=== PATIENT | female | born 1955 | race Caucasian/White ===

== ENCOUNTER → 2017-06-13 11:39 | Outpatient (CLI) | payer OTHER, SELFPAY ==
[2017-06-13 14:44] LABS: Absolute Lymphocyte Count 1.45 X10^3/ul (0.83-4.51); Absolute Neutrophil Count 5.1 X10^3/uL (2.0-7.7); Basophil# 0.02 X10^3/uL; Basophil% 0.3 % (0-1); Eosinophil# 0.05 X10^3/uL; Eosinophils% 0.7 % (0-5); Hematocrit 43.6 % (37-47); Hemoglobin 14.6 g/dl (12.0-15.0); Lymphocyte # 1.45 X10^3/ul (4.0); Mean Corp Hgb Conc 33.5 g/gl (32-36); Mean Corpuscular Hgb 31.7 pg (27.0-32.0); Mean Corpuscular Volume 94.6 fL (81-99); Mean Platelet Vol. 12.3 fl (6.2-12.0); Monocyte# 0.65 X10^3/uL; Neutrophil # 5.08 X10^3/uL (2.7-7.7); Neutrophil % 69.9 % (47-70); Platelet Count 219 K/mm3 (150-450); RBC Distribution Width CV 13.3 % (11.6-14.6); RBC Distribution Width SD 44.1 fl (35.1-43.9); Red Blood Count 4.61 M/mm3 (4.2-5.4); White Blood Count 7.3 K/mm3 (4.4-11.0)
[2017-06-13 14:48] LABS: POSITIVE COUNT NO; POSITIVE DIFFERENTIAL NO; POSITIVE MORPHOLOGY NO
[2017-06-13 14:49] LABS: ALB/GLOB Ratio 1.2 RATIO (0.9-2.4); AST(SGOT) 19 U/L (15-37); Alanine Aminotransfer ALT/SGPT 38 U/L (12-78); Alkaline Phosphatase 53 U/L (45-117); Anion Gap 9 (5-15); BUN 13 mg/dL (7-18); BUN/Creat Ratio 16.1 RATIO (10-20); Calcium,Total 9.1 mg/dL (8.5-10.1); Chloride 103 mmol/L (98-107); EST Glomerular Filtration Rate 76 mL/min (>60); Est Glom Filt Rate - Afr Amer 92 mL/min (>60); Globulin 3.4 g/dL (2.2-4.2); Glucose 87 mg/dL (70-110); Potassium 3.7 mmol/L (3.5-5.1); Protein, Total 7.4 g/dL (6.4-8.2); Sodium Level 139 mmol/L (136-145)
== END ==
PROVIDERS: Family Provider Family Medicine; PCP Family Medicine; Visit Provider Internal Medicine Rheumatology
DX: M05.79 Rheumatoid arthritis with rheumatoid factor of multiple sites without organ or systems involvement (principal); K21.9 Gastro-esophageal reflux disease without esophagitis; I10 Essential (primary) hypertension; E03.9 Hypothyroidism, unspecified; I48.0 Paroxysmal atrial fibrillation; E78.5 Hyperlipidemia, unspecified; Z79.899 Other long term (current) drug therapy
CPT/HCPCS: 36415; 80053; 85025

== ENCOUNTER → 2017-09-05 12:53 | Outpatient (CLI) | payer OTHER, SELFPAY ==
[2017-09-05 14:11] LABS: Absolute Lymphocyte Count 1.56 X10^3/ul (0.83-4.51); Absolute Neutrophil Count 6.1 X10^3/uL (2.0-7.7); Basophil# 0.02 X10^3/uL; Basophil% 0.2 % (0-1); Eosinophil# 0.04 X10^3/uL; Eosinophils% 0.5 % (0-5); Hematocrit 42.6 % (37-47); Hemoglobin 14.4 g/dl (12.0-15.0); Lymphocyte # 1.56 X10^3/ul (4.0); Lymphocyte % 18.5 % (19-41); Mean Corp Hgb Conc 33.8 g/gl (32-36); Mean Corpuscular Hgb 32.3 pg (27.0-32.0); Mean Corpuscular Volume 95.5 fL (81-99); Mean Platelet Vol. 11.8 fl (6.2-12.0); Monocyte# 0.69 X10^3/uL; Monocyte% 8.2 % (0-10); Neutrophil # 6.09 X10^3/uL (2.7-7.7); Neutrophil % 72.5 % (47-70); POSITIVE COUNT NO; POSITIVE DIFFERENTIAL NO; POSITIVE MORPHOLOGY NO; Platelet Count 225 K/mm3 (150-450); RBC Distribution Width CV 13.5 % (11.6-14.6); RBC Distribution Width SD 45.6 fl (35.1-43.9); Red Blood Count 4.46 M/mm3 (4.2-5.4); White Blood Count 8.4 K/mm3 (4.4-11.0)
[2017-09-05 14:24] LABS: ALB/GLOB Ratio 1.2 RATIO (0.9-2.4); AST(SGOT) 19 U/L (15-37); Alanine Aminotransfer ALT/SGPT 27 U/L (13-56); Alkaline Phosphatase 58 U/L (45-117); Anion Gap 5 (5-15); BUN 13 mg/dL (7-18); BUN/Creat Ratio 15.4 RATIO (10-20); Calcium,Total 9.3 mg/dL (8.5-10.1); Chloride 106 mmol/L (98-107); Creatinine, Serum 0.84 mg/dL (0.55-1.02); EST Glomerular Filtration Rate 72 mL/min (>60); Est Glom Filt Rate - Afr Amer 88 mL/min (>60); Globulin 3.4 g/dL (2.2-4.2); Glucose 89 mg/dL (74-106); Potassium 4.3 mmol/L (3.5-5.1); Protein, Total 7.4 g/dL (6.4-8.2); Sodium Level 141 mmol/L (136-145)
== END ==
PROVIDERS: Family Provider Family Medicine; PCP Family Medicine; Visit Provider Internal Medicine Rheumatology
DX: M05.79 Rheumatoid arthritis with rheumatoid factor of multiple sites without organ or systems involvement (principal); K21.9 Gastro-esophageal reflux disease without esophagitis; I10 Essential (primary) hypertension; E03.9 Hypothyroidism, unspecified; I48.0 Paroxysmal atrial fibrillation; E78.5 Hyperlipidemia, unspecified; Z79.899 Other long term (current) drug therapy
CPT/HCPCS: 36415; 80053; 85025

== ENCOUNTER → 2017-11-29 11:30 | Outpatient (CLI) | payer OTHER, SELFPAY ==
--- NOTE | 2017-11-29 11:34 | RAD_ITS ---
STUDY: X-RAY - PELVIS REASON FOR EXAM: Female, 62 years old. Rheumatoid arthritis. TECHNIQUE: One view of the pelvis was obtained. COMPARISON: None. FINDINGS: There is a non-specific bowel gas pattern. Normal visualized soft tissue structures. Normal bilateral iliac wings, sacroiliac joints and visualized sacrum. Normal visualized bilateral superior and inferior pubic rami. Normal pubic symphysis. Normal ischial tuberosities. Normal visualized right femoral head. Normal right acetabulum. Normal right hip joint. Normal visualized left femoral head. Normal left acetabulum. Normal left hip joint. RAD/Pelvis 1 or 2 Views IMPRESSION: Normal x-ray examination of the pelvis. Electronically Signed: Cali Warner MD at 20:56 EDT , Service support ,
[2017-11-29 14:03] LABS: Absolute Lymphocyte Count 1.86 X10^3/ul (0.83-4.51); Basophil# 0.03 X10^3/uL; Basophil% 0.3 % (0-1); Eosinophils% 1.1 % (0-5); Hematocrit 43.8 % (37-47); Hemoglobin 14.6 g/dl (12.0-15.0); Lymphocyte # 1.86 X10^3/ul (4.0); Mean Corp Hgb Conc 33.3 g/gl (32-36); Mean Corpuscular Hgb 31.3 pg (27.0-32.0); Mean Corpuscular Volume 93.8 fL (81-99); Mean Platelet Vol. 12.4 fl (6.2-12.0); Monocyte# 0.82 X10^3/uL; Monocyte% 9.3 % (0-10); Neutrophil # 6.02 X10^3/uL (2.7-7.7); Neutrophil % 68.2 % (47-70); POSITIVE COUNT NO; POSITIVE DIFFERENTIAL NO; POSITIVE MORPHOLOGY NO; Platelet Count 202 K/mm3 (150-450); RBC Distribution Width CV 12.9 % (11.6-14.6); Red Blood Count 4.67 M/mm3 (4.2-5.4); White Blood Count 8.8 K/mm3 (4.4-11.0)
[2017-11-29 14:19] LABS: ALB/GLOB Ratio 1.4 RATIO (0.9-2.4); AST(SGOT) 14 U/L (15-37); Alanine Aminotransfer ALT/SGPT 27 U/L (13-56); Albumin, Serum 4.2 g/dL (3.2-5.0); Alkaline Phosphatase 54 U/L (45-117); Anion Gap 8 (5-15); BUN 16 mg/dL (7-18); BUN/Creat Ratio 19.4 RATIO (10-20); Calcium,Total 9.3 mg/dL (8.5-10.1); Chloride 104 mmol/L (98-107); Creatinine, Serum 0.82 mg/dL (0.55-1.02); EST Glomerular Filtration Rate 74 mL/min (>60); Est Glom Filt Rate - Afr Amer 90 mL/min (>60); Globulin 2.9 g/dL (2.2-4.2); Glucose 75 mg/dL (74-106); Potassium 3.8 mmol/L (3.5-5.1); Protein, Total 7.1 g/dL (6.4-8.2); Sodium Level 140 mmol/L (136-145)
== END ==
PROVIDERS: Family Provider Internal Medicine; PCP Internal Medicine; Visit Provider Internal Medicine Rheumatology
DX: M05.79 Rheumatoid arthritis with rheumatoid factor of multiple sites without organ or systems involvement (principal); K21.9 Gastro-esophageal reflux disease without esophagitis; I10 Essential (primary) hypertension; E03.9 Hypothyroidism, unspecified; I48.0 Paroxysmal atrial fibrillation; E78.5 Hyperlipidemia, unspecified; Z79.899 Other long term (current) drug therapy
CPT/HCPCS: 36415; 72170; 80053; 85025

== ENCOUNTER → 2018-01-20 14:14 | Outpatient (CLI) | payer OTHER, SELFPAY ==
[2018-01-20 14:21] LABS: Bacteria 0 SEEN /hpf (None Seen); Mucous, Urine 0 SEEN /hpf (<or=2+)
[2018-01-20 14:37] LABS: Color, Urine Yellow (Yellow); Glucose, Dipstick Normal (Normal); Ketone-Dipstick Negative (Negative); Leukocyte Esterase-Dipstick 100 /ul (Negative); Nitrite-Dipstick Negative (Negative); Occult Blood-Urine 25 /ul (Negative); Protein-Dipstick Negative (Negative); Urine Bilirubin Dipstick Negative (Negative); Urine Clarity Sl. Cloudy (Clear); Urine Urobilinogen Normal (Normal)
[2018-01-20 14:43] LABS: Red Blood Cells-Urine 0-5 SEEN /hpf (0-5); Squamous Epithelial Cells - UA 0-5 SEEN /hpf (5-10); White Blood Cells 10-25 SEEN /hpf (0-5)
== END ==
PROVIDERS: Visit Provider Internal Medicine
DX: N39.0 Urinary tract infection, site not specified (principal)
CPT/HCPCS: 81001; 87086

== ENCOUNTER → 2018-07-07 13:22 | Outpatient (CLI) | payer OTHER, SELFPAY ==
[2018-06-23 09:37] VITALS: BMI 32.4
[2018-07-07 15:54] LABS: Absolute Lymphocyte Count 1.52 X10^3/ul (0.83-4.51); Absolute Neutrophil Count 5.6 X10^3/uL (2.0-7.7); Basophil# 0.02 X10^3/uL; Basophil% 0.3 % (0-1); Eosinophil# 0.03 X10^3/uL; Eosinophils% 0.4 % (0-5); Hematocrit 43.3 % (37-47); Lymphocyte # 1.52 X10^3/ul (4.0); Lymphocyte % 19.2 % (19-41); Mean Corp Hgb Conc 34.6 g/gl (32-36); Mean Corpuscular Hgb 31.8 pg (27.0-32.0); Mean Corpuscular Volume 91.7 fL (81-99); Mean Platelet Vol. 12.4 fl (6.2-12.0); Monocyte# 0.72 X10^3/uL; Monocyte% 9.1 % (0-10); Neutrophil # 5.61 X10^3/uL (2.7-7.7); Neutrophil % 70.9 % (47-70); Platelet Count 227 K/mm3 (150-450); RBC Distribution Width CV 12.9 % (11.6-14.6); RBC Distribution Width SD 42.4 fl (35.1-43.9); Red Blood Count 4.72 M/mm3 (4.2-5.4); White Blood Count 7.9 K/mm3 (4.4-11.0)
[2018-07-07 15:56] LABS: ALB/GLOB Ratio 1.1 RATIO (0.9-2.4); AST(SGOT) 19 U/L (15-37); Alanine Aminotransfer ALT/SGPT 33 U/L (13-56); Albumin, Serum 4.1 g/dL (3.2-5.0); Alkaline Phosphatase 66 U/L (45-117); Anion Gap 11 (5-15); BUN 16 mg/dL (7-18); BUN/Creat Ratio 17.3 RATIO (10-20); Calcium,Total 9.5 mg/dL (8.5-10.1); Chloride 98 mmol/L (98-107); Creatinine, Serum 0.92 mg/dL (0.55-1.02); EST Glomerular Filtration Rate 65 mL/min (>60); Est Glom Filt Rate - Afr Amer 79 mL/min (>60); Globulin 3.6 g/dL (2.2-4.2); Glucose 95 mg/dL (74-106); Potassium 3.5 mmol/L (3.5-5.1); Protein, Total 7.7 g/dL (6.4-8.2); Sodium Level 139 mmol/L (136-145)
[2018-07-07 16:12] LABS: POSITIVE COUNT NO; POSITIVE DIFFERENTIAL NO; POSITIVE MORPHOLOGY NO
== END ==
PROVIDERS: Family Provider Internal Medicine; PCP Internal Medicine; Referring Provider Internal Medicine Rheumatology; Visit Provider Internal Medicine Rheumatology
DX: M05.79 Rheumatoid arthritis with rheumatoid factor of multiple sites without organ or systems involvement (principal); K21.9 Gastro-esophageal reflux disease without esophagitis; I10 Essential (primary) hypertension; E03.9 Hypothyroidism, unspecified; I48.0 Paroxysmal atrial fibrillation; E78.5 Hyperlipidemia, unspecified; Z79.899 Other long term (current) drug therapy
CPT/HCPCS: 36415; 80053; 85025

== ENCOUNTER → 2018-09-17 08:27 | Outpatient (CLI) | payer OTHER, SELFPAY ==
[2018-07-15 14:59] VITALS: BMI 31.8
[2018-09-17 10:59] LABS: ALB/GLOB Ratio 1.3 RATIO (0.9-2.4); AST(SGOT) 19 U/L (15-37); Alanine Aminotransfer ALT/SGPT 28 U/L (13-56); Albumin, Serum 3.9 g/dL (3.2-5.0); Alkaline Phosphatase 53 U/L (45-117); Anion Gap 7 (5-15); BUN 12 mg/dL (7-18); BUN/Creat Ratio 12.8 RATIO (10-20); Chloride 102 mmol/L (98-107); Cholesterol 182 mg/dL (200); Creatinine, Serum 0.94 mg/dL (0.55-1.02); EST Glomerular Filtration Rate 64 mL/min (>60); Est Glom Filt Rate - Afr Amer 78 mL/min (>60); Globulin 3.1 g/dL (2.2-4.2); Glucose 76 mg/dL (74-106); High Density Lipoprotein 81 mg/dL; Potassium 3.2 mmol/L (3.5-5.1); Sodium Level 142 mmol/L (136-145); Triglycerides 125 mg/dL; Very Low Density Lipoprotein 25 mg/dL (5-40)
== END ==
PROVIDERS: Family Provider Internal Medicine; PCP Internal Medicine; Referring Provider Internal Medicine; Visit Provider Internal Medicine
DX: E78.5 Hyperlipidemia, unspecified (principal)
CPT/HCPCS: 36415; 80053; 80061

== ENCOUNTER → 2018-09-29 10:32 | Outpatient (CLI) | payer OTHER, SELFPAY ==
[2018-06-23 09:37] VITALS: BMI 32.4
[2018-09-22 09:32] VITALS: BMI 31.8
--- NOTE | 2018-09-29 10:33 | BI_ITS ---
MAMMOGRAPHY - BILATERAL SCREENING 3-D TOMOSYNTHESIS REASON FOR EXAM: Female, 63 years old. Bilateral Screening 3-D tomosynthesis PERTINENT HISTORY: No significant family history. TECHNIQUE: 2-D mammograms and 3-D Tomosynthesis of the breast (s) were performed. CAD was performed. COMPARISON: January 16, 2016. FINDINGS: The breast composition is composed of scattered fibroglandular density. Scattered benign calcifications are seen. No dense spiculated masses or suspicious microcalcifications are identified. No architectural distortion is identified. There is no skin thickening or retraction. There has been no significant change since the prior study. BI/SCREEN MAMM (CAD) W/SARITA BILAT IMPRESSION: No mammographic evidence of malignancy. Routine yearly mammograms recommended. ASSESSMENT CATEGORY: BIRADS Category 2: Benign. A letter regarding these results will be sent to the patient by the facility within 30 days. FOLLOW UP RECOMMENDATION: Yearly follow up mammogram recommended. (A) Approximately 10% of breast cancers are not detected by mammography. A normal mammogram should not delay biopsy of a clinically suspicious abnormality. Electronically Signed: Duarte Durán MD at 14:46 EDT , Service support ,
== END ==
PROVIDERS: Family Provider Internal Medicine; PCP Internal Medicine; Referring Provider Obstetrics & Gynecology; Visit Provider Obstetrics & Gynecology
DX: Z12.31 Encounter for screening mammogram for malignant neoplasm of breast (principal)
CPT/HCPCS: 77063; 77067

== ENCOUNTER → 2018-12-16 09:17 | Outpatient (CLI) | payer OTHER, SELFPAY ==
[2018-10-13 14:45] VITALS: BMI 31.8
[2018-12-16 10:18] LABS: Absolute Lymphocyte Count 1.23 X10^3/ul (0.83-4.51); Absolute Neutrophil Count 5.9 X10^3/uL (2.0-7.7); Basophil# 0.01 X10^3/uL; Basophil% 0.1 % (0-1); Eosinophil# 0.06 X10^3/uL; Eosinophils% 0.7 % (0-5); Hematocrit 40.8 % (37-47); Hemoglobin 13.6 g/dl (12.0-15.0); Lymphocyte # 1.23 X10^3/ul (4.0); Lymphocyte % 15.1 % (19-41); Mean Corp Hgb Conc 33.3 g/gl (32-36); Mean Corpuscular Hgb 30.4 pg (27.0-32.0); Mean Corpuscular Volume 91.1 fL (81-99); Mean Platelet Vol. 12.2 fl (6.2-12.0); Monocyte# 0.99 X10^3/uL; Monocyte% 12.1 % (0-10); Neutrophil # 5.85 X10^3/uL (2.7-7.7); Neutrophil % 71.9 % (47-70); Platelet Count 203 K/mm3 (150-450); RBC Distribution Width CV 13.2 % (11.6-14.6); RBC Distribution Width SD 43.3 fl (35.1-43.9); Red Blood Count 4.48 M/mm3 (4.2-5.4); White Blood Count 8.2 K/mm3 (4.4-11.0)
[2018-12-16 10:25] LABS: POSITIVE COUNT NO; POSITIVE DIFFERENTIAL NO; POSITIVE MORPHOLOGY NO
[2018-12-16 10:37] LABS: Anion Gap 8 (5-15); BUN 17 mg/dL (7-18); BUN/Creat Ratio 20.2 RATIO (10-20); Calcium,Total 9.3 mg/dL (8.5-10.1); Chloride 100 mmol/L (98-107); Creatinine, Serum 0.84 mg/dL (0.55-1.02); EST Glomerular Filtration Rate 72 mL/min (>60); Est Glom Filt Rate - Afr Amer 87 mL/min (>60); Glucose 86 mg/dL (74-106); Potassium 3.1 mmol/L (3.5-5.1); Sodium Level 140 mmol/L (136-145)
[2018-12-16 10:41] LABS: Erythrocyte Sedimentation Rate 15 mm/hr (0-30)
== END ==
PROVIDERS: Family Provider Internal Medicine; PCP Internal Medicine; Referring Provider Physician Assistant; Visit Provider Physician Assistant
DX: E87.6 Hypokalemia (principal); Z96.651 Presence of right artificial knee joint
CPT/HCPCS: 36415; 80048; 85025; 85652; 86140

== ENCOUNTER → 2018-12-31 12:04 | Outpatient (CLI) | payer OTHER, SELFPAY ==
[2018-12-22 09:42] VITALS: BMI 31.8
[2018-12-31 14:40] LABS: ALB/GLOB Ratio 1.4 RATIO (0.9-2.4); AST(SGOT) 14 U/L (15-37); Alanine Aminotransfer ALT/SGPT 27 U/L (13-56); Albumin, Serum 4.1 g/dL (3.2-5.0); Alkaline Phosphatase 56 U/L (45-117); Anion Gap 10 (5-15); BUN 17 mg/dL (7-18); BUN/Creat Ratio 20.1 RATIO (10-20); Calcium,Total 9.2 mg/dL (8.5-10.1); Chloride 97 mmol/L (98-107); Creatinine, Serum 0.84 mg/dL (0.55-1.02); EST Glomerular Filtration Rate 72 mL/min (>60); Est Glom Filt Rate - Afr Amer 87 mL/min (>60); Glucose 72 mg/dL (74-106); Potassium 3.4 mmol/L (3.5-5.1); Protein, Total 7.1 g/dL (6.4-8.2); Sodium Level 137 mmol/L (136-145); Thyroid Stim Hormone (TSH) 0.56 uIU/mL (0.358-3.74)
== END ==
PROVIDERS: Family Provider Internal Medicine; PCP Internal Medicine; Referring Provider Internal Medicine Rheumatology; Visit Provider Internal Medicine Rheumatology
DX: M05.79 Rheumatoid arthritis with rheumatoid factor of multiple sites without organ or systems involvement (principal); K21.9 Gastro-esophageal reflux disease without esophagitis; I10 Essential (primary) hypertension; E03.9 Hypothyroidism, unspecified; I48.0 Paroxysmal atrial fibrillation; E78.5 Hyperlipidemia, unspecified; Z79.899 Other long term (current) drug therapy
CPT/HCPCS: 36415; 80053; 84443

== ENCOUNTER → 2019-04-24 15:03 | Outpatient (CLI) | payer MEDICARE, OTHER, SELFPAY ==
[2019-04-20 10:55] VITALS: BMI 31.8
[2019-04-24 18:18] LABS: Absolute Lymphocyte Count 1.44 X10^3/uL (0.83-4.51); Absolute Neutrophil Count 7.3 X10^3/uL (2.0-7.7); Basophil# 0.04 X10^3/uL; Basophil% 0.4 % (0-1); Eosinophil# 0.05 X10^3/uL; Eosinophils% 0.5 % (0-5); Hematocrit 43.8 % (37-47); Hemoglobin 14.1 g/dL (12.0-15.0); Lymphocyte # 1.44 X10^3/ul (4.0); Lymphocyte % 15.1 % (19-41); Mean Corp Hgb Conc 32.2 g/dL (32-36); Mean Corpuscular Hgb 31.3 pg (27.0-32.0); Mean Corpuscular Volume 97.3 fL (81-99); Mean Platelet Vol. 11.9 fl (6.2-12.0); Monocyte# 0.69 X10^3/uL; Monocyte% 7.2 % (0-10); NRBC Flagged by Analyzer 0 % (0-5); Neutrophil # 7.28 X10^3/uL (2.7-7.7); Neutrophil % 76.5 % (47-70); Platelet Count 229 K/mm3 (150-450); RBC Distribution Width CV 13.1 % (11.6-14.6); White Blood Count 9.5 K/mm3 (4.4-11.0)
[2019-04-24 18:26] LABS: ALB/GLOB Ratio 1.2 RATIO (0.9-2.4); AST(SGOT) 19 U/L (15-37); Alanine Aminotransfer ALT/SGPT 30 U/L (13-56); Albumin, Serum 3.8 g/dL (3.2-5.0); Alkaline Phosphatase 57 U/L (45-117); Anion Gap 9 (5-15); BUN 15 mg/dL (7-18); BUN/Creat Ratio 15.1 RATIO (10-20); Calcium,Total 9.3 mg/dL (8.5-10.1); Chloride 101 mmol/L (98-107); Creatinine, Serum 0.99 mg/dL (0.55-1.02); EST Glomerular Filtration Rate 60 mL/min (>60); Est Glom Filt Rate - Afr Amer 72 mL/min (>60); Globulin 3.3 g/dL (2.2-4.2); Glucose 94 mg/dL (74-106); Potassium 3.5 mmol/L (3.5-5.1); Protein, Total 7.1 g/dL (6.4-8.2); Sodium Level 140 mmol/L (136-145)
== END ==
PROVIDERS: Family Provider Internal Medicine; PCP Internal Medicine; Referring Provider Internal Medicine Rheumatology; Visit Provider Internal Medicine Rheumatology
DX: M05.79 Rheumatoid arthritis with rheumatoid factor of multiple sites without organ or systems involvement (principal); K21.9 Gastro-esophageal reflux disease without esophagitis; I10 Essential (primary) hypertension; E03.9 Hypothyroidism, unspecified; I48.0 Paroxysmal atrial fibrillation; E78.5 Hyperlipidemia, unspecified; Z79.899 Other long term (current) drug therapy
CPT/HCPCS: 36415; 80053; 85025

== ENCOUNTER → 2019-11-19 10:55 | Outpatient (CLI) | payer MEDICARE, OTHER, SELFPAY ==
[2019-10-19 12:07] VITALS: BMI 32.9
[2019-11-19 12:33] LABS: Absolute Lymphocyte Count 1.37 X10^3/uL (0.83-4.51); Absolute Neutrophil Count 9.2 X10^3/uL (2.0-7.7); Basophil# 0.05 X10^3/uL; Basophil% 0.4 % (0-1); Eosinophil# 0.07 X10^3/uL; Eosinophils% 0.6 % (0-5); Hematocrit 42.2 % (37-47); Hemoglobin 13.9 g/dL (12.0-15.0); Lymphocyte # 1.37 X10^3/ul (4.0); Lymphocyte % 11.5 % (19-41); Mean Corp Hgb Conc 32.9 g/dL (32-36); Mean Corpuscular Volume 94.2 fL (81-99); Mean Platelet Vol. 11.8 fl (6.2-12.0); Monocyte# 1.17 X10^3/uL; Monocyte% 9.8 % (0-10); NRBC Flagged by Analyzer 0 % (0-5); Neutrophil # 9.21 X10^3/uL (2.7-7.7); Neutrophil % 77.4 % (47-70); Platelet Count 242 K/mm3 (150-450); RBC Distribution Width SD 44.6 fl (35.1-43.9); Red Blood Count 4.48 M/mm3 (4.2-5.4); White Blood Count 11.9 K/mm3 (4.4-11.0)
[2019-11-19 13:00] LABS: ALB/GLOB Ratio 1.1 RATIO (0.9-2.4); AST(SGOT) 13 U/L (15-37); Alanine Aminotransfer ALT/SGPT 23 U/L (13-56); Albumin, Serum 3.8 g/dL (3.2-5.0); Alkaline Phosphatase 51 U/L (45-117); Anion Gap 7 (5-15); BUN 13 mg/dL (7-18); BUN/Creat Ratio 14.3 RATIO (10-20); Calcium,Total 9.5 mg/dL (8.5-10.1); Chloride 99 mmol/L (98-107); Creatinine, Serum 0.91 mg/dL (0.55-1.02); EST Glomerular Filtration Rate 66 mL/min (>60); Est Glom Filt Rate - Afr Amer 80 mL/min (>60); Globulin 3.4 g/dL (2.2-4.2); Glucose 98 mg/dL (74-106); Potassium 3.3 mmol/L (3.5-5.1); Protein, Total 7.2 g/dL (6.4-8.2); Sodium Level 137 mmol/L (136-145)
== END ==
PROVIDERS: PCP Internal Medicine; Referring Provider Internal Medicine Rheumatology; Visit Provider Internal Medicine Rheumatology
DX: M05.79 Rheumatoid arthritis with rheumatoid factor of multiple sites without organ or systems involvement (principal); K21.9 Gastro-esophageal reflux disease without esophagitis; I10 Essential (primary) hypertension; E03.9 Hypothyroidism, unspecified; I48.0 Paroxysmal atrial fibrillation; E78.5 Hyperlipidemia, unspecified; Z79.899 Other long term (current) drug therapy
CPT/HCPCS: 36415; 80053; 85025

== ENCOUNTER → 2020-01-18 12:08 | Outpatient (CLI) | payer MEDICARE, OTHER, SELFPAY ==
[2019-12-30 10:39] VITALS: BMI 32.0
--- NOTE | 2020-01-18 12:10 | BI_ITS ---
MAMMOGRAPHY - BILATERAL SCREENING REASON FOR EXAM: Female, 64 years old. Routine annual screening examination. PERTINENT HISTORY: Non-contributory. TECHNIQUE: Digital bilateral breast sarita (3D mammographic acquisition) in the CC and MLO projections. 2-D mediolateral oblique (MLO) and craniocaudad (CC) views of both breasts were obtained. CAD: Full Field Digital Mammography with Computer Added Detection was performed. COMPARISON: Comparison is made with prior examination dated 09/29/2018. FINDINGS: Breast Composition: There are scattered areas of fibroglandular density. There are no dominant masses or suspicious calcifications. Stable small benign-appearing bilateral axilla. No other significant abnormalities are identified. There has been no significant change since the prior study. BI/SCREEN MAMM (CAD) W/SARITA BILAT IMPRESSION: Stable bilateral screening mammogram. Yearly follow-up mammogram recommended. (A) ASSESSMENT CATEGORY: BIRADS Category 2: Benign. A letter regarding these results will be sent to the patient by the facility within 30 days. Approximately 10% of breast cancers are not detected by mammography. A normal mammogram should not delay biopsy of a clinically suspicious abnormality. [id number] Pending Final Proof Editing
== END ==
PROVIDERS: PCP Internal Medicine; Referring Provider Obstetrics & Gynecology; Visit Provider Obstetrics & Gynecology
DX: Z12.31 Encounter for screening mammogram for malignant neoplasm of breast (principal)
CPT/HCPCS: 77063; 77067

== ENCOUNTER → 2020-01-28 10:43 | Outpatient (CLI) | payer MEDICARE, OTHER, SELFPAY ==
[2019-07-14 10:30] VITALS: BMI 32.9
[2020-01-18 12:58] VITALS: BMI 32.0
[2020-01-28 12:42] LABS: Absolute Lymphocyte Count 1.75 X10^3/uL (0.83-4.51); Absolute Neutrophil Count 5.3 X10^3/uL (2.0-7.7); Basophil# 0.05 X10^3/uL; Basophil% 0.6 % (0-1); Eosinophil# 0.14 X10^3/uL; Eosinophils% 1.7 % (0-5); Hemoglobin 14.2 g/dL (12.0-15.0); Lymphocyte # 1.75 X10^3/ul (4.0); Lymphocyte % 21.5 % (19-41); Mean Corpuscular Hgb 31.6 pg (27.0-32.0); Mean Corpuscular Volume 95.8 fL (81-99); Mean Platelet Vol. 12.4 fl (6.2-12.0); Monocyte# 0.85 X10^3/uL; Monocyte% 10.4 % (0-10); NRBC Flagged by Analyzer 0 % (0-5); Neutrophil # 5.34 X10^3/uL (2.7-7.7); Neutrophil % 65.6 % (47-70); Platelet Count 230 K/mm3 (150-450); RBC Distribution Width CV 13.2 % (11.6-14.6); RBC Distribution Width SD 46.5 fl (35.1-43.9); Red Blood Count 4.49 M/mm3 (4.2-5.4); White Blood Count 8.2 K/mm3 (4.4-11.0)
[2020-01-28 12:57] LABS: BUN 13 mg/dL (7-18); EST Glomerular Filtration Rate 66 mL/min (>60); Glucose 82 mg/dL (74-106)
[2020-01-28 12:58] LABS: ALB/GLOB Ratio 1.2 RATIO (0.9-2.4); AST(SGOT) 13 U/L (15-37); Alanine Aminotransfer ALT/SGPT 28 U/L (13-56); Albumin, Serum 3.8 g/dL (3.2-5.0); Alkaline Phosphatase 53 U/L (45-117); Anion Gap 4 (5-15); BUN/Creat Ratio 14.4 RATIO (10-20); Calcium,Total 9.2 mg/dL (8.5-10.1); Chloride 101 mmol/L (98-107); Est Glom Filt Rate - Afr Amer 80 mL/min (>60); Globulin 3.2 g/dL (2.2-4.2); Potassium 3.3 mmol/L (3.5-5.1); Sodium Level 137 mmol/L (136-145)
[2020-01-28 13:04] LABS: Cholesterol 180 mg/dL (200); High Density Lipoprotein 76 mg/dL; Thyroid Stim Hormone (TSH) 0.82 uIU/mL (0.358-3.74); Triglycerides 131 mg/dL; Very Low Density Lipoprotein 26 mg/dL (5-40)
== END ==
PROVIDERS: PCP Internal Medicine; Referring Provider Internal Medicine Rheumatology; Visit Provider Internal Medicine Rheumatology
DX: M05.79 Rheumatoid arthritis with rheumatoid factor of multiple sites without organ or systems involvement (principal); I48.0 Paroxysmal atrial fibrillation; I10 Essential (primary) hypertension; E78.5 Hyperlipidemia, unspecified; E03.9 Hypothyroidism, unspecified; K21.9 Gastro-esophageal reflux disease without esophagitis; Z79.899 Other long term (current) drug therapy
CPT/HCPCS: 36415; 80053; 80061; 84443; 85025

== ENCOUNTER → 2020-04-15 | Outpatient (CLI) | payer MEDICARE, OTHER, SELFPAY | END | disposition home or self-care (01) | LOC: LABSPEC 10:11 | PROVIDERS: PCP Internal Medicine; Referring Provider Nurse Practitioner Family; Visit Provider Nurse Practitioner Family | DX: J02.9 Acute pharyngitis, unspecified (principal); Z20.828 Contact with and (suspected) exposure to other viral communicable diseases | CPT/HCPCS: 87635; C9803; U0003 ==

== ENCOUNTER → 2020-08-02 12:05 | Outpatient (CLI) | payer MEDICARE, OTHER, SELFPAY ==
[2020-07-14 10:59] VITALS: BMI 32.2
[2020-08-02 15:19] LABS: Absolute Lymphocyte Count 1.57 X10^3/uL (0.83-4.51); Absolute Neutrophil Count 4.4 X10^3/uL (2.0-7.7); Basophil# 0.04 X10^3/uL; Basophil% 0.6 % (0-1); Eosinophil# 0.11 X10^3/uL; Eosinophils% 1.5 % (0-5); Hematocrit 43.8 % (37-47); Hemoglobin 13.9 g/dL (12.0-15.0); Lymphocyte # 1.57 X10^3/ul (4.0); Lymphocyte % 22.1 % (19-41); Mean Corp Hgb Conc 31.7 g/dL (32-36); Mean Corpuscular Hgb 29.8 pg (27.0-32.0); Mean Corpuscular Volume 93.8 fL (81-99); Mean Platelet Vol. 12.6 fl (6.2-12.0); Monocyte# 0.96 X10^3/uL; Monocyte% 13.5 % (0-10); NRBC Flagged by Analyzer 0 % (0-5); Neutrophil # 4.41 X10^3/uL (2.7-7.7); Neutrophil % 62.2 % (47-70); Platelet Count 204 K/mm3 (150-450); RBC Distribution Width CV 13.5 % (11.6-14.6); RBC Distribution Width SD 46.5 fl (35.1-43.9); Red Blood Count 4.67 M/mm3 (4.2-5.4); White Blood Count 7.1 K/mm3 (4.4-11.0)
[2020-08-02 16:01] LABS: ALB/GLOB Ratio 1.3 RATIO (0.9-2.4); AST(SGOT) 17 U/L (15-37); Alanine Aminotransfer ALT/SGPT 26 U/L (13-56); Alkaline Phosphatase 58 U/L (45-117); Anion Gap 7 (5-15); BUN 12 mg/dL (7-18); BUN/Creat Ratio 12.8 RATIO (10-20); Calcium,Total 9.7 mg/dL (8.5-10.1); Chloride 102 mmol/L (98-107); Creatinine, Serum 0.94 mg/dL (0.55-1.02); EST Glomerular Filtration Rate 63 mL/min (>60); Est Glom Filt Rate - Afr Amer 77 mL/min (>60); Globulin 3.1 g/dL (2.2-4.2); Glucose 88 mg/dL (74-106); Potassium 3.6 mmol/L (3.5-5.1); Protein, Total 7.1 g/dL (6.4-8.2); Sodium Level 140 mmol/L (136-145)
== END ==
PROVIDERS: PCP Internal Medicine; Referring Provider Internal Medicine Rheumatology; Visit Provider Internal Medicine Rheumatology
DX: M05.79 Rheumatoid arthritis with rheumatoid factor of multiple sites without organ or systems involvement (principal); K21.9 Gastro-esophageal reflux disease without esophagitis; I10 Essential (primary) hypertension; E03.9 Hypothyroidism, unspecified; I48.0 Paroxysmal atrial fibrillation; E78.5 Hyperlipidemia, unspecified; Z79.899 Other long term (current) drug therapy
CPT/HCPCS: 36415; 80053; 85025

== ENCOUNTER → 2020-10-26 12:26 | Outpatient (CLI) | payer MEDICARE, OTHER, SELFPAY ==
[2020-07-14 10:59] VITALS: BMI 32.2
[2020-10-26 15:02] LABS: Absolute Lymphocyte Count 1.87 X10^3/uL (0.83-4.51); Absolute Neutrophil Count 5.4 X10^3/uL (2.0-7.7); Basophil# 0.04 X10^3/uL; Basophil% 0.5 % (0-1); Eosinophil# 0.17 X10^3/uL; Hematocrit 43.8 % (37-47); Lymphocyte # 1.87 X10^3/ul (0.83-4.51); Lymphocyte % 22.3 % (19-41); Mean Corpuscular Hgb 30.3 pg (27.0-32.0); Mean Corpuscular Volume 94.8 fL (81-99); Mean Platelet Vol. 12.6 fl (6.2-12.0); Monocyte# 0.87 X10^3/uL; Monocyte% 10.4 % (0-10); NRBC Flagged by Analyzer 0 % (0-5); Neutrophil # 5.41 X10^3/uL (2.7-7.7); Neutrophil % 64.4 % (47-70); Platelet Count 214 K/mm3 (150-450); RBC Distribution Width CV 13.2 % (11.6-14.6); Red Blood Count 4.62 M/mm3 (4.2-5.4); White Blood Count 8.4 K/mm3 (4.4-11.0)
[2020-10-26 15:34] LABS: ALB/GLOB Ratio 1.1 RATIO (0.9-2.4); AST(SGOT) 19 U/L (15-37); Alanine Aminotransfer ALT/SGPT 32 U/L (13-56); Albumin, Serum 3.7 g/dL (3.2-5.0); Alkaline Phosphatase 61 U/L (45-117); Anion Gap 7 (5-15); BUN 13 mg/dL (7-18); BUN/Creat Ratio 15.2 RATIO (10-20); Calcium,Total 9.4 mg/dL (8.5-10.1); Chloride 102 mmol/L (98-107); Creatinine, Serum 0.85 mg/dL (0.55-1.02); EST Glomerular Filtration Rate 71 mL/min (>60); Est Glom Filt Rate - Afr Amer 85 mL/min (>60); Globulin 3.3 g/dL (2.2-4.2); Glucose 92 mg/dL (74-106); Potassium 3.8 mmol/L (3.5-5.1); Sodium Level 140 mmol/L (136-145)
== END ==
PROVIDERS: PCP Internal Medicine; Referring Provider Internal Medicine Rheumatology; Visit Provider Internal Medicine Rheumatology
DX: M05.79 Rheumatoid arthritis with rheumatoid factor of multiple sites without organ or systems involvement (principal); K21.9 Gastro-esophageal reflux disease without esophagitis; I10 Essential (primary) hypertension; E03.9 Hypothyroidism, unspecified; I48.0 Paroxysmal atrial fibrillation; E78.5 Hyperlipidemia, unspecified; Z79.899 Other long term (current) drug therapy
CPT/HCPCS: 36415; 80053; 85025

== ENCOUNTER → 2021-01-18 11:14 | Outpatient (CLI) | payer MEDICARE, OTHER, SELFPAY ==
[2020-10-31 13:11] VITALS: BMI 32.2
[2021-01-05 11:39] VITALS: BMI 32.2
--- NOTE | 2021-01-18 11:18 | BI_ITS ---
MAMMOGRAPHY - BILATERAL SCREENING REASON FOR EXAM: Female, 65 years old. Routine annual screening examination. PERTINENT HISTORY: Non-contributory. TECHNIQUE: Digital bilateral breast sarita (3D mammographic acquisition) in the CC and MLO projections. 2-D mediolateral oblique (MLO) and craniocaudad (CC) views of both breasts were obtained. CAD: Full Field Digital Mammography with Computer Added Detection was performed. COMPARISON: Comparison is made with prior study dated 01/18/2020 and 09/29/2018. FINDINGS: Breast Composition: The breasts are heterogeneously dense, which may obscure small masses. There are no dominant masses or suspicious calcifications. No other significant abnormalities are identified. There has been no significant change since the prior study. BI/SCRN MAMM (CAD)W/SARITA BILAT IMPRESSION: Stable bilateral screening mammogram. Yearly follow-up mammogram recommended. (A) ASSESSMENT CATEGORY: BIRADS Category 2: Benign. A letter regarding these results will be sent to the patient by the facility within 30 days. Approximately 10% of breast cancers are not detected by mammography. A normal mammogram should not delay biopsy of a clinically suspicious abnormality. [id number] Electronically Signed: Abhinav Schneider MD at 12:49 EDT , Service support ,
== END ==
PROVIDERS: PCP Internal Medicine; Referring Provider Internal Medicine; Visit Provider Internal Medicine
DX: Z12.31 Encounter for screening mammogram for malignant neoplasm of breast (principal)
CPT/HCPCS: 77063; 77067

== ENCOUNTER → 2021-02-09 12:28 | Outpatient (CLI) | payer MEDICARE, OTHER, SELFPAY ==
[2021-02-09 15:12] LABS: Absolute Lymphocyte Count 1.67 X10^3/uL (0.83-4.51); Absolute Neutrophil Count 6.2 X10^3/uL (2.0-7.7); Basophil# 0.05 X10^3/uL; Basophil% 0.6 % (0-1); Eosinophil# 0.07 X10^3/uL; Eosinophils% 0.8 % (0-5); Hemoglobin 14.4 g/dL (12.0-15.0); Lymphocyte # 1.67 X10^3/ul (0.83-4.51); Lymphocyte % 19.1 % (19-41); Mean Corp Hgb Conc 32.7 g/dL (32-36); Mean Corpuscular Hgb 30.9 pg (27.0-32.0); Mean Corpuscular Volume 94.4 fL (81-99); Mean Platelet Vol. 12.5 fl (6.2-12.0); Monocyte# 0.77 X10^3/uL; Monocyte% 8.8 % (0-10); NRBC Flagged by Analyzer 0 % (0-5); Neutrophil # 6.16 X10^3/uL (2.7-7.7); Neutrophil % 70.5 % (47-70); Platelet Count 234 K/mm3 (150-450); RBC Distribution Width CV 13.1 % (11.6-14.6); RBC Distribution Width SD 45.1 fl (35.1-43.9); Red Blood Count 4.66 M/mm3 (4.2-5.4); White Blood Count 8.7 K/mm3 (4.4-11.0)
[2021-02-09 15:29] LABS: ALB/GLOB Ratio 1.3 RATIO (0.9-2.4); AST(SGOT) 19 U/L (15-37); Alanine Aminotransfer ALT/SGPT 29 U/L (13-56); Albumin, Serum 4.1 g/dL (3.2-5.0); Alkaline Phosphatase 63 U/L (45-117); Anion Gap 6 (5-15); BUN 16 mg/dL (7-18); BUN/Creat Ratio 21.1 RATIO (10-20); Calcium,Total 10.3 mg/dL (8.5-10.1); Chloride 101 mmol/L (98-107); Creatinine, Serum 0.76 mg/dL (0.55-1.02); EST Glomerular Filtration Rate 81 mL/min (>60); Est Glom Filt Rate - Afr Amer 98 mL/min (>60); Globulin 3.2 g/dL (2.2-4.2); Glucose 99 mg/dL (74-106); Potassium 3.7 mmol/L (3.5-5.1); Protein, Total 7.3 g/dL (6.4-8.2); Sodium Level 137 mmol/L (136-145)
== END ==
PROVIDERS: Nurse Practitioner Family; PCP Internal Medicine; Referring Provider Internal Medicine Rheumatology; Visit Provider Internal Medicine Rheumatology
DX: M05.79 Rheumatoid arthritis with rheumatoid factor of multiple sites without organ or systems involvement (principal); Z79.899 Other long term (current) drug therapy; K21.9 Gastro-esophageal reflux disease without esophagitis; I10 Essential (primary) hypertension; E03.9 Hypothyroidism, unspecified; I48.0 Paroxysmal atrial fibrillation; E78.5 Hyperlipidemia, unspecified; Z20.822 Contact with and (suspected) exposure to COVID-19
CPT/HCPCS: 36415; 80053; 85025; 86769

== ENCOUNTER → 2021-05-12 12:14 | Outpatient (CLI) | payer MEDICARE, OTHER, SELFPAY ==
[2021-05-12 15:05] LABS: Absolute Lymphocyte Count 1.57 X10^3/uL (0.83-4.51); Absolute Neutrophil Count 6.6 X10^3/uL (2.0-7.7); Basophil# 0.04 X10^3/uL; Basophil% 0.4 % (0-1); Eosinophil# 0.09 X10^3/uL; Hemoglobin 14.1 g/dL (12.0-15.0); Lymphocyte # 1.57 X10^3/ul (0.83-4.51); Lymphocyte % 17.4 % (19-41); Mean Corp Hgb Conc 32.8 g/dL (32-36); Mean Corpuscular Hgb 31.2 pg (27.0-32.0); Mean Corpuscular Volume 95.1 fL (81-99); Mean Platelet Vol. 12.4 fl (6.2-12.0); Monocyte# 0.73 X10^3/uL; Monocyte% 8.1 % (0-10); NRBC Flagged by Analyzer 0 % (0-5); Neutrophil # 6.57 X10^3/uL (2.7-7.7); Neutrophil % 72.8 % (47-70); Platelet Count 246 K/mm3 (150-450); RBC Distribution Width CV 13.4 % (11.6-14.6); RBC Distribution Width SD 46.8 fl (35.1-43.9); Red Blood Count 4.52 M/mm3 (4.2-5.4)
[2021-05-12 15:18] LABS: ALB/GLOB Ratio 1.1 RATIO (0.9-2.4); AST(SGOT) 19 U/L (15-37); Alanine Aminotransfer ALT/SGPT 28 U/L (13-56); Albumin, Serum 3.7 g/dL (3.2-5.0); Alkaline Phosphatase 63 U/L (45-117); Anion Gap 7 (5-15); BUN 13 mg/dL (7-18); BUN/Creat Ratio 15.3 RATIO (10-20); Calcium,Total 9.6 mg/dL (8.5-10.1); Chloride 101 mmol/L (98-107); Creatinine, Serum 0.85 mg/dL (0.55-1.02); EST Glomerular Filtration Rate 71 mL/min (>60); Est Glom Filt Rate - Afr Amer 86 mL/min (>60); Globulin 3.5 g/dL (2.2-4.2); Glucose 86 mg/dL (74-106); Potassium 3.8 mmol/L (3.5-5.1); Protein, Total 7.2 g/dL (6.4-8.2); Sodium Level 138 mmol/L (136-145)
== END ==
PROVIDERS: PCP Internal Medicine; Referring Provider Internal Medicine Rheumatology; Visit Provider Internal Medicine Rheumatology
DX: M05.79 Rheumatoid arthritis with rheumatoid factor of multiple sites without organ or systems involvement (principal); Z79.899 Other long term (current) drug therapy; K21.9 Gastro-esophageal reflux disease without esophagitis; I10 Essential (primary) hypertension; E03.9 Hypothyroidism, unspecified; I48.0 Paroxysmal atrial fibrillation; E78.5 Hyperlipidemia, unspecified
CPT/HCPCS: 36415; 80053; 85025

== ENCOUNTER 2021-08-10 12:54 | Outpatient (CLI) | payer MEDICARE, OTHER, SELFPAY ==
[2021-08-10 15:29] LABS: Absolute Neutrophil Count 7.3 X10^3/uL (2.0-7.7); Basophil# 0.04 X10^3/uL; Basophil% 0.4 % (0-1); Eosinophil# 0.07 X10^3/uL; Eosinophils% 0.7 % (0-5); Hematocrit 44.2 % (37-47); Hemoglobin 14.7 g/dL (12.0-15.0); Mean Corp Hgb Conc 33.3 g/dL (32-36); Mean Corpuscular Hgb 32.1 pg (27.0-32.0); Mean Corpuscular Volume 96.5 fL (81-99); Mean Platelet Vol. 12.4 fl (6.2-12.0); Monocyte# 0.92 X10^3/uL; Monocyte% 9.2 % (0-10); NRBC Flagged by Analyzer 0 % (0-5); Neutrophil # 7.25 X10^3/uL (2.7-7.7); Neutrophil % 72.4 % (47-70); Platelet Count 248 K/mm3 (150-450); RBC Distribution Width CV 13.1 % (11.6-14.6); RBC Distribution Width SD 46.2 fl (35.1-43.9); Red Blood Count 4.58 M/mm3 (4.2-5.4)
[2021-08-10 15:58] LABS: ALB/GLOB Ratio 1.1 RATIO (0.9-2.4); AST(SGOT) 15 U/L (15-37); Alanine Aminotransfer ALT/SGPT 25 U/L (13-56); Albumin, Serum 3.8 g/dL (3.2-5.0); Alkaline Phosphatase 59 U/L (45-117); Anion Gap 6 (5-15); BUN 13 mg/dL (7-18); BUN/Creat Ratio 16.4 RATIO (10-20); Calcium,Total 9.9 mg/dL (8.5-10.1); Chloride 100 mmol/L (98-107); Creatinine, Serum 0.79 mg/dL (0.55-1.02); EST Glomerular Filtration Rate 77 mL/min (>60); Est Glom Filt Rate - Afr Amer 93 mL/min (>60); Globulin 3.4 g/dL (2.2-4.2); Glucose 96 mg/dL (74-106); Potassium 3.7 mmol/L (3.5-5.1); Protein, Total 7.2 g/dL (6.4-8.2); Sodium Level 137 mmol/L (136-145)
== END 2021-08-10 23:59 | disposition home or self-care (01) ==
LOC: MTLAB 12:55
PROVIDERS: PCP Internal Medicine; Referring Provider Internal Medicine Rheumatology; Visit Provider Internal Medicine Rheumatology
DX: M05.79 Rheumatoid arthritis with rheumatoid factor of multiple sites without organ or systems involvement (principal); I48.0 Paroxysmal atrial fibrillation; K21.9 Gastro-esophageal reflux disease without esophagitis; I10 Essential (primary) hypertension; E03.9 Hypothyroidism, unspecified; E78.5 Hyperlipidemia, unspecified; Z79.899 Other long term (current) drug therapy
CPT/HCPCS: 36415; 80053; 85025

== ENCOUNTER → 2021-12-18 | Outpatient (CLI) | payer MEDICARE, OTHER, SELFPAY ==
[2021-12-18 15:21] LABS: AST(SGOT) 17 U/L (15-37); Alanine Aminotransfer ALT/SGPT 26 U/L (13-56); Albumin, Serum 3.8 g/dL (3.2-5.0); Alkaline Phosphatase 58 U/L (45-117); Bilirubin, Direct 0.13 mg/dL (0.00-0.30); Cholesterol 206 mg/dL (200); Globulin 3.2 g/dL (2.2-4.2); High Density Lipoprotein 82 mg/dL; Triglycerides 123 mg/dL; Very Low Density Lipoprotein 25 mg/dL (5-40)
== END | disposition home or self-care (01) ==
PROVIDERS: PCP Internal Medicine; Referring Provider Internal Medicine Cardiovascular Disease; Visit Provider Internal Medicine Cardiovascular Disease
DX: E78.00 Pure hypercholesterolemia, unspecified (principal)
CPT/HCPCS: 36415; 80061; 80076

== ENCOUNTER → 2022-01-10 | Outpatient (CLI) | payer MEDICARE, OTHER, SELFPAY ==
[2022-01-10 12:09] LABS: Absolute Lymphocyte Count 2.02 X10^3/uL (0.83-4.51); Absolute Neutrophil Count 5.9 X10^3/uL (2.0-7.7); Basophil# 0.06 X10^3/uL; Basophil% 0.7 % (0-1); Eosinophil# 0.13 X10^3/uL; Eosinophils% 1.4 % (0-5); Hematocrit 42.1 % (37-47); Hemoglobin 14.1 g/dL (12.0-15.0); Lymphocyte # 2.02 X10^3/ul (0.83-4.51); Lymphocyte % 21.9 % (19-41); Mean Corp Hgb Conc 33.5 g/dL (32-36); Mean Corpuscular Hgb 31.5 pg (27.0-32.0); Mean Platelet Vol. 11.6 fl (6.2-12.0); Monocyte# 1.12 X10^3/uL; Monocyte% 12.1 % (0-10); NRBC Flagged by Analyzer 0 % (0-5); Neutrophil # 5.87 X10^3/uL (2.7-7.7); Neutrophil % 63.7 % (47-70); Platelet Count 238 K/mm3 (150-450); RBC Distribution Width CV 13.4 % (11.6-14.6); RBC Distribution Width SD 45.9 fl (35.1-43.9); Red Blood Count 4.48 M/mm3 (4.2-5.4); White Blood Count 9.2 K/mm3 (4.4-11.0)
[2022-01-10 12:45] LABS: ALB/GLOB Ratio 1.2 RATIO (0.9-2.4); AST(SGOT) 14 U/L (15-37); Alanine Aminotransfer ALT/SGPT 20 U/L (13-56); Albumin, Serum 3.7 g/dL (3.2-5.0); Alkaline Phosphatase 64 U/L (45-117); Anion Gap 6 (5-15); BUN 16 mg/dL (7-18); BUN/Creat Ratio 19.8 RATIO (10-20); Calcium,Total 9.5 mg/dL (8.5-10.1); Chloride 103 mmol/L (98-107); Creatinine, Serum 0.81 mg/dL (0.55-1.02); EST Glomerular Filtration Rate 75 mL/min (>60); Est Glom Filt Rate - Afr Amer 91 mL/min (>60); Globulin 3.2 g/dL (2.2-4.2); Glucose 91 mg/dL (74-106); Potassium 3.5 mmol/L (3.5-5.1); Protein, Total 6.9 g/dL (6.4-8.2); Sodium Level 137 mmol/L (136-145); Thyroid Stim Hormone (TSH) 0.74 uIU/mL (0.358-3.74)
== END | disposition home or self-care (01) ==
LOC: LAB 11:29
PROVIDERS: PCP Internal Medicine; Visit Provider Internal Medicine Rheumatology
DX: M05.79 Rheumatoid arthritis with rheumatoid factor of multiple sites without organ or systems involvement (principal); I48.0 Paroxysmal atrial fibrillation; K21.9 Gastro-esophageal reflux disease without esophagitis; I10 Essential (primary) hypertension; E03.9 Hypothyroidism, unspecified; E78.5 Hyperlipidemia, unspecified; Z79.899 Other long term (current) drug therapy
CPT/HCPCS: 36415; 80053; 84443; 85025

== ENCOUNTER → 2022-04-12 | Outpatient (CLI) | payer MEDICARE, OTHER, SELFPAY ==
[2022-04-12 15:44] LABS: Absolute Lymphocyte Count 1.56 X10^3/uL (0.83-4.51); Absolute Neutrophil Count 5.5 X10^3/uL (2.0-7.7); Basophil# 0.04 X10^3/uL; Basophil% 0.5 % (0-1); Eosinophil# 0.09 X10^3/uL; Eosinophils% 1.1 % (0-5); Hematocrit 41.9 % (37-47); Lymphocyte # 1.56 X10^3/ul (0.83-4.51); Lymphocyte % 19.6 % (19-41); Mean Corp Hgb Conc 33.4 g/dL (32-36); Mean Corpuscular Volume 95.7 fL (81-99); Mean Platelet Vol. 12.7 fl (6.2-12.0); Monocyte# 0.79 X10^3/uL; Monocyte% 9.9 % (0-10); NRBC Flagged by Analyzer 0 % (0-5); Neutrophil # 5.45 X10^3/uL (2.7-7.7); Neutrophil % 68.6 % (47-70); Platelet Count 216 K/mm3 (150-450); RBC Distribution Width SD 45.8 fl (35.1-43.9); Red Blood Count 4.38 M/mm3 (4.2-5.4)
[2022-04-12 15:53] LABS: ALB/GLOB Ratio 1.1 RATIO (0.9-2.4); AST(SGOT) 20 U/L (15-37); Alanine Aminotransfer ALT/SGPT 29 U/L (13-56); Albumin, Serum 3.7 g/dL (3.2-5.0); Alkaline Phosphatase 59 U/L (45-117); Anion Gap 6 (5-15); BUN 13 mg/dL (7-18); BUN/Creat Ratio 14.7 RATIO (10-20); Calcium,Total 9.4 mg/dL (8.5-10.1); Chloride 103 mmol/L (98-107); Creatinine, Serum 0.89 mg/dL (0.55-1.02); EST Glomerular Filtration Rate 67 mL/min (>60); Est Glom Filt Rate - Afr Amer 81 mL/min (>60); Globulin 3.3 g/dL (2.2-4.2); Glucose 92 mg/dL (74-106); Potassium 3.9 mmol/L (3.5-5.1); Sodium Level 138 mmol/L (136-145)
== END | disposition home or self-care (01) ==
LOC: MTLAB 13:16
PROVIDERS: PCP Internal Medicine; Referring Provider Internal Medicine Rheumatology; Visit Provider Internal Medicine Rheumatology
DX: M05.79 Rheumatoid arthritis with rheumatoid factor of multiple sites without organ or systems involvement (principal); I48.0 Paroxysmal atrial fibrillation; K21.9 Gastro-esophageal reflux disease without esophagitis; I10 Essential (primary) hypertension; E03.9 Hypothyroidism, unspecified; E78.5 Hyperlipidemia, unspecified; Z79.899 Other long term (current) drug therapy
CPT/HCPCS: 36415; 80053; 85025

== ENCOUNTER → 2022-05-15 | Outpatient (CLI) | payer MEDICARE, OTHER, SELFPAY ==
--- NOTE | 2022-05-15 14:17 | BI_ITS ---
MAMMOGRAPHY - BILATERAL SCREENING REASON FOR EXAM: Female, 67 years old. Routine annual screening examination. PERTINENT HISTORY: Non-contributory. TECHNIQUE: Digital bilateral breast sraita (3D mammographic acquisition) in the CC and MLO projections. 2-D mediolateral oblique (MLO) and craniocaudad (CC) views of both breasts were obtained. CAD: Full Field Digital Mammography with Computer Added Detection was performed. COMPARISON: Comparison is made with prior study 01/18/2021 and 01/18/2020. FINDINGS: Breast Composition: The breasts are heterogeneously dense, which may obscure small masses. There are no dominant masses or suspicious calcifications. Stable small benign-appearing bilateral axillary lymph nodes. No other significant abnormalities are identified. There has been no significant change since the prior study. BI/SCRN MAMM (CAD)W/SARITA BILAT IMPRESSION: Stable bilateral screening mammogram. Yearly follow-up mammogram recommended. (A) ASSESSMENT CATEGORY: BIRADS Category 2: Benign. A letter regarding these results will be sent to the patient by the facility within 30 days. Approximately 10% of breast cancers are not detected by mammography. A normal mammogram should not delay biopsy of a clinically suspicious abnormality. [id number] Electronically Signed: Abhinav Schneider MD at 15:39 EST ,
--- NOTE | 2022-05-15 14:38 | BD_ITS ---
STUDY: DUAL ENERGY X-RAY ABSORPTIOMETRY / DXA REASON FOR EXAM: Female, 67 years old. Post Menopausal TECHNIQUE: Bone Mineral Density (BMD) measurements of lumbar spine and bilateral hips were obtained. COMPARISON: None. FINDINGS: Lumbar Spine (L1-L4): g/cm2 (0.799) / T-score (-2.3) / Z-score (-0.3) Findings are suggestive of osteopenia with a high fracture risk. Left Femur Total: g/cm2 (0.746) / T-score (-1.6) / Z-score (-0.2) Left Femoral Neck: g/cm2 (0.596) / T-score (-2.3) / Z-score (-0.6) Right Femur Total: g/cm2 (0.690) / T-score (-2.1) / Z-score (-0.7) Right Femoral Neck: g/cm2 (0.590) / T-score (-2.3) / Z-score (-0.6) BD/Dexa Bone Density Study IMPRESSION: The patient is considered osteopenic as outlined below according to World Tucker Organization (WHO) criteria with a high fracture risk. Reference Information: The T-score is the number of standard deviations above or below the standard which is normal for young adults at their peak bone mineral density. The World Health Organization (WHO) interprets the T-scores as follows: Above -1 Normal bone density Between -1 and -2.5 Osteopenia Equal to / or below -2.5 Osteoporosis As a practical clinical guideline, osteopenia may be graded as follows: Mild -1 through -1.5 Moderate -1.6 through -2.0 Severe -2.1 through -2.4 The Z-score is the number of standard deviations above or below age-matched controls. A Z-score of less than -1.5 would be considered abnormal. References: 1. NIH Osteoporosis and Related Bone Diseases www osteo.org 2. International Society for Clinical Densitometry www iscd.org 3. National Osteoporosis Foundation www nof.org Electronically Signed: Abhinav Schneider MD at 12:47 EST ,
== END | disposition home or self-care (01) ==
LOC: OPBD 14:15
PROVIDERS: PCP Internal Medicine; Referring Provider Internal Medicine; Visit Provider Internal Medicine
DX: Z12.31 Encounter for screening mammogram for malignant neoplasm of breast (principal); M85.80 Other specified disorders of bone density and structure, unspecified site; Z78.0 Asymptomatic menopausal state; M81.0 Age-related osteoporosis without current pathological fracture
CPT/HCPCS: 77063; 77067; 77080

== ENCOUNTER → 2022-08-02 | Outpatient (CLI) | payer MEDICARE, OTHER, SELFPAY ==
[2022-08-02 15:19] LABS: Absolute Lymphocyte Count 2.32 X10^3/uL (0.83-4.51); Absolute Neutrophil Count 6.4 X10^3/uL (2.0-7.7); Basophil# 0.04 X10^3/uL; Basophil% 0.4 % (0-1); Eosinophil# 0.17 X10^3/uL; Eosinophils% 1.7 % (0-5); Hematocrit 44.1 % (37-47); Hemoglobin 14.3 g/dL (12.0-15.0); Lymphocyte # 2.32 X10^3/ul (0.83-4.51); Mean Corp Hgb Conc 32.4 g/dL (32-36); Mean Corpuscular Hgb 31.4 pg (27.0-32.0); Mean Corpuscular Volume 96.7 fL (81-99); Monocyte# 1.11 X10^3/uL; NRBC Flagged by Analyzer 0 % (0-5); Neutrophil # 6.43 X10^3/uL (2.7-7.7); Neutrophil % 63.7 % (47-70); Platelet Count 213 K/mm3 (150-450); RBC Distribution Width CV 13.8 % (11.6-14.6); RBC Distribution Width SD 49.3 fl (35.1-43.9); Red Blood Count 4.56 M/mm3 (4.2-5.4); White Blood Count 10.1 K/mm3 (4.4-11.0)
[2022-08-02 15:47] LABS: ALB/GLOB Ratio 1.2 RATIO (0.9-2.4); AST(SGOT) 17 U/L (15-37); Alanine Aminotransfer ALT/SGPT 26 U/L (13-56); Albumin, Serum 3.7 g/dL (3.2-5.0); Alkaline Phosphatase 63 U/L (45-117); Anion Gap 9 (5-15); BUN 16 mg/dL (7-18); BUN/Creat Ratio 19.8 RATIO (10-20); Calcium,Total 9.7 mg/dL (8.5-10.1); Chloride 104 mmol/L (98-107); Creatinine, Serum 0.81 mg/dL (0.55-1.02); EST Glomerular Filtration Rate 75 mL/min (>60); Est Glom Filt Rate - Afr Amer 91 mL/min (>60); Globulin 3.2 g/dL (2.2-4.2); Glucose 91 mg/dL (74-106); Potassium 3.6 mmol/L (3.5-5.1); Protein, Total 6.9 g/dL (6.4-8.2); Sodium Level 140 mmol/L (136-145)
== END | disposition home or self-care (01) ==
LOC: MTLAB 11:49
PROVIDERS: PCP Internal Medicine; Referring Provider Internal Medicine Rheumatology; Visit Provider Internal Medicine Rheumatology
DX: M05.70 Rheumatoid arthritis with rheumatoid factor of unspecified site without organ or systems involvement (principal); I48.0 Paroxysmal atrial fibrillation; K21.9 Gastro-esophageal reflux disease without esophagitis; I10 Essential (primary) hypertension; E03.9 Hypothyroidism, unspecified; E78.5 Hyperlipidemia, unspecified; Z79.899 Other long term (current) drug therapy
CPT/HCPCS: 36415; 80053; 85025

== ENCOUNTER → 2022-11-09 | Outpatient (CLI) | payer MEDICARE, OTHER, SELFPAY ==
[2022-11-09 15:26] LABS: Absolute Lymphocyte Count 1.69 X10^3/uL (0.83-4.51); Basophil# 0.04 X10^3/uL; Basophil% 0.5 % (0-1); Eosinophil# 0.07 X10^3/uL; Eosinophils% 0.8 % (0-5); Hematocrit 41.5 % (37-47); Hemoglobin 13.8 g/dL (12.0-15.0); Lymphocyte # 1.69 X10^3/ul (0.83-4.51); Lymphocyte % 20.1 % (19-41); Mean Corp Hgb Conc 33.3 g/dL (32-36); Mean Corpuscular Hgb 31.8 pg (27.0-32.0); Mean Corpuscular Volume 95.6 fL (81-99); Mean Platelet Vol. 12.5 fl (6.2-12.0); Monocyte# 0.58 X10^3/uL; Monocyte% 6.9 % (0-10); NRBC Flagged by Analyzer 0 % (0-5); Neutrophil # 6.02 X10^3/uL (2.7-7.7); Neutrophil % 71.5 % (47-70); Platelet Count 236 K/mm3 (150-450); RBC Distribution Width CV 13.9 % (11.6-14.6); RBC Distribution Width SD 49.2 fl (35.1-43.9); Red Blood Count 4.34 M/mm3 (4.2-5.4); White Blood Count 8.4 K/mm3 (4.4-11.0)
[2022-11-09 16:07] LABS: ALB/GLOB Ratio 1.2 RATIO (0.9-2.4); AST(SGOT) 17 U/L (15-37); Alanine Aminotransfer ALT/SGPT 25 U/L (13-56); Albumin, Serum 3.8 g/dL (3.2-5.0); Alkaline Phosphatase 53 U/L (45-117); Anion Gap 5 (5-15); BUN 15 mg/dL (7-18); BUN/Creat Ratio 19.7 RATIO (10-20); Calcium,Total 9.7 mg/dL (8.5-10.1); Chloride 104 mmol/L (98-107); Creatinine, Serum 0.76 mg/dL (0.55-1.02); EST Glomerular Filtration Rate 80 mL/min (>60); Est Glom Filt Rate - Afr Amer 97 mL/min (>60); Globulin 3.2 g/dL (2.2-4.2); Glucose 113 mg/dL (74-106); Potassium 3.8 mmol/L (3.5-5.1); Sodium Level 139 mmol/L (136-145)
== END | disposition home or self-care (01) ==
LOC: MTLAB 13:56
PROVIDERS: PCP Internal Medicine; Referring Provider Internal Medicine Rheumatology; Visit Provider Internal Medicine Rheumatology
DX: M05.70 Rheumatoid arthritis with rheumatoid factor of unspecified site without organ or systems involvement (principal); Z79.899 Other long term (current) drug therapy
CPT/HCPCS: 36415; 80053; 85025

== ENCOUNTER → 2023-02-05 | Outpatient (CLI) | payer MEDICARE, OTHER, SELFPAY ==
[2023-02-05 12:19] LABS: Absolute Lymphocyte Count 2.39 X10^3/uL (0.83-4.51); Basophil# 0.04 X10^3/uL; Basophil% 0.6 % (0-1); Eosinophil# 0.16 X10^3/uL; Eosinophils% 2.5 % (0-5); Hematocrit 43.4 % (37-47); Hemoglobin 14.4 g/dL (12.0-15.0); Lymphocyte # 2.39 X10^3/ul (0.83-4.51); Lymphocyte % 37.8 % (19-41); Mean Corp Hgb Conc 33.2 g/dL (32-36); Mean Corpuscular Hgb 31.2 pg (27.0-32.0); Mean Corpuscular Volume 93.9 fL (81-99); Mean Platelet Vol. 11.9 fl (6.2-12.0); Monocyte% 11.1 % (0-10); NRBC Flagged by Analyzer 0 % (0-5); Neutrophil # 3.04 X10^3/uL (2.7-7.7); Platelet Count 236 K/mm3 (150-450); RBC Distribution Width CV 13.7 % (11.6-14.6); RBC Distribution Width SD 46.6 fl (35.1-43.9); Red Blood Count 4.62 M/mm3 (4.2-5.4); White Blood Count 6.3 K/mm3 (4.4-11.0)
[2023-02-05 12:48] LABS: ALB/GLOB Ratio 1.1 RATIO (0.9-2.4); AST(SGOT) 13 U/L (15-37); Alanine Aminotransfer ALT/SGPT 25 U/L (13-56); Albumin, Serum 3.4 g/dL (3.2-5.0); Alkaline Phosphatase 93 U/L (45-117); Anion Gap 8 (5-15); BUN 15 mg/dL (7-18); BUN/Creat Ratio 16.3 RATIO (10-20); Calcium,Total 9.1 mg/dL (8.5-10.1); Chloride 102 mmol/L (98-107); Cholesterol 163 mg/dL (200); Creatinine, Serum 0.92 mg/dL (0.55-1.02); EST Glomerular Filtration Rate 64 mL/min (>60); Est Glom Filt Rate - Afr Amer 78 mL/min (>60); Globulin 3.1 g/dL (2.2-4.2); Glucose 86 mg/dL (74-106); High Density Lipoprotein 72 mg/dL; Potassium 3.1 mmol/L (3.5-5.1); Protein, Total 6.5 g/dL (6.4-8.2); Sodium Level 140 mmol/L (136-145); Thyroid Stim Hormone (TSH) 1.05 uIU/mL (0.358-3.74); Triglycerides 128 mg/dL; Very Low Density Lipoprotein 26 mg/dL (5-40)
== END | disposition home or self-care (01) ==
PROVIDERS: PCP Internal Medicine; Referring Provider Internal Medicine; Visit Provider Internal Medicine
DX: M05.70 Rheumatoid arthritis with rheumatoid factor of unspecified site without organ or systems involvement (principal); Z79.899 Other long term (current) drug therapy; M81.0 Age-related osteoporosis without current pathological fracture
CPT/HCPCS: 36415; 80053; 80061; 82306; 84443; 85025

== ENCOUNTER → 2023-05-15 | Outpatient (CLI) | payer MEDICARE, OTHER, SELFPAY ==
[2023-05-15 15:02] LABS: Absolute Lymphocyte Count 1.73 X10^3/uL (0.83-4.51); Absolute Neutrophil Count 6.4 X10^3/uL (2.0-7.7); Basophil# 0.04 X10^3/uL; Basophil% 0.4 % (0-1); Eosinophil# 0.05 X10^3/uL; Eosinophils% 0.5 % (0-5); Hematocrit 43.6 % (37-47); Hemoglobin 14.2 g/dL (12.0-15.0); Lymphocyte # 1.73 X10^3/ul (0.83-4.51); Mean Corp Hgb Conc 32.6 g/dL (32-36); Mean Corpuscular Hgb 32.1 pg (27.0-32.0); Mean Corpuscular Volume 98.4 fL (81-99); Mean Platelet Vol. 12.7 fl (6.2-12.0); Monocyte# 0.86 X10^3/uL; Monocyte% 9.4 % (0-10); NRBC Flagged by Analyzer 0 % (0-5); Neutrophil # 6.43 X10^3/uL (2.7-7.7); Neutrophil % 70.6 % (47-70); Platelet Count 216 K/mm3 (150-450); RBC Distribution Width CV 12.9 % (11.6-14.6); RBC Distribution Width SD 46.3 fl (35.1-43.9); Red Blood Count 4.43 M/mm3 (4.2-5.4); White Blood Count 9.1 K/mm3 (4.4-11.0)
[2023-05-15 15:35] LABS: ALB/GLOB Ratio 1.1 RATIO (0.9-2.4); AST(SGOT) 16 U/L (15-37); Alanine Aminotransfer ALT/SGPT 23 U/L (13-56); Albumin, Serum 3.7 g/dL (3.2-5.0); Alkaline Phosphatase 58 U/L (45-117); Anion Gap 6 (5-15); BUN 14 mg/dL (7-18); BUN/Creat Ratio 15.4 RATIO (10-20); Calcium,Total 9.4 mg/dL (8.5-10.1); Chloride 103 mmol/L (98-107); Creatinine, Serum 0.91 mg/dL (0.55-1.02); EST Glomerular Filtration Rate 65 mL/min (>60); Est Glom Filt Rate - Afr Amer 79 mL/min (>60); Globulin 3.4 g/dL (2.2-4.2); Glucose 67 mg/dL (74-106); Potassium 3.5 mmol/L (3.5-5.1); Protein, Total 7.1 g/dL (6.4-8.2); Sodium Level 137 mmol/L (136-145)
== END | disposition home or self-care (01) ==
LOC: MTLAB 11:38
PROVIDERS: PCP Internal Medicine; Referring Provider Internal Medicine Rheumatology; Visit Provider Internal Medicine Rheumatology
DX: M05.70 Rheumatoid arthritis with rheumatoid factor of unspecified site without organ or systems involvement (principal); Z79.899 Other long term (current) drug therapy
CPT/HCPCS: 36415; 80053; 85025

== ENCOUNTER → 2023-08-15 | Outpatient (CLI) | payer MEDICARE, OTHER, SELFPAY ==
[2023-08-15 12:08] LABS: Absolute Neutrophil Count 4.4 X10^3/uL (2.0-7.7); Basophil# 0.05 X10^3/uL; Basophil% 0.6 % (0-1); Eosinophil# 0.18 X10^3/uL; Eosinophils% 2.3 % (0-5); Hematocrit 40.4 % (37-47); Hemoglobin 13.1 g/dL (12.0-15.0); Lymphocyte % 31.2 % (19-41); Mean Corp Hgb Conc 32.4 g/dL (32-36); Mean Corpuscular Hgb 31.1 pg (27.0-32.0); Mean Platelet Vol. 11.9 fl (6.2-12.0); Monocyte# 0.68 X10^3/uL; Monocyte% 8.8 % (0-10); NRBC Flagged by Analyzer 0 % (0-5); Neutrophil # 4.37 X10^3/uL (2.7-7.7); Neutrophil % 56.8 % (47-70); Platelet Count 209 K/mm3 (150-450); RBC Distribution Width CV 13.7 % (11.6-14.6); RBC Distribution Width SD 48.6 fl (35.1-43.9); Red Blood Count 4.21 M/mm3 (4.2-5.4); White Blood Count 7.7 K/mm3 (4.4-11.0)
[2023-08-15 13:31] LABS: ALB/GLOB Ratio 1.1 RATIO (0.9-2.4); AST(SGOT) 19 U/L (15-37); Alanine Aminotransfer ALT/SGPT 21 U/L (13-56); Albumin, Serum 3.3 g/dL (3.2-5.0); Alkaline Phosphatase 54 U/L (45-117); Anion Gap 9 (5-15); BUN 17 mg/dL (7-18); BUN/Creat Ratio 21.7 RATIO (10-20); Calcium,Total 9.1 mg/dL (8.5-10.1); Chloride 105 mmol/L (98-107); Creatinine, Serum 0.78 mg/dL (0.55-1.02); EST Glomerular Filtration Rate 78 mL/min (>60); Est Glom Filt Rate - Afr Amer 94 mL/min (>60); Glucose 83 mg/dL (74-106); Potassium 3.6 mmol/L (3.5-5.1); Protein, Total 6.3 g/dL (6.4-8.2); Sodium Level 141 mmol/L (136-145)
== END | disposition home or self-care (01) ==
LOC: MTLAB 10:40
PROVIDERS: PCP Internal Medicine; Referring Provider Internal Medicine Rheumatology; Visit Provider Internal Medicine Rheumatology
DX: M05.70 Rheumatoid arthritis with rheumatoid factor of unspecified site without organ or systems involvement (principal); Z79.899 Other long term (current) drug therapy
CPT/HCPCS: 36415; 80053; 85025

== ENCOUNTER → 2023-10-02 | Outpatient (CLI) | payer MEDICARE, OTHER, SELFPAY ==
--- NOTE | 2023-10-02 13:03 | BI_ITS ---
MAMMOGRAPHY - BILATERAL SCREENING REASON FOR EXAM: Female, 68 years old. Routine annual screening examination. PERTINENT HISTORY: Non-contributory. TECHNIQUE: Digital bilateral breast sarita (3D mammographic acquisition) in the CC and MLO projections. 2-D mediolateral oblique (MLO) and craniocaudad (CC) views of both breasts were obtained. CAD: Full Field Digital Mammography with Computer Added Detection was performed. COMPARISON: Comparison is made with prior study dated May 15, 2022 and January 18, 2021. FINDINGS: Breast Composition: The breasts are heterogeneously dense, which may obscure small masses. There are no dominant masses or suspicious calcifications. Stable appearance of the small bilateral benign-appearing axillary lymph nodes. No other significant abnormalities are identified. There has been no significant change since the prior study. BI/SCRN MAMM (CAD)W/SARITA BILAT IMPRESSION: Stable bilateral screening mammogram. Yearly follow-up mammogram recommended. (A) ASSESSMENT CATEGORY: BIRADS Category 2: Benign. A letter regarding these results will be sent to the patient by the facility within 30 days. Approximately 10% of breast cancers are not detected by mammography. A normal mammogram should not delay biopsy of a clinically suspicious abnormality. [id number] Electronically Signed: Abhinav Schneider MD at 14:18 EDT ,
== END | disposition home or self-care (01) ==
LOC: OPBI 13:03
PROVIDERS: PCP Internal Medicine; Referring Provider Obstetrics & Gynecology; Visit Provider Obstetrics & Gynecology
DX: Z12.31 Encounter for screening mammogram for malignant neoplasm of breast (principal)
CPT/HCPCS: 77063; 77067

== ENCOUNTER → 2023-11-14 | Outpatient (CLI) | payer MEDICARE, OTHER, SELFPAY ==
[2023-11-14 12:24] LABS: Absolute Lymphocyte Count 1.92 X10^3/uL (0.83-4.51); Absolute Neutrophil Count 5.9 X10^3/uL (2.0-7.7); Basophil# 0.06 X10^3/uL; Basophil% 0.7 % (0-1); Eosinophil# 0.21 X10^3/uL; Eosinophils% 2.4 % (0-5); Hematocrit 40.6 % (37-47); Hemoglobin 13.2 g/dL (12.0-15.0); Lymphocyte # 1.92 X10^3/ul (0.83-4.51); Lymphocyte % 21.9 % (19-41); Mean Corp Hgb Conc 32.5 g/dL (32-36); Mean Corpuscular Hgb 31.2 pg (27.0-32.0); Mean Platelet Vol. 12.1 fl (6.2-12.0); NRBC Flagged by Analyzer 0 % (0-5); Neutrophil # 5.85 X10^3/uL (2.7-7.7); Neutrophil % 66.8 % (47-70); Platelet Count 255 K/mm3 (150-450); RBC Distribution Width CV 14.1 % (11.6-14.6); RBC Distribution Width SD 48.4 fl (35.1-43.9); Red Blood Count 4.23 M/mm3 (4.2-5.4); White Blood Count 8.8 K/mm3 (4.4-11.0)
[2023-11-14 12:50] LABS: ALB/GLOB Ratio 1.4 RATIO (0.9-2.4); AST(SGOT) 17 U/L (15-37); Alanine Aminotransfer ALT/SGPT 20 U/L (13-56); Albumin, Serum 3.8 g/dL (3.2-5.0); Alkaline Phosphatase 66 U/L (45-117); Anion Gap 6 (5-15); BUN 14 mg/dL (7-18); BUN/Creat Ratio 17.3 RATIO (10-20); Calcium,Total 9.1 mg/dL (8.5-10.1); Chloride 101 mmol/L (98-107); Creatinine, Serum 0.81 mg/dL (0.55-1.02); EST Glomerular Filtration Rate 75 mL/min (>60); Est Glom Filt Rate - Afr Amer 90 mL/min (>60); Globulin 2.7 g/dL (2.2-4.2); Glucose 98 mg/dL (74-106); Potassium 3.8 mmol/L (3.5-5.1); Protein, Total 6.5 g/dL (6.4-8.2); Sodium Level 136 mmol/L (136-145)
== END | disposition home or self-care (01) ==
LOC: MTLAB 11:05
PROVIDERS: PCP Internal Medicine; Referring Provider Internal Medicine Rheumatology; Visit Provider Internal Medicine Rheumatology
DX: M05.79 Rheumatoid arthritis with rheumatoid factor of multiple sites without organ or systems involvement (principal); Z79.899 Other long term (current) drug therapy
CPT/HCPCS: 36415; 80053; 85025

== ENCOUNTER → 2023-11-19 | Outpatient (CLI) | payer MEDICARE, OTHER, SELFPAY ==
--- NOTE | 2023-11-19 06:29 | ECHOD_ITS ---
Reason For Study: PAROXYYSMAL ATRIAL FIBRILLATION Procedure This was a 2D Doppler, Color Flow transthoracic echocardiogram. Exam performed in department. Left Ventricle Normal LV size. Left ventricular systolic function is normal. The estimated ejection fraction is 65 %. No regional wall motion abnormalities noted. Right Ventricle Normal RV size. Normal systolic function. Atria Normal left atrium. Normal right atrium. Mitral Valve Normal mitral valve. Tricuspid Valve Normal tricuspid valve. Aortic Valve Trisinus/trileaflet aortic valve. Pulmonic Valve Normal pulmonic valve. Great Vessels Normal aortic root. The pulmonary artery is normal size. Inferior vena cava collapse with respiration. Pericardium/Pleural No pericardial effusion. MMode/2D Measurements & Calculations LVIDd: 4.4 cm IVSd: 0.93 cm LVOT diam: 2.1 cm LVIDs: 3.1 cm LVPWd: 0.92 cm LVOT area: 3.4 cm2 RVDd: 4.2 cm FS: 29.3 % Ao root diam: 3.6 cm LAV(MOD-bp): 71.8 ml LVAd ap4: 26.8 cm2 LA dimension: 3.5 cm LAV(MOD-bp) Indexed: 40.1 ml/m2 LVLd ap4: 8.1 cm LAV(MOD-sp2): 80.1 ml EDV(MOD-sp4): 74.3 ml LAV(MOD-sp4): 61.9 ml EDV(sp4-el): 75.3 ml LVAs ap4: 13.7 cm2 LVLs ap4: 6.4 cm ESV(MOD-sp4): 25.1 ml ESV(sp4-el): 24.9 ml EF(MOD-sp4): 66.2 % EF(sp4-el): 66.9 % LVAd ap2: 23.8 cm2 SV(MOD-sp4): 49.2 ml SV(MOD-sp2): 37.4 ml LVLd ap2: 8.1 cm EDV(MOD-sp2): 59.9 ml EDV(sp2-el): 59.7 ml LVAs ap2: 13.4 cm2 LVLs ap2: 6.9 cm ESV(MOD-sp2): 22.4 ml ESV(sp2-el): 22.1 ml EF(MOD-sp2): 62.5 % SV(sp4-el): 50.4 ml LA A4 area: 21.9 cm2 RA A4 area: 17.7 cm2 TAPSE: 2.3 cm Time Measurements MV dec time: 0.22 sec Doppler Measurements & Calculations MV E max kenyon: 86.1 cm/sec Lat Peak E' Kenyon: 9.6 cm/sec Med Peak E' Kenyon: 7.3 cm/sec MV A max kenyon: 82.1 cm/sec E/E' lat: 9.0 E/E' med: 11.8 MV E/A: 1.0 MV V2 max: 95.6 cm/sec MV P1/2t max kenyon: 92.6 cm/sec Ao V2 max: 126.8 cm/sec MV max P.7 mmHg MV P1/2t: 60.4 msec Ao max P.4 mmHg MV V2 mean: 49.9 cm/sec MV dec slope: 448.8 cm/sec2 Ao V2 mean: 90.1 cm/sec MV mean P.2 mmHg Ao mean P.6 mmHg MV V2 VTI: 27.7 cm MVA(P1/2t): 3.6 cm2 Ao V2 VTI: 30.5 cm MVA(VTI): 3.2 cm2 AV (velocity ratio): 0.84 KEON(I,D): 2.9 cm2 KEON(V,D): 2.8 cm2 LV V1 max: 101.8 cm/sec SV(LVOT): 88.0 ml PA V2 max: 70.1 cm/sec LV V1 max P.1 mmHg PA max PG (full): 0.78 mmHg LV V1 mean P.3 mmHg LV V1 mean: 70.6 cm/sec LV V1 VTI: 25.5 cm ECHO/Echo Complete Interpretation Summary Normal LV size. Left ventricular systolic function is normal. The estimated ejection fraction is 65 %. Structurally normal valves. Ordering Physician: Per Gregorio Referring Physician: Blanca Mcdermott Performed By: Clifford, Letha, RDCS, RVT
--- NOTE | 2023-11-19 17:54 | STRESSREP ---
Stress Test Report Pharmacologic myocardial perfusion stress test. 68-year-old lady with a history of atrial fibrillation Resting EKG demonstrates sinus rhythm with a rate of 61 bpm. Resting blood pressure is 158/98 mmHg. 0.4 mg of regadenoson was infused per usual protocol followed by rapid intravenous saline flush injection. Continuous EKG monitoring was performed. The maximum heart rate was 83 bpm which was 54% of max impacted heart rate the maximum workload was 1 metabolic equivalent. At rest there were no ST or T wave changes noted to suggest ischemia and at peak infusion nonspecific ST changes were noted which did not meet the criteria for ischemia. No clinical angina is noted. The final blood pressure was 154/84 mmHg. Myocardial perfusion protocol. 11.3 mCi of technetium 99m sestamibi was injected at rest. 0.4 mg of regadenoson was infused per usual protocol. At peak infusion 34.5 mCi of technetium 99m sestamibi was injected stress images were obtained stress and rest images were reconstructed and compared in the short axis vertical long and horizontal long axis. Gated images were also obtained. Perfusion SPECT analysis: Review of the stress images demonstrate normal uptake of tracer noted in all areas of the myocardium. The resting images similar demonstrated normal uptake of tracer noted in all areas of the myocardium. No areas of reversibility are noted to suggest ischemia and no previous infarct is noted. Gated SPECT analysis: The gated ejection fraction is 85%. Conclusion: Normal pharmacologic myocardial perfusion stress test. Preserved ejection fraction.
== END | disposition home or self-care (01) ==
LOC: CVS 06:29
PROVIDERS: PCP Internal Medicine; Referring Provider Internal Medicine Cardiovascular Disease; Visit Provider Internal Medicine Cardiovascular Disease
DX: I48.0 Paroxysmal atrial fibrillation (principal); R07.9 Chest pain, unspecified
CPT/HCPCS: 78452; 93017; 93306; A9500; A4216; J2785

== ENCOUNTER → 2023-12-26 | Outpatient (CLI) | payer MEDICARE, OTHER, SELFPAY ==
--- NOTE | 2023-12-26 09:16 | US_ITS ---
STUDY: ULTRASOUND BREAST - LEFT REASON FOR EXAM: Female, 68 years old. Left breast lump. TECHNIQUE: Axial and longitudinal images of the LEFT breast were performed with a high resolution ultrasound transducer. # OF IMAGES: 45 COMPARISON: None. FINDINGS: LEFT Breast: The lateral half of the left breast was examined with ultrasound. There is dense fibroglandular tissue. No sonographic abnormality is seen. US/Breast Limited Unilateral IMPRESSION: No sonographic abnormality is seen. ASSESSMENT CATEGORY: BIRADS Category 1: Negative. A letter regarding these results will be sent to the patient by the facility within 30 days. Electronically Signed: Abhinav Schneider MD at 15:28 EDT ,
== END | disposition home or self-care (01) ==
LOC: OPBI 09:14
PROVIDERS: PCP Internal Medicine; Referring Provider Nurse Practitioner Women's Health; Visit Provider Nurse Practitioner Women's Health
DX: N64.59 Other signs and symptoms in breast (principal); N63.20 Unspecified lump in the left breast, unspecified quadrant
CPT/HCPCS: 76642

== ENCOUNTER → 2024-02-11 | Outpatient (CLI) | payer MEDICARE, OTHER, SELFPAY ==
[2024-02-11 09:56] LABS: Absolute Lymphocyte Count 2.51 X10^3/uL (0.83-4.51); Absolute Neutrophil Count 3.3 X10^3/uL (2.0-7.7); Basophil# 0.06 X10^3/uL; Basophil% 0.9 % (0-1); Eosinophil# 0.23 X10^3/uL; Eosinophils% 3.4 % (0-5); Hematocrit 42.2 % (37-47); Hemoglobin 13.8 g/dL (12.0-15.0); Lymphocyte # 2.51 X10^3/ul (0.83-4.51); Mean Corp Hgb Conc 32.7 g/dL (32-36); Mean Corpuscular Hgb 31.3 pg (27.0-32.0); Mean Corpuscular Volume 95.7 fL (81-99); Mean Platelet Vol. 11.8 fl (6.2-12.0); Monocyte# 0.71 X10^3/uL; Monocyte% 10.5 % (0-10); NRBC Flagged by Analyzer 0 % (0-5); Neutrophil # 3.26 X10^3/uL (2.7-7.7); Neutrophil % 48.1 % (47-70); Platelet Count 216 K/mm3 (150-450); RBC Distribution Width CV 13.4 % (11.6-14.6); RBC Distribution Width SD 47.1 fl (35.1-43.9); Red Blood Count 4.41 M/mm3 (4.2-5.4); White Blood Count 6.8 K/mm3 (4.4-11.0)
[2024-02-11 10:18] LABS: Vitamin D,25 Hydroxy 36.8 ng/mL
[2024-02-11 10:47] LABS: ALB/GLOB Ratio 1.2 RATIO (0.9-2.4); AST(SGOT) 14 U/L (15-37); Alanine Aminotransfer ALT/SGPT 17 U/L (13-56); Albumin, Serum 3.4 g/dL (3.2-5.0); Alkaline Phosphatase 57 U/L (45-117); Anion Gap 7 (5-15); BUN 15 mg/dL (7-18); BUN/Creat Ratio 16.8 RATIO (10-20); Calcium,Total 9.1 mg/dL (8.5-10.1); Chloride 101 mmol/L (98-107); Cholesterol 190 mg/dL (200); EST Glomerular Filtration Rate 66 mL/min (>60); Est Glom Filt Rate - Afr Amer 80 mL/min (>60); Globulin 2.9 g/dL (2.2-4.2); Glucose 84 mg/dL (74-106); High Density Lipoprotein 89 mg/dL; Potassium 3.8 mmol/L (3.5-5.1); Protein, Total 6.3 g/dL (6.4-8.2); Sodium Level 138 mmol/L (136-145); Triglycerides 106 mg/dL; Very Low Density Lipoprotein 21 mg/dL (5-40)
== END | disposition home or self-care (01) ==
LOC: MTLAB 08:44
PROVIDERS: PCP Internal Medicine; Referring Provider Internal Medicine; Visit Provider Internal Medicine
DX: M05.70 Rheumatoid arthritis with rheumatoid factor of unspecified site without organ or systems involvement (principal); Z79.899 Other long term (current) drug therapy; M81.0 Age-related osteoporosis without current pathological fracture
CPT/HCPCS: 36415; 80053; 80061; 82306; 84443; 85025

== ENCOUNTER → 2024-04-30 | Outpatient (CLI) | payer MEDICARE, OTHER, SELFPAY ==
[2024-04-30 15:09] LABS: Absolute Lymphocyte Count 1.95 X10^3/uL (0.83-4.51); Basophil# 0.05 X10^3/uL; Basophil% 0.6 % (0-1); Eosinophil# 0.15 X10^3/uL; Eosinophils% 1.8 % (0-5); Hematocrit 41.6 % (37-47); Hemoglobin 13.5 g/dL (12.0-15.0); Lymphocyte # 1.95 X10^3/ul (0.83-4.51); Lymphocyte % 23.8 % (19-41); Mean Corp Hgb Conc 32.5 g/dL (32-36); Mean Corpuscular Hgb 31.3 pg (27.0-32.0); Mean Corpuscular Volume 96.5 fL (81-99); Mean Platelet Vol. 12.4 fl (6.2-12.0); Monocyte# 1.03 X10^3/uL; Monocyte% 12.6 % (0-10); NRBC Flagged by Analyzer 0 % (0-5); Neutrophil # 4.99 X10^3/uL (2.7-7.7); Neutrophil % 61.1 % (47-70); Platelet Count 202 K/mm3 (150-450); RBC Distribution Width CV 13.3 % (11.6-14.6); RBC Distribution Width SD 47.2 fl (35.1-43.9); Red Blood Count 4.31 M/mm3 (4.2-5.4); White Blood Count 8.2 K/mm3 (4.4-11.0)
[2024-04-30 15:19] LABS: ALB/GLOB Ratio 1.2 RATIO (0.9-2.4); AST(SGOT) 11 U/L (15-37); Alanine Aminotransfer ALT/SGPT 19 U/L (13-56); Albumin, Serum 3.7 g/dL (3.2-5.0); Alkaline Phosphatase 63 U/L (45-117); Anion Gap 6 (5-15); BUN 17 mg/dL (7-18); BUN/Creat Ratio 21.5 RATIO (10-20); Calcium,Total 9.1 mg/dL (8.5-10.1); Chloride 103 mmol/L (98-107); Creatinine, Serum 0.79 mg/dL (0.55-1.02); EST Glomerular Filtration Rate 76 mL/min (>60); Est Glom Filt Rate - Afr Amer 92 mL/min (>60); Glucose 84 mg/dL (74-106); Potassium 3.5 mmol/L (3.5-5.1); Protein, Total 6.7 g/dL (6.4-8.2); Sodium Level 138 mmol/L (136-145)
== END | disposition home or self-care (01) ==
LOC: MTLAB 12:45
PROVIDERS: PCP Internal Medicine; Referring Provider Internal Medicine Rheumatology; Visit Provider Internal Medicine Rheumatology
DX: M05.70 Rheumatoid arthritis with rheumatoid factor of unspecified site without organ or systems involvement (principal); Z79.899 Other long term (current) drug therapy
CPT/HCPCS: 36415; 80053; 85025

== ENCOUNTER → 2024-06-29 | Outpatient (CLI) | payer MEDICARE, OTHER, SELFPAY ==
--- NOTE | 2024-06-29 14:12 | RAD_ITS ---
EXAM: XR LEFT SHOULDER COMPLETE, 2 OR MORE VIEWS CLINICAL INDICATION: Left Shoulder Pain -- Send to Dr. Kiran as well. TECHNIQUE: Two or more views of the left shoulder. COMPARISON: No relevant prior studies available. FINDINGS: BONES/JOINTS: Glenohumeral and acromioclavicular joint arthrosis. No acute fracture. No subluxation. Normal alignment. No sclerotic or destructive changes observed. SOFT TISSUES: Amorphous calcification in the expected location of the supraspinatus myotendinous junction perhaps indicating chronic injury or calcific tendinopathy. No soft tissue swelling or gas. No radiopaque foreign body. RAD/Shoulder min 2 Views IMPRESSION: 1. Glenohumeral and acromioclavicular joint arthrosis. 2. Amorphous calcification in the expected location of the supraspinatus myotendinous junction perhaps indicating chronic injury or calcific tendinopathy. Electronically Signed: Haseeb Thompson DO at 22:13 EST ,
== END | disposition home or self-care (01) ==
LOC: MTRAD 14:12
PROVIDERS: PCP Internal Medicine; Referring Provider Internal Medicine; Visit Provider Internal Medicine
DX: M25.512 Pain in left shoulder (principal)
CPT/HCPCS: 73030

== ENCOUNTER → 2024-07-02 | Outpatient (CLI) | payer MEDICARE, OTHER, SELFPAY ==
[2024-07-02 13:32] LABS: Mucous, Urine 0 SEEN /hpf (<or=2+)
[2024-07-02 15:38] LABS: Color, Urine Yellow (Yellow); Glucose, Dipstick Normal (Normal); Ketone-Dipstick Negative (Negative); Leukocyte Esterase-Dipstick 500 /ul (Negative); Nitrite-Dipstick Negative (Negative); Occult Blood-Urine 250 /ul (Negative); Protein-Dipstick Negative (Negative); Urine Bilirubin Dipstick Negative (Negative); Urine Clarity Sl. Cloudy (Clear); Urine Urobilinogen Normal (Normal); Urine pH 6.5 (5.0 - 8.0)
[2024-07-02 15:46] LABS: Bacteria RARE /hpf (None Seen); Red Blood Cells-Urine 5-10 SEEN /hpf (0-5); Squamous Epithelial Cells - UA 0-5 SEEN /hpf (5-10); White Blood Cells 25-50 SEEN /hpf (0-5)
== END | disposition home or self-care (01) ==
LOC: LABSPEC 13:25
PROVIDERS: PCP Internal Medicine; Referring Provider Internal Medicine; Visit Provider Internal Medicine
DX: R39.15 Urgency of urination (principal)
CPT/HCPCS: 81001; 87077; 87086; 87088; 87186

== ENCOUNTER 2024-07-03 10:12 | Emergency (ER) | payer MEDICARE, OTHER, SELFPAY ==
[2024-07-03 10:12] VITALS: BP 153/86; PULSE 91; RESP 18; TEMP 36.4; O2SAT 97; BMI 32.8
[2024-07-03 10:14] VITALS: BP 153/86; PULSE 91; RESP 18; TEMP 36.4; O2SAT 97
--- NOTE | 2024-07-03 10:32 | EX.ED.DYSGE1 ---
HPI History of Present Illness Chief Complaint: Complaint Informant: patient and spouse/S.O. Narrative Narrative: 69-year-old female presenting to the emergency room with a chief complaint of urinary frequency hesitancy and hematuria. Patient is on apixaban and is recently been taking naproxen for the past month due to calcific tendinitis of the left shoulder. She has a history of rheumatoid arthritis. She called her doctor on Saturday and gave a urine specimen due to her urinary symptoms. No reported fevers nausea or vomiting. Microscopic urine demonstrated rare bacteria, 5-10 red cells, and 25-50 white blood cells. This was negative for nitrates positive for leukocyte esterase. Urine culture has not had any growth yet. Patient states that symptoms seemed better Saturday afternoon but has returned. She states she spoke with her doctors office and they recommended she come to emergency for the evaluation of possible kidney stones. She has never had any kidney stones. She denies any sharp stabbing flank pain or abdominal pain. Patient notes that she has had 1 prior urinary tract infection after a surgery and noted that it feels very similar. [facility] Medical History (Updated 07/03/24 @ 13:[address] Michael Britton, DO) Hematuria Urinary urgency Left shoulder pain Health care maintenance Chronic back pain Acute rhinosinusitis COVID-19 Cough Chronic sinusitis Seasonal allergies Essential (primary) hypertension Female dyspareunia Rosacea conjunctivitis of both eyes Osteoporosis Degenerative disc disease Rheumatoid arthritis Hypothyroidism Hyperlipidemia Paroxysmal atrial fibrillation Home Medications ?Medication ?Instructions ?Recorded ?Last Taken ?Type cholecalciferol (vitamin D3) 25 3,000 unit PO DAILY 03/31/15 01/16/16 08:00 History mcg (1,000 unit) tablet folic acid 1 mg tablet 1 mg PO .COMPLEX 06/26/17 Unknown History prednisone 5 mg tablet 5 mg PO .COMPLEX 06/26/17 Unknown History hydroxychloroquine 200 mg tablet 200 mg PO BID 10/28/17 Unknown History (Plaquenil) methotrexate sodium 2.5 mg tablet 15 mg PO QWEEK 07/14/19 Unknown History calcium carbonate (Calcium 600) 600 mg PO DAILY 08/29/21 Unknown History montelukast 10 mg tablet 10 mg PO QHS PRN allergies #90 tabs 07/12/22 Unknown Rx cyclobenzaprine 10 mg tablet 10 mg PO TID PRN muscle spasm #180 12/20/22 Unknown Rx tabs hydrochlorothiazide 12.5 mg tablet 12.5 mg PO QAM #90 tabs 07/09/23 Unknown Rx metoprolol succinate 50 mg 50 mg PO QDAY #90 tabs 07/09/23 Unknown Rx tablet,extended release 24 hr (Toprol XL) estradiol 0.01% (0.1 mg/gram) 1 g vaginal 2XW 12/17/23 Unknown History vaginal cream atorvastatin 10 mg tablet 10 mg PO DAILY #90 tabs 12/25/23 Unknown Rx naproxen 500 mg tablet 500 mg PO DAILY PRN pain #90 tabs 12/25/23 Unknown Rx apixaban 5 mg tablet (Eliquis) 5 mg PO BID #60 tabs 01/29/24 Unknown Rx flecainide 50 mg tablet 50 mg PO Q12H OK to fill with 01/29/24 Unknown Rx Plaquenil, we monitor ekg #180 tabs potassium chloride 10 mEq 20 meq (2 x 10 mEq) PO DAILY #180 02/12/24 Unknown Rx capsule,extended release caps irbesartan 150 mg tablet 150 mg PO DAILY #90 TABLETS 05/21/24 Unknown Rx omeprazole 20 mg capsule,delayed 20 mg PO DAILY #90 caps 05/21/24 Unknown Rx release levothyroxine 50 mcg tablet 50 mcg PO DAILY #90 tabs 06/29/24 Unknown Rx cephalexin 500 mg capsule 500 mg PO TID #21 CAPSULES 07/03/24 Unknown Rx phenazopyridine 200 mg tablet 200 mg PO TID #6 tabs 07/03/24 Unknown Rx (Pyridium) Allergy/AdvReac Type Severity Reaction Status Date / Time janell Allergy Rash Verified 07/03/24 10:15 Penicillins Allergy Rash Verified 07/03/24 10:15 Family History Father Macular degeneration Heart disease Hypertension Mother CVA (cerebral vascular accident) Thyroid disorder Brother Heart disease Hypertension Surgical History History of LAVH History of ankle fusion History of right knee joint replacement history of tendon repair History of hysterectomy History of cardioversion (01/17/16) Social History Smoking Status: Never smoker how long ago did patient quit smokin alcohol intake: current alcohol intake frequency: a few times a week Alcohol type: wine details: social substance use type: does not use caffeine: Yes what type of physical activity do you participate in: walking frequency: 1-2 times per week seatbelt use: always do you feel safe at home: Yes additional social history: 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- Retired ROS ROS ED Constitutional Constitutional ED: Denies chills or weight loss Eyes Eyes: Denies change in vision or diplopia ENT ENT ED: Denies ear pain, rhinorrhea or sore throat Cardiovascular Cardiovascular: Denies chest pain, orthopnea, palpitations or racing heartbeat Respiratory/Chest Respiratory/Chest: Denies cough, dyspnea or orthopnea Gastrointestinal Gastrointestinal: Denies abdominal pain, diarrhea, nausea or vomiting Genitourinary Genitourinary ED: Reports hematuria and urinary frequency; Denies dysuria Musculoskeletal Musculoskeletal: Denies arthralgias or myalgias Integumentary Denies abscess or rash Neurologic Neurologic: Denies headache(s) or weakness Psychiatric Psychiatric: Denies anxiety, depression, suicidal ideation or suicidal thoughts Endocrine Endocrinology: Denies polydipsia, polyphagia or polyuria Allergic/Immunologic Allergic/Immunologic ED: Denies mouth swelling, tongue swelling or urticaria EXAM Physical Exam Const Vital Signs: 07/03/24 10:12 07/03/24 10:14 07/03/24 12:12 Temperature 97.5 F L 97.5 F L Temperature Source Oral Oral Pulse Rate 91 91 80 Respiratory Rate 18 18 16 Blood Pressure 153/86 H 153/86 H 150/82 H Blood Pressure Mean 108 108 104 Pulse Ox 97 97 99 Oxygen Delivery Method Room Air Room Air 07/03/24 13:42 Temperature 98 F Temperature Source Pulse Rate 74 Respiratory Rate 16 Blood Pressure 148/78 H Blood Pressure Mean 101 Pulse Ox 99 Oxygen Delivery Method Positive well nourished and well developed General Appearance ED: well developed HEENT Reports normocephalic, head/scalp atraumatic and moist mucous membranes Eyes PERRL and EOMs intact bilaterally Neck no lymphadenopathy, supple and no JVD Resp normal respiratory effort and clear to auscultation bilaterally Cardio regular rate, regular rhythm and no murmurs GI normal to inspection, nondistended, normoactive bowel sounds and non-tender Palpation: soft Back/Spine no CVA tenderness and normal ROM Extremity normal to inspection General Extremety ED: Negative for edema General Extremity: Negative for edema Neuro oriented x3 and CN's II-XII intact bilaterally Sensorium / Orientation: alert Motor Exam: strength 5/5 throughout Psych mental status grossly normal Mood & Affect: Negative for depressed or tearful Skin no rashes or lesions noted and no wounds MDM MDM MDM Narrative Medical decision making narrative: Differential diagnosis includes UTI hemorrhagic cystitis malignancy renal malignancy nephrolithiasis/ureterolithiasis Urinalysis demonstrates greater than 100 red cells 1500 white cells rare bacteria negative nitrates. White count slightly elevated 13.[address] of the abdomen pelvis does not show any obvious malignancy renal abscess perinephric stranding I think it is reasonable to continue to wait on the original culture. I think it is also very reasonable given her symptomology and that this is not normal for her to treat this as an infection we close some Keflex. If she is not improving she continues to have symptomology would recommend neurologic History & Record Review Discussion w/independent historian: Patient and Family Additional record(s) reviewed:: Prior outpatient record and Prior labs Lab Data Attestation: I reviewed the patient's lab results. Labs: Laboratory Results - last 24 hr 07/03/24 07/03/24 10:27 11:52 WBC 13.3 H RBC 4.39 Hgb 14.0 Hct 41.3 MCV 94.1 MCH 31.9 MCHC 33.9 RDW Std Deviation 44.7 H RDW Coeff of Jose 13.2 Plt Count 221 MPV 11.8 Immature Gran % (Auto) 0.900 Neut % (Auto) 79.7 H Lymph % (Auto) 9.0 L [place] % (Auto) 8.6 Eos % (Auto) 1.2 Baso % (Auto) 0.6 Absolute Neuts (auto) 10.6 H Absolute Lymphs (auto) 1.20 Nucleated RBC % 0 Sodium 138 Potassium 3.7 Chloride 104 Carbon Dioxide 29.0 Anion Gap 5 BUN 18 Creatinine 0.97 Estim Creat Clear Calc 55.38 Est GFR (MDRD) Af Amer 73 Est GFR (MDRD) Non-Af 60 BUN/Creatinine Ratio 18.6 Glucose 90 Calcium 9.8 Urine Color Yellow Urine Clarity Cloudy Urine pH 6.0 Ur Specific [place] 1.025 Urine Protein 100 H Urine Glucose (UA) Normal Urine Ketones Negative Urine Occult Blood 250 H Urine Nitrite Negative Urine Bilirubin Negative Urine Urobilinogen 1 H Ur Leukocyte Esterase 500 H Urine RBC > 100 SEEN Urine WBC 50-100 SEEN Ur Squamous Epith Cells 0-5 SEEN Urine Bacteria RARE Urine Mucus RARE Radiography Diagnostic Testing: Clinical Impression(s) from Imaging Studies Abdomen/Pelvis CT 07/03/24 11:31 IMPRESSION: Sigmoid diverticulosis. Small hiatal hernia. Electronically Signed: Abhinav Schneider MD at 13:20 EST , Discharge Plan Triage Chief Complaint: Complaint ED Provider: Michael Britton Dx/Rx/DC Orders Clinical Impression: Cystitis, Hematuria, Anticoagulated Instructions: ED Cystitis Female Adult Prescriptions: New phenazopyridine [Pyridium] 200 mg tablet 200 mg PO TID Qty: 6 0RF cephalexin 500 mg capsule 500 mg PO TID Qty: 21 0RF No Action folic acid 1 mg tablet 1 mg PO .COMPLEX Patient Comments: 1 mg PO 2 tablets by mouth daily Rx Instructions: 1 mg PO 2 tablets by mouth daily hydroxychloroquine [Plaquenil] 200 mg tablet 200 mg PO BID methotrexate sodium 2.5 mg tablet 15 mg PO QWEEK calcium carbonate [Calcium 600] 600 mg calcium (1,500 mg) tablet 600 mg PO DAILY cyclobenzaprine 10 mg tablet 10 mg PO TID PRN (Reason: muscle spasm) Qty: 180 2RF montelukast 10 mg tablet 10 mg PO QHS PRN (Reason: allergies) Qty: 90 1RF estradiol 0.01 % (0.1 mg/gram) cream 1 g vaginal 2XW Rx Instructions: compounded Rx [facility]: 4 clicks, twice a week atorvastatin 10 mg tablet 10 mg PO DAILY Qty: 90 3RF naproxen 500 mg tablet 500 mg PO DAILY PRN (Reason: pain) Qty: 90 3RF levothyroxine 50 mcg tablet 50 mcg PO DAILY Qty: 90 3RF cholecalciferol (vitamin D3) 1,000 UNIT tablet 3,000 unit PO DAILY Patient Comments: Supplement prednisone 5 MG tablet 5 mg PO .COMPLEX Patient Comments: 5 mg PO as directed per Dr. Kiran; Steriod/Arthritis Rx Instructions: 5 mg PO as directed per Dr. Kiran; Steriod/Arthritis hydrochlorothiazide 12.5 mg tablet 12.5 mg PO QAM Qty: 90 3RF metoprolol succinate [Toprol XL] 50 mg tablet extended release 24 hr 50 mg PO QDAY Qty: 90 3RF flecainide 50 mg tablet 50 mg PO Q12H Qty: 180 3RF Eliquis 5 mg tablet 5 mg PO BID Qty: 60 11RF potassium chloride 10 mEq capsule, extended release 20 meq PO DAILY Qty: 180 3RF irbesartan 150 mg tablet 150 mg PO DAILY Qty: 90 1RF omeprazole 20 mg capsule,delayed release(/EC) 20 mg PO DAILY Qty: 90 1RF Primary Care Provider: Blanca Mcdermott Referrals: Blanca Mcdermott MD [Primary Care Provider] - Power Vasquez MD [Med Staff - Active Staff] - (for urology if not improving ) Print Language: Nepali Disposition Disposition: Home, Self Care Discharge Date/Time: 07/03/24 13:49
[2024-07-03 10:59] LABS: Color, Urine Yellow (Yellow); Glucose, Dipstick Normal (Normal); Ketone-Dipstick Negative (Negative); Leukocyte Esterase-Dipstick 500 /ul (Negative); Nitrite-Dipstick Negative (Negative); Occult Blood-Urine 250 /ul (Negative); Protein-Dipstick 100 mg/dl (Negative); Specific Gravity, Urine 1.025 (1.002-1.030); Urine Bilirubin Dipstick Negative (Negative); Urine Clarity Cloudy (Clear); Urine Urobilinogen 1 mg/dl (Normal)
[2024-07-03 11:24] LABS: Red Blood Cells-Urine > 100 SEEN /hpf (0-5); Squamous Epithelial Cells - UA 0-5 SEEN /hpf (5-10); White Blood Cells 50-100 SEEN /hpf (0-5)
[2024-07-03 11:25] LABS: Bacteria RARE /hpf (None Seen); Mucous, Urine RARE /hpf (<or=2+)
--- NOTE | 2024-07-03 11:31 | CT_ITS ---
STUDY: CT ABDOMEN AND PELVIS WITH CONTRAST REASON FOR EXAM: Female, 69 years old. Hematuria. UTI. Urinary frequency. RADIATION DOSAGE (If Supplied By Facility): CTDIvol = ( 19.66 ) mGy, DLP = ( 1034.67 ) mGycm TECHNIQUE: Transaxial images were obtained from the dome of the diaphragm to the symphysis pubis without oral contrast. IV 100mL Isovue-370 was administered. Sagittal and coronal images were reconstructed. Individualized dose optimization techniques were used for this CT. COMPARISON: None. FINDINGS: The visualized lung bases are unremarkable. The visualized portions of the heart are within normal limits. Normal liver. Normal gallbladder and extrahepatic biliary system. Normal spleen. Normal pancreas. Normal bilateral adrenal glands. Normal right kidney. Normal left kidney. There is a small hiatal hernia. Normal small intestine. There are multiple colonic diverticula consistent with diverticulosis. The appendix is visualized and appears normal. There is scattered atherosclerotic calcification of the abdominal aorta, without a demonstrated aneurysm. Normal inferior vena cava. Normal retroperitoneum. Normal urinary bladder. There is absence of the uterus consistent with a prior hysterectomy. Normal abdominal wall. 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 Disc space narrowing and disc generation of multiple levels. Loss of height of the superior endplate of the L4 vertebrae. Levoscoliosis. CT/Abdomen/Pelvis W IV Cont ONLY IMPRESSION: Sigmoid diverticulosis. Small hiatal hernia. Electronically Signed: Abhinav Schneider MD at 13:20 EST ,
[2024-07-03 12:03] LABS: Absolute Neutrophil Count 10.6 X10^3/uL (2.0-7.7); Basophil# 0.08 X10^3/uL; Basophil% 0.6 % (0-1); Eosinophil# 0.16 X10^3/uL; Eosinophils% 1.2 % (0-5); Hematocrit 41.3 % (37-47); Mean Corp Hgb Conc 33.9 g/dL (32-36); Mean Corpuscular Hgb 31.9 pg (27.0-32.0); Mean Corpuscular Volume 94.1 fL (81-99); Mean Platelet Vol. 11.8 fl (6.2-12.0); Monocyte# 1.15 X10^3/uL; Monocyte% 8.6 % (0-10); NRBC Flagged by Analyzer 0 % (0-5); Neutrophil # 10.59 X10^3/uL (2.7-7.7); Neutrophil % 79.7 % (47-70); Platelet Count 221 K/mm3 (150-450); RBC Distribution Width CV 13.2 % (11.6-14.6); RBC Distribution Width SD 44.7 fl (35.1-43.9); Red Blood Count 4.39 M/mm3 (4.2-5.4); White Blood Count 13.3 K/mm3 (4.4-11.0)
[2024-07-03 12:12] VITALS: BP 150/82; PULSE 80; RESP 16; O2SAT 99
[2024-07-03 12:23] LABS: Anion Gap 5 (5-15); BUN 18 mg/dL (7-18); BUN/Creat Ratio 18.6 RATIO (10-20); Calcium,Total 9.8 mg/dL (8.5-10.1); Chloride 104 mmol/L (98-107); Creatinine, Serum 0.97 mg/dL (0.55-1.02); EST Glomerular Filtration Rate 60 mL/min (>60); Est Glom Filt Rate - Afr Amer 73 mL/min (>60); Estimated Creatinine Clearance 55.38 ml/min; Glucose 90 mg/dL (74-106); Potassium 3.7 mmol/L (3.5-5.1); Sodium Level 138 mmol/L (136-145)
[2024-07-03 13:42] VITALS: BP 148/78; PULSE 74; RESP 16; TEMP 36.6; O2SAT 99
== END 2024-07-03 13:49 | disposition home or self-care (01) ==
PROVIDERS: Emergency Provider Emergency Medicine; PCP Internal Medicine; Visit Provider Emergency Medicine
DX: N30.91 Cystitis, unspecified with hematuria (principal); I48.0 Paroxysmal atrial fibrillation; Z79.01 Long term (current) use of anticoagulants; Z86.16 Personal history of COVID-19
CPT/HCPCS: 74177; 80048; 81001; 85025; 99283; Q9967; A4216

== ENCOUNTER → 2024-07-17 | Outpatient (CLI) | payer MEDICARE, OTHER, SELFPAY ==
[2024-07-17 13:07] LABS: Bacteria 0 SEEN /hpf (None Seen); Mucous, Urine 0 SEEN /hpf (<or=2+)
[2024-07-18 03:06] LABS: Color, Urine Yellow (Yellow); Glucose, Dipstick Normal (Normal); Ketone-Dipstick Negative (Negative); Leukocyte Esterase-Dipstick Negative /ul (Negative); Nitrite-Dipstick Negative (Negative); Occult Blood-Urine Negative /ul (Negative); Protein-Dipstick Negative (Negative); Urine Bilirubin Dipstick Negative (Negative); Urine Clarity Clear (Clear); Urine Urobilinogen Normal (Normal); Urine pH 6.5 (5.0 - 8.0)
[2024-07-18 03:42] LABS: Red Blood Cells-Urine 0 SEEN /hpf (0-5); Squamous Epithelial Cells - UA 0-5 SEEN /hpf (5-10); White Blood Cells 0-5 SEEN /hpf (0-5)
== END | disposition home or self-care (01) ==
LOC: LABSPEC 13:05
PROVIDERS: PCP Internal Medicine; Referring Provider Internal Medicine; Visit Provider Internal Medicine
DX: R31.9 Hematuria, unspecified (principal)
CPT/HCPCS: 81001

== ENCOUNTER → 2024-07-21 | Outpatient (CLI) | payer MEDICARE, OTHER, SELFPAY ==
--- NOTE | 2024-07-21 10:45 | BD_ITS ---
PROCEDURE: DEXA BONE DENSITY STUDY REASON FOR EXAM: F, age 69 y/o . Postmenopausal. TECHNIQUE: DEXA scan of the lumbar spine and both hips. COMPARISON: Comparison is made with prior study dated May 15, 2022. FINDINGS: Lumbar Spine (L1-L4): g/cm2 (0.809)/T-score (-2.2)/Z-score (0.0) findings are suggestive of osteopenic with a moderate fracture risk. Left Femur Total: g/cm2 (0.705)/T-score (-1.9)/Z-score (-0.4) Left Femoral Neck: g/cm2 (0.501)/T-score (-3.1)/Z-score (-1.3) Right Femur Total: g/cm2 (0.699)/T-score (-2.0)/Z-score (-0.5) Right Femoral Neck: g/cm2 (0.571)/T-score (-2.5)/Z-score (-0.7) The T-Scores on the most recent prior examination were: Lumbar Spine (L1-L4): There has been improvement of bone density since the previous examination. Left Femur Total: Loss of 5.6%. Right Femur Total: Improvement of 1.4%. BD/Dexa Bone Density Study IMPRESSION: The patient is considered osteoporotic as outlined below according to World Hea th Organization (WHO) criteria with a high fracture risk. There has been worsening of bone density since the previous exa mination. Reading Location: [place] [id number]
== END | disposition home or self-care (01) ==
LOC: OPBD 10:39
PROVIDERS: PCP Internal Medicine; Referring Provider Internal Medicine; Visit Provider Internal Medicine
DX: M81.0 Age-related osteoporosis without current pathological fracture (principal)
CPT/HCPCS: 77080

== ENCOUNTER → 2024-07-23 | Outpatient (CLI) | payer MEDICARE, OTHER, SELFPAY ==
[2024-07-23 15:19] LABS: Absolute Lymphocyte Count 1.58 X10^3/uL (0.83-4.51); Absolute Neutrophil Count 7.2 X10^3/uL (2.0-7.7); Basophil# 0.07 X10^3/uL; Basophil% 0.7 % (0-1); Eosinophil# 0.11 X10^3/uL; Eosinophils% 1.1 % (0-5); Hematocrit 40.7 % (37-47); Hemoglobin 13.4 g/dL (12.0-15.0); Lymphocyte # 1.58 X10^3/ul (0.83-4.51); Lymphocyte % 15.8 % (19-41); Mean Corp Hgb Conc 32.9 g/dL (32-36); Mean Corpuscular Hgb 31.2 pg (27.0-32.0); Mean Corpuscular Volume 94.9 fL (81-99); Mean Platelet Vol. 12.2 fl (6.2-12.0); Monocyte# 1.02 X10^3/uL; Monocyte% 10.2 % (0-10); NRBC Flagged by Analyzer 0 % (0-5); Neutrophil # 7.17 X10^3/uL (2.7-7.7); Neutrophil % 71.9 % (47-70); Platelet Count 211 K/mm3 (150-450); RBC Distribution Width CV 13.1 % (11.6-14.6); RBC Distribution Width SD 45.1 fl (35.1-43.9); Red Blood Count 4.29 M/mm3 (4.2-5.4)
[2024-07-23 16:11] LABS: ALB/GLOB Ratio 1.3 RATIO (0.9-2.4); AST(SGOT) 19 U/L (15-37); Alanine Aminotransfer ALT/SGPT 19 U/L (13-56); Albumin, Serum 3.8 g/dL (3.2-5.0); Alkaline Phosphatase 60 U/L (45-117); Anion Gap 6 (5-15); BUN 17 mg/dL (7-18); BUN/Creat Ratio 19.7 RATIO (10-20); Calcium,Total 9.6 mg/dL (8.5-10.1); Chloride 102 mmol/L (98-107); Creatinine, Serum 0.86 mg/dL (0.55-1.02); EST Glomerular Filtration Rate 69 mL/min (>60); Est Glom Filt Rate - Afr Amer 84 mL/min (>60); Globulin 2.9 g/dL (2.2-4.2); Glucose 84 mg/dL (74-106); Potassium 3.9 mmol/L (3.5-5.1); Protein, Total 6.7 g/dL (6.4-8.2); Sodium Level 138 mmol/L (136-145); Thyroid Stim Hormone (TSH) 0.437 uIU/mL (0.358-3.740)
== END | disposition home or self-care (01) ==
LOC: MTLAB 12:54
PROVIDERS: PCP Internal Medicine; Referring Provider Internal Medicine Rheumatology; Visit Provider Internal Medicine Rheumatology
DX: M05.70 Rheumatoid arthritis with rheumatoid factor of unspecified site without organ or systems involvement (principal); Z79.899 Other long term (current) drug therapy
CPT/HCPCS: 36415; 80053; 84443; 85025

== ENCOUNTER 2024-09-14 11:00 | Outpatient (RCR) | payer MEDICARE, OTHER, SELFPAY ==
--- NOTE | 2024-07-30 13:58 | HP.PTEVAL ---
Patient's Visit Information Visit Information Visit Information: ROSAMARIA PRYOR is a 69 year old F referred to Physical Therapy by Dr. Blanca Mcdermott MD with a diagnosis of L shoulder pain. Date of Evaluation: 07/30/24 Physical Therapist: Catracho Robles, PT, ATC Visit Plan Frequency: 2x /Week Duration: 2-4 Weeks Plan: L shoulder rotator cuff strengthening and scap stab ex's Subjective Subjective: Pt reports she has had L shoulder pain for 2 months. Pt reports she has OA and RA throughout her body, and notes this is probably the cause of her pain. Pt notes she had an xray which showed OA and calcific tendonitis. Pt reports she is R hand dominant. 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 Pt notes the pain is generalized in nature. Pt reports her doctor believes she may also have a tear in some of her tendons as well. Pt reports reaching behind her back increases her pain. Pt denies tingling or numbness in L UE. Pt reports she has difficulty with sleep at times if she is in a lot of pain. 0/10 pain at rest, 8/10 pain at worst. Pain L shoulder pain: Pain Intensity (Out of 10): 0 Pain Intensity Range: 8 Objective Objective: Neuro: B UE sensation is WNL to light touch. B bicipital reflex= 2/3 Palpation: Pt is sore throughout the distribution of the supraspinatus. No deformity noted. ROM: R shoulder flex= 180, abd= 180, ER= 90, IR= WNL; L shoulder flex= 160, abd= 160, ER= 90, IR= mod limited MMT: R shoulder flex= 9, abd= 18, ER= 10, IR= 17 #F; L shoulder flex= 4, abd= 8, ER= 10, IR= 10 #F Special tests: pos empty can Balance/Special Test Scores Quick DASH Score: 38.6350 Goals Goal 1:: Decrease L shoulder pain x 50% to aid with sleep Goal Time Frame: 2-4 Weeks Goal 2:: Pt will be I with hep in 4 visits Goal Time Frame: 2-4 Weeks Rehabilitation Potential Physical Therapy Diagnosis: Pt has L shoulder pain, weakness, and limited ROM secondary to L shoulder impingement syndrome Rehabilitation Potential: Good Anticipated Interventions Patient/Client Instruction: Educate patient on: Condition and Plan of Care For the Purpose of:: To improve self management Therapeutic Exercise to Include: Strength training, Flexibilty training, Active ROM and Scapular Strength/Stabilization For the Purpose of:: To decrease pain, To increase ROM and To improve muscle performance and motor function Cryotherapy (ice pack, ice massage): Yes For the Purpose of:: To decrease pain Text: Thank you for the opportunity to evaluate your patient. For Medicare and Medicare HMO plans, please review the plan of care and approve it. It will need to be FAXED BACK to us at [phone] for Medicare purposes. For Medicare only, by signing this I certify the plan of care. Please let me know if there are questions or concerns regarding this plan of care. Physician Signature: Date:
--- NOTE | 2024-09-14 11:27 | HP.PTDCSUM ---
Discharge Summary D/C summary: It has been my pleasure to treat ROSAMARIA PRYOR referred by Dr. Blanca Mcdermott MD, with the diagnosis of L shoulder pain for a total of 6 visit(s). Discharge Date: Please see the following information for a summary of their discharge status. Subjective Subjective: I am getting better overall Pain L shoulder pain: Pain Intensity (Out of 10): 0 Overall Improvement % Improvement: 60 Objective Objective/Function: L shoulder pain ranges from 0-2/10 L shoulder ROM: flex= 160, abd= 170, ER= 60, IR= WNL compared bilaterally L shoulder MMT: flex= 6, abd= 6, ER= 10, IR= 13 #F Pt is I with HEP Goals Goal 1:: Decrease L shoulder pain x 50% to aid with sleep Goal Progress: Goal Met Goal 2:: Pt will be I with hep in 4 visits Goal Progress: Goal Met Plan Plan: Discharge to HEP D/C Information d/c sentence: If there are questions or concerns regarding this patient's physical therapy, please feel free to call me at [phone]. Thank you for the referral of this patient. Sincerely, Catracho Robles, PT, ATC Balance/Gait/Functional tests Balance/Special Test Scores Quick DASH Score: 34.0900 Improvement % Improvement: 60
== END 2024-09-14 12:15 | disposition home or self-care (01) ==
LOC: PT 11:00
PROVIDERS: PCP Internal Medicine; Referring Provider Internal Medicine; Visit Provider Internal Medicine
DX: M25.512 Pain in left shoulder (principal)
CPT/HCPCS: 97110; 97161; 97530

== ENCOUNTER → 2024-10-14 | Outpatient (CLI) | payer MEDICARE, OTHER, SELFPAY ==
--- NOTE | 2024-10-14 10:28 | CT_ITS ---
PROCEDURE: BRAIN/HEAD WITHOUT CONTRAST, 10/14/2024 REASON FOR EXAM: CHRONIC ANTICOAGULATION, FALL, SCALP HEMATOMA COMPARISON: None TECHNIQUE: CT head was performed without IV contrast. Multiplanar reformats were generated. RADIATION DOSE SUMMARY: CTDlvol: 44.99 mGy DLP: 745.99 mGycm One or more dose reduction techniques were used (e.g., Automated exposure control, adjustment of the mA and/or kV according to patient size, use of iterative reconstruction technique). FINDINGS: Cerebrum: Unremarkable. Cerebellum/brainstem: Unremarkable. Note slight limitation due to beam hardening artifact. Ventricles/extra-axial spaces: Unremarkable. Paranasal sinuses/mastoid air cells: Unremarkable. Scalp/calvarium: RIGHT parieto-occipital scalp contusion with hematoma measuring 2.5 x 1.0 x 0.8 cm. Other: Intracranial atherosclerosis. CT/Brain/Head without Contrast IMPRESSION: 1. Bright parieto-occipital scalp contusion with 2.5 cm scalp hematoma. No visi ble acute intracranial hemorrhage. 2. Additional description as above. Reading Location: [id number]
== END | disposition home or self-care (01) ==
LOC: CT 10:25
PROVIDERS: PCP Internal Medicine; Referring Provider Internal Medicine; Visit Provider Internal Medicine
DX: S00.03XA Contusion of scalp, initial encounter (principal); W19.XXXA Unspecified fall, initial encounter; Z79.01 Long term (current) use of anticoagulants
CPT/HCPCS: 70450

== ENCOUNTER → 2024-10-16 | Outpatient (CLI) | payer MEDICARE, OTHER, SELFPAY ==
[2024-10-16 15:54] LABS: Absolute Lymphocyte Count 1.54 X10^3/uL (0.83-4.51); Absolute Neutrophil Count 5.4 X10^3/uL (2.0-7.7); Basophil# 0.06 X10^3/uL; Basophil% 0.7 % (0-1); Eosinophils% 1.2 % (0-5); Hematocrit 40.1 % (37-47); Hemoglobin 13.3 g/dL (12.0-15.0); Lymphocyte # 1.54 X10^3/ul (0.83-4.51); Lymphocyte % 19.2 % (19-41); Mean Corp Hgb Conc 33.2 g/dL (32-36); Mean Corpuscular Hgb 31.3 pg (27.0-32.0); Mean Corpuscular Volume 94.4 fL (81-99); Mean Platelet Vol. 12.9 fl (6.2-12.0); Monocyte# 0.92 X10^3/uL; Monocyte% 11.4 % (0-10); NRBC Flagged by Analyzer 0 % (0-5); Neutrophil % 67.3 % (47-70); Platelet Count 207 K/mm3 (150-450); RBC Distribution Width CV 13.6 % (11.6-14.6); RBC Distribution Width SD 46.7 fl (35.1-43.9); Red Blood Count 4.25 M/mm3 (4.2-5.4)
[2024-10-16 16:55] LABS: ALB/GLOB Ratio 1.7 RATIO (0.9-2.4); AST(SGOT) 22 U/L (<=31); Alanine Aminotransfer ALT/SGPT 16 U/L (<=34); Albumin, Serum 4.1 g/dL (3.4-4.8); Alkaline Phosphatase 58 U/L (35-104); Anion Gap 12 (5-15); BUN 13 mg/dL (4-19); BUN/Creat Ratio 15.2 RATIO (10-20); Calcium,Total 9.5 mg/dL (7.6-11.0); Carbon Dioxide 24.2 mmol/L (21.0-32.0); Chloride 102 mmol/L (98-108); Creatinine, Serum 0.82 mg/dL (0.70-1.20); EST Glomerular Filtration Rate 77 (>60); Globulin 2.4 g/dL (2.2-4.2); Glucose 94 mg/dL (70-99); Potassium 3.8 mmol/L (3.3-5.1); Protein, Total 6.5 g/dL (5.9-8.4); Sodium Level 139 mmol/L (133-145); Total Bilirubin 0.39 mg/dL (0.00-1.30)
== END | disposition home or self-care (01) ==
LOC: BIMLAB 12:16
PROVIDERS: PCP Internal Medicine; Referring Provider Internal Medicine Rheumatology; Visit Provider Internal Medicine Rheumatology
DX: M05.70 Rheumatoid arthritis with rheumatoid factor of unspecified site without organ or systems involvement (principal); Z79.899 Other long term (current) drug therapy
CPT/HCPCS: 36415; 80053; 85025

== ENCOUNTER → 2025-01-18 | Outpatient (CLI) | payer MEDICARE, OTHER, SELFPAY ==
[2025-01-18 15:23] LABS: Hematocrit 40.0 % (37-47); Hemoglobin 13.4 g/dL (12.0-15.0); Immature Granulocytes Count 0.020 X10^3/uL (0.0-0.0); Mean Corp Hgb Conc 33.5 g/dL (32-36); Mean Corpuscular Volume 92.4 fL (81-99); Mean Platelet Vol. 12.4 fl (6.2-12.0); NRBC Flagged by Analyzer 0 % (0-5); Platelet Count 220 K/mm3 (150-450); RBC Distribution Width CV 13.7 % (11.6-14.6); RBC Distribution Width SD 46.2 fl (35.1-43.9); Red Blood Count 4.33 M/mm3 (4.2-5.4); White Blood Count 9.4 K/mm3 (4.4-11.0)
[2025-01-18 16:57] LABS: AST(SGOT) 20 U/L (<=31); Alanine Aminotransfer ALT/SGPT 15 U/L (<=34); Albumin, Serum 4.3 g/dL (3.4-4.8); Alkaline Phosphatase 63 U/L (35-104); Anion Gap 14 (5-15); BUN 19 mg/dL (4-19); BUN/Creat Ratio 20.5 RATIO (10-20); Calcium,Total 9.7 mg/dL (7.6-11.0); Carbon Dioxide 23.2 mmol/L (21.0-32.0); Chloride 101 mmol/L (98-108); Globulin 2.2 g/dL (2.2-4.2); Glucose 94 mg/dL (70-99); Potassium 4.0 mmol/L (3.3-5.1)
== END | disposition home or self-care (01) ==
LOC: MTLAB 11:37
PROVIDERS: PCP Internal Medicine; Referring Provider Internal Medicine Rheumatology; Visit Provider Internal Medicine Rheumatology
DX: M05.70 Rheumatoid arthritis with rheumatoid factor of unspecified site without organ or systems involvement (principal); Z79.899 Other long term (current) drug therapy
CPT/HCPCS: 36415; 80053; 85025

== ENCOUNTER → 2025-04-23 | Outpatient (CLI) | payer MEDICARE, OTHER, SELFPAY ==
--- OUTSIDE RECORDS SUMMARY | 2025-04-23 13:44 | XMS RPT_ITS | CCD ---
Author Organization [facility] InformFormerly [facility] Care Team Providers Care Cardiology Fellow Name Role Phone Casi Avalos Y Unavailable Casi Avalos Y Unavailable GRZEGORZ RAMON () Unavailable Unav ailable GRZEGORZ RAMON) Unavailable Unav ailable GRZEGORZ RAMON) Unavailable Unav ailable DeFinis, Harumi Y Unavailable Unavailable Dr. Blanca Mcdermott Primary Care Provider [phone] Dr. Blanca Mcdermott Referring Provider [phone] Dr. Per Gregorio Attending Provider [phone] Dr. Blanca Mcdermott Attending Provider [phone] Dr. Blanca Mcdermott Primary Care Provider 1(33 0) Dr. Blanca Mcdermott Referring Provider [phone] Dr. Blanca Mcdermott Primary Care Provider 1(33 0) Dr. Blanca Mcdermott Referring Provider [phone] Ying FITZGERALD, AMILCAR-Fred Mendez Attending Provider [phone] Dr. Blanca Mcdermott Primary Care Provider [phone] [phone]) Dr. Blanca Mcdermott Referring Provider [phone] QUIANA Cosby Attending Provider [phone] Dr. Per Gregorio Attending Provider [phone] Dr. Nirmala Culp Attending Provider [phone] Sharron BRANCH, Dr. Rios Primary Care Provider Sharron BRANCH, Dr. Rios Attending Provider [phone]) Sharron BRANCH, Dr. Rios Referring Provider [phone] Dr. Michael Britton DO Attending Provider Tobi BERNARDO, Dr. Rodriugez Emergency Provider Darline BRANCH, Dr. Albarado Attending Provider [phone] Qiana BRANCH, Dr. Morin Attending Provider Qiana BRANCH, Dr. Morin Referring Provider Sharron BRANCH, Dr. Rios Primary Care Provider Sharron BRANCH, Dr. Rios Attending Provider [phone] Sharron BRANCH, Dr. Rios Referring Provider [phone]) Qiana BRANCH, Dr. Morin Attending Provider Qiana BRANCH, Dr. Morin Referring Provider Darline BRANCH, Dr. Albarado Attending Provider [phone] Sharron BRANCH, Dr. Rios Primary Care Physician Qiana BRANCH, Dr. Morin Attending Physician Qiana BRANCH, Dr. Morin Referring Provider Sharron BRANCH, Dr. Rios Referring Provider 1(33 0) Darline BRANCH, Dr. Albarado Attending Physician NURSE, BIM Attending Physician Unavailable Oleghe, Efewongbe Attending Unavailable Oleghe, Efewongbe Primary Care Unavailable Slavae, Efewongbe Referring Unavailable Patience Kiran Referring Unavailable Patience Kiran Attending Unavailable Oleghe, Efewongbe Primary Care Unavailable Oleghe, Efewongbe Attending Unavailable Oleghe, Efewongbe Primary Care Unavailable Oleghe, Efewongbe Referring Unavailable Oleghe, Efewongbe Primary Care Unavailable Oleghe, Efewongbe Referring Unavailable Darline, Per Attending Unavailable Oleghe, Efewongbe Attending Unavailable Oleghe, Efewongbe Primary Care Unavailable Oleghe, Efewongbe Referring Unavailable Oleghe, Efewongbe Primary Care Unavailable Oleghe, Efewongbe Referring Unavailable Oleghe, Efewongbe Attending Unavailable Oleghe, Efewongbe Referring Unavailable Per Gregorio Attending Unavailable Oleghe, Efewongbe Primary Care Unavailable Vellanki, Patience Attending Unavailable Vellanki, Patience Referring Unavailable Oleghe, Efewongbe Primary Care Unavailable Oleghe, Efewongbe Primary Care Unavailable Vellanki, Patience Referring Unavailable Vellanki, Patience Attending Unavailable Oleghe, Efewongbe Primary Care Unavailable Oleghe, Efewongbe Referring Unavailable Oleghe, Efewongbe Attending Unavailable Oleghe, Efewongbe Primary Care Unavailable Oleghe, Efewongbe Referring Unavailable Oleghe, Efewongbe Attending Unavailable Michael Britton Attending Unavailable Oleghe, Efewongbe Primary Care Unavailable Oleghe, Efewongbe Attending Unavailable Oleghe, Efewongbe Referring Unavailable Oleghe, Efewongbe Primary Care Unavailable Oleghe, Efewongbe Primary Care Unavailable Oleghe, Efewongbe Referring Unavailable Oleghe, Efewongbe Attending Unavailable Oleghe, Efewongbe Attending Unavailable Oleghe, Efewongbe Referring Unavailable Oleghe, Efewongbe Primary Care Unavailable Vellanki, Patience Referring Unavailable Vellanki, Patience Attending Unavailable Oleghe, Efewongbe Primary Care Unavailable Allergies Allergy Classification Reported Allergen(s) Allergy Type Date of Onset Reaction(s) Facility (18 sources) janell allergenic extract; 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: [JANELL] food allergy 6 unknown, Rash [facility] Work Phone: (3 sources) Penicillins (Antibiotic) drug allergy 6 unknown [facility] Work Phone: (1 source) penicillin; 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: [PENICILLIN G] Drug Allergy 6 [facility] Repository (1 source) MANGOES; 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: [MANGOES] Propensity to adverse reactions to food (disorder) 2 [facility] Repository (1 source) OTHER; 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: [OTHER] Prop[facility]) Penicillins; 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: [Penicillins] Allergy to substance 2 Rash [facility] Medications Current Medications Medication Drug Class(es) Dates Sig (Normalized) Sig (Original) apixaban 5 mg oral tablet (14 sources) Factor Xa Inhibitor Start: 10-10-2023 End: 02-18-2025 take 1 tablet by mouth twice daily calcium carbonate 1500 mg oral tablet (20 sources) Start: 08-29-2021 take 1 tablet by mouth once daily Start: 06-26-2017 End: 08-29-2021 take 1 tablet by mouth once daily as needed Calcium Carbonate 500 mg calcium (1,250 mg) tablet,chewable Discontinued 500 mg PO daily as needed July 14, 2020 12:03pm August 29, 2021 11:09am 1 ml denosumab 60 mg/ml pref illed syringe (19 sources) RANK Ligand Inhibitor Start: 10-14-2024 Start: 10-28-2017 End: 09-22-2018 Denosumab (Prolia) 60 mg/mL syringe Discontinued 60 mg SC every 6 months 1 October 28, 2017 12:00am September 22, 2018 9:39am estradiol 0.1 mg/ml vaginal cream (20 sources) Estrogen Start: 12-17-2023 Start: 10-28-2017 End: 08-14-2022 Estradiol (Estrace) 0.01 % ( 0.1 mg/gram) cream Discontinued 1 g VAGINAL EVERY WEEK 42.5 4 November 07, 2018 3:20pm July 14, 2020 12:07pm folic acid 1 mg oral tablet (17 sources) Start: 06-26-2017 take 1 tablet by mouth once da noé Start: 06-19-2016 take 2 tablets by [facility] once daily FOLIC ACID 1 MG TABS 2 mg every day by mouth per Dr. Kiran FOLIC ACID [id number] Per Gregorio MD hydroxychloroquine sulfate 200 mg oral tablet (20 sources) Antimalarial, Antirheumatic Agent Start: 03-31-2015 End: 10-28-2017 take 1 tablet by mouth twice daily irbesartan 150 mg oral tablet (20 sources) Angiotensin 2 Receptor Oh Start: 03-31-2015 End: 03-11-2025 take 1 tablet by mouth once daily potassium chloride 10 meq extended release oral capsule (20 sources) Start: 12-18-2018 End: 02-24-2025 take 2 capsules by mouth once daily Start: 12-18-2018 End: 02-18-2023 take 20 mEq by mouth once daily Potassium Chloride Dis continued 20 MEQ PO DAILY 180 February 01, 2022 10:55am February 18, 2023 1:19pm Start: 09-17-2018 End: 12-18-2018 take 1 capsule by mouth once daily Potassium Chloride 10 mEq capsule, extended release Discontinued 10 meq PO DAILY 60 0 September 17, 2018 12:00am December 18, 2018 6:38pm predniSONE 5 mg oral tablet (20 sources) Start: 02-08-2016 take 2 tablets by mouth once daily PREDNISONE 5 MG TABS Two tablets by mouth daily or as directed per Dr. Kiran PREDNISONE [id number] Per Gregorio MD Start: 03-31-2015 End: 06-26-2017 take 1 tablet by mouth once Completed/Discontinued Medications Medication Drug Class(es) Dates Sig (Normalized) Sig (Original) [id number] 200 actuat albuterol 0.09 mg/actuat metered dose inhaler (20 sources) beta2-Adrenergic Agonist Start: 01-18-2020 End: 08-14-2022 Albuterol Sulfate (Proair Hfa) 90 mcg/actuation HFA aerosol inhaler Discontinued 1 - 2 NMA INHALATION EVERY 6 HOURS as needed for shortness of breath or wheezing 8.5 July 12, 2022 1:00am August 14, 2022 12:38pm Start: 01-18-2020 End: 08-14-2022 take 1 puff(s) by inhalation every six hours Albuterol Sulfate (Proair Hfa) 90 mcg/actuation HFA aerosol inhaler Discontinued 1 - 2 PUFF INHALATION EVERY 6 HOURS 8.July 12, 2022 1:00am August 14, 2022 12:38pm alendronic acid 0.933 mg/ml oral solution (20 sources) Bisphosphonate Start: 09-22-2018 End: 07-14-2020 take 70 mg by mouth every week Alendronate 70 mg/75 mL solution Discontinued 70 mg PO EVERY WEEK 974.999 90 3 January 21, 2019 2:30pm July 14, 2020 12:02pm Start: 06-26-2017 End: 01-08-2018 take 1 tablet by mouth every week Alendronate (Fosamax) 70 mg tablet Discontinued 70 mg PO EVERY WEEK June 26, 2017 1:00am January 08, 2018 11:13am Start: 01-02-2017 FOSAMAX 70 MG TABS once a week ALENDRONATE SODIUM [id number] Yaw Mac NP atorvastatin 10 mg oral tablet (20 sources) HMG-CoA Reductase Inhibitor Start: 03-31-2015 End: 01-01-2025 take 1 tablet by mouth once daily Atorvastatin 10 mg tablet Discontinued 10 mg PO DAILY 30 December 20, 2023 8:39am December 25, 2023 1:16pm Hyperlipidemia Hyperlipidemia, unspecified benzonatate 100 mg oral capsule (14 sources) Non-narcotic Antitussive Start: 04-18-2020 End: 08-29-2021 Benzonatate 100 mg capsule Discontinued 100 mg PO 2 to 3 times per day as needed for cough 120 2 April 18, 2020 1:00am August 29, 2021 11:08am calcium (2 sources) Phosphate Binder, Calcium Start: 01-02-2017 CALCIUM 1200 [id number] MG-UNIT CHEW CALCIUM CARBONATE-VIT D-MIN [id number] Yaw Mac NP cephalexin 500 mg oral capsule (6 sources) Cephalosporin Antibacterial Start: 07-03-2024 End: 07-14-2024 take 1 capsule by mouth three times daily Cephalexin 500 mg capsule Discontinued 500 mg PO THREE TIMES A DAY July 03, 2024 1:00am July 14, 2024 11:55am cholecalciferol 3000 unt oral tablet (17 sources) Vitamin D Start: 02-08-2016 take 1 tablet by mouth once daily VITAMIN D3 3000 UNIT TABS One tablet by mouth daily CHOLECALCIFEROL [id number] Brittnee Darby RN Start: 03-31-2015 take 3 tablets by [facility] once daily Start: 03-31-2015 take 3000 [IU] by [facility] once daily Cholecalciferol (Vitamin D3) Active 3000 UNIT PO DAILY March 31, 2015 12:00am ciprofloxacin 500 mg oral tablet (14 sources) Quinolone Antimicrobial Start: 01-20-2018 End: 03-10-2018 take 1 tablet by mouth every twelve hours Ciprofloxacin Hcl 500 mg tablet Discontinued 500 mg PO Q12H 10 0 January 20, 2018 12:00am March 10, 2018 10:12am cyclobenzaprine hydrochloride 10 mg oral tablet (9 sources) Muscle Relaxant Start: 12-20-2022 End: 02-02-2025 take 1 tablet by mouth three times daily as needed for muscle spasms Cyclobenzaprine 10 mg tablet Discontinued 10 mg PO THREE TIMES A DAY as needed for muscle spasm 180 2 December 20, 2022 12:00am February 02, 2025 10:39am doxycycline hyclate 100 mg oral capsule (20 sources) Tetracycline-class Drug Start: 08-14-2022 End: 09-07-2022 take 1 capsule by mouth twice daily Doxycycline Hyclate 100 mg capsule Discontinued 100 mg PO TWICE A DAY 20 August 14, 2022 1:00am September 07, 2022 11:00am Start: 07-12-2022 End: 08-14-2022 take 1 tablet by mouth twice daily Doxycycline Monohydrate 100 mg tablet Discontinued 100 mg PO TWICE A DAY 14 July 12, 2022 1:00am August 14, 2022 12:38pm Start: 04-14-2020 End: 04-29-2020 take 1 tablet by mouth twice daily Doxycycline Monohydrate 100 mg tablet Discontinued 100 mg PO TWICE A DAY 22 11 0 April 18, 2020 2:11pm April 28, 2020 1:00am April 29, 2020 1:03am flecainide acetate 50 mg oral tablet (18 sources) Antiarrhythmic Start: 10-10-2023 End: 01-18-2025 take 1 tablet by mouth every twelve hours Flecainide 50 mg tablet Discontinued 50 mg PO Q12H 180 January 14, 2025 9:14am January 18, 2025 11:09am OK to fill with Plaquenil, we monitor ekg hydroCHLOROthiazide 12.5 mg oral tablet (20 sources) Thiazide Diuretic Start: 11-14-2020 End: 07-14-2024 take 1 tablet by mouth once daily in the morning Hydrochlorothiazide 12.5 mg tablet Discontinued 12.5 mg PO EVERY MORNING 90 3 July 09, 2023 3:59pm July 14, 2024 12:16pm Start: 10-31-2020 End: 11-14-2020 Hydrochlorothiazide 25 mg ta blet Discontinued 12.5 mg PO EVERY MORNING 90 3 November 09, 2020 2:50pm November 14, 2020 1:00pm Start: 10-31-2020 End: 11-14-2020 take 12.5 mg by mouth once daily in the morning Hydrochlorothiazide Discontinued 12.5 MG PO EVERY MORNING 90 November 09, 2020 2:50pm November 14, 2020 1:00pm Start: 01-08-2018 End: 10-31-2020 take 1 tablet by mouth once daily in the morning Hydrochlorothiazide 25 mg tablet Discontinued 25 mg PO EVERY MORNING 90 3 August 14, 2019 5:57pm October 31, 2020 1:09pm levocetirizine dihydrochloride 5 mg oral tablet (14 sources) Histamine-1 Receptor Antagonist Start: 07-14-2020 End: 08-14-2022 take 1 tablet by mouth once daily in the evening as needed Levocetirizine (Xyzal) 5 mg tablet Discontinued 5 mg PO EVERY EVENING as needed July 14, 2020 1:00am August 14, 2022 12:38pm levothyroxine sodium 0.05 mg oral tablet (20 sources) l-Thyroxine Start: 06-26-2017 End: 06-29-2024 take 1 tablet by mouth once daily Levothyroxine 50 mcg tablet Discontinued 50 ug PO DAILY 30 0 December 20, 2023 8:39am December 25, 2023 1:16pm Hypothyroidism Hypothyroidism, unspecified Start: 02-08-2016 take 1 tablet by alfred th once daily SYNTHROID 50 MCG TABS One tablet by mouth daily LEVOTHYROXINE SODIUM [id number] Brittnee Darby RN Start: 02-08-2016 take 1 tablet by alfred th once daily SYNTHROID 50 MCG TABS One tablet by mouth daily LEVOTHYROXINE SODIUM [id number] Brittnee Darby RN Start: 03-31-2015 End: 06-26-2017 take 0.05 mg by mouth once daily Levothyroxine 50 MCG tablet Discontinued 0.05 mg PO DAILY March 31, 2015 12:00am June 26, 2017 11:52am Start: 03-31-2015 End: 06-26-2017 take 0.05 mg by mouth once daily Levothyroxine Discontinued 0.05 MG PO DAILY March 31, 2015 12:00am June 26, 2017 11:52am methotrexate 15 mg oral tabl et (20 sources) Folate Analog Metabolic Inhibitor Start: 07-14-2019 Start: 07-14-2019 take 15 mg by mouth every week Methotrexate Sodium Active 15 MG PO EVERY WEEK July 14, 2019 1:00am Start: 04-20-2019 End: 07-14-2019 take 1 tablet by mouth every week Methotrexate Sodium 15 mg tablet Discontinued 15 mg PO EVERY WEEK July 14, 2019 11:35am July 14, 2019 11:36am Start: 10-28-2017 End: 10-13-2018 take 2 tablets by mouth every week Methotrexate Sodium 10 mg tablet Discontinued 20 mg PO EVERY WEEK October 28, 2017 12:00am October 13, 2018 2:44pm Start: 06-26-2017 End: 10-28-2017 take 1 tablet by mouth every week Methotrexate Sodium 2.5 mg tablet Discontinued 2.5 mg PO .COMPLEX June 26, 2017 1:00am October 28, 2017 8:42am 2.5 mg PO 8 tablets by mouth once weekly on Mondays Start: 06-19-2016 take 8 tablets by mo uth every week METHOTREXATE 2.5 MG TABS 8 tablets by mouth once a week on Mondays. METHOTREXATE SODIUM [id number] Yaw Kayla Bubba FITZGERALD Start: 06-19-2016 take 5 tablets by mo uth every week METHOTREXATE 2.5 MG TABS 5 tablets by mouth once a week on Mondays. METHOTREXATE SODIUM [id number] Per Gregorio MD 24 hr metoprolol succinate 50 mg extended release oral tablet (20 sources) beta-Adrenergic Oh Start: 01-08-2018 End: 07-14-2024 take 1 tablet by mouth once daily Metoprolol Succinate (Toprol Xl) 50 mg tablet extended release 24 hr Discontinued 50 mg PO daily July 09, 2023 3:59pm July 14, 2024 12:16pm Start: 01-17-2016 End: 01-08-2018 take 1 tablet by mouth once daily Metoprolol Succinate 25 mg tablet extended release 24 hr Discontinued 25 mg PO DAILY 90 January 08, 2018 11:12am January 08, 2018 11:33am Start: 01-17-2016 take 1 tablet by alfred th once daily TOPROL XL 25 MG [id number] One tablet by mouth daily METOPROLOL SUCCINATE [id number] Per Gregorio MD montelukast 10 mg oral tablet (20 sources) Leukotriene Receptor Antagonist Start: 04-14-2020 End: 02-02-2025 take 1 tablet by mouth at bedtime as needed Montelukast 10 mg tablet Discontinued 10 mg PO AT BEDTIME as needed for allergies 90 December 14, 2020 11:15am July 12, 2022 2:28pm naproxen 500 mg oral tablet (20 sources) Nonsteroidal Anti-inflammatory Drug Start: 07-04-2017 End: 10-28-2017 take 1 tablet by mouth every twelve hours as needed Naproxen (Ec-Naprosyn) 500 mg tablet,delayed release (DR/EC) Discontinued 500 mg PO Q12H as needed July 04, 2017 1:00am October 28, 2017 8:44am Start: 01-16-2016 End: 12-25-2023 take 1 tablet by mouth once daily as needed Naproxen 500 MG tablet Discontinued 500 mg PO DAILY as needed July 04, 2017 2:48pm December 20, 2022 1:20pm Start: 03-31-2015 End: 04-13-2015 take 1 tablet by mouth twice daily as needed for pain Naproxen 500 MG tablet Discontinued 500 mg PO TWICE DAILY NEEDED as needed for Mild/Moderate Pain March 31, 2015 12:00am April 13, 2015 1:14pm omeprazole 20 mg delayed release oral capsule (20 sources) Proton Pump Inhibitor Start: 03-31-2015 End: 09-21-2024 take 1 capsule by mouth once daily Omeprazole 20 mg capsule,delayed release(DR/EC) Discontinued 20 mg PO DAILY 90 May 21, 2024 2:42pm September 21, 2024 4:33pm oxymetazoline hydrochloride 0.5 mg/ml nasal spray (14 sources) Start: 01-18-2020 End: 01-22-2020 Oxymetazoline (Afrin (Oxymetazoline)) 0.05 % spray,non-aerosol Discontinued 2 NMA INTRANASAL Q12H 22 4 0 January 18, 2020 12:00am January 21, 2020 12:00am January 22, 2020 12:03am nasal congestion phenazopyridine hydrochloride 200 mg oral tablet (6 sources) Start: 07-03-2024 End: 07-14-2024 take 1 tablet by mouth three times daily Phenazopyridine (Pyridium) 200 mg tablet Discontinued 200 mg PO THREE TIMES A DAY 6 0 July 03, 2024 1:00am July 14, 2024 11:56am rivaroxaban 20 mg oral tablet (20 sources) Factor Xa Inhibitor Start: 01-17-2016 End: 06-26-2017 take 1 tablet by mouth once daily Rivaroxaban 20 MG tablet Discontinued 20 mg PO DAILY@0600 0 0 January 17, 2016 12:00am June 26, 2017 11:52am triamcinolone acetonide 1 mg/ml topical cream (20 sources) Corticosteroid Start: 07-14-2020 End: 08-14-2022 Triamcinolone Acetonide 0.1 % cream Discontinued 1 NMA TOPICAL DAILY as needed July 14, 2020 12:07pm August 14, 2022 12:39pm Start: 04-20-2019 End: 08-14-2022 Triamcinolone Acetonide 0.1 % cream Discontinued 1 NMA TOPICAL DAILY 80 2 April 20, 2019 1:00am July 14, 2020 12:07pm Problems Active Problems Problem Classification Problem Date Documented Da te Episodic/Chronic Cardiac dysrhythmias (20 sources) Paroxysmal atrial fibrillation; 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: [Persistent atrial fibrillation] Onset: 02-08-2016 06-19-2016 Chronic Disorders of lipid metabolism (20 sources) Hyperlipidemia; 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: [Hyperlipidemia, unspecified] Onset: 02-08-2016 02-08-2016 Chronic Essential hypertension (20 sources) Hypertensive disorder; 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: [Essential hypertension] Onset: 02-08-2016 02-08-2016 Chronic Fluid and electrolyte disorders (14 sources) Hypokalemia; 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: [Hypokalemia] 07-13-2019 Episodic Immunizations and screening for infectious disease (3 sources) Requires influenza virus vaccination; 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: [Encounter for immunization] Onset: 03-25-2025 03-15-2025 Episodic Nonmalignant breast conditions (6 sources) Breast lump; 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: [Unspecified lump in the left breast, unspecified quadrant] 12-17-2023 Episodic Nonspecific chest pain (6 sources) Chest pain; 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: [Chest pain, unspecified] 10-10-2023 Episodic Osteoporosis (19 sources) Osteoporosis; 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: [Age-related osteoporosis without current pathological fracture] Onset: 08-05-2024 01-05-2021 Chronic Other aftercare (6 sources) Drug therapy finding; 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: [retirement (current) use of anticoagulants] 07-11-2024 Episodic Other aftercare (9 sources) Long-term current use of anticoagulant; 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: [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] 10-14-2024 Episodic Other aftercare (1 source) retirement (current) use of anticoagulants; 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: [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] Onset: 02-02-2025 Episodic Other connective tissue disease (6 sources) Calcific tendinitis; 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: [Calcific tendinitis, unspecified site] 07-14-2024 Episodic Other female genital disorders (14 sources) Pain in female genitalia on intercourse; 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: [Unspecified dyspareunia] 07-13-2019 Chronic Comment on above: vaginal estrogen Other lower respiratory disease (11 sources) Cough; 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: [Cough] 07-12-2022 Episodic Other nutritional; endocrine; and metabolic disorders (3 sources) Body mass index (BMI) 31.0-31.9, adult; 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: [Body mass index (BMI) 31.0-31.9, adult] Onset: 02-08-2016 02-08-2016 Chronic Other upper respiratory disease (14 sources) Seasonal allergy; 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: [Other seasonal allergic rhinitis] 08-28-2021 Chronic Other upper respiratory infections (14 sources) Chronic sinusitis; 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: [Chronic sinusitis, unspecified] 08-28-2021 Chronic Other upper respiratory infections (12 sources) Acute maxillary sinusitis, unspecified; 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: [Acute maxillary sinusitis] 07-12-2022 Episodic Rheumatoid arthritis and related disease (17 sources) Rheumatoid arthritis; 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: [Rheumatoid arthritis, unspecified] Onset: 01-22-2025 Chronic Spondylosis; intervertebral disc disorders; other back problems (9 sources) Chronic back pain ; 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: [Dorsalgia, unspecified] 12-20-2022 Episodic Thyroid disorders (20 sources) Hypothyroidism; 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: [Hypothyroidism, unspecified] Onset: 06-29-2024 06-26-2017 Chronic Unclassified (1 source) Long-term drug therapy; 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: [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] Onset: 02-08-2016 02-08-2016 Unclassified (6 sources) Left shoulder pain; 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: [M25.512 - Pain in left shoulder] Unclassified (3 sources) for urology if not improving Urinary tract infections (20 sources) Urinary tract infectious disease; 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: [Urinary tract infection, site not specified] 07-13-2019 Episodic Viral infection (10 sources) Disease caused by 2019-nCoV; 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: [COVID-19] 09-05-2022 Episodic Past or Other Problems Problem Classification Problem Date Documented Da te Episodic/Chronic Genitourinary symptoms and ill-defined conditions (20 sources) Blood in urine; 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: [Hematuria, unspecified] Onset: 07-22-2024 07-03-2024 Episodic Other aftercare (2 sources) 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; 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: [Other senior care (current) drug therapy] Onset: 02-08-2016 02-08-2016 Episodic Other non-traumatic joint disorders (10 sources) Pain in left shoulder; 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: [Left shoulder pain] Onset: 07-19-2024 06-29-2024 Episodic Superficial injury; contusion (10 sources) Hematoma of scalp; 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: [Contusion of scalp, initial encounter] Onset: 10-19-2024 10-14-2024 Episodic Results Test Name Value Interpretation Reference Range Facility Office Visit Reporton 2024 Office Visit Report [facility] [address] [place] [address] OFFICE VISIT Date of Service: 03/15/25 MR#: [id number] Acct: [id number] Patient: ROSAMARIA PRYOR Rep #: [id number] : [id number] Provider: HUI NURSE Age/Sex: 69/F Location[place] [facility] [place] Status: Signed Intake Vital Signs 02/02/25 10:32 Height 5 ft 3 in Weight: 183 lb BMI 32.4 BP 137/79 H Blood Pressure Location Lt brachial Position Sitting Respiration 16 Pulse 66 Pulse Source Monitor Intake Visit Reasons: FLU SHOT Chief Complaint: Discussed bone density scan. Fall Allergies janell Allergy (Verified 02/02/25 10:39) Rash Penicillins Allergy (Verified 02/02/25 10:39) Rash Have you fallen in the past year?: No Immunizations Fluad 65yr up(PF)45 mcg(15 mcgx3)/0.5 mL intramuscular syringe Performing Provider: Blanca Mcdermott MD Performing Location: [facility] Administered by: Violetta Kebede on 03/15/25 10:20 Dose Route Admin Location Dispensed Lot Number Expiration Date Package NDC NDC Relationship Banker 45 mcg IM Left Deltoid 0.5 mL [id number] 10/05/25 [id number] [facility] Management. VIS Given Date VIS Provided VIS Publication Date 03/15/25 Single Vaccine 24 Eligibility Eligibility Date Funding Source Not Applicable Assessment and Plan Assessment and Plan (1) Flu vaccine need: Status: Acute Orders: Orders Influenza Immunization Today Z23 - Encounter for immunization Clinical Quality Measures Falls Risk Screening/Assistive Devices Have you fallen in the past year?: No 03/15/25 1634 Date Blanca Mcdermott MD Cosigner Signature: Date (if applicable) CC: Normal [facility] Cardiology Visit Reporton Cardiology Visit Report [facility] [address] [place] [place], [place] [address] OFFICE VISIT Date of Service: 02/02/25 MR#: [id number] Acct: [id number] Name: ROSAMARIA PRYOR Rep #: [id number] : 1955 Provider: Dr. Per Gregorio MD Age/Sex: 69/F Location: [facility] [place] Status: Signed HPI HPI History of Present Illness Details: ROSAMARIA PRYOR, is a 69 F who presents to the office today for an office visit. She as you know has a previous history of paroxysmal atrial fibrillation. She has been under some amount of stress and has had a few episodes of paroxysmal atrial fibrillation though they have been short acting less than 15 minutes. She just took an extra flecainide and did well with that. Your member she underwent an echocardiogram as well as a stress test in November 2023 both of which were normal. Intake Vital Signs 07/14/24 10:47 10/14/24 09:50 02/02/25 10:32 Height 5 ft 3 in 5 ft 3 in 5 ft 3 in Weight: 181 lb 183 lb BMI 32.1 32.4 BP 116/70 137/79 H Blood Pressure Location Lt brachial Lt brachial Position Sitting Sitting Respiration 16 16 Pulse 52 L 66 Pulse Source Monitor Monitor Temp 97.9 F Pulse Oximetry (%) 99 Oxygen Delivery Method room air Intake Visit Reasons: 6 M FU [employer] Hand Required: No Accompanied by: Self Is patient in pain?: No Allergies janell Allergy (Verified 02/02/25 10:39) Rash Penicillins Allergy (Verified 02/02/25 10:39) Rash Medications ???Medication ???Instructions ???Recorded ???Confirmed ???Type cholecalciferol (vitamin D3) 25 3,000 unit PO DAILY 03/31/1502/02 History mcg (1,000 unit) tablet folic acid 1 mg tablet 1 mg PO .COMPLEX 06/26/17 02/02/25 History prednisone 5 mg tablet 5 mg PO .COMPLEX 06/26/17 02/02/25 History hydroxychloroquine 200 mg tablet 200 mg PO BID 10/28/17 02/02/25 Hi story (Plaquenil) methotrexate sodium 2.5 mg tablet 15 mg PO QWEEK 07/14/19 02/02/25 History calcium carbonate (Calcium 600) 600 mg PO DAILY 08/29/21 02/02/25 History estradiol 0.01% (0.1 mg/gram) 1 g vaginal 2XW 12/17/23 02/02/25 History vaginal cream naproxen 500 mg tablet 500 mg PO DAILY PRN pain #90 tabs 12/25/23 02/02/25 Rx apixaban 5 mg tablet (Eliquis) 5 mg PO BID #60 tabs 01/29/2401/09 Rx levothyroxine 50 mcg tablet 50 mcg PO DAILY #90 tabs 06/29/24 02/02/25 Rx hydrochlorothiazide 12.5 mg tablet 12.5 mg PO QAM #90 tabs 07/14/24 02/02/25 Rx metoprolol succinate 50 mg 50 mg PO QDAY #90 tabs 07/14/24 Rx tablet,extended release 24 hr (Toprol XL) irbesartan 150 mg tablet 150 mg PO DAILY #90 TABLETS 02/02/25 Rx omeprazole 20 mg capsule,delayed 20 mg PO DAILY #90 caps 09/21/24 0 02/02/25 Rx release denosumab 60 mg/mL subcutaneous 60 mg subcut [id number] #1 mL 02/02/25 Rx syringe (Prolia) potassium chloride 10 mEq 20 meq (2 x 10 mEq) PO DAILY #180 11/30/24 02/02/25 Rx capsule,extended release caps atorvastatin 10 mg tablet 10 mg PO DAILY #90 tabs 01/01/25 0 02/02/25 Rx flecainide 50 mg tablet 50 mg PO Q12H OK to fill with 01/0802/02/25 Rx Plaquenil, we monitor ekg #180 tabs Have you fallen in the past year?: No PFSH Medical History Chronic anticoagulation Traumatic hematoma of scalp Calcific tendonitis Hematuria Urinary urgency Left shoulder pain Health care maintenance Chronic back pain Acute rhinosinusitis COVID-19 Cough Chronic sinusitis Seasonal allergies Essential (primary) hypertension Female dyspareunia Rosacea conjunctivitis of both eyes Osteoporosis Degenerative disc disease Rheumatoid arthritis Hypothyroidism Hyperlipidemia Paroxysmal atrial fibrillation Surgical History History of LAVH History of ankle fusion History of right knee joint replacement history of tendon repair History of hysterectomy History of cardioversion (01/17/16) Family History Father Macular degeneration Heart disease Hypertension Mother CVA (cerebral vascular accident) Thyroid disorder Brother Heart disease Hypertension Social History Smoking Status: Never smoker how long ago did patient quit smokin alcohol intake: current alcohol intake frequency: a few times a week Alcohol type: wine details: social substance use type: does not use caffeine: Yes what type of physical activity do you participate in: walking frequency: 1-2 times per week seatbelt use: always do you feel safe at home: Yes additional social history: 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 Normal [facility] Absolute lymphocyte countOrd ered By: Patiencejean carlos Kiran on 01-18-2025 Lymphocytes Auto (Unsp spec) [#/Vol] 1.52 10*3/uL 0.83-4.51 [facility] Absolute neutrophil countOrd ered By: [facility] Qiana on 01-18-2025 Neutrophils (Bld) [#/Vol] 6.7 10*3/uL 2.0-7.7 [facility] Anion gap in Serum or Plasma Ordered By: Patience Kiran on 01-18-2025 Anion gap [Moles/Vol] 14 mmol/L 5-15 [facility] Automated lymphocyte count a s percentage of total leukocytesOrdered By: Patiencejean carlos Kiran on 01-18-2025 Lymphocytes/100 WBC Auto (Unsp spec) 16.2 % Low 19-41 [facility] BUN/creatinine ratioOrdered By: [facility] Qiana on 01-18-2025 Urea nitrogen/Creatinine [Mass ratio] 20.5 mg/mg High 10-20 [facility] Basophil percentageOrdered B y: Patience Kiran on 01-18-2025 Basophils/100 WBC (Bld) 0.5 % 0-1 [facility] Bilirubin, totalOrdered By: [facility] Qiana on 01-18-2025 Bilirubin [Mass/Vol] 0.40 mg/dL 0.00-1.30 [facility] CBC W/Diff, Automatedon 01-08 Absolute Lymph 1.52 X10 3/uL Normal 0.83-4.51 [facility] Comment on above: Performed By: #### L 100.0100, L500.4050 ####[facility] [address] [place], [address] Absolute Neut 6.7 X10 3/uL Normal 2.0-7.7 [facility] Comment on above: Performed By: #### L 100.0100, L500.4050 ####[facility] [address] [place], [address] Basophils/100 WBC (Bld) 0.5 % Normal 0-1 [facility] Comment on above: Performed By: #### L 100.0100, L500.4050 ####[facility] [address] [place], [address] Eosinophils/100 WBC (Bld) 1.2 % Normal 0-5 [facility] Comment on above: Performed By: #### L 100.0100, L500.4050 ####[facility] [address] [place], [address] Erythrocyte distribution width (RBC) [Ratio] 13.7 % Normal 11.6-14.6 [facility] Comment on above: Performed By: #### L 100.0100, L500.4050 ####[facility] [address] [place], [address] Hematocrit (Bld) [Volume fraction] 40.0 % Normal 37-47 [facility] Comment on above: Performed By: #### L 100.0100, L500.4050 ####[facility] [address] [place], [address] Hemoglobin (Bld) [Mass/Vol] 13.4 g/dL Normal 12.0-15.0 [facility] Comment on above: Performed By: #### L 100.0100, L500.4050 ####[facility] [address] [place], [address] IG% 0.200 Normal 0.0-0.9 [facility] Comment on above: Result Comment: IG% - Immature Granulocytes (promyelocytes, myelocytes and metamyelocytes) > 1% indicates that a LEFT SHIFT is Present. Performed By: #### L 100.0100, L500.4050 ####[facility] [address] [place], [address] Lymphocytes/100 WBC (Bld) 16.2 % Low 19-41 [facility] Comment on above: Performed By: #### L 100.0100, L500.4050 ####[facility] [address] [place], [address] MCH (RBC) [Entitic mass] 30.9 pg Normal 27.0-32.0 [facility] Comment on above: Performed By: #### L 100.0100, L500.4050 ####[facility] [address] [place], [address] MCHC (RBC) [Mass/Vol] 33.5 g/dL Normal 32-36 [facility] Comment on above: Performed By: #### L 100.0100, L500.4050 ####[facility] [address] [place], [address] MCV (RBC) [Entitic vol] 92.4 fL Normal 81-99 [facility] Comment on above: Performed By: #### L 100.0100, L500.4050 ####[facility] [address] [place], [address] Monocytes/100 WBC (Bld) 11.0 % High 0-10 [facility] Comment on above: Performed By: #### L 100.0100, L500.4050 ####[facility] [address] [place], [address] Neutrophils/100 WBC (Bld) 70.9 % High 47-70 [facility] Comment on above: Performed By: #### L 100.0100, L500.4050 ####[facility] [address] [place], [address] Nucleated RBC (Bld) [#/Vol] 0 10*3/uL Normal 0-5 [facility] Comment on above: Performed By: #### L 100.0100, L500.4050 ####[facility] [address] [place], [address] Platelet mean volume (Bld) [Entitic vol] 12.4 fL High 6.2-12.0 [facility] Comment on above: Performed By: #### L 100.0100, L500.4050 ####[facility] [address] [place], [address] Platelets (Bld) [#/Vol] 220 10*3/uL Normal 150-450 [facility] Comment on above: Performed By: #### L 100.0100, L500.4050 ####[facility] [address] [place], [address] RBC (Bld) [#/Vol] 4.33 10*6/uL Normal 4.2-5.4 [facility] Comment on above: Performed By: #### L 100.0100, L500.4050 ####[facility] [address] [place], [address] RDW SD 46.2 fl High 35.1-43.9 [facility] Comment on above: Performed By: #### L 100.0100, L500.4050 ####[facility] [address] [place], [address] WBC (Bld) [#/Vol] 9.4 10*3/uL Normal 4.4-11.0 [facility] Comment on above: Performed By: #### L 100.0100, L500.4050 ####[facility] [address] [place], [address] Carbon dioxide, total [Moles /volume] in Central venous bloodOrdered By: Patience Kiran on 01-18-2025 CO2 [Moles/Vol] 23.2 mmol/L 21.0-32.0 [facility] Chloride assayOrdered By: Quiana Kiran on 01-18-2025 Chloride [Moles/Vol] 101 mmol/L 98-108 [facility] Comprehensive Metabolic Prof ilon 01-18-2025 Albumin [Mass/Vol] 4.3 g/dL Normal 3.4-4.8 [facility] Comment on above: Performed By: #### L 100.0100, L500.4050 ####[facility] [address] [place], [address] Albumin/Globulin [Mass ratio] 2.0 {ratio} Normal 0.9-2.4 [facility] Comment on above: Performed By: #### L 100.0100, L500.4050 ####[facility] [address] [place], [address] ALK PHOS 63 U/L Normal 35-104 [facility] Comment on above: Performed By: #### L 100.0100, L500.4050 ####[facility] [address] [place], [address] ALT [Catalytic activity/Vol] 15 U/L Normal <=34 [facility] Comment on above: Performed By: #### L 100.0100, L500.4050 ####[facility] [address] [place], [address] AST [Catalytic activity/Vol] 20 U/L Normal <=31 [facility] Comment on above: Performed By: #### L 100.0100, L500.4050 ####[facility] [address] [place], [address] Bilirubin [Mass/Vol] 0.40 mg/dL Normal 0.00-1.30 [facility] Comment on above: Performed By: #### L 100.0100, L500.4050 ####[facility] [address] [place], [address] BUN/CRE 20.5 RATIO High 10-20 [facility] Comment on above: Performed By: #### L 100.0100, L500.4050 ####[facility] [address] [place], [address] Calcium [Mass/Vol] 9.7 mg/dL Normal 7.6-11.0 [facility] Comment on above: Performed By: #### L 100.0100, L500.4050 ####[facility] [address] [place], [address] Chloride [Moles/Vol] 101 mmol/L Normal 98-108 [facility] Comment on above: Performed By: #### L 100.0100, L500.4050 ####[facility] [address] [place], [address] CO2 [Moles/Vol] 23.2 mmol/L Normal 21.0-32.0 [facility] Comment on above: Performed By: #### L 100.0100, L500.4050 ####[facility] [address] [place], [address] Creatinine [Mass/Vol] 0.91 mg/dL Normal 0.70-1.20 [facility] Comment on above: Performed By: #### L 100.0100, L500.4050 ####[facility] [address] [place], [address] GAP 14 Normal 5-15 [facility] Comment on above: Performed By: #### L 100.0100, L500.4050 ####[facility] [address] [place], [address] GFR/1.73 sq M.predicted among non-blacks MDRD (S/P/Bld) [Vol rate/Area] 68 mL/min/{1.73_m2} Normal >60 [facility] Comment on above: Result Comment: mL/m in/1.73m2 CKD-EPI Creatinine Equation (2020) Performed By: #### L 100.0100, L500.4050 ####[facility] [address] [place], [address] Globulin (S) [Mass/Vol] 2.2 g/dL Normal 2.2-4.2 [facility] Comment on above: Performed By: #### L 100.0100, L500.4050 ####[facility] [address] [place], [address] Glucose [Mass/Vol] 94 mg/dL Normal 70-99 [facility] Comment on above: Performed By: #### L 100.0100, L500.4050 ####[facility] [address] [place], [address] Potassium [Moles/Vol] 4.0 mmol/L Normal 3.3-5.1 [facility] Comment on above: Performed By: #### L 100.0100, L500.4050 ####[facility] [address] [place], [address] Sodium [Moles/Vol] 138 mmol/L Normal 133-145 [facility] Comment on above: Performed By: #### L 100.0100, L500.4050 ####[facility] [address] [place], [address] T PROT 6.5 g/dL Normal 5.9-8.4 [facility] Comment on above: Performed By: #### L 100.0100, L500.4050 ####[facility] [address] [place], [address] Urea nitrogen [Mass/Vol] 19 mg/dL Normal 4-19 [facility] Comment on above: Performed By: #### L 100.0100, L500.4050 ####[facility] [address] [place], [address] Eosinophil percentageOrdered By: Patience Kiran on 01-18-2025 Eosinophils/100 WBC (Bld) 1.2 % 0-5 [facility] Erythrocyte distribution wid th ratioOrdered By: Patiencejean carlos Kiran on 01-18-2025 Erythrocyte distribution width (RBC) [Ratio] 13.7 % 11.6-14.6 [facility] Erythrocyte distribution wid th standard deviationOrdered By: [facility] on 01-18-2025 Erythrocyte distribution width (RBC) [Ratio] 46.2 fl High 35.1-43.9 [facility] Glomerular filtration rate ( GFR) estimation/1.73 sq m using serum, plasma, or whole bOrdered By: [facility] Qiana on 01-18-2025 GFR/1.73 sq M.predicted among non-blacks MDRD (S/P/Bld) [Vol rate/Area] 68 mL/min/{1.73_m2} >60 [facility] Comment on above: mL/min/1.73m2 CKD-EP I Creatinine Equation (2020) Hematocrit Auto (Bld) [Volum e fraction]Ordered By: Patiencejean carlos Kiran on 01-18-2025 Hematocrit (Bld) [Volume fraction] 40.0 % 37-47 [facility] Hemoglobin measurementOrdere d By: Patience Kiran on 01-18-2025 Hemoglobin (Bld) [Mass/Vol] 13.4 g/dL 12.0-15.0 [facility] Immature granulocytes/100 WB C Auto (Bld)Ordered By: Patiencejean carlos Kiran on 01-18-2025 Immature granulocytes/100 WBC (Bld) 0.200 % 0.0-0.9 [facility] Comment on above: IG% - Immature Granu locytes (promyelocytes, myelocytes and metamyelocytes) > 1% indicates that a LEFT SHIFT is Present. Laboratory - Chemistry and C hemistry - challengeOrdered By: Patience Kiran on 01-18-2025 AST [Catalytic activity/Vol] 20 U/L <32 [facility] MCV (mean corpuscular volume ) determinationOrdered By: Patience Kiran on 01-18-2025 MCV (RBC) [Entitic vol] 92.4 fL 81-99 [facility] Mean corpuscular hemoglobin (MCH) determinationOrdered By: Patience Kiran on 01-18-2025 MCH (RBC) [Entitic mass] 30.9 pg 27.0-32.0 [facility] Mean corpuscular hemoglobin concentration (MCHC) determinationOrdered By: Patience Kiran on 01-18-2025 MCHC (RBC) [Mass/Vol] 33.5 g/dL 32-36 [facility] Mean platelet volume determi nationOrdered By: Patience Kiran on 01-18-2025 Platelet mean volume (Bld) [Entitic vol] 12.4 fL High 6.2-12.0 [facility] Monocyte percentageOrdered B y: Patience Kiran on 01-18-2025 Monocytes/100 WBC (Bld) 11.0 % High 0-10 [facility] Neutrophil percentageOrdered By: Patience Kiran on 01-18-2025 Neutrophils/100 WBC (Bld) 70.9 % High 47-70 [facility] Nucleated red blood cell per centageOrdered By: Patience Kiran on 01-18-2025 Nucleated RBC/100 WBC (Bld) [Ratio] 0 % 0-5 [facility] Platelet countOrdered By: Quiana Kiran on 01-18-2025 Platelets (Bld) [#/Vol] 220 10*3/uL 150-450 [facility] Potassium measurement (mass/ volume)Ordered By: Patience Kiran on 01-18-2025 Potassium (Unsp spec) [Mass/Vol] 4.0 mmol/L 3.3-5.1 [facility] RBC Auto (Bld) [#/Vol]Ordere d By: Patience Kiran on 01-18-2025 RBC (Bld) [#/Vol] 4.33 10*6/uL 4.2-5.4 [facility] Serum creatinine measurement (mass/volume)Ordered By: Patience Kiran on 01-18-2025 Creatinine [Mass/Vol] 0.91 mg/dL 0.70-1.20 [facility] Serum globulin measurementOr dered By: Patience Kiran on 01-18-2025 Globulin (S) [Mass/Vol] 2.2 g/dL 2.2-4.2 [facility] Serum glucose measurement (m ass/volume)Ordered By: Patience Kiran on 01-18-2025 Glucose [Mass/Vol] 94 mg/dL 70-99 [facility] Serum or plasma alanine jimenes otransferase (ALT) measurementOrdered By: Patience Kiran on 01-18-2025 ALT [Catalytic activity/Vol] 15 U/L <35 [facility] Serum or plasma albumin summer urement (mass/volume)Ordered By: Patience Kiran on 01-18-2025 Albumin [Mass/Vol] 4.3 g/dL 3.4-4.8 [facility] Serum or plasma albumin/glob ulin mass ratioOrdered By: Patience Kiran on 01-18-2025 Albumin/Globulin [Mass ratio] 2.0 {ratio} 0.9-2.4 [facility] Serum or plasma alkaline taniya sphatase measurementOrdered By: Patience Kiran on 01-18-2025 ALP [Catalytic activity/Vol] 63 U/L 35-104 [facility] Serum or plasma calcium summer urement (mass/volume)Ordered By: Patience Kiran on 01-18-2025 Calcium [Mass/Vol] 9.7 mg/dL 7.6-11.0 [facility] Serum or plasma urea nitroge n measurement (mass/volume)Ordered By: Patience Kiran on 01-18-2025 Urea nitrogen [Mass/Vol] 19 mg/dL 4-19 [facility] Sodium levelOrdered By: Hilario Kiran on 01-18-2025 Sodium [Moles/Vol] 138 mmol/L 133-145 [facility] Total proteinOrdered By: Katherine Kiran on 01-18-2025 Protein [Mass/Vol] 6.5 g/dL 5.9-8.4 [facility] White blood cell (WBC) count Ordered By: Patience Kiran on 01-18-2025 WBC (Bld) [#/Vol] 9.4 10*3/uL 4.4-11.0 [facility] Absolute lymphocyte countOrd ered By: Patience Kiran on 10-16-2024 Lymphocytes Auto (Unsp spec) [#/Vol] 1.54 10*3/uL 0.83-4.51 [facility] Absolute neutrophil countOrd ered By: Patiencejean carlos Kiran on 10-16-2024 Neutrophils (Bld) [#/Vol] 5.4 10*3/uL 2.0-7.7 [facility] Anion gap in Serum or Plasma Ordered By: Patiencejean carlos Kiran on 10-16-2024 Anion gap [Moles/Vol] 12 mmol/L 5- [facility] Automated lymphocyte count a s percentage of total leukocytesOrdered By: Patience Kiran on 10-16-2024 Lymphocytes/100 WBC Auto (Unsp spec) 19.2 % 19- [facility] BUN/creatinine ratioOrdered By: [facility] Qiana on 10-16-2024 Urea nitrogen/Creatinine [Mass ratio] 15.2 mg/mg 10-20 [facility] Basophil percentageOrdered B y: Patience Qiana on 10-16-2024 Basophils/100 WBC (Bld) 0.7 % 0-1 [facility] Bilirubin, totalOrdered By: Patiencejean carlos Kiran on 10-16-2024 Bilirubin [Mass/Vol] 0.39 mg/dL 0.00-1.30 [facility] CBC W/Diff, Automatedon Absolute Lymph 1.54 X10 3/uL Normal 0.83-4.51 [facility] Comment on above: Performed By: #### L 100.0100, L500.4050 ####[facility] [address] [place], [address] Absolute Neut 5.4 X10 3/uL Normal 2.0-7.7 [facility] Comment on above: Performed By: #### L 100.0100, L500.4050 ####[facility] [address] [place], [address] Basophils/100 WBC (Bld) 0.7 % Normal 0-1 [facility] Comment on above: Performed By: #### L 100.0100, L500.4050 ####[facility] [address] [place], [address] Eosinophils/100 WBC (Bld) 1.2 % Normal 0-5 [facility] Comment on above: Performed By: #### L 100.0100, L500.4050 ####[facility] [address] [place], [address] Erythrocyte distribution width (RBC) [Ratio] 13.6 % Normal 11.6-14.6 [facility] Comment on above: Performed By: #### L 100.0100, L500.4050 ####[facility] [address] [place], [address] Hematocrit (Bld) [Volume fraction] 40.1 % Normal 37-47 [facility] Comment on above: Performed By: #### L 100.0100, L500.4050 ####[facility] [address] [place], [address] Hemoglobin (Bld) [Mass/Vol] 13.3 g/dL Normal 12.0-15.0 [facility] Comment on above: Performed By: #### L 100.0100, L500.4050 ####[facility] [address] [place], [address] IG% 0.200 Normal 0.0-0.9 [facility] Comment on above: Result Comment: IG% - Immature Granulocytes (promyelocytes, myelocytes and metamyelocytes) > 1% indicates that a LEFT SHIFT is Present. Performed By: #### L 100.0100, L500.4050 ####[facility] [address] [place], [address] Lymphocytes/100 WBC (Bld) 19.2 % Normal 19-41 [facility] Comment on above: Performed By: #### L 100.0100, L500.4050 ####[facility] [address] [place], [address] MCH (RBC) [Entitic mass] 31.3 pg Normal 27.0-32.0 [facility] Comment on above: Performed By: #### L 100.0100, L500.4050 ####[facility] [address] [place], [address] MCHC (RBC) [Mass/Vol] 33.2 g/dL Normal 32-36 [facility] Comment on above: Performed By: #### L 100.0100, L500.4050 ####[facility] [address] [place], [address] MCV (RBC) [Entitic vol] 94.4 fL Normal 81-99 [facility] Comment on above: Performed By: #### L 100.0100, L500.4050 ####[facility] [address] [place], [address] Monocytes/100 WBC (Bld) 11.4 % High 0-10 [facility] Comment on above: Performed By: #### L 100.0100, L500.4050 ####[facility] [address] [place], [address] Neutrophils/100 WBC (Bld) 67.3 % Normal 47-70 [facility] Comment on above: Performed By: #### L 100.0100, L500.4050 ####[facility] [address] [place], [address] Nucleated RBC (Bld) [#/Vol] 0 10*3/uL Normal 0-5 [facility] Comment on above: Performed By: #### L 100.0100, L500.4050 ####[facility] [address] [place], [address] Platelet mean volume (Bld) [Entitic vol] 12.9 fL High 6.2-12.0 [facility] Comment on above: Performed By: #### L 100.0100, L500.4050 ####[facility] [address] [place], [address] Platelets (Bld) [#/Vol] 207 10*3/uL Normal 150-450 [facility] Comment on above: Performed By: #### L 100.0100, L500.4050 ####[facility] [address] [place], [address] RBC (Bld) [#/Vol] 4.25 10*6/uL Normal 4.2-5.4 [facility] Comment on above: Performed By: #### L 100.0100, L500.4050 ####[facility] [address] [place], [address] RDW SD 46.7 fl High 35.1-43.9 [facility] Comment on above: Performed By: #### L 100.0100, L500.4050 ####[facility] [address] [place], [address] WBC (Bld) [#/Vol] 8.0 10*3/uL Normal 4.4-11.0 [facility] Comment on above: Performed By: #### L 100.0100, L500.4050 ####[facility] [address] [place], [address] Carbon dioxide, total [Moles /volume] in Central venous bloodOrdered By: Patience Kiran on 10-16-2024 CO2 [Moles/Vol] 24.2 mmol/L 21.0-32.0 [facility] Chloride assayOrdered By: Quiana Kiran on 10-16-2024 Chloride [Moles/Vol] 102 mmol/L 98-108 [facility] Comprehensive Metabolic Prof ilon 10-16-2024 Albumin [Mass/Vol] 4.1 g/dL Normal 3.4-4.8 [facility] Comment on above: Performed By: #### L 100.0100, L500.4050 ####[facility] [address] [place], [address] Albumin/Globulin [Mass ratio] 1.7 {ratio} Normal 0.9-2.4 [facility] Comment on above: Performed By: #### L 100.0100, L500.4050 ####[facility] [address] [place], [address] ALK PHOS 58 U/L Normal 35-104 [facility] Comment on above: Performed By: #### L 100.0100, L500.4050 ####[facility] [address] [place], [address] ALT [Catalytic activity/Vol] 16 U/L Normal <=34 [facility] Comment on above: Performed By: #### L 100.0100, L500.4050 ####[facility] [address] [place], [address] AST [Catalytic activity/Vol] 22 U/L Normal <=31 [facility] Comment on above: Performed By: #### L 100.0100, L500.4050 ####[facility] [address] [place], [address] Bilirubin [Mass/Vol] 0.39 mg/dL Normal 0.00-1.30 [facility] Comment on above: Performed By: #### L 100.0100, L500.4050 ####[facility] [address] [place], [address] BUN/CRE 15.2 RATIO Normal 10-20 [facility] Comment on above: Performed By: #### L 100.0100, L500.4050 ####[facility] [address] [place], [address] Calcium [Mass/Vol] 9.5 mg/dL Normal 7.6-11.0 [facility] Comment on above: Performed By: #### L 100.0100, L500.4050 ####[facility] [address] [place], [address] Chloride [Moles/Vol] 102 mmol/L Normal 98-108 [facility] Comment on above: Performed By: #### L 100.0100, L500.4050 ####[facility] [address] [place], [address] CO2 [Moles/Vol] 24.2 mmol/L Normal 21.0-32.0 [facility] Comment on above: Performed By: #### L 100.0100, L500.4050 ####[facility] [address] [place], [address] Creatinine [Mass/Vol] 0.82 mg/dL Normal 0.70-1.20 [facility] Comment on above: Performed By: #### L 100.0100, L500.4050 ####[facility] [address] [place], [address] GAP 12 Normal 5-15 [facility] Comment on above: Performed By: #### L 100.0100, L500.4050 ####[facility] [address] [place], [address] GFR/1.73 sq M.predicted among non-blacks MDRD (S/P/Bld) [Vol rate/Area] 77 mL/min/{1.73_m2} Normal >60 [facility] Comment on above: Result Comment: mL/m in/1.73m2 CKD-EPI Creatinine Equation (2020) Performed By: #### L 100.0100, L500.4050 ####[facility] [address] [place], [address] Globulin (S) [Mass/Vol] 2.4 g/dL Normal 2.2-4.2 [facility] Comment on above: Performed By: #### L 100.0100, L500.4050 ####[facility] [address] [place], [address] Glucose [Mass/Vol] 94 mg/dL Normal 70-99 [facility] Comment on above: Performed By: #### L 100.0100, L500.4050 ####[facility] [address] [place], [address] Potassium [Moles/Vol] 3.8 mmol/L Normal 3.3-5.1 [facility] Comment on above: Performed By: #### L 100.0100, L500.4050 ####[facility] [address] [place], [address] Sodium [Moles/Vol] 139 mmol/L Normal 133-145 [facility] Comment on above: Performed By: #### L 100.0100, L500.4050 ####[facility] [address] [place], [address] T PROT 6.5 g/dL Normal 5.9-8.4 [facility] Comment on above: Performed By: #### L 100.0100, L500.4050 ####[facility] [address] [place], [address] Urea nitrogen [Mass/Vol] 13 mg/dL Normal 4-19 [facility] Comment on above: Performed By: #### L 100.0100, L500.4050 ####[facility] [address] [place], [address] Eosinophil percentageOrdered By: Patience Kiran on 10-16-2024 Eosinophils/100 WBC (Bld) 1.2 % 0-5 [place] [facility] Erythrocyte distribution wid th ratioOrdered By: Patience Kiran on 10-16-2024 Erythrocyte distribution width (RBC) [Ratio] 13.6 % 11.6-14.6 [facility] Erythrocyte distribution wid th standard deviationOrdered By: Patience Kiran on 10-16-2024 Erythrocyte distribution width (RBC) [Ratio] 46.7 fl High 35.1-43.9 [facility] Glomerular filtration rate ( GFR) estimation/1.73 sq m using serum, plasma, or whole bOrdered By: Patience Kiran on 10-16-2024 GFR/1.73 sq M.predicted among non-blacks MDRD (S/P/Bld) [Vol rate/Area] 77 mL/min/{1.73_m2} >60 [facility] Comment on above: mL/min/1.73m2 CKD-EP I Creatinine Equation (2020) Hematocrit Auto (Bld) [Volum e fraction]Ordered By: Patience Kiran on 10-16-2024 Hematocrit (Bld) [Volume fraction] 40.1 % 37-47 [facility] Hemoglobin measurementOrdere d By: Patience Kiran on 10-16-2024 Hemoglobin (Bld) [Mass/Vol] 13.3 g/dL 12.0-15.0 [facility] Immature granulocytes/100 WB C Auto (Bld)Ordered By: Patience Kiran on 10-16-2024 Immature granulocytes/100 WBC (Bld) 0.200 % 0.0-0.9 [facility] Comment on above: IG% - Immature Granu locytes (promyelocytes, myelocytes and metamyelocytes) > 1% indicates that a LEFT SHIFT is Present. Laboratory - Chemistry and C hemistry - challengeOrdered By: Patience Kiran on 10-16-2024 AST [Catalytic activity/Vol] 22 U/L <32 [facility] MCV (mean corpuscular volume ) determinationOrdered By: Patience Kiran on 10-16-2024 MCV (RBC) [Entitic vol] 94.4 fL 81-99 [facility] Mean corpuscular hemoglobin (MCH) determinationOrdered By: Patience Kiran on 10-16-2024 MCH (RBC) [Entitic mass] 31.3 pg 27.0-32.0 [facility] Mean corpuscular hemoglobin concentration (MCHC) determinationOrdered By: Patience Kiran on 10-16-2024 MCHC (RBC) [Mass/Vol] 33.2 g/dL 32-36 [facility] Mean platelet volume determi nationOrdered By: Patience Kiran on 10-16-2024 Platelet mean volume (Bld) [Entitic vol] 12.9 fL High 6.2-12.0 [facility] Monocyte percentageOrdered B y: Patience Kiran on 10-16-2024 Monocytes/100 WBC (Bld) 11.4 % High 0-10 [facility] Neutrophil percentageOrdered By: Patience Kiran on 10-16-2024 Neutrophils/100 WBC (Bld) 67.3 % 47-70 [facility] Nucleated red blood cell per centageOrdered By: Patience Kiran on 10-16-2024 Nucleated RBC/100 WBC (Bld) [Ratio] 0 % 0-5 [facility] Platelet countOrdered By: Quiana Kiran on 10-16-2024 Platelets (Bld) [#/Vol] 207 10*3/uL 150-450 [facility] Potassium measurement (mass/ volume)Ordered By: Patience Kiran on 10-16-2024 Potassium (Unsp spec) [Mass/Vol] 3.8 mmol/L 3.3-5.1 [facility] RBC Auto (Bld) [#/Vol]Ordere d By: Patience Kiran on 10-16-2024 RBC (Bld) [#/Vol] 4.25 10*6/uL 4.2-5.4 [facility] Serum creatinine measurement (mass/volume)Ordered By: Patience Kiran on 10-16-2024 Creatinine [Mass/Vol] 0.82 mg/dL 0.70-1.20 [facility] Serum globulin measurementOr dered By: Patience Kiran on 10-16-2024 Globulin (S) [Mass/Vol] 2.4 g/dL 2.2-4.2 [facility] Serum glucose measurement (m ass/volume)Ordered By: Patience Kiran on 10-16-2024 Glucose [Mass/Vol] 94 mg/dL 70-99 [facility] Serum or plasma alanine jimenes otransferase (ALT) measurementOrdered By: Patience Kiran on 10-16-2024 ALT [Catalytic activity/Vol] 16 U/L <35 [facility] Serum or plasma albumin summer urement (mass/volume)Ordered By: Patience Kiran on 10-16-2024 Albumin [Mass/Vol] 4.1 g/dL 3.4-4.8 [facility] Serum or plasma albumin/glob ulin mass ratioOrdered By: Patience Kiran on 10-16-2024 Albumin/Globulin [Mass ratio] 1.7 {ratio} 0.9-2.4 [facility] Serum or plasma alkaline taniya sphatase measurementOrdered By: Patience Kiran on 10-16-2024 ALP [Catalytic activity/Vol] 58 U/L 35-104 [facility] Serum or plasma calcium summer urement (mass/volume)Ordered By: Patience Kiran on 10-16-2024 Calcium [Mass/Vol] 9.5 mg/dL 7.6-11.0 [facility] Serum or plasma urea nitroge n measurement (mass/volume)Ordered By: Patience Kiran on 10-16-2024 Urea nitrogen [Mass/Vol] 13 mg/dL 4-19 [facility] Sodium levelOrdered By: Hilario Kiran on 10-16-2024 Sodium [Moles/Vol] 139 mmol/L 133-145 [facility] Total proteinOrdered By: Katherine Kiran on 10-16-2024 Protein [Mass/Vol] 6.5 g/dL 5.9-8.4 [facility] White blood cell (WBC) count Ordered By: Patience Kiran on 10-16-2024 WBC (Bld) [#/Vol] 8.0 10*3/uL 4.4-11.0 [facility] Brain/Head without Contrasto n 10-14-2024 Brain/Head without Contrast [facility] Imaging Services [facility] [place], [place] [address] Brain/Head without Contrast MR#: [id number] Acct: [id number] Name: ROSAMARIA PRYOR Rep #: [id number] : 1955 F 69 From: Andrea Baig MD PCP: Dr. Blanca Mcdermott MD Status: REG CLI Study: Brain/Head without Contrast Date of Exam: 01/01 Exam# [id number] Ordering Dr: Blanca Mcdermott MD PROCEDURE: BRAIN/HEAD WITHOUT CONTRAST, 10/14/2024 REASON FOR EXAM: CHRONIC ANTICOAGULATION, FALL, SCALP HEMATOMA COMPARISON: None TECHNIQUE: CT head was performed without IV contrast. Multiplanar reformats were generated. RADIATION DOSE SUMMARY: CTDlvol: 44.99 mGy DLP: 745.99 mGycm One or more dose reduction techniques were used (e.g., Automated exposure control, adjustment of the mA and/or kV according to patient size, use of iterative reconstruction technique). FINDINGS: Cerebrum: Unremarkable. Cerebellum/brainstem: Unremarkable. Note slight limitation due to beam hardening artifact. Ventricles/extra-axial spaces: Unremarkable. Paranasal sinuses/mastoid air cells: Unremarkable. Scalp/calvarium: RIGHT parieto-occipital scalp contusion with hematoma measuring 2.5 x 1.0 x 0.8 cm. Other: Intracranial atherosclerosis. CT/Brain/Head without Contrast IMPRESSION: 1. Bright parieto-occipital scalp contusion with 2.5 cm scalp hematoma. No visible acute intracranial hemorrhage. 2. Additional description as above. Reading Location: [facility] CC: Dr. 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 Blanca mahoney MD Age/Sex: 69/F Location[place] [facility] Status: Signed Intake Vital Signs 06/29/24 12:55 07/14/24 10:47 10/14/24 09:50 Height 5 ft 3 in 5 ft 3 in 5 ft 3 in Weight: 181 lb BMI 32.1 BP 116/70 Blood Pressure Location Lt brachial Position Sitting Respiration 16 Pulse 52 L Pulse Source Monitor Temp 97.9 F Temp Source Temporal Pulse Oximetry (%) 99 Oxygen Delivery Method room air Intake Visit Reasons: 3 M FU Chief Complaint: Discussed bone density scan. 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 Is patient in pain?: No Allergies janell Allergy (Verified 10/14/24 09:33) Rash Penicillins Allergy (Verified 10/14/24 09:33) Rash Medications ???Medication ???Instructions ???Recorded ???Confirmed ???Type cholecalciferol (vitamin D3) 25 3,000 unit PO DAILY 03/31/1510/14 History mcg (1,000 unit) tablet folic acid 1 mg tablet 1 mg PO .COMPLEX 06/26/17 10/14/24 History prednisone 5 mg tablet 5 mg PO .COMPLEX 06/26/17 10/14/24 History hydroxychloroquine 200 mg tablet 200 mg PO BID 10/28/17 10/14/24 Hi story (Plaquenil) methotrexate sodium 2.5 mg tablet 15 mg PO QWEEK 07/14/19 10/14/24 History calcium carbonate (Calcium 600) 600 mg PO DAILY 08/29/21 10/14/24 History montelukast 10 mg tablet 10 mg PO QHS PRN allergies #90 tab s 07/12/22 10/14/24 Rx cyclobenzaprine 10 mg tablet 10 mg PO TID PRN muscle spasm #180 12/20/22 10/14/24 Rx tabs estradiol 0.01% (0.1 mg/gram) 1 g vaginal 2XW 12/17/23 10/14/24 History vaginal cream atorvastatin 10 mg tablet 10 mg PO DAILY #90 tabs 12/25/23 0 10/14/24 Rx naproxen 500 mg tablet 500 mg PO DAILY PRN pain #90 tabs 12/25/23 10/14/24 Rx apixaban 5 mg tablet (Eliquis) 5 mg PO BID #60 tabs 01/29/2401/01 Rx flecainide 50 mg tablet 50 mg PO Q12H OK to fill with 01/0910/14/24 Rx Plaquenil, we monitor ekg #180 tabs potassium chloride 10 mEq 20 meq (2 x 10 mEq) PO DAILY #180 02/12/24 10/14/24 Rx capsule,extended release caps levothyroxine 50 mcg tablet 50 mcg PO DAILY #90 tabs 06/29/24 10/14/24 Rx hydrochlorothiazide 12.5 mg tablet 12.5 mg PO QAM #90 tabs 07/14/24 10/14/24 Rx metoprolol succinate 50 mg 50 mg PO QDAY #90 tabs 07/14/24 Rx tablet,extended release 24 hr (Toprol XL) irbesartan 150 mg tablet 150 mg PO DAILY #90 TABLETS 10/14/24 Rx omeprazole 20 mg capsule,delayed 20 mg PO DAILY #90 caps 09/21/24 0 10/14/24 Rx release denosumab 60 mg/mL subcutaneous 60 mg subcut [id number] #1 mL 10/14/24 Rx syringe (Prolia) Have you fallen in the past year?: Yes (10/13/24) Nurse's Note: Pt fell yesterday, she tripped over her shoe when walking. She grabbed a chair and hit R side. hit back of head on tile floor has a hematoma which is coming down in size. Denies headaches,nausea,dizziness. Has a R arm bruise pt states she skipped eliquis last night after fall and did not take eliquis this morning, also skipped prednisone dose this morning. Pt does not c/o any pain or anything, just wanted to double check w/ bleeding risks. Pt was intially here to go over bone denisty needed to go over results. Pt did not get evaluated since she was not in a lot of pain. [facility] Medical History (Updated 10/14/24 @ 10:[address] Blanca Mcdermott MD) Chronic anticoagulation Traumatic hematoma of scalp Calcific tendonitis Hematuria Urinary urgency Left shoulder pain Health care maintenance Chronic back pain Acute rhinosinusitis COVID-19 Cough Chronic sinusitis Seasonal allergies Essential (primary) hypertension Female dyspareunia Rosacea conjunctivitis of both eyes Osteoporosis Degenerative disc disease Rheumatoid arthritis Hypothyroidism Hyperlipidemia Paroxysmal atrial fibrillation Surgical History History of LAVH History of ankle fusion History of right knee joint replacement history of tendon repair History of hysterectomy History of cardioversion (01/17/16) Family History Father Macular degeneration Heart disease Hypertension Mother CVA (cerebral vascular accident) Thyroid disorder Brother Heart disease Hypertension Social History Smoking Status: Never smoker how long ago did patient quit smokin alcohol intake: current alcohol intake frequency: a few times a week Alcohol type: wine details: social substance use type: does not use caffeine: Yes (more content not included)... Normal [facility] PT D/C Summary (1)on 025 PT D/C Summary (1) [facility] Physical Therapy [facility] [address] [place] [address] [address] [place] [address] / REHABILITATION SERVICES DISCHARGE SUMMARY MR#: [id number] Acct: [id number] Name: ROSAMARIA PRYOR Rep #: [id number] : 1955 69 From: Catracho Robles PT, ATC Referring Dr.: Dr. Blanca Mcdermott MD Status: REG R Insurance: MEDICARE PART A B [facility] Discharge Summary D/C summary: It has been my pleasure to treat ROSAMARIA PRYOR referred by Dr. Blanca Mcdermott MD, with the diagnosis of L shoulder pain for a total of 6 visit(s). Discharge Date: Please see the following information for a summary of their discharge status. Subjective Subjective: I am getting better overall Pain L shoulder pain: Pain Intensity (Out of 10): 0 Overall Improvement % Improvement: 60 Objective Objective/Function: L shoulder pain ranges from 0-2/10 L shoulder ROM: flex= 160, abd= 170, ER= 60, IR= WNL compared bilaterally L shoulder MMT: flex= 6, abd= 6, ER= 10, IR= 13 #F Pt is I with HEP Goals Goal 1:: Decrease L shoulder pain x 50% to aid with sleep Goal Progress: Goal Met Goal 2:: Pt will be I with hep in 4 visits Goal Progress: Goal Met Plan Plan: Discharge to [facility] D/C Information d/c sentence: If there are questions or concerns regarding this patient's physical therapy, please feel free to call me at [phone]. Thank you for the referral of this patient. Sincerely, Catracho Robles PT, ATC Balance/Gait/Functional tests Balance/Special Test Scores Quick DASH Score: 34.0900 Improvement % Improvement: 60 09/14/24 1127 CC: Dr. Blanca Mcdermott MD [facility] Signed Normal [facility] Inital Evaluation (1) - PTon 07-30-2024 Inital Evaluation (1) - PT [facility] Physical Therapy [facility] [address] [place] [address] [address] [place] [address] / REHABILITATION SERVICES INITIAL EVALUATION MR#: [id number] Acct: [id number] Name: ROSAMARIA PRYOR Rep #: [id number] : 1955 69 From: Catracho Robles PT, ATC Referring Dr.: Dr. Blanca Mcdermott MD Status: REG RCR Insurance: MEDICARE PART A B [facility] Patient's Visit Information Visit Information Visit Information: ROSAMARIA PRYOR is a 69 year old F referred to Physical Therapy by Dr. Blanca Mcdermott MD with a diagnosis of L shoulder pain. Date of Evaluation: 07/30/24 Physical Therapist: Catracho Robles, PT, ATC Visit Plan Frequency: 2x /Week Duration: 2-4 Weeks Plan: L shoulder rotator cuff strengthening and scap stab ex's Subjective Subjective: Pt reports she has had L shoulder pain for 2 months. Pt reports she has OA and RA throughout her body, and notes this is probably the cause of her pain. Pt notes she had an xray which showed OA and calcific tendonitis. Pt reports she is R hand dominant. 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 Pt notes the pain is generalized in nature. Pt reports her doctor believes she may also have a tear in some of her tendons as well. Pt reports reaching behind her back increases her pain. Pt denies tingling or numbness in L UE. Pt reports she has difficulty with sleep at times if she is in a lot of pain. 0/10 pain at rest, 8/10 pain at worst. Pain L shoulder pain: Pain Intensity (Out of 10): 0 Pain Intensity Range: 8 Objective Objective: Neuro: B UE sensation is WNL to light touch. B bicipital reflex= 2/3 Palpation: Pt is sore throughout the distribution of the supraspinatus. No deformity noted. ROM: R shoulder flex= 180, abd= 180, ER= 90, IR= WNL; L shoulder flex= 160, abd= 160, ER= 90, IR= mod limited MMT: R shoulder flex= 9, abd= 18, ER= 10, IR= 17 #F; L shoulder flex= 4, abd= 8, ER= 10, IR= 10 #F Special tests: pos empty can Balance/Special Test Scores Quick DASH Score: 38.6350 Goals Goal 1:: Decrease L shoulder pain x 50% to aid with sleep Goal Time Frame: 2-4 Weeks Goal 2:: Pt will be I with hep in 4 visits Goal Time Frame: 2-4 Weeks Rehabilitation Potential Physical Therapy Diagnosis: Pt has L shoulder pain, weakness, and limited ROM secondary to L shoulder impingement syndrome Rehabilitation Potential: Good Anticipated Interventions Patient/Client Instruction: Educate patient on: Condition and Plan of Care For the Purpose of:: To improve self management Therapeutic Exercise to Include: Strength training, Flexibilty training, Active ROM and Scapular Strength/Stabilization For the Purpose of:: To decrease pain, To increase ROM and To improve muscle performance and motor function Cryotherapy (ice pack, ice massage): Yes For the Purpose of:: To decrease pain Text: Thank you for the opportunity to evaluate your patient. For Medicare and Medicare HMO plans, please review the plan of care and approve it. It will need to be FAXED BACK to us at [phone] for Medicare purposes. For Medicare only, by signing this I certify the plan of care. Please let me know if there are questions or concerns regarding this plan of care. Physician Signature: ___Date: 07/30/24 1358 CC: Dr. Blanca Mcdermott MD [facility] Signed Normal [facility] Absolute lymphocyte countOrd ered By: Blanca Mcdermott on 07-23-2024 Lymphocytes Auto (Unsp spec) [#/Vol] 1.58 10*3/uL 0.83-4.51 [facility] Absolute neutrophil countOrd ered By: Blanca Mcdermott on 07-23-2024 Neutrophils (Bld) [#/Vol] 7.2 10*3/uL 2.0-7.7 [facility] Albumin to globulin ratioOrd ered By: Blanca Mcdermott on 07-23-2024 Albumin/Globulin [Mass ratio] 1.3 {ratio} 0.9-2.4 [facility] Automated lymphocyte count a s percentage of total leukocytesOrdered By: Blanca Mcdermott on 07-23-2024 Lymphocytes/100 WBC Auto (Unsp spec) 15.8 % Low 19-41 [facility] Basophil percentageOrdered B y: Blanca Mcdermott on 07-23-2024 Basophils/100 WBC (Bld) 0.7 % 0-1 [facility] Bilirubin, totalOrdered By: Blanca Mcdermott on 07-23-2024 Bilirubin [Mass/Vol] 0.60 mg/dL 0.20-1.00 [facility] Comment on above: For patients on eltr ombopag therapy, use of Dimension [place] TBIL is not recommended. Blood urea nitrogen (BUN)/cr eatinine ratioOrdered By: Blanca Mcdermott on 07-23-2024 Urea nitrogen/Creatinine [Mass ratio] 19.7 mg/mg 10-20 [facility] CBC W/Diff, Automatedon 07-11 Absolute Lymph 1.58 X10 3/uL Normal 0.83-4.51 [facility] Comment on above: Performed By: #### L 500.4050, L100.0100, L501.9520 ####[facility] [address] [place], [address] Absolute Neut 7.2 X10 3/uL Normal 2.0-7.7 [facility] Comment on above: Performed By: #### L 500.4050, L100.0100, L501.9520 ####[facility] [address] [place], [address] Basophils/100 WBC (Bld) 0.7 % Normal 0-1 [facility] Comment on above: Performed By: #### L 500.4050, L100.0100, L501.9520 ####[facility] [address] [place], [address] Eosinophils/100 WBC (Bld) 1.1 % Normal 0-5 [facility] Comment on above: Performed By: #### L 500.4050, L100.0100, L501.9520 ####[facility] [address] [place], [address] Erythrocyte distribution width (RBC) [Ratio] 13.1 % Normal 11.6-14.6 [facility] Comment on above: Performed By: #### L 500.4050, L100.0100, L501.9520 ####[facility] [address] [place], [address] Hematocrit (Bld) [Volume fraction] 40.7 % Normal 37-47 [facility] Comment on above: Performed By: #### L 500.4050, L100.0100, L501.9520 ####[facility] [address] [place], [address] Hemoglobin (Bld) [Mass/Vol] 13.4 g/dL Normal 12.0-15.0 [facility] Comment on above: Performed By: #### L 500.4050, L100.0100, L501.9520 ####[facility] [address] [place], [address] IG% 0.300 Normal 0.0-0.9 [facility] Comment on above: Result Comment: IG% - Immature Granulocytes (promyelocytes, myelocytes and metamyelocytes) > 1% indicates that a LEFT SHIFT is Present. Performed By: #### L 500.4050, L100.0100, L501.9520 ####[facility] [address] [place], [address] Lymphocytes/100 WBC (Bld) 15.8 % Low 19-41 [facility] Comment on above: Performed By: #### L 500.4050, L100.0100, L501.9520 ####[facility] [address] [place], [address] MCH (RBC) [Entitic mass] 31.2 pg Normal 27.0-32.0 [facility] Comment on above: Performed By: #### L 500.4050, L100.0100, L501.9520 ####[facility] [address] [place], [address] MCHC (RBC) [Mass/Vol] 32.9 g/dL Normal 32-36 [facility] Comment on above: Performed By: #### L 500.4050, L100.0100, L501.9520 ####[facility] [address] [place], [address] MCV (RBC) [Entitic vol] 94.9 fL Normal 81-99 [facility] Comment on above: Performed By: #### L 500.4050, L100.0100, L501.9520 ####[facility] [address] [place], [address] Monocytes/100 WBC (Bld) 10.2 % High 0-10 [facility] Comment on above: Performed By: #### L 500.4050, L100.0100, L501.9520 ####[facility] [address] [place], [address] Neutrophils/100 WBC (Bld) 71.9 % High 47-70 [facility] Comment on above: Performed By: #### L 500.4050, L100.0100, L501.9520 ####[facility] [address] [place], [address] Nucleated RBC (Bld) [#/Vol] 0 10*3/uL Normal 0-5 [facility] Comment on above: Performed By: #### L 500.4050, L100.0100, L501.9520 ####[facility] [address] [place], [address] Platelet mean volume (Bld) [Entitic vol] 12.2 fL High 6.2-12.0 [facility] Comment on above: Performed By: #### L 500.4050, L100.0100, L501.9520 ####[facility] [address] [place], [address] Platelets (Bld) [#/Vol] 211 10*3/uL Normal 150-450 [facility] Comment on above: Performed By: #### L 500.4050, L100.0100, L501.9520 ####[facility] [address] [place], [address] RBC (Bld) [#/Vol] 4.29 10*6/uL Normal 4.2-5.4 [facility] Comment on above: Performed By: #### L 500.4050, L100.0100, L501.9520 ####[facility] [address] [place], [address] RDW SD 45.1 fl High 35.1-43.9 [facility] Comment on above: Performed By: #### L 500.4050, L100.0100, L501.9520 ####[facility] [address] [place], [address] WBC (Bld) [#/Vol] 10.0 10*3/uL Normal 4.4-11.0 [facility] Comment on above: Performed By: #### L 500.4050, L100.0100, L501.9520 ####[facility] [address] [place], [address] Carbon dioxide measurementOr dered By: Blanca Mcdermott on 07-23-2024 CO2 [Moles/Vol] 30.0 mmol/L 21.0-32.0 [facility] Chloride measurementOrdered By: Blanca Mcdermott on 07-23-2024 Chloride [Moles/Vol] 102 mmol/L 98-107 [facility] Comprehensive Metabolic Prof ilon 07-23-2024 Albumin [Mass/Vol] 3.8 g/dL Normal 3.2-5.0 [facility] Comment on above: Order Comment: CBC A ND CMP ORDERD BY DR FLOREZ ORDERD BY DR HERNANDEZ Performed By: #### L 500.4050, L100.0100, L501.9520 ####[facility] [address] [place], [address] Albumin/Globulin [Mass ratio] 1.3 {ratio} Normal 0.9-2.4 [facility] Comment on above: Order Comment: CBC A ND CMP ORDERD BY DR FLOREZ ORDERD BY DR HERNANDEZ Performed By: #### L 500.4050, L100.0100, L501.9520 ####[facility] [address] [place], [address] ALK P 60 U/L Normal 45-117 [facility] Comment on above: Order Comment: CBC A ND CMP ORDERD BY DR FLOREZ ORDERD BY DR HERNANDEZ Performed By: #### L 500.4050, L100.0100, L501.9520 ####[facility] [address] [place], [address] ALT [Catalytic activity/Vol] 19 U/L Normal 13-56 [facility] Comment on above: Order Comment: CBC A ND CMP ORDERD BY DR FLOREZ ORDERD BY DR HERNANDEZ Performed By: #### L 500.4050, L100.0100, L501.9520 ####[facility] [address] [place], [address] AST [Catalytic activity/Vol] 19 U/L Normal 15-37 [facility] Comment on above: Order Comment: CBC A ND CMP ORDERD BY DR FLOREZ ORDERD BY DR HERNANDEZ Performed By: #### L 500.4050, L100.0100, L501.9520 ####[facility] [address] [place], [address] Bilirubin [Mass/Vol] 0.60 mg/dL Normal 0.20-1.00 [facility] Comment on above: Order Comment: CBC A ND CMP ORDERD BY DR FLOREZ ORDERD BY DR HERNANDEZ Result Comment: For patients on eltrombopag therapy, use of Dimension [place] TBIL is not recommended. Performed By: #### L 500.4050, L100.0100, L501.9520 ####[facility] [address] [place], [address] BUN/CRE 19.7 RATIO Normal 10-20 [facility] Comment on above: Order Comment: CBC A ND CMP ORDERD BY DR FLOREZ ORDERD BY DR HERNANDEZ Performed By: #### L 500.4050, L100.0100, L501.9520 ####[facility] [address] [place], [address] CA,Total 9.6 mg/dL Normal 8.5-10.1 [facility] Comment on above: Order Comment: CBC A ND CMP ORDERD BY DR FLOREZ ORDERD BY DR HERNANDEZ Performed By: #### L 500.4050, L100.0100, L501.9520 ####[facility] [address] [place], [address] Chloride [Moles/Vol] 102 mmol/L Normal 98-107 [facility] Comment on above: Order Comment: CBC A ND CMP ORDERD BY DR FLOREZ ORDERD BY DR HERNANDEZ Performed By: #### L 500.4050, L100.0100, L501.9520 ####[facility] [address] [place], [address] CO2 [Moles/Vol] 30.0 mmol/L Normal 21.0-32.0 [facility] Comment on above: Order Comment: CBC A ND CMP ORDERD BY DR FLOREZ ORDERD BY DR HERNANDEZ Performed By: #### L 500.4050, L100.0100, L501.9520 ####[facility] [address] [place], [address] Creatinine [Mass/Vol] 0.86 mg/dL Normal 0.55-1.02 [facility] Comment on above: Order Comment: CBC A ND CMP ORDERD BY DR FLOREZ ORDERD BY DR HERNANDEZ Result Comment: The validity of the calculated GFR GFRAA in patients over 70 years has not been determined. Clinical correlation is essential. Performed By: #### L 500.4050, L100.0100, L501.9520 ####[facility] [address] [place], [address] EST GFR - AA 84 mL/min Normal >60 [facility] Comment on above: Order Comment: CBC A ND CMP ORDERD BY DR FLOREZ ORDERD BY DR HERNANDEZ Result Comment: Afri can Finnish GFR Calc Performed By: #### L 500.4050, L100.0100, L501.9520 ####[facility] [address] [place], [address] GAP 6 Normal 5-15 [facility] Comment on above: Order Comment: CBC A ND CMP ORDERD BY DR FLOREZ ORDERD BY DR HERNANDEZ Performed By: #### L 500.4050, L100.0100, L501.9520 ####[facility] [address] [place], [address] GFR/1.73 sq M.predicted among non-blacks MDRD (S/P/Bld) [Vol rate/Area] 69 mL/min/{1.73_m2} Normal >60 [facility] Comment on above: Order Comment: CBC A ND CMP ORDERD BY DR FLOREZ ORDERD BY DR HERNANDEZ Result Comment: Non- GFR Calc Performed By: #### L 500.4050, L100.0100, L501.9520 ####[facility] [address] [place], [address] Globulin (S) [Mass/Vol] 2.9 g/dL Normal 2.2-4.2 [facility] Comment on above: Order Comment: CBC A ND CMP ORDERD BY DR FLOREZ ORDERD BY DR HERNANDEZ Performed By: #### L 500.4050, L100.0100, L501.9520 ####[facility] [address] [place], [address] Glucose [Mass/Vol] 84 mg/dL Normal 74-106 [facility] Comment on above: Order Comment: CBC A ND CMP ORDERD BY DR FLOREZ ORDERD BY DR HERNANDEZ Performed By: #### L 500.4050, L100.0100, L501.9520 ####[facility] [address] [place], [address] Potassium [Moles/Vol] 3.9 mmol/L Normal 3.5-5.1 [facility] Comment on above: Order Comment: CBC A ND CMP ORDERD BY DR FLOREZ ORDERD BY DR HERNANDEZ Performed By: #### L 500.4050, L100.0100, L501.9520 ####[facility] [address] [place], [address] Sodium [Moles/Vol] 138 mmol/L Normal 136-145 [facility] Comment on above: Order Comment: CBC A ND CMP ORDERD BY DR FLOREZ ORDERD BY DR HERNANDEZ Performed By: #### L 500.4050, L100.0100, L501.9520 ####[facility] [address] [place], [address] T PROT 6.7 g/dL Normal 6.4-8.2 [facility] Comment on above: Order Comment: CBC A ND CMP ORDERD BY DR FLOREZ ORDERD BY DR HERNANDEZ Performed By: #### L 500.4050, L100.0100, L501.9520 ####[facility] [address] [place], [address] Urea nitrogen [Mass/Vol] 17 mg/dL Normal 7-18 [facility] Comment on above: Order Comment: CBC A ND CMP ORDERD BY DR FLOREZ ORDERD BY DR HERNANDEZ Performed By: #### L 500.4050, L100.0100, L501.9520 ####[facility] [address] [place], [address] Eosinophil percentageOrdered By: Blanca Mcdermott on 07-23-2024 Eosinophils/100 WBC (Bld) 1.1 % 0-5 [facility] Erythrocyte distribution wid th (RBC) [Ratio]Ordered By: Blanca Mcdermott on 07-23-2024 Erythrocyte distribution width (RBC) [Entitic vol] 45.1 fL High 35.1-43.9 [facility] Erythrocyte distribution wid th ratioOrdered By: Blanca Mcdermott on 07-23-2024 Erythrocyte distribution width (RBC) [Ratio] 13.1 % 11.6-14.6 [facility] Erythrocyte distribution wid th standard deviationOrdered By: Blanca Mcdermott on 07-23-2024 Erythrocyte distribution width (RBC) [Ratio] 45.1 fl High 35.1-43.9 [facility] Estimated glomerular filtrat ion rate (GFR) AmericanOrdered By: Blanca Mcdermott on 07-23-2024 Estimated GFR (MDRD) Amer 84 mL/min >60 [facility] Comment on above: GFR Calc Glomerular filtration rate ( GFR) estimationOrdered By: Blanca Mcdermott on 07-23-2024 Estimated GFR (MDRD) Non-Af Amer 69 mL/min >60 [facility] Comment on above: Non- GFR Calc GFR/1.73 sq M.predicted among non-blacks MDRD (S/P/Bld) [Vol rate/Area] 69 mL/min/{1.73_m2} >60 [facility] Comment on above: Non- GFR Calc Glucose measurementOrdered B y: Blanca Mcdermott on 07-23-2024 Glucose [Mass/Vol] 84 mg/dL 74-106 [facility] Hematocrit Auto (Bld) [Volum e fraction]Ordered By: Blanca Mcdermott on 07-23-2024 Hematocrit (Bld) [Volume fraction] 40.7 % 37-47 [facility] Hemoglobin measurementOrdere d By: Blanca Mcdermott on 07-23-2024 Hemoglobin (Bld) [Mass/Vol] 13.4 g/dL 12.0-15.0 [facility] Immature granulocytes/100 WB C Auto (Bld)Ordered By: Blanca Mcdermott on 07-23-2024 Immature granulocytes/100 WBC (Bld) 0.300 % 0.0-0.9 [facility] Comment on above: IG% - Immature Granu locytes (promyelocytes, myelocytes and metamyelocytes) > 1% indicates that a LEFT SHIFT is Present. Laboratory - Chemistry and C hemistry - challengeOrdered By: Blanca Mcdermott on 07-23-2024 AST [Catalytic activity/Vol] 19 U/L 15-37 [facility] Lymphocytes Auto (Unsp spec) [#/Vol]Ordered By: Blanca Mcdermott on 07-23-2024 Lymphocytes (Bld) [#/Vol] 1.58 10*3/uL 0.83-4.51 [facility] Lymphocytes/100 WBC Auto (Un sp spec)Ordered By: Blanca Mcdermott on 07-23-2024 Lymphocytes/100 WBC (Bld) 15.8 % Low 19-41 [facility] MCV (mean corpuscular volume ) determinationOrdered By: Blanca Mcdermott on 07-23-2024 MCV (RBC) [Entitic vol] 94.9 fL 81-99 [facility] Mean corpuscular hemoglobin (MCH) determinationOrdered By: Blanca Mcdermott on 07-23-2024 MCH (RBC) [Entitic mass] 31.2 pg 27.0-32.0 [facility] Mean corpuscular hemoglobin concentration (MCHC) determinationOrdered By: Blanca Mcdermott on 07-23-2024 MCHC (RBC) [Mass/Vol] 32.9 g/dL 32-36 [facility] Mean platelet volume determi nationOrdered By: Blanca Mcdermott on 07-23-2024 Platelet mean volume (Bld) [Entitic vol] 12.2 fL High 6.2-12.0 [facility] Monocyte percentageOrdered B y: Blanca Mcdermott on 07-23-2024 Monocytes/100 WBC (Bld) 10.2 % High 0-10 [facility] Neutrophil percentageOrdered By: Blanca Mcdermott on 07-23-2024 Neutrophils/100 WBC (Bld) 71.9 % High 47-70 [facility] Nucleated red blood cell per centageOrdered By: Blanca Mcdermott on 07-23-2024 Nucleated RBC/100 WBC (Bld) [Ratio] 0 % 0-5 [facility] Platelet countOrdered By: Chuck Mcdermott on 07-23-2024 Platelets (Bld) [#/Vol] 211 10*3/uL 150-450 [facility] Potassium measurementOrdered By: Blanca Mcdermott on 07-23-2024 Potassium [Moles/Vol] 3.9 mmol/L 3.5-5.1 [facility] RBC Auto (Bld) [#/Vol]Ordere d By: Blanca Mcdermott on 07-23-2024 RBC (Bld) [#/Vol] 4.29 10*6/uL 4.2-5.4 [facility] Serum anion gap measurementO rdered By: Blanca Mcdermott on 07-23-2024 Anion gap [Moles/Vol] 6 mmol/L 5-15 [facility] Serum globulin measurementOr dered By: Blanca Mcdermott on 07-23-2024 Globulin (S) [Mass/Vol] 2.9 g/dL 2.2-4.2 [facility] Serum or plasma alanine jimenes otransferase (ALT) measurementOrdered By: Blanca Mcdermott on 07-23-2024 ALT [Catalytic activity/Vol] 19 U/L 13-56 [facility] Serum or plasma albumin summer urement (mass/volume)Ordered By: Blanca Mcdermott on 07-23-2024 Albumin [Mass/Vol] 3.8 g/dL 3.2-5.0 [facility] Serum or plasma alkaline taniya sphatase measurementOrdered By: Blanca Mcdermott on 07-23-2024 ALP [Catalytic activity/Vol] 60 U/L 45-117 [facility] Serum or plasma calcium summer urement (mass/volume)Ordered By: Blanca Mcdermott on 07-23-2024 Calcium [Mass/Vol] 9.6 mg/dL 8.5-10.1 [facility] Serum or plasma creatinine m easurement (mass/volume)Ordered By: Blanca Mcdermott on 07-23-2024 Creatinine [Mass/Vol] 0.86 mg/dL 0.55-1.02 [facility] Comment on above: The validity of the calculated GFR & GFRAA in patients over 70 years has not been determined. Clinical correlation is essential. Serum or plasma thyroid stim ulating hormone (TSH) measurement (units/volume)Ordered By: Blanca Mcdermott on 07-23-2024 TSH Qn 0.437 uIU/mL 0.358-3.74 0 [facility] Serum or plasma urea nitroge n measurement (mass/volume)Ordered By: Chuckcharlotte Mcdermott on 07-23-2024 Urea nitrogen [Mass/Vol] 17 mg/dL 7-18 [facility] Sodium levelOrdered By: Jaleesa rob Stephensantoshmanuel on 07-23-2024 Sodium [Moles/Vol] 138 mmol/L 136-145 [facility] TSH QnOrdered By: Chuckcharlotte Mitchellsantoshmanuel on 07-23-2024 Thyroid Stimulating Hormone (TSH) 0.437 uIU/mL 0.358-3.74 0 [facility] Thyroid Stim Hormone (TSH)on 07-23-2024 TSH 0.437 uIU/mL Normal 0.358-3.74 0 [facility] Comment on above: Order Comment: CBC A ND CMP ORDERD BY DR FLOREZ ORDERD BY DR HERNANDEZ Performed By: #### L 500.4050, L100.0100, L501.9520 ####[facility] [address] [facility] [place], [address] Total proteinOrdered By: Nader babin Sharron on 07-23-2024 Protein [Mass/Vol] 6.7 g/dL 6.4-8.2 [facility] White blood cell (WBC) count Ordered By: Blanca Mcdermott on 07-23-2024 WBC (Bld) [#/Vol] 10.0 10*3/uL 4.4-11.0 [facility] Dexa Bone Density Studyon Dexa Bone Density Study [facility] Imaging Services [address] [place] [address] Dexa Bone Density Study MR#: [id number] Acct: [id number] Name: ROSAMARIA PRYOR Rep #: [id number] : 1955 F 69 From: Abhinav flores MD PCP: Dr. Blanca Mcdermott MD Status: REG CLI Study: Dexa Bone Density Study Date of Exam: 07/21/24 Exam# [id number] Ordering Dr: Blanca Mcdermott MD PROCEDURE: DEXA BONE DENSITY STUDY REASON FOR EXAM: F, age 69 y/o . Postmenopausal. TECHNIQUE: DEXA scan of the lumbar spine and both hips. COMPARISON: Comparison is made with prior study dated May 15, 2022. FINDINGS: Lumbar Spine (L1-L4): g/cm2 (0.809)/T-score (-2.2)/Z-score (0.0) findings are suggestive of osteopenic with a moderate fracture risk. Left Femur Total: g/cm2 (0.705)/T-score (-1.9)/Z-score (-0.4) Left Femoral Neck: g/cm2 (0.501)/T-score (-3.1)/Z-score (-1.3) Right Femur Total: g/cm2 (0.699)/T-score (-2.0)/Z-score (-0.5) Right Femoral Neck: g/cm2 (0.571)/T-score (-2.5)/Z-score (-0.7) The T-Scores on the most recent prior examination were: Lumbar Spine (L1-L4): There has been improvement of bone density since the previous examination. Left Femur Total: Loss of 5.6%. Right Femur Total: Improvement of 1.4%. BD/Dexa Bone Density Study IMPRESSION: The patient is considered osteoporotic as outlined below according to World Tucker Organization (WHO) criteria with a high fracture risk. There has been worsening of bone density since the previous examination. Reading Location: [facility] CC: Dr. Blanca Mcdermott MD Commercial Sewing Instructor: Signed Normal [facility] Urinalysis, Completeon 07-18 EPI,SQUAMOUS 0-5 SEEN Normal 5-10 [facility] Comment on above: Order Comment: CLEAN CATCH Performed By: #### L 400.0001 ####[facility] [address] [place], [place], [id number] RBC 0 SEEN Normal 0-5 [facility] Comment on above: Order Comment: CLEAN CATCH Performed By: #### L 400.0001 ####[facility] [address] [place], [place], [id number] WBC 0-5 SEEN Normal 0-5 [facility] Comment on above: Order Comment: CLEAN CATCH Performed By: #### L 400.0001 ####[facility] [address] [place], [place], [id number] Bilirubin Test strip Ql (U)O rdered By: Blanca Mcdermott on 07-17-2024 Bilirubin Ql (U) Negative Negative [facility] Epithelial cells.squamous LM Ql (Urine sed)Ordered By: Blanca Mcdermott on 07-17-2024 Epithelial cells.squamous LM.HPF (Urine sed) [#/Area] 0 /[HPF] 5-10 [facility] Glucose Ql (U)Ordered By: Chuck Mcdermott on 07-17-2024 Urine Glucose (UA) Normal mg/dl Normal [facility] Ketones Test strip Ql (U)Ord ered By: Blanca Mcdermott on 07-17-2024 Ketones Ql (U) Negative Negative [facility] Microscopic analysis of urin e for red blood cells (RBC)Ordered By: Blanca Mcdermott on 07-17-2024 Microscopic analysis of urine for red blood cells (RBC) 0 SEEN /hpf 0-5 [facility] Urine RBC 0 SEEN /hpf 0-5 [facility] Mucus LM Ql (Urine sed)Order ed By: Blanca Mcdermott on 07-17-2024 Mucus Ql (Urine sed) 0 SEEN /hpf [facility] Nitrite Test strip Ql (U)Ord ered By: Blanca Mcdermott on 07-17-2024 Nitrite Ql (U) Negative Negative [facility] Protein Test strip Ql (U)Ord ered By: Blanca Mcdermott on 07-17-2024 Protein Ql (U) Negative Negative [facility] Squamous epithelial cells de tection in urine sediment by light microscopyOrdered By: Blanca Mcdermott on 07-17-2024 Epithelial cells.squamous LM Ql (Urine sed) 0-5 SEEN /hpf 5-10 [facility] Urinalysis, Completeon 07-17 BACTERIA 0 SEEN Normal None Seen [facility] Comment on above: Order Comment: CLEAN CATCH Performed By: #### L 400.0001 ####[facility] [address] [place], [address] Mucus Ql (Urine sed) 0 SEEN Normal [facility] Comment on above: Order Comment: CLEAN CATCH Performed By: #### L 400.0001 ####[facility] [address] [place], [place], [address] Urine blood detectionOrdered By: Blanca Mcdermott on 07-17-2024 Urine Occult Blood Negative Negative [facility] Urine clarityOrdered By: Nader Mcdermott on 07-17-2024 Clarity (U) Clear Clear [facility] Urine color determinationOrd ered By: Blanca Mcdermott on 07-17-2024 Color (U) Yellow Yellow [facility] Urine glucose detectionOrder ed By: Blanca Mcdermott on 07-17-2024 Glucose Ql (U) Normal mg/dl Normal [facility] Urine leukocyte esterase det ection by dipstickOrdered By: Blanca Mcdermott on 07-17-2024 Leukocyte esterase Test strip Ql (U) Negative Negative [facility] Urine pHOrdered By: Radha Mcdermott on 07-17-2024 pH (U) 6.5 [pH] 5.0 - 8.0 [facility] Urine sediment bacteria coun t by microscopy (number/high power field)Ordered By: Blanca Mcdermott on 07-17-2024 Bacteria LM.HPF (Urine sed) [#/Area] 0 /[HPF] None Seen [facility] Urine specific gravity measu rementOrdered By: Blanca Mcdermott on 07-17-2024 Specific gravity (U) [Rel density] 1.010 1.002-1.03 0 [facility] Urine urobilinogen measureme ntOrdered By: Blanca Mcdermott on 07-17-2024 Urobilinogen Ql (U) Normal mg/dl Normal [facility] Urobilinogen Ql (U)Ordered B y: Blanca Mcdermott on 07-17-2024 Urine Urobilinogen Normal mg/dl Normal [facility] White blood cell countOrdere d By: Blanca Mcdermott on 07-17-2024 Urine WBC 0-5 SEEN /hpf 0-5 [facility] White blood cell count 0-5 SEEN /hpf 0-5 [facility] Cardiology Visit Reporton Cardiology Visit Report [facility] [address] [place], [place] [address] OFFICE VISIT Date of Service: 07/14/24 MR#: [id number] Acct: [id number] Name: ROSAMARIA PRYOR Rep #: [id number] : 1955 Provider: Dr. Per Gregorio MD Age/Sex: 69/F Location: [facility] [place] Status: Signed HPI HPI History of Present Illness Details: ROSAMARIA PRYOR, is a 69 F who presents to the office today for an office visit. She as you know has a previous history of paroxysmal atrial fibrillation. She has been under some amount of stress and has had a few episodes of paroxysmal atrial fibrillation though they have been short acting less than 15 minutes. She just took an extra flecainide and did well with that. Your member she underwent an echocardiogram as well as a stress test in November 2023 both of which were normal. She tells me that she is recovering from a urinary tract infection as well. Her physical exam here today is unremarkable. 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: No Accompanied by: Self Is patient in pain?: No Allergies janell Allergy (Verified 07/14/24 10:52) Rash Penicillins Allergy (Verified 07/14/24 10:52) Rash Medications ???Medication ???Instructions ???Recorded ???Confirmed ???Type cholecalciferol (vitamin D3) 25 3,000 unit PO DAILY 03/31/1507/14 History mcg (1,000 unit) tablet folic acid 1 mg tablet 1 mg PO .COMPLEX 06/26/17 07/14/24 History prednisone 5 mg tablet 5 mg PO .COMPLEX 06/26/17 07/14/24 History hydroxychloroquine 200 mg tablet 200 mg PO BID 10/28/17 07/14/24 Hi story (Plaquenil) methotrexate sodium 2.5 mg tablet 15 mg PO QWEEK 07/14/19 07/14/24 History calcium carbonate (Calcium 600) 600 mg PO DAILY 08/29/21 07/14/24 History montelukast 10 mg tablet 10 mg PO QHS PRN allergies #90 tab s 07/12/22 07/14/24 Rx cyclobenzaprine 10 mg tablet 10 mg PO TID PRN muscle spasm #180 12/20/22 07/14/24 Rx tabs estradiol 0.01% (0.1 mg/gram) 1 g vaginal 2XW 12/17/23 07/14/24 History vaginal cream atorvastatin 10 mg tablet 10 mg PO DAILY #90 tabs 12/25/23 0 07/14/24 Rx naproxen 500 mg tablet 500 mg PO DAILY PRN pain #90 tabs 12/25/23 07/14/24 Rx apixaban 5 mg tablet (Eliquis) 5 mg PO BID #60 tabs 01/29/2410/02 Rx flecainide 50 mg tablet 50 mg PO Q12H OK to fill with 01/0907/14/24 Rx Plaquenil, we monitor ekg #180 tabs potassium chloride 10 mEq 20 meq (2 x 10 mEq) PO DAILY #180 02/12/24 07/14/24 Rx capsule,extended release caps irbesartan 150 mg tablet 150 mg PO DAILY #90 TABLETS 07/14/24 Rx omeprazole 20 mg capsule,delayed 20 mg PO DAILY #90 caps 05/21/24 0 07/14/24 Rx release levothyroxine 50 mcg tablet 50 mcg PO DAILY #90 tabs 06/29/24 07/14/24 Rx hydrochlorothiazide 12.5 mg tablet 12.5 mg PO QAM #90 tabs 07/14/24 07/14/24 Rx metoprolol succinate 50 mg 50 mg PO QDAY #90 tabs 07/14/24 Rx tablet,extended release 24 hr (Toprol XL) Have you fallen in the past year?: No PFSH Medical History Calcific tendonitis Hematuria Urinary urgency Left shoulder pain Health care maintenance Chronic back pain Acute rhinosinusitis COVID-19 Cough Chronic sinusitis Seasonal allergies Essential (primary) hypertension Female dyspareunia Rosacea conjunctivitis of both eyes Osteoporosis Degenerative disc disease Rheumatoid arthritis Hypothyroidism Hyperlipidemia Paroxysmal atrial fibrillation Surgical History History of LAVH History of ankle fusion History of right knee joint replacement history of tendon repair History of hysterectomy History of cardioversion (01/17/16) Family History Father Macular degeneration Heart disease Hypertension Mother CVA (cerebral vascular accident) Thyroid disorder Brother Heart disease Hypertension Social History Smoking Status: Never smoker how long ago did patient quit smokin alcohol intake: current alcohol intake frequency: a few times a week Alcohol type: wine details: social substance use type: does not use caffeine: Yes what type of physical activity do you participate in: walking frequency: 1-2 times per week seatbelt use: always do you feel safe at home: Yes additional social history: 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 Normal [facility] Urine Cultureon 07-05-2024 [facility] Proteus mirabilis Justin Count >100,000 Escherichia coli Escherichia coli Proteus mirabilis: REACTION Ampicillin Islt GEMMA <=2 S Ampicillin+Sulbac Islt GEMMA <=2 Cefepime Islt GEMMA <=0.12 S cefTRIAXone Islt GEMMA <=0.25 S Ciprofloxacin Islt GEMMA <=0.06 S Gentamicin Islt GEMMA <=1 S levoFLOXacin Islt GEMMA <=0.12 S Meropenem Islt GEMMA <=0.25 S Nitrofurantoin Islt GEMMA R Pip+Tazo Islt GEMMA <=4 S TMP SMX Islt GEMMA <=20 S Escherichia coli: REACTION Ampicillin Islt GEMMA 4 S Ampicillin+Sulbac Islt GEMMA <=2 Cefepime Islt GEMMA <=0.12 S cefTRIAXone Islt GEMMA <=0.25 S Ciprofloxacin Islt GEMMA <=0.06 S B-Lactamase Extended Susc Islt NEG Gentamicin Islt GEMMA <=1 S levoFLOXacin Islt GEMMA <=0.12 S Meropenem Islt GEMMA <=0.25 S Nitrofurantoin Islt GEMMA <=16 S Pip+Tazo Islt GEMMA <=4 S TMP SMX Islt GEMMA <=20 S Normal [facility] Comment on above: Performed By: #### L 400.0001, M100.2200 #### [facility] [address] [facility]. [place], [place], [address] Abdomen/Pelvis W IV Cont ONL Yon 07-03-2024 Abdomen/Pelvis W IV Cont ONLY [facility] Imaging Services [address] [place], [place] [id number] Abdomen/Pelvis W IV Cont ONLY MR#: [id number] Acct: [id number] Name: ROSAMARIA PRYOR Rep #: [id number] : 1955 F 69 From: Abhinav flores MD PCP: Dr. Blanca Mcdermott MD Status: REG ER Study: Abdomen/Pelvis W IV Cont ONLY Date of Exam: Exam# [id number] Ordering Dr: Michael Britton DO :[id number] STUDY: CT ABDOMEN AND PELVIS WITH CONTRAST REASON FOR EXAM: Female, 69 years old. Hematuria. UTI. Urinary frequency. RADIATION DOSAGE (If Supplied By Facility): CTDIvol = ( 19.66 ) mGy, DLP = ( 1034.67 ) mGycm TECHNIQUE: Transaxial images were obtained from the dome of the diaphragm to the symphysis pubis without oral contrast. IV 100mL Isovue-370 was administered. Sagittal and coronal images were reconstructed. Individualized dose optimization techniques were used for this CT. COMPARISON: None. FINDINGS: The visualized lung bases are unremarkable. The visualized portions of the heart are within normal limits. Normal liver. Normal gallbladder and extrahepatic biliary system. Normal spleen. Normal pancreas. Normal bilateral adrenal glands. Normal right kidney. Normal left kidney. There is a small hiatal hernia. Normal small intestine. There are multiple colonic diverticula consistent with diverticulosis. The appendix is visualized and appears normal. There is scattered atherosclerotic calcification of the abdominal aorta, without a demonstrated aneurysm. Normal inferior vena cava. Normal retroperitoneum. Normal urinary bladder. There is absence of the uterus consistent with a prior hysterectomy. Normal abdominal wall. 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 Disc space narrowing and disc generation of multiple levels. Loss of height of the superior endplate of the L4 vertebrae. Levoscoliosis. CT/Abdomen/Pelvis W IV Cont ONLY IMPRESSION: Sigmoid diverticulosis. Small hiatal hernia. Electronically Signed: Abhinav Schneider MD at 13:20 EST Reading Location ID and State: 3 [facility] , Service support , CC: Dr. Michael Britton DO; Dr. Blanca Mcdermott MD Commercial Sewing Instructor: Signed Normal [facility] Absolute lymphocyte countOrd ered By: Michael Britton on 07-03-2024 Lymphocytes Auto (Unsp spec) [#/Vol] 1.20 10*3/uL 0.83-4.51 [facility] Absolute neutrophil countOrd ered By: Micheal Britton on 07-03-2024 Neutrophils (Bld) [#/Vol] 10.6 10*3/uL High 2.0-7.7 [facility] Automated lymphocyte count a s percentage of total leukocytesOrdered By: Michael Britton on 07-03-2024 Lymphocytes/100 WBC Auto (Unsp spec) 9.0 % Low 19-41 [facility] Bacteria LM.HPF (Urine sed) [#/Area]Ordered By: Michael Britton on 07-03-2024 Urine Bacteria RARE /hpf None Seen [facility] Basic Metabolic Profile (BMP )on 07-03-2024 BUN/CRE 18.6 RATIO Normal 10-20 [facility] Comment on above: Performed By: #### L 100.0100, L500.2500 ####[facility] [address] [place], [address] CA,Total 9.8 mg/dL Normal 8.5-10.1 [facility] Comment on above: Performed By: #### L 100.0100, L500.2500 ####[facility] [address] [place], [address] Chloride [Moles/Vol] 104 mmol/L Normal 98-107 [facility] Comment on above: Performed By: #### L 100.0100, L500.2500 ####[facility] [address] [place], [address] CO2 [Moles/Vol] 29.0 mmol/L Normal 21.0-32.0 [facility] Comment on above: Performed By: #### L 100.0100, L500.2500 ####[facility] [address] [place], [address] Creatinine [Mass/Vol] 0.97 mg/dL Normal 0.55-1.02 [facility] Comment on above: Result Comment: The validity of the calculated GFR GFRAA in patients over 70 years has not been determined. Clinical correlation is essential. Performed By: #### L 100.0100, L500.2500 ####[facility] [address] [place], [address] ECRCL 55.38 ml/min Normal [facility] Comment on above: Performed By: #### L 100.0100, L500.2500 ####[facility] [address] [place], [address] EST GFR - AA 73 mL/min Normal >60 [facility] Comment on above: Result Comment: Afri can Finnish GFR Calc Performed By: #### L 100.0100, L500.2500 ####[facility] [address] [place], [address] GAP 5 Normal 5-15 [facility] Comment on above: Performed By: #### L 100.0100, L500.2500 ####[facility] [address] [place], [address] GFR/1.73 sq M.predicted among non-blacks MDRD (S/P/Bld) [Vol rate/Area] 60 mL/min/{1.73_m2} Normal >60 [facility] Comment on above: Result Comment: Non- GFR Calc Performed By: #### L 100.0100, L500.2500 ####[facility] [address] [place], [address] Glucose [Mass/Vol] 90 mg/dL Normal 74-106 [facility] Comment on above: Performed By: #### L 100.0100, L500.2500 ####[facility] [address] [place], [address] Potassium [Moles/Vol] 3.7 mmol/L Normal 3.5-5.1 [facility] Comment on above: Performed By: #### L 100.0100, L500.2500 ####[facility] [address] [place], [address] Sodium [Moles/Vol] 138 mmol/L Normal 136-145 [facility] Comment on above: Performed By: #### L 100.0100, L500.2500 ####[facility] [address] [place], [address] Urea nitrogen [Mass/Vol] 18 mg/dL Normal 7-18 [facility] Comment on above: Performed By: #### L 100.0100, L500.2500 ####[facility] [address] [place], [address] Basophil percentageOrdered B y: Michael Tobi on 07-03-2024 Basophils/100 WBC (Bld) 0.6 % 0-1 [facility] Bilirubin Test strip Ql (U)O rdered By: Michael Tobi on 07-03-2024 Bilirubin Ql (U) Negative Negative [facility] Blood urea nitrogen (BUN)/cr eatinine ratioOrdered By: Michael Tobi on 07-03-2024 Urea nitrogen/Creatinine [Mass ratio] 18.6 mg/mg 10-20 [facility] CBC W/Diff, Automatedon 06-11 Absolute Lymph 1.20 X10 3/uL Normal 0.83-4.51 [facility] Comment on above: Performed By: #### L 100.0100, L500.2500 #### [facility] [address] [place], [address] Absolute Neut 10.6 X10 3/uL High 2.0-7.7 [facility] Comment on above: Performed By: #### L 100.0100, L500.2500 #### [facility] [address] [place], [address] Basophils/100 WBC (Bld) 0.6 % Normal 0-1 [facility] Comment on above: Performed By: #### L 100.0100, L500.2500 #### [facility] [address] [place], [address] Eosinophils/100 WBC (Bld) 1.2 % Normal 0-5 [facility] Comment on above: Performed By: #### L 100.0100, L500.2500 #### [facility] [address] [place], [address] Erythrocyte distribution width (RBC) [Ratio] 13.2 % Normal 11.6-14.6 [facility] Comment on above: Performed By: #### L 100.0100, L500.2500 #### [facility] [address] [place], [address] Hematocrit (Bld) [Volume fraction] 41.3 % Normal 37-47 [facility] Comment on above: Performed By: #### L 100.0100, L500.2500 #### [facility] [address] [place], [address] Hemoglobin (Bld) [Mass/Vol] 14.0 g/dL Normal 12.0-15.0 [facility] Comment on above: Performed By: #### L 100.0100, L500.2500 #### [facility] [address] [place], [address] IG% 0.900 Normal 0.0-0.9 [facility] Comment on above: Result Comment: IG% - Immature Granulocytes (promyelocytes, myelocytes and metamyelocytes) > 1% indicates that a LEFT SHIFT is Present. Performed By: #### L 100.0100, L500.2500 #### [facility] [address] [place], [address] Lymphocytes/100 WBC (Bld) 9.0 % Low 19-41 [facility] Comment on above: Performed By: #### L 100.0100, L500.2500 #### [facility] [address] [place], [address] MCH (RBC) [Entitic mass] 31.9 pg Normal 27.0-32.0 [facility] Comment on above: Performed By: #### L 100.0100, L500.2500 #### [facility] [address] [place], [address] MCHC (RBC) [Mass/Vol] 33.9 g/dL Normal 32-36 [facility] Comment on above: Performed By: #### L 100.0100, L500.2500 #### [facility] [address] [place], [address] MCV (RBC) [Entitic vol] 94.1 fL Normal 81-99 [facility] Comment on above: Performed By: #### L 100.0100, L500.2500 #### [facility] [address] [place], [address] Monocytes/100 WBC (Bld) 8.6 % Normal 0-10 [facility] Comment on above: Performed By: #### L 100.0100, L500.2500 #### [facility] [address] [place], [address] Neutrophils/100 WBC (Bld) 79.7 % High 47-70 [facility] Comment on above: Performed By: #### L 100.0100, L500.2500 #### [facility] [address] [place], [address] Nucleated RBC (Bld) [#/Vol] 0 10*3/uL Normal 0-5 [facility] Comment on above: Performed By: #### L 100.0100, L500.2500 #### [facility] [address] [place], [address] Platelet mean volume (Bld) [Entitic vol] 11.8 fL Normal 6.2-12.0 [facility] Comment on above: Performed By: #### L 100.0100, L500.2500 #### [facility] [address] [place], [address] Platelets (Bld) [#/Vol] 221 10*3/uL Normal 150-450 [facility] Comment on above: Performed By: #### L 100.0100, L500.2500 #### [facility] [address] [place], [address] RBC (Bld) [#/Vol] 4.39 10*6/uL Normal 4.2-5.4 [facility] Comment on above: Performed By: #### L 100.0100, L500.2500 #### [facility] [address] [place], [address] RDW SD 44.7 fl High 35.1-43.9 [facility] Comment on above: Performed By: #### L 100.0100, L500.2500 #### [facility] [address] [place], [address] WBC (Bld) [#/Vol] 13.3 10*3/uL High 4.4-11.0 [facility] Comment on above: Performed By: #### L 100.0100, L500.2500 #### [facility] [address] [place], [address] Carbon dioxide measurementOr dered By: Michael Britton on 07-03-2024 CO2 [Moles/Vol] 29.0 mmol/L 21.0-32.0 [facility] Chloride measurementOrdered By: Michael Britton on 07-03-2024 Chloride [Moles/Vol] 104 mmol/L 98-107 [facility] Emergency Department Summary on 07-03-2024 Emergency Department Summary [facility] Medical Records Department [address] [place] [address] Emergency Department Summary 07/03/24 MR#: [id number] Acct: [id number] Name: ROSAMARIA PRYOR Rep #: [id number] : 1955 69 From: Michael Britton DO PCP: Dr. Blanca Mcdermott MD Status:DEP ER Location: ED HPI History of Present Illness Chief Complaint: Complaint Informant: patient and spouse/S.O. Narrative Narrative: 69-year-old female presenting to the emergency room with a chief complaint of urinary frequency hesitancy and hematuria. Patient is on apixaban and is recently been taking naproxen for the past month due to calcific tendinitis of the left shoulder. She has a history of rheumatoid arthritis. She called her doctor on Saturday and gave a urine specimen due to her urinary symptoms. No reported fevers nausea or vomiting. Microscopic urine demonstrated rare bacteria, 5-10 red cells, and 25-50 white blood cells. This was negative for nitrates positive for leukocyte esterase. Urine culture has not had any growth yet. Patient states that symptoms seemed better Saturday afternoon but has returned. She states she spoke with her doctors office and they recommended she come to emergency for the evaluation of possible kidney stones. She has never had any kidney stones. She denies any sharp stabbing flank pain or abdominal pain. Patient notes that she has had 1 prior urinary tract infection after a surgery and noted that it feels very similar. [facility] Medical History (Updated 07/03/24 @ 13:[address] Michael Britton, DO) Hematuria Urinary urgency Left shoulder pain Health care maintenance Chronic back pain Acute rhinosinusitis COVID-19 Cough Chronic sinusitis Seasonal allergies Essential (primary) hypertension Female dyspareunia Rosacea conjunctivitis of both eyes Osteoporosis Degenerative disc disease Rheumatoid arthritis Hypothyroidism Hyperlipidemia Paroxysmal atrial fibrillation Home Medications ???Medication ???Instructions ???Recorded ???Last Taken ???Type cholecalciferol (vitamin D3) 25 3,000 unit PO DAILY 03/31/15 01/16/16 08:00 History mcg (1,000 unit) tablet folic acid 1 mg tablet 1 mg PO .COMPLEX 06/26/17 Unknown History prednisone 5 mg tablet 5 mg PO .COMPLEX 06/26/17 Unknown History hydroxychloroquine 200 mg tablet 200 mg PO BID 10/28/17 Unknown History (Plaquenil) methotrexate sodium 2.5 mg tablet 15 mg PO QWEEK 07/14/19 Unknown History calcium carbonate (Calcium 600) 600 mg PO DAILY 08/29/21 Unknown History montelukast 10 mg tablet 10 mg PO QHS PRN allergies #90 tabs 07/12/22 Unknown Rx cyclobenzaprine 10 mg tablet 10 mg PO TID PRN muscle spasm #180 12/20/22 Unknown Rx tabs hydrochlorothiazide 12.5 mg tablet 12.5 mg PO QAM #90 tabs 07/09/23 Unknown Rx metoprolol succinate 50 mg 50 mg PO QDAY #90 tabs 07/09/23 Unknown Rx tablet,extended release 24 hr (Toprol XL) estradiol 0.01% (0.1 mg/gram) 1 g vaginal 2XW 12/17/23 Unknown History vaginal cream atorvastatin 10 mg tablet 10 mg PO DAILY #90 tabs 12/25/23 Unknown Rx naproxen 500 mg tablet 500 mg PO DAILY PRN pain #90 tabs 12/25/23 Unknown Rx apixaban 5 mg tablet (Eliquis) 5 mg PO BID #60 tabs 01/29/24 Unknown Rx flecainide 50 mg tablet 50 mg PO Q12H OK to fill with 01/29/24 Unknown Rx Plaquenil, we monitor ekg #180 tabs potassium chloride 10 mEq 20 meq (2 x 10 mEq) PO DAILY #180 02/12/24 Unknown Rx capsule,extended release caps irbesartan 150 mg tablet 150 mg PO DAILY #90 TABLETS 05/21/24 Unknown Rx omeprazole 20 mg capsule,delayed 20 mg PO DAILY #90 caps 05/21/24 Unknown Rx release levothyroxine 50 mcg tablet 50 mcg PO DAILY #90 tabs 06/29/24 Unknown Rx cephalexin 500 mg capsule 500 mg PO TID #21 CAPSULES 07/03/24 Unknown Rx phenazopyridine 200 mg tablet 200 mg PO TID #6 tabs 07/03/24 Unknown Rx (Pyridium) Allergy/AdvReac Type Severity Reaction Status Date / Time janell Allergy Rash Verified 07/03/24 10:15 Penicillins Allergy Rash Verified 07/03/24 10:15 Family History Father Macular degeneration Heart disease Hypertension Mother CVA (cerebral vascular accident) Thyroid disorder Brother Heart disease Hypertension Surgical History History of LAVH History of ankle fusion History of right knee joint replacement history of tendon repair History of hysterectomy History of cardioversion (01/17/16) Social History Smoking Status: Never smoker how long ago did patient quit smokin alcohol intake: current alcohol intake frequency: a few times a week Alcohol type: wine details: social substance use type: does not use caffeine: Yes what type of physic (more content not included)... Normal [facility] Eosinophil percentageOrdered By: Michael Britton on 07-03-2024 Eosinophils/100 WBC (Bld) 1.2 % 0-5 [facility] Epithelial cells.squamous LM Ql (Urine sed)Ordered By: Michael Britton on 07-03-2024 Epithelial cells.squamous LM.HPF (Urine sed) [#/Area] 0 /[HPF] 5-10 [facility] Erythrocyte distribution wid th (RBC) [Ratio]Ordered By: Michael Britton on 07-03-2024 Erythrocyte distribution width (RBC) [Entitic vol] 44.7 fL High 35.1-43.9 [facility] Erythrocyte distribution wid th ratioOrdered By: Michael Britton on 07-03-2024 Erythrocyte distribution width (RBC) [Ratio] 13.2 % 11.6-14.6 [facility] Erythrocyte distribution wid th standard deviationOrdered By: Michael Britton on 07-03-2024 Erythrocyte distribution width (RBC) [Ratio] 44.7 fl High 35.1-43.9 [facility] Estimated glomerular filtrat ion rate (GFR) AmericanOrdered By: Michael Britton on 07-03-2024 Estimated GFR (MDRD) Amer 73 mL/min >60 [facility] Comment on above: GFR Calc Estimation of creatinine abigail aranceOrdered By: Michael Britton on 07-03-2024 Estimated Creatinine Clearance Calc 55.38 ml/min [facility] Glomerular filtration rate ( GFR) estimationOrdered By: Michael Britton on 07-03-2024 Estimated GFR (MDRD) Non-Af Amer 60 mL/min >60 [facility] Comment on above: Non- GFR Calc GFR/1.73 sq M.predicted among non-blacks MDRD (S/P/Bld) [Vol rate/Area] 60 mL/min/{1.73_m2} >60 [facility] Comment on above: Non- GFR Calc Glucose Ql (U)Ordered By: Jv Britton on 07-03-2024 Urine Glucose (UA) Normal mg/dl Normal [facility] Glucose measurementOrdered B y: Michael Britton on 07-03-2024 Glucose [Mass/Vol] 90 mg/dL 74-106 [facility] Hematocrit Auto (Bld) [Volum e fraction]Ordered By: Michael Britton on 07-03-2024 Hematocrit (Bld) [Volume fraction] 41.3 % 37-47 [facility] Hemoglobin measurementOrdere d By: Michael Britton on 07-03-2024 Hemoglobin (Bld) [Mass/Vol] 14.0 g/dL 12.0-15.0 [facility] Immature granulocytes/100 WB C Auto (Bld)Ordered By: Michael Britton on 07-03-2024 Immature granulocytes/100 WBC (Bld) 0.900 % 0.0-0.9 [facility] Comment on above: IG% - Immature Granu locytes (promyelocytes, myelocytes and metamyelocytes) > 1% indicates that a LEFT SHIFT is Present. Ketones Test strip Ql (U)Ord ered By: Michael Britton on 07-03-2024 Ketones Ql (U) Negative Negative [facility] Lymphocytes Auto (Unsp spec) [#/Vol]Ordered By: Michael Britton on 07-03-2024 Lymphocytes (Bld) [#/Vol] 1.20 10*3/uL 0.83-4.51 [facility] Lymphocytes/100 WBC Auto (Un sp spec)Ordered By: Michael Britton on 07-03-2024 Lymphocytes/100 WBC (Bld) 9.0 % Low 19-41 [facility] MCV (mean corpuscular volume ) determinationOrdered By: Michael Britton on 07-03-2024 MCV (RBC) [Entitic vol] 94.1 fL 81-99 [facility] Mean corpuscular hemoglobin (MCH) determinationOrdered By: Michael Britton on 07-03-2024 MCH (RBC) [Entitic mass] 31.9 pg 27.0-32.0 [facility] Mean corpuscular hemoglobin concentration (MCHC) determinationOrdered By: Michael Britton on 07-03-2024 MCHC (RBC) [Mass/Vol] 33.9 g/dL 32-36 [facility] Mean platelet volume determi nationOrdered By: Michael Britton on 07-03-2024 Platelet mean volume (Bld) [Entitic vol] 11.8 fL 6.2-12.0 [facility] Microscopic analysis of urin e for red blood cells (RBC)Ordered By: Michael Britton on 07-03-2024 Microscopic analysis of urine for red blood cells (RBC) > 100 SEEN /hpf 0-5 [facility] Urine RBC > 100 SEEN /hpf 0-5 [facility] Monocyte percentageOrdered B y: Michael Britton on 07-03-2024 Monocytes/100 WBC (Bld) 8.6 % 0-10 [facility] Mucus LM Ql (Urine sed)Order ed By: Michael Britton on 07-03-2024 Mucus Ql (Urine sed) RARE /hpf [facility] Neutrophil percentageOrdered By: Michael Britton on 07-03-2024 Neutrophils/100 WBC (Bld) 79.7 % High 47-70 [facility] Nitrite Test strip Ql (U)Ord ered By: Michael Britton on 07-03-2024 Nitrite Ql (U) Negative Negative [facility] Nucleated red blood cell per centageOrdered By: Michael Britton on 07-03-2024 Nucleated RBC/100 WBC (Bld) [Ratio] 0 % 0-5 [facility] Platelet countOrdered By: Jv Britton on 07-03-2024 Platelets (Bld) [#/Vol] 221 10*3/uL 150-450 [facility] Potassium measurementOrdered By: Michael Britton on 07-03-2024 Potassium [Moles/Vol] 3.7 mmol/L 3.5-5.1 [facility] Protein Test strip Ql (U)Ord ered By: Michael Britton on 07-03-2024 Protein Ql (U) 100 mg/dl High Negative [facility] RBC Auto (Bld) [#/Vol]Ordere d By: Michael Britton on 07-03-2024 RBC (Bld) [#/Vol] 4.39 10*6/uL 4.2-5.4 [facility] Serum anion gap measurementO rdered By: Michael Britton on 07-03-2024 Anion gap [Moles/Vol] 5 mmol/L 5-15 [facility] Serum or plasma calcium summer urement (mass/volume)Ordered By: Michael Britton on 07-03-2024 Calcium [Mass/Vol] 9.8 mg/dL 8.5-10.1 [facility] Serum or plasma creatinine m easurement (mass/volume)Ordered By: Michael Britton on 07-03-2024 Creatinine [Mass/Vol] 0.97 mg/dL 0.55-1.02 [facility] Comment on above: The validity of the calculated GFR & GFRAA in patients over 70 years has not been determined. Clinical correlation is essential. Serum or plasma urea nitroge n measurement (mass/volume)Ordered By: Michael Britton on 07-03-2024 Urea nitrogen [Mass/Vol] 18 mg/dL 7-18 [facility] Sodium levelOrdered By: Lemuel Britton on 07-03-2024 Sodium [Moles/Vol] 138 mmol/L 136-145 [facility] Squamous epithelial cells de tection in urine sediment by light microscopyOrdered By: Michael Britton on 07-03-2024 Epithelial cells.squamous LM Ql (Urine sed) 0-5 SEEN /hpf 5-10 [facility] Urinalysis, Completeon 07-03 BACTERIA RARE Normal None Seen [facility] Comment on above: Order Comment: DEEPA CTOR TO SPECIFY Performed By: #### L 400.0001 #### [facility] [address] [place], [place], [id number] Mucus Ql (Urine sed) RARE Normal [facility] Comment on above: Order Comment: DEEPA CTOR TO SPECIFY Performed By: #### L 400.0001 #### [facility] [address] [place], [place], [id number] EPI,SQUAMOUS 0-5 SEEN Normal 5-10 [facility] Comment on above: Order Comment: DEEPA CTOR TO SPECIFY Performed By: #### L 400.0001 #### [facility] [address] [place] [place], [address] RBC > 100 SEEN Normal 0-5 [facility] Comment on above: Order Comment: DEPEA CTOR TO SPECIFY Performed By: #### L 400.0001 #### [facility] [address] [place], [address] WBC 50-100 SEEN Normal 0-5 [facility] Comment on above: Order Comment: DEEPA CTOR TO SPECIFY Performed By: #### L 400.0001 #### [facility] [address] [place], [address] Urine blood detectionOrdered By: Michael Britton on 07-03-2024 Urine Occult Blood 250 /ul High Negative [facility] Urine clarityOrdered By: Temo Britton on 07-03-2024 Clarity (U) Cloudy Clear [facility] Urine color determinationOrd ered By: Michael Britton on 07-03-2024 Color (U) Yellow Yellow [facility] Urine glucose detectionOrder ed By: Michael Britton on 07-03-2024 Glucose Ql (U) Normal mg/dl Normal [facility] Urine leukocyte esterase det ection by dipstickOrdered By: Michael Britton on 07-03-2024 Leukocyte esterase Test strip Ql (U) 500 /ul High Negative [facility] Urine pHOrdered By: Michael daily on 07-03-2024 pH (U) 6.0 [pH] 5.0 - 8.0 [facility] Urine sediment bacteria coun t by microscopy (number/high power field)Ordered By: Michael Britton on 07-03-2024 Bacteria LM.HPF (Urine sed) [#/Area] RARE /hpf None Seen [facility] Urine specific gravity measu rementOrdered By: Michael Britton on 07-03-2024 Specific gravity (U) [Rel density] 1.025 1.002-1.03 0 [facility] Urine urobilinogen measureme ntOrdered By: Michael Britton on 07-03-2024 Urobilinogen Ql (U) 1 mg/dl High Normal [facility] Urobilinogen Ql (U)Ordered B y: Michael Britton on 07-03-2024 Urobilinogen (U) [Mass/Vol] 1 mg/dL High Normal [facility] White blood cell (WBC) count Ordered By: Michael Tobi on 07-03-2024 WBC (Bld) [#/Vol] 13.3 10*3/uL High 4.4-11.0 [facility] White blood cell countOrdere d By: Michael Britton on 07-03-2024 Urine WBC 50-100 SEEN /hpf 0-5 [facility] White blood cell count 50-100 SEEN /hpf 0-5 [facility] Bacteria LM.HPF (Urine sed) [#/Area]Ordered By: Blanca Mcdermott on 07-02-2024 Urine Bacteria RARE /hpf None Seen [facility] Bilirubin Test strip Ql (U)O rdered By: Blanca Mcdermott on 07-02-2024 Bilirubin Ql (U) Negative Negative [facility] Epithelial cells.squamous LM Ql (Urine sed)Ordered By: Blanca Mcdermott on 07-02-2024 Epithelial cells.squamous LM.HPF (Urine sed) [#/Area] 0 /[HPF] 5-10 [facility] Glucose Ql (U)Ordered By: Chuck Mcdermott on 07-02-2024 Urine Glucose (UA) Normal mg/dl Normal [facility] Ketones Test strip Ql (U)Ord ered By: Blanca Mcdermott on 07-02-2024 Ketones Ql (U) Negative Negative [facility] Microscopic analysis of urin e for red blood cells (RBC)Ordered By: Blanca Mcdermott on 07-02-2024 Microscopic analysis of urine for red blood cells (RBC) 5-10 SEEN /hpf 0-5 [facility] Urine RBC 5-10 SEEN /hpf 0-5 [facility] Mucus LM Ql (Urine sed)Order ed By: Blanca Mcdermott on 07-02-2024 Mucus Ql (Urine sed) 0 SEEN /hpf [facility] Nitrite Test strip Ql (U)Ord ered By: Blanca Mcdermott on 07-02-2024 Nitrite Ql (U) Negative Negative [facility] Protein Test strip Ql (U)Ord ered By: Blanca Mcdermott on 07-02-2024 Protein Ql (U) Negative Negative [facility] Squamous epithelial cells de tection in urine sediment by light microscopyOrdered By: Blanca Mcdermott on 07-02-2024 Epithelial cells.squamous LM Ql (Urine sed) 0-5 SEEN /hpf 5-10 [facility] Urinalysis, Completeon 07-02 BACTERIA RARE Normal None Seen [facility] Comment on above: Order Comment: CLEAN CATCH Performed By: #### L 400.0001, M100.2200 #### [facility] [address] [place], [address] EPI,SQUAMOUS 0-5 SEEN Normal 5-10 [facility] Comment on above: Order Comment: CLEAN CATCH Performed By: #### L 400.0001, M100.2200 #### [facility] [address] [place], [address] RBC 5-10 SEEN Normal 0-5 [facility] Comment on above: Order Comment: CLEAN CATCH Performed By: #### L 400.0001, M100.2200 #### [facility] [address] [place], [address] WBC 25-50 SEEN Normal 0-5 [facility] Comment on above: Order Comment: CLEAN CATCH Performed By: #### L 400.0001, M100.2200 #### [facility] [address] [place], [address] Mucus Ql (Urine sed) 0 SEEN Normal [facility] Comment on above: Order Comment: CLEAN CATCH Performed By: #### L 400.0001, M100.2200 #### [facility] [address] [place], [address] Urine blood detectionOrdered By: Blanca Mcdermott on 07-02-2024 Urine Occult Blood 250 /ul High Negative [facility] Urine clarityOrdered By: Nader Mcdermott on 07-02-2024 Clarity (U) Sl. Cloudy Clear [facility] Urine color determinationOrd ered By: Blanca Mcdermott on 07-02-2024 Color (U) Yellow Yellow [facility] Urine cultureOrdered By: Nader Mcdermott on 07-02-2024 Bacteria identified Cx Nom (U) Proteus mirabilis Abnormal [facility] Bacteria identified Cx Nom (U) Escherichia coli Abnormal [facility] Urine glucose detectionOrder ed By: Blanca Mcdermott on 07-02-2024 Glucose Ql (U) Normal mg/dl Normal [facility] Urine leukocyte esterase det ection by dipstickOrdered By: Blanca Mcdermott on 07-02-2024 Leukocyte esterase Test strip Ql (U) 500 /ul High Negative [facility] Urine pHOrdered By: Radha Mcdermott on 07-02-2024 pH (U) 6.5 [pH] 5.0 - 8.0 [facility] Urine sediment bacteria coun t by microscopy (number/high power field)Ordered By: Blanca Mcdermott on 07-02-2024 Bacteria LM.HPF (Urine sed) [#/Area] RARE /hpf None Seen [facility] Urine specific gravity measu rementOrdered By: Blanca Mcdermott on 07-02-2024 Specific gravity (U) [Rel density] 1.010 1.002-1.03 0 [facility] Urine urobilinogen measureme ntOrdered By: Blanca Mcdermott on 07-02-2024 Urobilinogen Ql (U) Normal mg/dl Normal [facility] Urobilinogen Ql (U)Ordered B y: Blanca Mcdermott on 07-02-2024 Urine Urobilinogen Normal mg/dl Normal [facility] White blood cell countOrdere d By: Blanca Mcdermott on 07-02-2024 Urine WBC 25-50 SEEN /hpf 0-5 [facility] White blood cell count 25-50 SEEN /hpf 0-5 [facility] Internal Medicine Office Vis anabela 06-29-2024 Internal Medicine Office Visit [facility] [address] [place] [address] [address] [place], [place] [address] OFFICE VISIT Date of Service: 06/29/24 MR#: [id number] Acct: [id number] Name: ROSAMARIA PRYOR Rep #: [id number] : 1955 Provider: Dr. Blanca mahoney MD Age/Sex: 69/F Location[place] [facility] [place] Status: Signed Intake Vital Signs 12/25/23 12:53 01/09/24 13:09 06/29/24 12:55 Height 5 ft 3.5 in 5 ft 3.5 in 5 ft 3 in Weight: 184 lb 2 oz BMI 32.5 BP 124/76 H Blood Pressure Location Rt brachial Position Sitting Respiration 18 Pulse 70 Pulse Source Monitor Temp 96.1 F L Temp Source Temporal Pulse Oximetry (%) 98 Oxygen Delivery Method room air Intake Visit Reasons: 6 M FU Chief Complaint: Follow-up chronic conditions [employer]illing [employer] Hand Required: No Accompanied by: Self Is patient in pain?: No Allergies janell Allergy (Verified 06/29/24 12:48) Rash Penicillins Allergy (Verified 06/29/24 12:48) Rash Medications ???Medication ???Instructions ???Recorded ???Confirmed ???Type cholecalciferol (vitamin D3) 25 3,000 unit PO DAILY 03/31/15 06/29/24 History mcg (1,000 unit) tablet folic acid 1 mg tablet 1 mg PO .COMPLEX 06/26/17 06/29/24 History prednisone 5 mg tablet 5 mg PO .COMPLEX 06/26/17 06/29/24 History hydroxychloroquine 200 mg tablet 200 mg PO BID 10/28/17 06/29/24 History (Plaquenil) methotrexate sodium 2.5 mg tablet 15 mg PO QWEEK 07/14/19 06/29/24 History calcium carbonate (Calcium 600) 600 mg PO DAILY 08/29/21 06/29/24 History montelukast 10 mg tablet 10 mg PO QHS PRN allergies #90 tabs 07/12/22 06/29/24 Rx cyclobenzaprine 10 mg tablet 10 mg PO TID PRN muscle spasm #180 12/20/22 06/29/24 Rx tabs hydrochlorothiazide 12.5 mg tablet 12.5 mg PO QAM #90 tabs 07/09/23 06/29/24 Rx metoprolol succinate 50 mg 50 mg PO QDAY #90 tabs 07/09/23 06/29/24 Rx tablet,extended release 24 hr (Toprol XL) estradiol 0.01% (0.1 mg/gram) 1 g vaginal 2XW 12/17/23 06/29/24 History vaginal cream atorvastatin 10 mg tablet 10 mg PO DAILY #90 tabs 12/25/23 06/29/24 Rx naproxen 500 mg tablet 500 mg PO DAILY PRN pain #90 tabs 12/25/23 06/29/24 Rx apixaban 5 mg tablet (Eliquis) 5 mg PO BID #60 tabs 01/29/24 06/29/24 Rx flecainide 50 mg tablet 50 mg PO Q12H OK to fill with 01/29/24 06/29/24 Rx Plaquenil, we monitor ekg #180 tabs potassium chloride 10 mEq 20 meq (2 x 10 mEq) PO DAILY #180 02/12/24 06/29/24 Rx capsule,extended release caps irbesartan 150 mg tablet 150 mg PO DAILY #90 TABLETS 05/21/24 06/29/24 Rx omeprazole 20 mg capsule,delayed 20 mg PO DAILY #90 caps 05/21/24 06/29/24 Rx release levothyroxine 50 mcg tablet 50 mcg PO DAILY #90 tabs 06/29/24 06/29/24 Rx Have you fallen in the past year?: No PFSH Medical History (Updated 06/29/24 @ 16:[address] Blanca Mcdermott MD) Left shoulder pain Health care maintenance Chronic back pain Acute rhinosinusitis COVID-19 Cough Chronic sinusitis Seasonal allergies Essential (primary) hypertension Female dyspareunia Rosacea conjunctivitis of both eyes Osteoporosis Degenerative disc disease Rheumatoid arthritis Hypothyroidism Hyperlipidemia Paroxysmal atrial fibrillation Surgical History History of LAVH History of ankle fusion History of right knee joint replacement history of tendon repair History of hysterectomy History of cardioversion (01/17/16) Family History Father Macular degeneration Heart disease Hypertension Mother CVA (cerebral vascular accident) Thyroid disorder Brother Heart disease Hypertension Social History Smoking Status: Never smoker how long ago did patient quit smokin alcohol intake: current alcohol intake frequency: a few times a week Alcohol type: wine details: social substance use type: does not use caffeine: Yes what type of physical activity do you participate in: walking frequency: 1-2 times per week seatbelt use: always do you feel safe at home: Yes additional social history: Martir- Retired HPI HPI Chief Complaint: Follow-up chronic conditions Details: ROSAMARIA PRYOR, is a 69 F who presents to the office today for follow-up of her chronic conditions. Also has some concerns. She reports left shoulder pain which has been ongoing since May. Has had some concerns prior to that however, significant worsening noted in May. Worse with movement/certain positions. There has been some improvement since then but not back to baseline. History of hypertension, blood pressure today at 124/76 mmHg. Currently on hydrochlorothiazide, irbesartan and metoprolol which she is taking as prescribed. Also history of paroxysmal A-fib, she states th (more content not included)... Normal [facility] Shoulder min 2 Viewson 06-29 Shoulder min 2 Views [facility] [address] [place], [place] [id number] Shoulder min 2 Views MR#: [id number] Acct: [id number] Name: ROSAMARIA PRYOR Rep #: [id number] : 1955 F 69 From: Haseeb tenorio DO PCP: Dr. Blanca Mcdermott MD Status: [facility] Study: Shoulder min 2 Views Date of Exam: 06/29/24 Exam# [id number] Ordering Dr: Blanca Mcdermott MD :[id number] EXAM: XR LEFT SHOULDER COMPLETE, 2 OR MORE VIEWS CLINICAL INDICATION: Left Shoulder Pain -- Send to Dr. Kiran as well. TECHNIQUE: Two or more views of the left shoulder. COMPARISON: No relevant prior studies available. FINDINGS: BONES/JOINTS: Glenohumeral and acromioclavicular joint arthrosis. No acute fracture. No subluxation. Normal alignment. No sclerotic or destructive changes observed. SOFT TISSUES: Amorphous calcification in the expected location of the supraspinatus myotendinous junction perhaps indicating chronic injury or calcific tendinopathy. No soft tissue swelling or gas. No radiopaque foreign body. RAD/Shoulder min 2 Views IMPRESSION: 1. Glenohumeral and acromioclavicular joint arthrosis. 2. Amorphous calcification in the expected location of the supraspinatus myotendinous junction perhaps indicating chronic injury or calcific tendinopathy. Electronically Signed: Haseeb Thompson DO at 22:13 EST , CC: Dr. Blanca Mcdermott MD Commercial Sewing Instructor: Signed Normal [facility] CBC W/Diff, Automatedon 11-2 Absolute Lymph 1.95 X10 3/uL Normal 0.83-4.51 [facility] Comment on above: Performed By: #### L 100.0100, L500.4050 #### [facility] [address] [place], [address] Absolute Neut 5.0 X10 3/uL Normal 2.0-7.7 [facility] Comment on above: Performed By: #### L 100.0100, L500.4050 #### [facility] [address] [facility] [address] Basophils/100 WBC (Bld) 0.6 % Normal 0-1 [facility] Comment on above: Performed By: #### L 100.0100, L500.4050 #### [facility] [address] [place], [address] Eosinophils/100 WBC (Bld) 1.8 % Normal 0-5 [facility] Comment on above: Performed By: #### L 100.0100, L500.4050 #### [facility] [address] [place], [address] Erythrocyte distribution width (RBC) [Ratio] 13.3 % Normal 11.6-14.6 [facility] Comment on above: Performed By: #### L 100.0100, L500.4050 #### [facility] [address] [place], [address] Hematocrit (Bld) [Volume fraction] 41.6 % Normal 37-47 [facility] Comment on above: Performed By: #### L 100.0100, L500.4050 #### [facility] [address] [place], [address] Hemoglobin (Bld) [Mass/Vol] 13.5 g/dL Normal 12.0-15.0 [facility] Comment on above: Performed By: #### L 100.0100, L500.4050 #### [facility] [address] [place], [address] IG% 0.100 Normal 0.0-0.9 [facility] Comment on above: Result Comment: IG% - Immature Granulocytes (promyelocytes, myelocytes and metamyelocytes) > 1% indicates that a LEFT SHIFT is Present. Performed By: #### L 100.0100, L500.4050 #### [facility] [address] [place], [address] Lymphocytes/100 WBC (Bld) 23.8 % Normal 19-41 [facility] Comment on above: Performed By: #### L 100.0100, L500.4050 #### [facility] [address] [place], [address] MCH (RBC) [Entitic mass] 31.3 pg Normal 27.0-32.0 [facility] Comment on above: Performed By: #### L 100.0100, L500.4050 #### [facility] [address] [place], [address] MCHC (RBC) [Mass/Vol] 32.5 g/dL Normal 32-36 [facility] Comment on above: Performed By: #### L 100.0100, L500.4050 #### [facility] [address] [place], [address] MCV (RBC) [Entitic vol] 96.5 fL Normal 81-99 [facility] Comment on above: Performed By: #### L 100.0100, L500.4050 #### [facility] [address] [place], [address] Monocytes/100 WBC (Bld) 12.6 % High 0-10 [facility] Comment on above: Performed By: #### L 100.0100, L500.4050 #### [facility] [address] [place], [address] Neutrophils/100 WBC (Bld) 61.1 % Normal 47-70 [facility] Comment on above: Performed By: #### L 100.0100, L500.4050 #### [facility] [address] [place], [address] Nucleated RBC (Bld) [#/Vol] 0 10*3/uL Normal 0-5 [facility] Comment on above: Performed By: #### L 100.0100, L500.4050 #### [facility] [address] [place], [address] Platelet mean volume (Bld) [Entitic vol] 12.4 fL High 6.2-12.0 [facility] Comment on above: Performed By: #### L 100.0100, L500.4050 #### [facility] [address] [place], [address] Platelets (Bld) [#/Vol] 202 10*3/uL Normal 150-450 [facility] Comment on above: Performed By: #### L 100.0100, L500.4050 #### [facility] [address] [place], [address] RBC (Bld) [#/Vol] 4.31 10*6/uL Normal 4.2-5.4 [facility] Comment on above: Performed By: #### L 100.0100, L500.4050 #### [facility] [address] [place], [address] RDW SD 47.2 fl High 35.1-43.9 [facility] Comment on above: Performed By: #### L 100.0100, L500.4050 #### [facility] [address] [place], [address] WBC (Bld) [#/Vol] 8.2 10*3/uL Normal 4.4-11.0 [facility] Comment on above: Performed By: #### L 100.0100, L500.4050 #### [facility] [address] [place], [address] Comprehensive Metabolic Prof [facility] 04-30-2024 Albumin [Mass/Vol] 3.7 g/dL Normal 3.2-5.0 [facility] Comment on above: Performed By: #### L 100.0100, L500.4050 #### [facility] [address] [place], [address] Albumin/Globulin [Mass ratio] 1.2 {ratio} Normal 0.9-2.4 [facility] Comment on above: Performed By: #### L 100.0100, L500.4050 #### [facility] [address] [place], [address] ALK P 63 U/L Normal 45-117 [facility] Comment on above: Performed By: #### L 100.0100, L500.4050 #### [facility] [address] [place], [address] ALT [Catalytic activity/Vol] 19 U/L Normal 13-56 [facility] Comment on above: Performed By: #### L 100.0100, L500.4050 #### [facility] [address] [place], [address] AST [Catalytic activity/Vol] 11 U/L Low 15-37 [facility] Comment on above: Performed By: #### L 100.0100, L500.4050 #### [facility] [address] [place], [address] Bilirubin [Mass/Vol] 0.50 mg/dL Normal 0.20-1.00 [facility] Comment on above: Result Comment: For patients on eltrombopag therapy, use of Dimension [place] TBIL is not recommended. Performed By: #### L 100.0100, L500.4050 #### [facility] [address] [place], [address] BUN/CRE 21.5 RATIO High 10-20 [facility] Comment on above: Performed By: #### L 100.0100, L500.4050 #### [facility] [address] [place], [address] CA,Total 9.1 mg/dL Normal 8.5-10.1 [facility] Comment on above: Performed By: #### L 100.0100, L500.4050 #### [facility] [address] [place], [address] Chloride [Moles/Vol] 103 mmol/L Normal 98-107 [facility] Comment on above: Performed By: #### L 100.0100, L500.4050 #### [facility] [address] [place], [address] CO2 [Moles/Vol] 29.0 mmol/L Normal 21.0-32.0 [facility] Comment on above: Performed By: #### L 100.0100, L500.4050 #### [facility] [address] [place], [address] Creatinine [Mass/Vol] 0.79 mg/dL Normal 0.55-1.02 [facility] Comment on above: Result Comment: The validity of the calculated GFR GFRAA in patients over 70 years has not been determined. Clinical correlation is essential. Performed By: #### L 100.0100, L500.4050 #### [facility] [address] [place], [address] EST GFR - AA 92 mL/min Normal >60 [facility] Comment on above: Result Comment: Afri can Finnish GFR Calc Performed By: #### L 100.0100, L500.4050 #### [facility] [address] [place], [address] GAP 6 Normal 5-15 [facility] Comment on above: Performed By: #### L 100.0100, L500.4050 #### [facility] [address] [place], [address] GFR/1.73 sq M.predicted among non-blacks MDRD (S/P/Bld) [Vol rate/Area] 76 mL/min/{1.73_m2} Normal >60 [facility] Comment on above: Result Comment: Non- GFR Calc Performed By: #### L 100.0100, L500.4050 #### [facility] [address] [place], [address] Globulin (S) [Mass/Vol] 3.0 g/dL Normal 2.2-4.2 [facility] Comment on above: Performed By: #### L 100.0100, L500.4050 #### [facility] [address] [place], [address] Glucose [Mass/Vol] 84 mg/dL Normal 74-106 [facility] Comment on above: Performed By: #### L 100.0100, L500.4050 #### [facility] [address] [place], [address] Potassium [Moles/Vol] 3.5 mmol/L Normal 3.5-5.1 [facility] Comment on above: Performed By: #### L 100.0100, L500.4050 #### [facility] [address] [place], [address] Sodium [Moles/Vol] 138 mmol/L Normal 136-145 [facility] Comment on above: Performed By: #### L 100.0100, L500.4050 #### [facility] [address] [place], [address] T PROT 6.7 g/dL Normal 6.4-8.2 [facility] Comment on above: Performed By: #### L 100.0100, L500.4050 #### [facility] [address] [place], [address] Urea nitrogen [Mass/Vol] 17 mg/dL Normal 7-18 [facility] Comment on above: Performed By: #### L 100.0100, L500.4050 #### [facility] [address] [place], [address] Absolute lymphocyte countOrd ered By: Patience Kiran on 08-15-2023 Lymphocytes Auto (Unsp spec) [#/Vol] 2.40 10*3/uL 0.83-4.51 [facility] Automated lymphocyte count a s percentage of total leukocytesOrdered By: Patience Kiran on 08-15-2023 Lymphocytes/100 WBC Auto (Unsp spec) 31.2 % 19-41 [facility] Basophil percentageOrdered B y: Patience Kiran on 08-15-2023 Basophils/100 WBC (Bld) 0.6 % 0-1 [facility] Bilirubin [Mass/Vol] 0.50 mg/dL 0.20-1.00 [facility] Comment on above: For patients on eltr ombopag therapy, use of Dimension [place] TBIL is not recommended. Chloride [Moles/Vol] 105 mmol/L 98-107 [facility] Eosinophils/100 WBC (Bld) 2.3 % 0-5 [facility] Glucose [Mass/Vol] 83 mg/dL 74-106 [facility] Hemoglobin (Bld) [Mass/Vol] 13.1 g/dL 12.0-15.0 [facility] Monocytes/100 WBC (Bld) 8.8 % 0-10 [facility] Neutrophils (Bld) [#/Vol] 4.4 10*3/uL 2.0-7.7 [facility] Neutrophils/100 WBC (Bld) 56.8 % 47-70 [facility] Potassium [Moles/Vol] 3.6 mmol/L 3.5-5.1 [facility] Protein [Mass/Vol] 6.3 g/dL 6.4-8.2 [facility] Sodium [Moles/Vol] 141 mmol/L 136-145 [facility] WBC (Bld) [#/Vol] 7.7 10*3/uL 4.4-11.0 [facility] Determination of erythrocyte mean corpuscular volume (MCV)Ordered By: Patience Kiran on 08-15-2023 MCV (RBC) [Entitic vol] 96.0 fL 81-99 [facility] Erythrocyte distribution wid th ratioOrdered By: Patience Kiran on 08-15-2023 Erythrocyte distribution width (RBC) [Ratio] 13.7 % 11.6-14.6 [facility] Erythrocyte distribution wid th standard deviationOrdered By: Patience Kiran on 08-15-2023 Erythrocyte distribution width (RBC) [Entitic vol] 48.6 fL 35.1-43.9 [facility] Hematocrit Auto (Bld) [Volum e fraction]Ordered By: Patience Kiran on 08-15-2023 Hematocrit (Bld) [Volume fraction] 40.4 % 37-47 [facility] Immature granulocytes/100 WB C Auto (Bld)Ordered By: Patience Kiran on 08-15-2023 Immature granulocytes/100 WBC (Bld) 0.300 % 0.0-0.9 [facility] Comment on above: IG% - Immature Granu locytes (promyelocytes, myelocytes and metamyelocytes) > 1% indicates that a LEFT SHIFT is Present. Laboratory - Chemistry and C hemistry - challengeOrdered By: Patience Kiran on 08-15-2023 Albumin/Globulin [Mass ratio] 1.1 {ratio} 0.9-2.4 [facility] ALP [Catalytic activity/Vol] 54 U/L 45-117 [facility] ALT [Catalytic activity/Vol] 21 U/L 13-56 [facility] CO2 [Moles/Vol] 27.0 mmol/L 21.0-32.0 [facility] Globulin (S) [Mass/Vol] 3.0 g/dL 2.2-4.2 [facility] Urea nitrogen/Creatinine [Mass ratio] 21.7 mg/mg 10-20 [facility] Laboratory - Hematology and Cell countsOrdered By: Patience Kiran on 08-15-2023 MCH (RBC) [Entitic mass] 31.1 pg 27.0-32.0 [facility] MCHC (RBC) [Mass/Vol] 32.4 g/dL 32-36 [facility] Nucleated RBC/100 WBC (Bld) [Ratio] 0 % 0-5 [facility] Platelet mean volume (Bld) [Entitic vol] 11.9 fL 6.2-12.0 [facility] Platelets (Bld) [#/Vol] 209 10*3/uL 150-450 [facility] No Panel InformationOrdered By: Patience Kiran on 08-15-2023 Estimated GFR (MDRD) Amer 94 mL/min >60 [facility] Comment on above: GFR Calc Estimated GFR (MDRD) Non-Af Amer 78 mL/min >60 [facility] Comment on above: Non- GFR Calc RBC Auto (Bld) [#/Vol]Ordere d By: Patience Kiran on 08-15-2023 RBC (Bld) [#/Vol] 4.21 10*6/uL 4.2-5.4 [facility] Serum or plasma calcium summer urement (mass/volume)Ordered By: Patience Kiran on 08-15-2023 Calcium [Mass/Vol] 9.1 mg/dL 8.5-10.1 [facility] Serum or plasma creatinine m easurement (mass/volume)Ordered By: Patience Kiran on 08-15-2023 Creatinine [Mass/Vol] 0.78 mg/dL 0.55-1.02 [facility] Comment on above: The validity of the calculated GFR & GFRAA in patients over 70 years has not been determined. Clinical correlation is essential. Serum or plasma urea nitroge n measurement (mass/volume)Ordered By: Patience Kiran on 08-15-2023 Urea nitrogen [Mass/Vol] 17 mg/dL 7-18 [facility] Thin prep Papanicolaou smear with manual screeningOrdered By: Patience Kiran on 08-15-2023 Thin prep Papanicolaou smear with manual screening 3.3 g/dL 3.2-5.0 [facility] Thin prep Papanicolaou smear with manual screening 19 U/L 15-37 [facility] Thin prep Papanicolaou smear with manual screening 9 5-15 [facility] Absolute lymphocyte countOrd ered By: Patience Kiran on 05-15-2023 Lymphocytes Auto (Unsp spec) [#/Vol] 1.73 10*3/uL 0.83-4.51 [facility] Basophil percentageOrdered B y: Patience Kiran on 05-15-2023 Basophils/100 WBC (Bld) 0.4 % 0-1 [facility] Bilirubin [Mass/Vol] 0.50 mg/dL 0.20-1.00 [facility] Comment on above: For patients on eltr ombopag therapy, use of Dimension [place] TBIL is not recommended. Chloride [Moles/Vol] 103 mmol/L 98-107 [facility] Eosinophils/100 WBC (Bld) 0.5 % 0-5 [facility] Glucose [Mass/Vol] 67 mg/dL 74-106 [facility] Neutrophils (Bld) [#/Vol] 6.4 10*3/uL 2.0-7.7 [facility] Neutrophils/100 WBC (Bld) 70.6 % 47-70 [facility] Potassium [Moles/Vol] 3.5 mmol/L 3.5-5.1 [facility] Protein [Mass/Vol] 7.1 g/dL 6.4-8.2 [facility] Sodium [Moles/Vol] 137 mmol/L 136-145 [facility] WBC (Bld) [#/Vol] 9.1 10*3/uL 4.4-11.0 [facility] Blood erythrocytes count (nu mber/volume)Ordered By: Patience Kiran on 05-15-2023 RBC (Bld) [#/Vol] 4.43 10*6/uL 4.2-5.4 [facility] Blood hemoglobin measurement (mass/volume)Ordered By: Patience Kiran on 05-15-2023 Hemoglobin (Bld) [Mass/Vol] 14.2 g/dL 12.0-15.0 [facility] Blood lymphocytes/100 leukoc ytesOrdered By: Patience Kiran on 05-15-2023 Lymphocytes/100 WBC (Bld) 19.0 % 19-41 [facility] Blood monocytes/100 leukocyt esOrdered By: Patience Kiran on 05-15-2023 Monocytes/100 WBC (Bld) 9.4 % 0-10 [facility] Blood platelet mean volumeOr dered By: Patience Kiran on 05-15-2023 Platelet mean volume (Bld) [Entitic vol] 12.7 fL 6.2-12.0 [facility] Determination of erythrocyte mean corpuscular volume (MCV)Ordered By: Patience Kiran on 05-15-2023 MCV (RBC) [Entitic vol] 98.4 fL 81-99 [facility] Hematocrit Auto (Bld) [Volum e fraction]Ordered By: Patience Kiran on 05-15-2023 Hematocrit (Bld) [Volume fraction] 43.6 % 37-47 [facility] Laboratory - Chemistry and C hemistry - challengeOrdered By: Patience Kiran on 05-15-2023 ALP [Catalytic activity/Vol] 58 U/L 45-117 [facility] ALT [Catalytic activity/Vol] 23 U/L 13-56 [facility] CO2 [Moles/Vol] 28.0 mmol/L 21.0-32.0 [facility] Globulin (S) [Mass/Vol] 3.4 g/dL 2.2-4.2 [facility] Urea nitrogen/Creatinine [Mass ratio] 15.4 mg/mg 10-20 [facility] Laboratory - Hematology and Cell countsOrdered By: Patience Kiran on 05-15-2023 Erythrocyte distribution width (RBC) [Entitic vol] 46.3 fL 35.1-43.9 [facility] Erythrocyte distribution width (RBC) [Ratio] 12.9 % 11.6-14.6 [facility] Immature granulocytes/100 WBC (Bld) 0.100 % 0.0-0.9 [facility] Comment on above: IG% - Immature Granu locytes (promyelocytes, myelocytes and metamyelocytes) > 1% indicates that a LEFT SHIFT is Present. MCH (RBC) [Entitic mass] 32.1 pg 27.0-32.0 [facility] Nucleated RBC/100 WBC (Bld) [Ratio] 0 % 0-5 [facility] MCHC Auto (RBC) [Mass/Vol]Or dered By: Patience Kiran on 05-15-2023 MCHC (RBC) [Mass/Vol] 32.6 g/dL 32-36 [facility] No Panel InformationOrdered By: Patience Kiran on 05-15-2023 Estimated GFR (MDRD) Amer 79 mL/min >60 [facility] Comment on above: GFR Calc Estimated GFR (MDRD) Non-Af Amer 65 mL/min >60 [facility] Comment on above: Non- GFR Calc Platelets bldOrdered By: Katherine Kiran on 05-15-2023 Platelets (Bld) [#/Vol] 216 10*3/uL 150-450 [facility] Serum or plasma albumin summer urement (mass/volume)Ordered By: Patience Kiran on 05-15-2023 Albumin [Mass/Vol] 3.7 g/dL 3.2-5.0 [facility] Serum or plasma albumin/glob ulin mass ratioOrdered By: Patience Kiran on 05-15-2023 Albumin/Globulin [Mass ratio] 1.1 {ratio} 0.9-2.4 [facility] Serum or plasma calcium summer urement (mass/volume)Ordered By: Patience Kiran on 05-15-2023 Calcium [Mass/Vol] 9.4 mg/dL 8.5-10.1 [facility] Serum or plasma creatinine m easurement (mass/volume)Ordered By: Patience Kiran on 05-15-2023 Creatinine [Mass/Vol] 0.91 mg/dL 0.55-1.02 [facility] Comment on above: The validity of the calculated GFR & GFRAA in patients over 70 years has not been determined. Clinical correlation is essential. Serum or plasma urea nitroge n measurement (mass/volume)Ordered By: Patience Kiran on 05-15-2023 Urea nitrogen [Mass/Vol] 14 mg/dL 7-18 [facility] Thin prep Papanicolaou smear with manual screeningOrdered By: Patience Kiran on 05-15-2023 Thin prep Papanicolaou smear with manual screening 16 U/L 15-37 [facility] Thin prep Papanicolaou smear with manual screening 6 5-15 [facility] Absolute lymphocyte countOrd ered By: Blanca Mcdermott on 02-05-2023 Lymphocytes Auto (Unsp spec) [#/Vol] 2.39 10*3/uL 0.83-4.51 [facility] Basophil percentageOrdered B y: Blanca Mcdermott on 02-05-2023 Basophils/100 WBC (Bld) 0.6 % 0-1 [facility] Bilirubin [Mass/Vol] 0.40 mg/dL 0.20-1.00 [facility] Comment on above: For patients on eltr ombopag therapy, use of Dimension [place] TBIL is not recommended. Chloride [Moles/Vol] 102 mmol/L 98-107 [facility] Cholesterol [Mass/Vol] 163 mg/dL <200 [facility] Comment on above: <200 mg/dL Desirable 200-240 mg/dL Borderline >240 mg/dL High Risk Eosinophils/100 WBC (Bld) 2.5 % 0-5 [facility] Glucose [Mass/Vol] 86 mg/dL 74-106 [facility] Neutrophils (Bld) [#/Vol] 3.0 10*3/uL 2.0-7.7 [facility] Neutrophils/100 WBC (Bld) 48.0 % 47-70 [facility] Potassium [Moles/Vol] 3.1 mmol/L 3.5-5.1 [facility] Protein [Mass/Vol] 6.5 g/dL 6.4-8.2 [facility] Sodium [Moles/Vol] 140 mmol/L 136-145 [facility] Triglyceride [Mass/Vol] 128 mg/dL <199 [facility] Comment on above: The drugs N-Acetylcy steine and Metamizole may falsely depress this assay.Serum Triglycerides Reference Interval Normal <150 mg/dL Borderline high 150 - 199 mg/dL High 200 - 499 mg/dL Very High > or = 500 mg/dL WBC (Bld) [#/Vol] 6.3 10*3/uL 4.4-11.0 [facility] Blood erythrocytes count (nu mber/volume)Ordered By: Blanca Mcdermott on 02-05-2023 RBC (Bld) [#/Vol] 4.62 10*6/uL 4.2-5.4 [facility] Blood hemoglobin measurement (mass/volume)Ordered By: Blanca Mcdermott on 02-05-2023 Hemoglobin (Bld) [Mass/Vol] 14.4 g/dL 12.0-15.0 [facility] Blood lymphocytes/100 leukoc ytesOrdered By: Blanca Mcdermott on 02-05-2023 Lymphocytes/100 WBC (Bld) 37.8 % 19-41 [facility] Blood monocytes/100 leukocyt esOrdered By: Blanca Mcdermott on 02-05-2023 Monocytes/100 WBC (Bld) 11.1 % 0-10 [facility] Blood platelet mean volumeOr dered By: Blanca Mcdermott on 02-05-2023 Platelet mean volume (Bld) [Entitic vol] 11.9 fL 6.2-12.0 [facility] Determination of erythrocyte mean corpuscular volume (MCV)Ordered By: Blanca Mcdermott on 02-05-2023 MCV (RBC) [Entitic vol] 93.9 fL 81-99 [facility] Hematocrit Auto (Bld) [Volum e fraction]Ordered By: Blanca Mcdermott on 02-05-2023 Hematocrit (Bld) [Volume fraction] 43.4 % 37-47 [facility] Laboratory - Chemistry and C hemistry - challengeOrdered By: Blanca Mcdermott on 02-05-2023 ALP [Catalytic activity/Vol] 93 U/L 45-117 [facility] ALT [Catalytic activity/Vol] 25 U/L 13-56 [facility] CO2 [Moles/Vol] 30.0 mmol/L 21.0-32.0 [facility] Globulin (S) [Mass/Vol] 3.1 g/dL 2.2-4.2 [facility] Urea nitrogen/Creatinine [Mass ratio] 16.3 mg/mg 10-20 [facility] Laboratory - Hematology and Cell countsOrdered By: Jaleesaramahleeroy Mcdermott on 02-05-2023 Erythrocyte distribution width (RBC) [Entitic vol] 46.6 fL 35.1-43.9 [facility] Erythrocyte distribution width (RBC) [Ratio] 13.7 % 11.6-14.6 [facility] Immature granulocytes/100 WBC (Bld) 0.000 % 0.0-0.9 [facility] Comment on above: IG% - Immature Granu locytes (promyelocytes, myelocytes and metamyelocytes) > 1% indicates that a LEFT SHIFT is Present. MCH (RBC) [Entitic mass] 31.2 pg 27.0-32.0 [facility] Nucleated RBC/100 WBC (Bld) [Ratio] 0 % 0-5 [facility] MCHC Auto (RBC) [Mass/Vol]Or dered By: Blanca Mcdermott on 02-05-2023 MCHC (RBC) [Mass/Vol] 33.2 g/dL 32-36 [facility] No Panel InformationOrdered By: Blanca Mcdermott on 02-05-2023 Estimated GFR (MDRD) Amer 78 mL/min >60 [facility] Comment on above: GFR Calc Estimated GFR (MDRD) Non-Af Amer 64 mL/min >60 [facility] Comment on above: Non- GFR Calc Thyroid Stimulating Hormone (TSH) 1.05 uIU/mL 0.358-3.74 [facility] Vitamin D 25-Hydroxy 61.0 ng/mL [facility] Comment on above: Vitamin D 25(OH) Sta tus Range Deficiency <20 ng/mL (50nmol/L) Insufficiency 20 - 30 ng/mL (50 - 75 nmol/L) Sufficiency 30 - 100 ng/mL (75 - 250 nmol/L) Toxicity >100 ng/mL (>250 nmol/L) Platelets bldOrdered By: Nader Mcdermott on 02-05-2023 Platelets (Bld) [#/Vol] 236 10*3/uL 150-450 [facility] Serum or plasma albumin summer urement (mass/volume)Ordered By: Blanca Mcdermott on 02-05-2023 Albumin [Mass/Vol] 3.4 g/dL 3.2-5.0 [facility] Serum or plasma albumin/glob ulin mass ratioOrdered By: Blanca Mcdermott on 02-05-2023 Albumin/Globulin [Mass ratio] 1.1 {ratio} 0.9-2.4 [facility] Serum or plasma calcium summer urement (mass/volume)Ordered By: Blanca Mcdermott on 02-05-2023 Calcium [Mass/Vol] 9.1 mg/dL 8.5-10.1 [facility] Serum or plasma cholesterol in HDL measurement (mass/volume)Ordered By: Blanca Mcdermott on 02-05-2023 Cholesterol in HDL [Mass/Vol] 72 mg/dL >40 [facility] Comment on above: The drugs N-Acetylcy steine and Metamizole may falsely depress this assay. Reference Range HDL <40 mg/dL Low HDL Cholesterol HDL >or= 60 mg/dL High HDL Cholesterol Serum or plasma cholesterol in VLDL measurement (mass/volume)Ordered By: Blanca Mcdermott on 02-05-2023 Cholesterol in VLDL [Mass/Vol] 26 mg/dL 5-40 [facility] Serum or plasma creatinine m easurement (mass/volume)Ordered By: Blanca Mcdermott on 02-05-2023 Creatinine [Mass/Vol] 0.92 mg/dL 0.55-1.02 [facility] Comment on above: The validity of the calculated GFR & GFRAA in patients over 70 years has not been determined. Clinical correlation is essential. Serum or plasma low density lipoprotein (LDL) cholesterol measurement (mass/volume)Ordered By: Blanca Mcdermott on 02-05-2023 Cholesterol in LDL [Mass/Vol] 65 mg/dL 0-130 [facility] Serum or plasma urea nitroge n measurement (mass/volume)Ordered By: Blanca Mcdermott on 02-05-2023 Urea nitrogen [Mass/Vol] 15 mg/dL 7-18 [facility] Thin prep Papanicolaou smear with manual screeningOrdered By: Muscogeerob Mcdermott on 02-05-2023 Thin prep Papanicolaou smear with manual screening 13 U/L 15-37 [facility] Thin prep Papanicolaou smear with manual screening 8 5-15 [facility] Absolute lymphocyte countOrd ered By: Dr. Kiran on 11-09-2022 Lymphocytes Auto (Unsp spec) [#/Vol] 1.69 10*3/uL 0.83-4.51 [facility] Basophil percentageOrdered B y: Dr. Kiran on 11-09-2022 Basophils/100 WBC (Bld) 0.5 % 0-1 [facility] Bilirubin [Mass/Vol] 0.50 mg/dL 0.20-1.00 [facility] Comment on above: For patients on eltr ombopag therapy, use of Dimension [place] TBIL is not recommended. Chloride [Moles/Vol] 104 mmol/L 98-107 [facility] Eosinophils/100 WBC (Bld) 0.8 % 0-5 [facility] Glucose [Mass/Vol] 113 mg/dL 74-106 [facility] Comment on above: Fasting Glucose resu lt from 100 to 125 mg/dL suggests IMPAIRED HOMEOSTASIS per A.D.A. criteria. Neutrophils (Bld) [#/Vol] 6.0 10*3/uL 2.0-7.7 [facility] Neutrophils/100 WBC (Bld) 71.5 % 47-70 [facility] Potassium [Moles/Vol] 3.8 mmol/L 3.5-5.1 [facility] Protein [Mass/Vol] 7.0 g/dL 6.4-8.2 [facility] Sodium [Moles/Vol] 139 mmol/L 136-145 [facility] WBC (Bld) [#/Vol] 8.4 10*3/uL 4.4-11.0 [facility] Blood erythrocytes count (nu mber/volume)Ordered By: Dr. Kiran on 11-09-2022 RBC (Bld) [#/Vol] 4.34 10*6/uL 4.2-5.4 [facility] Blood hemoglobin measurement (mass/volume)Ordered By: Dr. Kiran on 11-09-2022 Hemoglobin (Bld) [Mass/Vol] 13.8 g/dL 12.0-15.0 [facility] Blood lymphocytes/100 leukoc ytesOrdered By: Dr. Kiran on 11-09-2022 Lymphocytes/100 WBC (Bld) 20.1 % 19-41 [facility] Blood monocytes/100 leukocyt esOrdered By: Dr. Kiran on 11-09-2022 Monocytes/100 WBC (Bld) 6.9 % 0-10 [facility] Blood platelet mean volumeOr dered By: Dr. Kiran on 11-09-2022 Platelet mean volume (Bld) [Entitic vol] 12.5 fL 6.2-12.0 [facility] Determination of erythrocyte mean corpuscular volume (MCV)Ordered By: Dr. Kiran on 11-09-2022 MCV (RBC) [Entitic vol] 95.6 fL 81-99 [facility] Hematocrit Auto (Bld) [Volum e fraction]Ordered By: Dr. Kiran on 11-09-2022 Hematocrit (Bld) [Volume fraction] 41.5 % 37-47 [facility] Laboratory - Chemistry and C hemistry - challengeOrdered By: Dr. Kiran on 11-09-2022 ALP [Catalytic activity/Vol] 53 U/L 45-117 [facility] ALT [Catalytic activity/Vol] 25 U/L 13-56 [facility] CO2 [Moles/Vol] 30.0 mmol/L 21.0-32.0 [facility] Globulin (S) [Mass/Vol] 3.2 g/dL 2.2-4.2 [facility] Urea nitrogen/Creatinine [Mass ratio] 19.7 mg/mg 10-20 [facility] Laboratory - Hematology and Cell countsOrdered By: Dr. Kiran on 11-09-2022 Erythrocyte distribution width (RBC) [Entitic vol] 49.2 fL 35.1-43.9 [facility] Erythrocyte distribution width (RBC) [Ratio] 13.9 % 11.6-14.6 [facility] Immature granulocytes/100 WBC (Bld) 0.200 % 0.0-0.9 [facility] Comment on above: IG% - Immature Granu locytes (promyelocytes, myelocytes and metamyelocytes) > 1% indicates that a LEFT SHIFT is Present. MCH (RBC) [Entitic mass] 31.8 pg 27.0-32.0 [facility] Nucleated RBC/100 WBC (Bld) [Ratio] 0 % 0-5 [facility] MCHC Auto (RBC) [Mass/Vol]Or dered By: Dr. Kiran on 11-09-2022 MCHC (RBC) [Mass/Vol] 33.3 g/dL 32-36 [facility] No Panel InformationOrdered By: Dr. Kiran on 11-09-2022 Estimated GFR (MDRD) Amer 97 mL/min >60 [facility] Comment on above: GFR Calc Estimated GFR (MDRD) Non-Af Amer 80 mL/min >60 [facility] Comment on above: Non- GFR Calc Platelets bldOrdered By: Dr. Kiran on 11-09-2022 Platelets (Bld) [#/Vol] 236 10*3/uL 150-450 [facility] Serum or plasma albumin summer urement (mass/volume)Ordered By: Dr. Kiran on 11-09-2022 Albumin [Mass/Vol] 3.8 g/dL 3.2-5.0 [facility] Serum or plasma albumin/glob ulin mass ratioOrdered By: Dr. Kiran on 11-09-2022 Albumin/Globulin [Mass ratio] 1.2 {ratio} 0.9-2.4 [facility] Serum or plasma calcium summer urement (mass/volume)Ordered By: Dr. Kiran on 11-09-2022 Calcium [Mass/Vol] 9.7 mg/dL 8.5-10.1 [facility] Serum or plasma creatinine m easurement (mass/volume)Ordered By: Dr. Kiran on 11-09-2022 Creatinine [Mass/Vol] 0.76 mg/dL 0.55-1.02 [facility] Comment on above: The validity of the calculated GFR & GFRAA in patients over 70 years has not been determined. Clinical correlation is essential. Serum or plasma urea nitroge n measurement (mass/volume)Ordered By: Dr. Kiran on 11-09-2022 Urea nitrogen [Mass/Vol] 15 mg/dL 7-18 [facility] Thin prep Papanicolaou smear with manual screeningOrdered By: Dr. Kiran on 11-09-2022 Thin prep Papanicolaou smear with manual screening 17 U/L 15-37 [facility] Thin prep Papanicolaou smear with manual screening 5 5-15 [facility] No Panel Informationon 08-14 POC SARS CoV-2 Antigen Positive [facility] Absolute lymphocyte countOrd ered By: Dr. Kiran on 08-02-2022 Lymphocytes Auto (Unsp spec) [#/Vol] 2.32 10*3/uL 0.83-4.51 [facility] Basophil percentageOrdered B y: Dr. Kiran on 08-02-2022 Basophils/100 WBC (Bld) 0.4 % 0-1 [facility] Bilirubin [Mass/Vol] 0.60 mg/dL 0.20-1.00 [facility] Comment on above: For patients on eltr ombopag therapy, use of Dimension [place] TBIL is not recommended. Chloride [Moles/Vol] 104 mmol/L 98-107 [facility] Eosinophils/100 WBC (Bld) 1.7 % 0-5 [facility] Glucose [Mass/Vol] 91 mg/dL 74-106 [facility] Neutrophils (Bld) [#/Vol] 6.4 10*3/uL 2.0-7.7 [facility] Neutrophils/100 WBC (Bld) 63.7 % 47-70 [facility] Potassium [Moles/Vol] 3.6 mmol/L 3.5-5.1 [facility] Protein [Mass/Vol] 6.9 g/dL 6.4-8.2 [facility] Sodium [Moles/Vol] 140 mmol/L 136-145 [facility] WBC (Bld) [#/Vol] 10.1 10*3/uL 4.4-11.0 [facility] Blood erythrocytes count (nu mber/volume)Ordered By: Dr. Kiran on 08-02-2022 RBC (Bld) [#/Vol] 4.56 10*6/uL 4.2-5.4 [facility] Blood hemoglobin measurement (mass/volume)Ordered By: Dr. Kiran on 08-02-2022 Hemoglobin (Bld) [Mass/Vol] 14.3 g/dL 12.0-15.0 [facility] Blood lymphocytes/100 leukoc ytesOrdered By: Dr. Kiran on 08-02-2022 Lymphocytes/100 WBC (Bld) 23.0 % 19-41 [facility] Blood monocytes/100 leukocyt esOrdered By: Dr. Kiran on 08-02-2022 Monocytes/100 WBC (Bld) 11.0 % 0-10 [facility] Blood platelet mean volumeOr dered By: Dr. Kiran on 08-02-2022 Platelet mean volume (Bld) [Entitic vol] 13.0 fL 6.2-12.0 [facility] Determination of erythrocyte mean corpuscular volume (MCV)Ordered By: Dr. Kiran on 08-02-2022 MCV (RBC) [Entitic vol] 96.7 fL 81-99 [facility] Hematocrit Auto (Bld) [Volum e fraction]Ordered By: Dr. Kiran on 08-02-2022 Hematocrit (Bld) [Volume fraction] 44.1 % 37-47 [facility] Laboratory - Chemistry and C hemistry - challengeOrdered By: Dr. Kiran on 08-02-2022 ALP [Catalytic activity/Vol] 63 U/L 45-117 [facility] ALT [Catalytic activity/Vol] 26 U/L 13-56 [facility] CO2 [Moles/Vol] 27.0 mmol/L 21.0-32.0 [facility] Globulin (S) [Mass/Vol] 3.2 g/dL 2.2-4.2 [facility] Urea nitrogen/Creatinine [Mass ratio] 19.8 mg/mg 10-20 [facility] Laboratory - Hematology and Cell countsOrdered By: Dr. Kiran on 08-02-2022 Erythrocyte distribution width (RBC) [Entitic vol] 49.3 fL 35.1-43.9 [facility] Erythrocyte distribution width (RBC) [Ratio] 13.8 % 11.6-14.6 [facility] Immature granulocytes/100 WBC (Bld) 0.200 % 0.0-0.9 [facility] Comment on above: IG% - Immature Granu locytes (promyelocytes, myelocytes and metamyelocytes) > 1% indicates that a LEFT SHIFT is Present. MCH (RBC) [Entitic mass] 31.4 pg 27.0-32.0 [facility] Nucleated RBC/100 WBC (Bld) [Ratio] 0 % 0-5 [facility] MCHC Auto (RBC) [Mass/Vol]Or dered By: Dr. Kiran on 08-02-2022 MCHC (RBC) [Mass/Vol] 32.4 g/dL 32-36 [facility] No Panel InformationOrdered By: Dr. Kiran on 08-02-2022 Estimated GFR (MDRD) Amer 91 mL/min >60 [facility] Comment on above: GFR Calc Estimated GFR (MDRD) Non-Af Amer 75 mL/min >60 [facility] Comment on above: Non- GFR Calc Platelets bldOrdered By: Dr. Kiran on 08-02-2022 Platelets (Bld) [#/Vol] 213 10*3/uL 150-450 [facility] Serum or plasma albumin summer urement (mass/volume)Ordered By: Dr. Kiran on 08-02-2022 Albumin [Mass/Vol] 3.7 g/dL 3.2-5.0 [facility] Serum or plasma albumin/glob ulin mass ratioOrdered By: Dr. Kiran on 08-02-2022 Albumin/Globulin [Mass ratio] 1.2 {ratio} 0.9-2.4 [facility] Serum or plasma calcium summer urement (mass/volume)Ordered By: Dr. Kiran on 08-02-2022 Calcium [Mass/Vol] 9.7 mg/dL 8.5-10.1 [facility] Serum or plasma creatinine m easurement (mass/volume)Ordered By: Dr. Kiran on 08-02-2022 Creatinine [Mass/Vol] 0.81 mg/dL 0.55-1.02 [facility] Comment on above: The validity of the calculated GFR & GFRAA in patients over 70 years has not been determined. Clinical correlation is essential. Serum or plasma urea nitroge n measurement (mass/volume)Ordered By: Dr. Kiran on 08-02-2022 Urea nitrogen [Mass/Vol] 16 mg/dL 7-18 [facility] Thin prep Papanicolaou smear with manual screeningOrdered By: Dr. Kiran on 08-02-2022 Thin prep Papanicolaou smear with manual screening 17 U/L 15-37 [facility] Thin prep Papanicolaou smear with manual screening 9 5-15 [facility] Laboratory - Microbiology an d Antimicrobial susceptibilityon 07-12-2022 SARS-CoV-2 (COVID-19) RNA BATOOL+probe Ql (Unsp spec) Not detected [facility] No Panel Informationon 07-12 Influenza Types A,B Rapid (Clinic) Negative [facility] Absolute lymphocyte countOrd ered By: Dr. Kiran on 04-12-2022 Lymphocytes Auto (Unsp spec) [#/Vol] 1.56 10*3/uL 0.83-4.51 [facility] Basophil percentageOrdered B y: Dr. Kiran on 04-12-2022 Basophils/100 WBC (Bld) 0.5 % 0-1 [facility] Bilirubin [Mass/Vol] 0.60 mg/dL 0.20-1.00 [facility] Comment on above: For patients on eltr ombopag therapy, use of Dimension [place] TBIL is not recommended. Chloride [Moles/Vol] 103 mmol/L 98-107 [facility] Eosinophils/100 WBC (Bld) 1.1 % 0-5 [facility] Glucose [Mass/Vol] 92 mg/dL 74-106 [facility] Neutrophils (Bld) [#/Vol] 5.5 10*3/uL 2.0-7.7 [facility] Neutrophils/100 WBC (Bld) 68.6 % 47-70 [facility] Potassium [Moles/Vol] 3.9 mmol/L 3.5-5.1 [facility] Comment on above: Slight Hemolysis, Re sult may be falsely increased. Protein [Mass/Vol] 7.0 g/dL 6.4-8.2 [facility] Sodium [Moles/Vol] 138 mmol/L 136-145 [facility] WBC (Bld) [#/Vol] 8.0 10*3/uL 4.4-11.0 [facility] Blood erythrocytes count (nu mber/volume)Ordered By: Dr. Kiran on 04-12-2022 RBC (Bld) [#/Vol] 4.38 10*6/uL 4.2-5.4 [facility] Blood hemoglobin measurement (mass/volume)Ordered By: Dr. Kiran on 04-12-2022 Hemoglobin (Bld) [Mass/Vol] 14.0 g/dL 12.0-15.0 [facility] Blood lymphocytes/100 leukoc ytesOrdered By: Dr. Kiran on 04-12-2022 Lymphocytes/100 WBC (Bld) 19.6 % 19-41 [facility] Blood monocytes/100 leukocyt esOrdered By: Dr. Kiran on 04-12-2022 Monocytes/100 WBC (Bld) 9.9 % 0-10 [facility] Blood platelet mean volumeOr dered By: Dr. Kiran on 04-12-2022 Platelet mean volume (Bld) [Entitic vol] 12.7 fL 6.2-12.0 [facility] Determination of erythrocyte mean corpuscular volume (MCV)Ordered By: Dr. Kiran on 04-12-2022 MCV (RBC) [Entitic vol] 95.7 fL 81-99 [facility] Hematocrit Auto (Bld) [Volum e fraction]Ordered By: Dr. Kiran on 04-12-2022 Hematocrit (Bld) [Volume fraction] 41.9 % 37-47 [facility] Laboratory - Chemistry and C hemistry - challengeOrdered By: Dr. Kiran on 04-12-2022 ALP [Catalytic activity/Vol] 59 U/L 45-117 [facility] ALT [Catalytic activity/Vol] 29 U/L 13-56 [facility] CO2 [Moles/Vol] 29.0 mmol/L 21.0-32.0 [facility] Globulin (S) [Mass/Vol] 3.3 g/dL 2.2-4.2 [facility] Urea nitrogen/Creatinine [Mass ratio] 14.7 mg/mg 10-20 [facility] Laboratory - Hematology and Cell countsOrdered By: Dr. Kiran on 04-12-2022 Erythrocyte distribution width (RBC) [Entitic vol] 45.8 fL 35.1-43.9 [facility] Erythrocyte distribution width (RBC) [Ratio] 13.0 % 11.6-14.6 [facility] Immature granulocytes/100 WBC (Bld) 0.300 % 0.0-0.9 [facility] Comment on above: IG% - Immature Granu locytes (promyelocytes, myelocytes and metamyelocytes) > 1% indicates that a LEFT SHIFT is Present. MCH (RBC) [Entitic mass] 32.0 pg 27.0-32.0 [facility] Nucleated RBC/100 WBC (Bld) [Ratio] 0 % 0-5 [facility] MCHC Auto (RBC) [Mass/Vol]Or dered By: Dr. Kiran on 04-12-2022 MCHC (RBC) [Mass/Vol] 33.4 g/dL 32-36 [facility] No Panel InformationOrdered By: Dr. Kiran on 04-12-2022 Estimated GFR (MDRD) Amer 81 mL/min >60 [facility] Comment on above: GFR Calc Estimated GFR (MDRD) Non-Af Amer 67 mL/min >60 [facility] Comment on above: Non- GFR Calc Platelets bldOrdered By: Dr. Kiran on 04-12-2022 Platelets (Bld) [#/Vol] 216 10*3/uL 150-450 [facility] Serum or plasma albumin summer urement (mass/volume)Ordered By: Dr. Kiran on 04-12-2022 Albumin [Mass/Vol] 3.7 g/dL 3.2-5.0 [facility] Serum or plasma albumin/glob ulin mass ratioOrdered By: Dr. Kiran on 04-12-2022 Albumin/Globulin [Mass ratio] 1.1 {ratio} 0.9-2.4 [facility] Serum or plasma calcium summer urement (mass/volume)Ordered By: Dr. Kiran on 04-12-2022 Calcium [Mass/Vol] 9.4 mg/dL 8.5-10.1 [facility] Serum or plasma creatinine m easurement (mass/volume)Ordered By: Dr. Kiran on 04-12-2022 Creatinine [Mass/Vol] 0.89 mg/dL 0.55-1.02 [facility] Comment on above: The validity of the calculated GFR & GFRAA in patients over 70 years has not been determined. Clinical correlation is essential. Serum or plasma urea nitroge n measurement (mass/volume)Ordered By: Dr. Kiran on 04-12-2022 Urea nitrogen [Mass/Vol] 13 mg/dL 7-18 [facility] Thin prep Papanicolaou smear with manual screeningOrdered By: Dr. Kiran on 04-12-2022 Thin prep Papanicolaou smear with manual screening 20 U/L 15-37 [facility] Comment on above: Slight Hemolysis, Re sult may be falsely increased. Thin prep Papanicolaou smear with manual screening 6 5-15 [facility] Absolute lymphocyte counton 01-10-2022 Lymphocytes Auto (Unsp spec) [#/Vol] 2.02 10*3/uL 0.83-4.51 [facility] Work Phone: Basophil percentageon 2021 Basophils/100 WBC (Bld) 0.7 % 0-1 [facility] Work Phone: Eosinophils/100 WBC (Bld) 1.4 % 0-5 [facility] Work Phone: Neutrophils (Bld) [#/Vol] 5.9 10*3/uL 2.0-7.7 [facility] Work Phone: Neutrophils/100 WBC (Bld) 63.7 % 47-70 [facility] Work Phone: WBC (Bld) [#/Vol] 9.2 10*3/uL 4.4-11.0 [facility] Work Phone: Bilirubin [Mass/Vol] 0.40 mg/dL 0.20-1.00 [facility] Work Phone: [phone] Comment on above: For patients on eltr ombopag therapy, use of Dimension [place] TBIL is not recommended. Chloride [Moles/Vol] 103 mmol/L 98-107 [facility] Work Phone: Glucose [Mass/Vol] 91 mg/dL 74-106 [facility] Work Phone: Potassium [Moles/Vol] 3.5 mmol/L 3.5-5.1 [facility] Work Phone: [phone] Protein [Mass/Vol] 6.9 g/dL 6.4-8.2 [facility] Work Phone: Sodium [Moles/Vol] 137 mmol/L 136-145 [facility] Work Phone: [phone] Blood erythrocytes count (nu mber/volume)on 01-10-2022 RBC (Bld) [#/Vol] 4.48 10*6/uL 4.2-5.4 [facility] Work Phone: Blood hemoglobin measurement (mass/volume)on 01-10-2022 Hemoglobin (Bld) [Mass/Vol] 14.1 g/dL 12.0-15.0 [facility] Work Phone: Blood lymphocytes/100 leukoc yteson 01-10-2022 Lymphocytes/100 WBC (Bld) 21.9 % 19-41 [facility] Work Phone: Blood monocytes/100 leukocyt eson 01-10-2022 Monocytes/100 WBC (Bld) 12.1 % 0-10 [facility] Work Phone: Blood platelet mean volumeon 01-10-2022 Platelet mean volume (Bld) [Entitic vol] 11.6 fL 6.2-12.0 [facility] Work Phone: [phone] Determination of erythrocyte mean corpuscular volume (MCV)on 01-10-2022 MCV (RBC) [Entitic vol] 94.0 fL 81-99 [facility] Work Phone: Hematocrit Auto (Bld) [Volum e fraction]on 01-10-2022 Hematocrit (Bld) [Volume fraction] 42.1 % 37-47 [facility] Work Phone: [phone] Laboratory - Chemistry and C hemistry - challengeon 01-10-2022 ALP [Catalytic activity/Vol] 64 U/L 45-117 [facility] Work Phone: ALT [Catalytic activity/Vol] 20 U/L 13-56 [facility] Work Phone: CO2 [Moles/Vol] 28.0 mmol/L 21.0-32.0 [facility] Work Phone: [phone] Globulin (S) [Mass/Vol] 3.2 g/dL 2.2-4.2 [facility] Work Phone: [phone] Urea nitrogen/Creatinine [Mass ratio] 19.8 mg/mg 10-20 [facility] Work Phone: Laboratory - Hematology and Cell countson 01-10-2022 Erythrocyte distribution width (RBC) [Entitic vol] 45.9 fL 35.1-43.9 [facility] Work Phone: Erythrocyte distribution width (RBC) [Ratio] 13.4 % 11.6-14.6 [facility] Work Phone: Immature granulocytes/100 WBC (Bld) 0.200 % 0.0-0.9 [facility] Work Phone: [phone] Comment on above: IG% - Immature Granu locytes (promyelocytes, myelocytes and metamyelocytes) > 1% indicates that a LEFT SHIFT is Present. MCH (RBC) [Entitic mass] 31.5 pg 27.0-32.0 [facility] Work Phone: Nucleated RBC/100 WBC (Bld) [Ratio] 0 % 0-5 [facility] Work Phone: MCHC Auto (RBC) [Mass/Vol]on 01-10-2022 MCHC (RBC) [Mass/Vol] 33.5 g/dL 32-36 [facility] Work Phone: No Panel Informationon 01-10 Estimated GFR (MDRD) Amer 91 mL/min >60 [facility] Work Phone: Comment on above: GFR Calc Estimated GFR (MDRD) Non-Af Amer 75 mL/min >60 [facility] Work Phone: Comment on above: Non- GFR Calc Thyroid Stimulating Hormone (TSH) 0.74 uIU/mL 0.358-3.74 [facility] Work Phone: Platelets bldon 01-10-2022 Platelets (Bld) [#/Vol] 238 10*3/uL 150-450 [facility] Work Phone: Serum or plasma albumin summer urement (mass/volume)on 01-10-2022 Albumin [Mass/Vol] 3.7 g/dL 3.2-5.0 [facility] Work Phone: Serum or plasma albumin/glob ulin mass ratioon 01-10-2022 Albumin/Globulin [Mass ratio] 1.2 {ratio} 0.9-2.4 [facility] Work Phone: Serum or plasma calcium summer urement (mass/volume)on 01-10-2022 Calcium [Mass/Vol] 9.5 mg/dL 8.5-10.1 [facility] Work Phone: Serum or plasma creatinine m easurement (mass/volume)on 01-10-2022 Creatinine [Mass/Vol] 0.81 mg/dL 0.55-1.02 [facility] Work Phone: Comment on above: The validity of the calculated GFR & GFRAA in patients over 70 years has not been determined. Clinical correlation is essential. Serum or plasma urea nitroge n measurement (mass/volume)on 01-10-2022 Urea nitrogen [Mass/Vol] 16 mg/dL 7-18 [facility] Work Phone: Thin prep Papanicolaou smear with manual screeningon 01-10-2022 Thin prep Papanicolaou smear with manual screening 14 U/L 15-37 [facility] Work Phone: Thin prep Papanicolaou smear with manual screening 6 5-15 [facility] Work Phone: Basophil percentageon 2021 Bilirubin [Mass/Vol] 0.30 mg/dL 0.20-1.00 [facility] Work Phone: Comment on above: For patients on eltr ombopag therapy, use of Dimension [place] TBIL is not recommended. Cholesterol [Mass/Vol] 206 mg/dL <200 [facility] Work Phone: Comment on above: <200 mg/dL Desirable 200-240 mg/dL Borderline >240 mg/dL High Risk Protein [Mass/Vol] 7.0 g/dL 6.4-8.2 [facility] Work Phone: Triglyceride [Mass/Vol] 123 mg/dL <199 [facility] Work Phone: Comment on above: The drugs N-Acetylcy steine and Metamizole may falsely depress this assay.Serum Triglycerides Reference Interval Normal <150 mg/dL Borderline high 150 - 199 mg/dL High 200 - 499 mg/dL Very High > or = 500 mg/dL Direct bilirubinon 2 Bilirubin.direct [Mass/Vol] 0.13 mg/dL 0.00-0.30 [facility] Work Phone: Laboratory - Chemistry and C hemistry - challengeon 12-18-2021 ALP [Catalytic activity/Vol] 58 U/L 45-117 [facility] Work Phone: ALT [Catalytic activity/Vol] 26 U/L 13-56 [facility] Work Phone: Globulin (S) [Mass/Vol] 3.2 g/dL 2.2-4.2 [facility] Work Phone: Serum or plasma albumin summer urement (mass/volume)on 12-18-2021 Albumin [Mass/Vol] 3.8 g/dL 3.2-5.0 [facility] Work Phone: Serum or plasma cholesterol in HDL measurement (mass/volume)on 12-18-2021 Cholesterol in HDL [Mass/Vol] 82 mg/dL >40 [facility] Work Phone: Comment on above: The drugs N-Acetylcy steine and Metamizole may falsely depress this assay. Reference Range HDL <40 mg/dL Low HDL Cholesterol HDL >or= 60 mg/dL High HDL Cholesterol Serum or plasma cholesterol in VLDL measurement (mass/volume)on 12-18-2021 Cholesterol in VLDL [Mass/Vol] 25 mg/dL 5-40 [facility] Work Phone: Serum or plasma low density lipoprotein (LDL) cholesterol measurement (mass/volume)on 12-18-2021 Cholesterol in LDL [Mass/Vol] 99 mg/dL 0-130 [facility] Work Phone: Thin prep Papanicolaou smear with manual screeningon 12-18-2021 Thin prep Papanicolaou smear with manual screening 17 U/L 15-37 [facility] Work Phone: OBSOLETEon 05-31-2017 OBSOLETE Refill (FAMPWS) ----ROSAMARIA PRYOR ([id number]) 1955 [facility] ([facility]3] Time Provider Egwowgbhru67/22/17 GRZEGORZ RAMON) BETI During your visit today, we recorded the following information about you:Cristy Rollins Psr 05/31/2017 10:44 AM SignedPatient has been identified by name and date of : YesRX INSTRUCTIONS:Patient aware RX will be sent to pharmacy. No need to notify patient.Cristy Rollins PsrJennbecky Patelbiancaabbe Restaurant Worker 05/31/2017 1:34 PM SignedPatient has been identified by name and date of : YesRX INSTRUCTIONS:Patient aware RX will be sent to pharmacy. No need to notify patient.Last visit 03/01Future visit 08/29/17Last filled 10/10 12 with 1Jsissy Patelpriyanka CmaAllergies As of Date: 05/31/2017 Noted Allergy ReactionMANGOES 09/08/2011 9 - ItchingPENICILLIN G 07/10/2005 7 - Swellingpenecillin products [Other] 07/24/2010 14 - Other: See Comments Comments: As a child developed reaction, advised to take no moreDate Reviewed: 03/18/2017Reviewed by: Nani Sapp LPN - Fully AssessedReason for Visit: Refill Request [94]Order(s):alendronate (FOSAMAX) 70 mg tabletTake 1 tablet by mouth once each week. Take with a full glass of water, on an empty stomach; do NOT lie down for 30minutes.Disp: 12 tabletRfl: 1Prescriptions as of 05/31/2017 Sig: ALENDRONATE 70 MG TABLET Take 1 tablet by mouth once e* IRBESARTAN 150 MG TABLET Take 1 tablet by mouth once d* OMEPRAZOLE 20 MG TABLET,DELAY* Take 20 mg by mouth once darin* ATORVASTATIN 10 MG TABLET Take 1 tablet by mouth once d* METHOTREXATE SODIUM ORAL Take 20 mg by mouth once each* NAPROXEN 500 MG TABLET Take 1 tablet by mouth twice * ALBUTEROL SULFATE HFA 90 MCG/* Inhale 2 Puffs as instructed * FOLIC ACID 1 MG TABLET Take 1 tablet by mouth twice * LEVOTHYROXINE 50 MCG TABLET Take 1 tablet by mouth daily * HYDROXYCHLOROQUINE 200 MG TAB* Take 1 tablet by mouth twice * PREDNISONE 5 MG TABLET Take 1-2 tablets by mouth onc* ESTRADIOL 0.01% (0.1 MG/GRAM)* Use fingertip amount nightly * METOPROLOL SUCCINATE ER 25 MG* Take 1 tablet by mouth once d* TRIAMCINOLONE ACETONIDE 55 MC* Use 2 Sprays in each nostril * Patient taking differently: Use 2 Sprays in each nostril * CHOLECALCIFEROL (VITAMIN D3) * Take 3 tablets by mouth once *Problem List As Of Date 05/31/2017 Noted Resolved GERD (gastroesophageal reflux disease) [K21.9] INVALID FOR*08/30/2016 Hypertension [I10] INVALID FOR* Postmenopausal atrophic vaginitis [N95.2] INVALID FOR* Osteopenia [M85.80] INVALID FOR*10/15/2016 More... Hypovitaminosis D [E55.9] INVALID FOR* Hyperlipidemia [E78.5] INVALID FOR* Screening for intestinal cancer [Z12.10] INVALID FOR*03/30/2016 Breast hypertrophy in female [N62] INVALID FOR* Rheumatoid arthritis, adult (HCC) [M06.9] INVALID FOR*10/07/2015 Rheumatoid arthritis involving multiple sites w*INVALID FOR* Essential hypertension with goal blood pressure*INVALID FOR* Gastroesophageal reflux disease without esophag*INVALID FOR* Osteoporosis [M81.0] INVALID FOR* Compression fracture of spine, non-traumatic (H* More...Prescriptions ordered this encounter Disp Refills Start End ALENDRONATE 70 MG TABLET 12 t* 1 05/31/2017 Route: ORAL Sig: Take 1 tablet by mouth once each week. Take with a full glass of water, on an empty stomach; do NOT lie down for 30minutes.Medications Discontinued During This Encounter alendronate (FOSAMAX) 70 mg tablet 12 t* 1 10/10/2016 05/31/2017 Route: ORAL Sig: Take 1 tablet by mouth once each week. Take with a full glass of water, on an empty stomach; do NOT lie down for 30minutes. Disc: Reason for discontinue is not on file. Status:Closed by ALCIDES ROCHA on 05/31/17 [facility] OBSOLETEon 04-24-2017 OBSOLETE Refill (FAMPWS) ----ROSAMARIA PRYOR ([id number]) 1955 FDate Time Provider Btfhbauzts32/15/17 GRZEGORZ RAMON) ELIZABETHPWS During your visit today, we recorded the following information about you:Chioma Hicks Psr 04/24/2017 11:32 AM SignedPatient has been identified by name and date of : YesRX INSTRUCTIONS:Patient aware RX escripted to mail away pharmacy. No need to notify patient.Chioma Hicks PsrJohnniekenneth Patelbiancaabbe Restaurant Worker 04/24/2017 1:04 PM SignedLast visit 03/01/17Future visit 08/29/17Last filled 05/08/16 90 with 3 refillsGabriela Patelpriyanka CmaAllergies As of Date: 04/24/2017 Noted Allergy ReactionMANGOES 09/08/2011 9 - ItchingPENICILLIN G 07/10/2005 7 - Swellingpenecillin products [Other] 07/24/2010 14 - Other: See Comments Comments: As a child developed reaction, advised to take no moreDate Reviewed: 03/18/2017Reviewed by: Nani Sapp LPN - Fully AssessedReason for Visit: Refill Request [94]Order(s):irbesartan (AVAPRO) 150 mg tabletTake 1 tablet by mouth once daily.Disp: 90 tabletRfl: 3Prescriptions as of 04/24/2017 Sig: IRBESARTAN 150 MG TABLET Take 1 tablet by mouth once d* OMEPRAZOLE 20 MG TABLET,DELAY* Take 20 mg by mouth once darin* ATORVASTATIN 10 MG TABLET Take 1 tablet by mouth once d* ALENDRONATE 70 MG TABLET Take 1 tablet by mouth once e* METHOTREXATE SODIUM ORAL Take 20 mg by mouth once each* NAPROXEN 500 MG TABLET Take 1 tablet by mouth twice * ALBUTEROL SULFATE HFA 90 MCG/* Inhale 2 Puffs as instructed * FOLIC ACID 1 MG TABLET Take 1 tablet by mouth twice * LEVOTHYROXINE 50 MCG TABLET Take 1 tablet by mouth daily * HYDROXYCHLOROQUINE 200 MG TAB* Take 1 tablet by mouth twice * PREDNISONE 5 MG TABLET Take 1-2 tablets by mouth onc* ESTRADIOL 0.01% (0.1 MG/GRAM)* Use fingertip amount nightly * METOPROLOL SUCCINATE ER 25 MG* Take 1 tablet by mouth once d* TRIAMCINOLONE ACETONIDE 55 MC* Use 2 Sprays in each nostril * Patient taking differently: Use 2 Sprays in each nostril * CHOLECALCIFEROL (VITAMIN D3) * Take 3 tablets by mouth once *Problem List As Of Date 04/24/2017 Noted Resolved GERD (gastroesophageal reflux disease) [K21.9] INVALID FOR*08/30/2016 Hypertension [I10] INVALID FOR* Postmenopausal atrophic vaginitis [N95.2] INVALID FOR* Osteopenia [M85.80] INVALID FOR*10/15/2016 More... Hypovitaminosis D [E55.9] INVALID FOR* Hyperlipidemia [E78.5] INVALID FOR* Screening for intestinal cancer [Z12.10] INVALID FOR*03/30/2016 Breast hypertrophy in female [N62] INVALID FOR* Rheumatoid arthritis, adult (HCC) [M06.9] INVALID FOR*10/07/2015 Rheumatoid arthritis involving multiple sites w*INVALID FOR* Essential hypertension with goal blood pressure*INVALID FOR* Gastroesophageal reflux disease without esophag*INVALID FOR* Osteoporosis [M81.0] INVALID FOR* Compression fracture of spine, non-traumatic (H* More...Prescriptions ordered this encounter Disp Refills Start End IRBESARTAN 150 MG TABLET 90 t* 3 04/24/2017 Route: ORAL Sig: Take 1 tablet by mouth once daily.Medications Discontinued During This Encounter irbesartan (AVAPRO) 150 mg tablet 90 t* 3 05/08/2016 04/24/2017 Route: ORAL Sig: Take 1 tablet by mouth once daily. Disc: Reason for discontinue is not on file. Status:Closed by GRZEGORZ RAMON MD on 04/24/17 [facility] 04-09-2017 [facility] Nurse Visit (FAMPWS) ----ROSAMARIA PRYOR ([id number]) 1955 [facility] (formerly [facility])[3] Time Provider Ybqlbvvlhy13/31/17 1:15 PM DE NURSE FAMPWS During your visit today, we recorded the following information about you:Nani Sapp ARON 04/09/2017 1:09 PM SignedPatient presents for Pneumovax vaccine. Denies any problems at this time.Tolerated injection well.62 year old female here for INACTIVATED INFLUENZA VACCINE. SeasonPatient is identified by name and date of : Yes [] CONTRAINDICATIONS color enhancedsectionAge less than 6 months? NoAllergy to eggs, chicken, chicken feathers, or chicken dander? NoAllergy to thimerosal (a preservative) or formaldehyde? NoHistory of severe reaction to any vaccine component or a previous dose ofinfluenza vaccination? NoHistory of Guillain-Hollywood Syndrome within 6 weeks after a previous influenzavaccine? NoCurrent moderate or severe illness? NoCurrent temperature greater or equal to 100.4F? NoHistory of Bone Marrow Transplant in past 6 months or solid organ transplant inthe past 3 months ? No [] VERIFICATION colorenhanced sectionWas the answer ANDquot;YesANDquot; for any of the above contraindications? Nocontraindications present. Acceptable to proceed with vaccine.Patient/guardian agrees the above answers are true to the best of theirknowledge? YesFlu vaccine information sheet given? YesSee immunization activity in [facility] for details of immunizations adminsteredtoday.Patient age: [age] year old For The 2124-7944 Flu Season 6-35 months old: Fluzone 0.25 ml - IM (Preservative Free)3 years of age: Fluzone 0.5 ml - IM (Preservative Free)3 years and older: Fluzone 0.5 ml- IM-(with Preservatives)65+ years old: Fluzone High-Dose 0.5 ml - IM (Preservative Free)REMEMBER: If patient is less than 9 years of age and this is the first vaccineof Influenza to be received in any flu season, they should receive a seconddose in one months time.Referring Provider: SELF [200]Allergies As of Date: 04/09/2017 Noted Allergy ReactionMANGOES 09/08/2011 9 - ItchingPENICILLIN G 07/10/2005 7 - Swellingpenecillin products [Other] 07/24/2010 14 - Other: See Comments Comments: As a child developed reaction, advised to take no moreDate Reviewed: 03/18/2017Reviewed by: Nani Sapp LPN - Fully AssessedReason for Visit: Imm/Inj [58] Imm/Inj [58] Cmt: Flu VaccineReason For Visit History RecordedPrimary Visit Diagnosis:Need for vaccination [Z23]Order(s):INFLUENZA VACCINE QUADRIVALENT AGE 3 YRS PLUS + IM [[id number]] Order #: [id number] as of 04/09/2017 Sig: OMEPRAZOLE 20 MG TABLET,DELAY* Take 20 mg by mouth once darin* ATORVASTATIN 10 MG TABLET Take 1 tablet by mouth once d* ALENDRONATE 70 MG TABLET Take 1 tablet by mouth once e* METHOTREXATE SODIUM ORAL Take 20 mg by mouth once each* NAPROXEN 500 MG TABLET Take 1 tablet by mouth twice * ALBUTEROL SULFATE HFA 90 MCG/* Inhale 2 Puffs as instructed * FOLIC ACID 1 MG TABLET Take 1 tablet by mouth twice * IRBESARTAN 150 MG TABLET Take 1 tablet by mouth once d* LEVOTHYROXINE 50 MCG TABLET Take 1 tablet by mouth daily * HYDROXYCHLOROQUINE 200 MG TAB* Take 1 tablet by mouth twice * PREDNISONE 5 MG TABLET Take 1-2 tablets by mouth onc* ESTRADIOL 0.01% (0.1 MG/GRAM)* Use fingertip amount nightly * METOPROLOL SUCCINATE ER 25 MG* Take 1 tablet by mouth once d* TRIAMCINOLONE ACETONIDE 55 MC* Use 2 Sprays in each nostril * Patient taking differently: Use 2 Sprays in each nostril * CHOLECALCIFEROL (VITAMIN D3) * Take 3 tablets by mouth once *Problem List As Of Date 04/09/2017 Noted Resolved GERD (gastroesophageal reflux disease) [K21.9] INVALID FOR*08/30/2016 Hypertension [I10] INVALID FOR* Postmenopausal atrophic vaginitis [N95.2] INVALID FOR* Osteopenia [M85.80] INVALID FOR*10/15/2016 More... Hypovitaminosis D [E55.9] INVALID FOR* Hyperlipidemia [E78.5] INVALID FOR* Screening for intestinal cancer [Z12.10] INVALID FOR*03/30/2016 Breast hypertrophy in female [N62] INVALID FOR* Rheumatoid arthritis, adult (HCC) [M06.9] INVALID FOR*10/07/2015 Rheumatoid arthritis involving multiple sites w*INVALID FOR* Essential hypertension with goal blood pressure*INVALID FOR* Gastroesophageal reflux disease without esophag*INVALID FOR* Osteoporosis [M81.0] INVALID FOR* Compression fracture of spine, non-traumatic (H* More... Status:Closed by ANNI SAPP LPN on 04/09/17 [facility] PROGRESSon 04-09-2017 PROGRESS HNO ID: [id number] thor: Nani GALICIAervice: (none)Author Type: (none)Type: Progress NotesFiled: 04/09/2017 1:09 PMNote Text:Patient presents for Pneumovax vaccine. Denies any problems at this time.Tolerated injection well.62 year old female here for INACTIVATED INFLUENZA VACCINE.[id number] SeasonPatient is identified by name and date of : Yes [] CONTRAINDICATIONS colorenhanced sectionAge less than 6 months? NoAllergy to eggs, chicken, chicken feathers, or chicken dander? NoAllergy to thimerosal (a preservative) or formaldehyde? NoHistory of severe reaction to any vaccine component or a previous dose ofinfluenza vaccination? NoHistory of Guillain-Hollywood Syndrome within 6 weeks after a previousinfluenza vaccine? NoCurrent moderate or severe illness? NoCurrent temperature greater or equal to 100.4F? NoHistory of Bone Marrow Transplant in past 6 months or solid organtransplant in the past 3 months ? No [] VERIFICATIONcolor enhanced sectionWas the answer Yes for any of the above contraindications? Nocontraindications present. Acceptable to proceed with vaccine.Patient/guardian agrees the above answers are true to the best of theirknowledge? YesFlu vaccine information sheet given? YesSee immunization activity in [facility] for details of immunizationsadminstered today.Patient age: [age] year old For The 7831-9702 Flu Season 6-35 months old: Fluzone 0.25 ml - IM (Preservative Free)3 years of age: Fluzone 0.5 ml - IM (Preservative Free)3 years and older: Fluzone 0.5 ml- IM-(with Preservatives)65+ years old: Fluzone High-Dose 0.5 ml - IM (Preservative Free)REMEMBER: If patient is less than 9 years of age and this is the firstvaccine of Influenza to be received in any flu season, they should receivea second dose in one months time. [facility]) ----ROSAMARIA PRYOR ([id number]) 1955 [facility]3] Time Provider Taeatvqmzv61/9/17 10:15 AM DE NURSE FAMPWS During your visit today, we recorded the following information about you: Pulse Blood pressure 82/minute 128/84Nani Sapp LPN 03/18/2017 10:39 AM SignedManual Readin/84 Pulse: 82Reason for blood pressure check - Last BP elevatedPatient is:Taking medication as prescribed YesTook medication today Yes If no, date medication last taken N/AExperiencing side effects NoBP was elevated at last appt 03/01/17. No BP medication changes were made atthat time. Taking all medications as prescribed. Denies any chest pain,shortness of breath, dizziness, or headaches. Daily caffeine use. Past personalhistory of tobacco use; no current exposure. Alert and oriented.Pt has been identified by name and birthdate: YesAllergies reviewed: YesLatex allergy: no.Medication - prescribed and OTC reviewed and updated: YesDo you need any prescription refills prior to your next visit: NoHealth Maintenance: Reviewed and not up to date and provider notifiedPatient advised to continue with current medications and would be contactedwith any further instructions after review by PCP.Nani Sapp LPNReferring Provider: SELF [200]Allergies As of Date: 03/18/2017 Noted Allergy ReactionMANGOES 09/08/2011 9 - ItchingPENICILLIN G 07/10/2005 7 - Swellingpenecillin products [Other] 07/24/2010 14 - Other: See Comments Comments: As a child developed reaction, advised to take no moreDate Reviewed: 03/18/2017Reviewed by: Nani Sapp LPN - Fully AssessedReason for Visit: Blood Pressure Check [195]Primary Visit Diagnosis:Essential hypertension with goal blood pressure less than 140/90 [I10]Prescriptions as of 03/18/2017 Sig: OMEPRAZOLE 20 MG TABLET,DELAY* Take 20 mg by mouth once darin* ATORVASTATIN 10 MG TABLET Take 1 tablet by mouth once d* ALENDRONATE 70 MG TABLET Take 1 tablet by mouth once e* METHOTREXATE SODIUM ORAL Take 20 mg by mouth once each* NAPROXEN 500 MG TABLET Take 1 tablet by mouth twice * ALBUTEROL SULFATE HFA 90 MCG/* Inhale 2 Puffs as instructed * FOLIC ACID 1 MG TABLET Take 1 tablet by mouth twice * IRBESARTAN 150 MG TABLET Take 1 tablet by mouth once d* LEVOTHYROXINE 50 MCG TABLET Take 1 tablet by mouth daily * HYDROXYCHLOROQUINE 200 MG TAB* Take 1 tablet by mouth twice * PREDNISONE 5 MG TABLET Take 1-2 tablets by mouth onc* ESTRADIOL 0.01% (0.1 MG/GRAM)* Use fingertip amount nightly * METOPROLOL SUCCINATE ER 25 MG* Take 1 tablet by mouth once d* TRIAMCINOLONE ACETONIDE 55 MC* Use 2 Sprays in each nostril * Patient taking differently: Use 2 Sprays in each nostril * CHOLECALCIFEROL (VITAMIN D3) * Take 3 tablets by mouth once *Problem List As Of Date 03/18/2017 Noted Resolved GERD (gastroesophageal reflux disease) [K21.9] INVALID FOR*08/30/2016 Hypertension [I10] INVALID FOR* Postmenopausal atrophic vaginitis [N95.2] INVALID FOR* Osteopenia [M85.80] INVALID FOR*10/15/2016 More... Hypovitaminosis D [E55.9] INVALID FOR* Hyperlipidemia [E78.5] INVALID FOR* Screening for intestinal cancer [Z12.10] INVALID FOR*03/30/2016 Breast hypertrophy in female [N62] INVALID FOR* Rheumatoid arthritis, adult (HCC) [M06.9] INVALID FOR*10/07/2015 Rheumatoid arthritis involving multiple sites w*INVALID FOR* Essential hypertension with goal blood pressure*INVALID FOR* Gastroesophageal reflux disease without esophag*INVALID FOR* Osteoporosis [M81.0] INVALID FOR* Compression fracture of spine, non-traumatic (H* More... Status:Closed by NANI SAPP LPN on 03/18/17 [facility] PROGRESSon 03-18-2017 PROGRESS HNO ID: [id number] thor: Nani GALICIAervice: (none)Author Type: (none)Type: Progress NotesFiled: 03/18/2017 10:39 AMNote Text:Manual Readin/84 Pulse: 82Reason for blood pressure check - Last BP elevatedPatient is:Taking medication as prescribed YesTook medication today Yes If no, date medication last taken N/AExperiencing side effects NoBP was elevated at last appt 03/01/17. No BP medication changes were madeat that time. Taking all medications as prescribed. Denies any chest pain,shortness of breath, dizziness, or headaches. Daily caffeine use. Pastpersonal history of tobacco use; no current exposure. Alert and oriented.Pt has been identified by name and birthdate: YesAllergies reviewed: YesLatex allergy: no.Medication - prescribed and OTC reviewed and updated: YesDo you need any prescription refills prior to your next visit: NoHealth Maintenance: Reviewed and not up to date and provider notifiedPatient advised to continue with current medications and would becontacted with any further instructions after review by PCP.Nani Sapp LPN [facility] CNOVon 03-01-2017 CNOV Office Visit (FAMPWS) ----ROSAMARIA PRYOR ([id number]) 1955 FDate Time Provider Department03/01/17 1:20 PM GRZEGORZ RAMON) FAMPWS During your visit today, we recorded the following information about you: Pulse Respiration Blood pressure Weight 96/minute 16/minute 148/88 83.9 kgChristopher Vinay Ramon MD 03/01/2017 2:20 PM SignedChief ComplaintPatient presents with:6 Month ExamHPIMargaret Mandi Pryor is a 61 year old female who presents here today for AboveComplaints.Since last appointment, patient has been seen by Dr. Hernandez regarding herthoracic spine fractures and he recommended against back bracing and referredpatient to PT. This helped with pain, but is still not completely resolved sohas order pending for MRI which is to be done next week and has finished takingflexeril. Patient is still taking Fosamax, but forgot this week so will bestarting back next week.Still seeing Dr. Kiran for her RA and is working bringing her dose of herprednisone down and is at 5mg down from 10mg. Still on methotrexate asprescribed.Tried coming off of the PPI and tried the Zantac which did not work for hersymptoms. 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 Has not been checking at home. Takingmedications as prescribed without side effects.Discussed labs showing YING. Advised pushing PO fluids, avoiding NSAIDs, andpatient will have rechecked when she sees Dr. Kiran in about 3 months.Past medical history, appointments, medications, allergies reviewed.Previous Medical HistoryPAST MEDICAL HISTORYDiagnosis Date- Atrial fibrillation (HCC) Atrial fibrillation, seeing Dr. Gregorio- Compression fracture of spine, non-traumatic (HCC) thoracic spine- GERD (gastroesophageal reflux disease) 05/31/2009- Hemorrhoids- HTN (hypertension)- Hyperlipidemia- Hypothyroidism- Osteoarthritis knees- Osteoporosis 10/2016- Postmenopausal atrophic vaginitis- Rheumatoid arthritis (HCC) Seeing Dr. Kiran- Rosacea conjunctivitis of both eyes Seeing Dr. Garcia- ScoliosisPrevious Surgical HistoryPAST SURGICAL HISTORYProcedure Laterality Date- PAST SURGICAL HISTORY OF 2010 torn tendon in right ankle- REMOVAL ADENOIDS,PRIMARY,ANDlt;11 Y/O Adenoidectomy- REMOVAL OF TONSILS,ANDlt;11 Y/O Tonsillectomy- TOTAL ABDOM HYSTERECTOMY 2002 tahbso- TOTAL KNEE REPLACEMENT Knee replacement, total, RightFamily HistoryFAMILY HISTORYProblem Relation Age of Onset- Heart Father pacemaker- Hypertension Father- Allergies Father- gluacoma [OTHER] Father- macular degeneration [OTHER] Father- Stroke Mother- Thyroid Mother- Obesity Mother- Dementia [OTHER] Mother- obese [OTHER] BrotherPatient AllergiesALLERGIESAllergen Reactions- Mangoes Itching- Penicillin G Swelling- Penecillin Products* Other: See Comments As a child developed reaction, advised to take no moreCurrent MedicationsCurrent Outpatient Prescriptions on File Prior to Visit:cyclobenzaprine (FLEXERIL) 10 mg tablet TAKE ONE TABLET BY MOUTH THREE TIMESDAILY NEEDEDranitidine (ZANTAC) 150 mg tablet Take 1 tablet by mouth twice daily.alendronate (FOSAMAX) 70 mg tablet Take 1 tablet by mouth once each week. Takewith a full glass of water, on an empty stomach; do NOT lie down for 30minutes.METHOTREXATE SODIUM ORAL Take 20 mg by mouth once each week.naproxen (NAPROSYN) 500 mg tablet Take 1 tablet by mouth twice daily withmeals.albuterol HFA (VENTOLIN HFA) 90 mcg/actuation inhaler Inhale 2 Puffs asinstructed every 4 hours as needed for Wheezing/Shortness of Breath.folic acid 1 mg tablet Take 1 tablet by mouth twice daily.irbesartan (AVAPRO) 150 mg tablet Take 1 tablet by mouth once daily.levothyroxine (SYNTHROID) 50 mcg tablet Take 1 tablet by mouth daily beforebreakfast.hydroxychlor oquine (PLAQUENIL) 200 mg tablet Take 1 tablet by mouth twicedaily.predniSONE (DELTASONE) 5 mg tablet Take 1-2 tablets by mouth once daily.estradiol (ESTRACE) 0.01 % (0.1 mg/gram) vaginal cream Use fingertip amountnightly x 2 weeks, then every other night x 2 weeks, then 1-2x weekly formaintenanceatorvastatin (LIPITOR) 10 mg tablet Take 1 tablet by mouth once daily.metoprolol succinate ER (TOPROL XL) 25 mg 24 hr tablet Take 1 tablet by mouthonce daily.triamcinolone acetonide (NASACORT AQ) 55 mcg nasal inhaler Use 2 Sprays in eachnostril once daily. 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[employer]* RetiredSocial History Main Topics Smoking status: Former Smoker Packs/day: 1.50 Years: 10.00 Types: Cigarettes Quit date: 06/10/1979 Smokeless status: Never Used Alcohol use: Yes Comment: Socially Drug use: No Sexual activity: Yes Comment: HysterectomyReview of SymptomsREVIEW OF SYSTEMSGENERAL: No weight loss, malaise or feversRESPIRATORY: Negative for cough, hemoptysis, wheezing, COPD, dyspnea orshortness of breathCARDIOVASCULAR: Negative for chest pain, leg swelling, hypertension, CHF orpalpitationsGI: No nausea, vomiting, or diarrheaSKIN: Negative for lesions, rash, and itchingEXAM:BP 148/88 Pulse 96 Resp 16 Wt 83.9 kg (185 lb) BMI 31.76 kg/y5Kbhvqol Appearance: Well appearing, alert, in no acute distress, well-hydrated,well nourished..Skin: Skin color, texture, turgor normal, no suspicious rashes or lesions.Lungs: Lungs clear to auscultation. No wheezing, rhonchi, rales.Heart: RRR without murmur, gallop, or rubs. No ectopy.Abdomen: Normal abdominal exam, Abdomen soft, non-tender. Bowel sounds normal.No masses, organomegaly.Extremities: No deformities, edema, skin discoloration, clubbing or cyanosis.Good capillary refill. .Health Maintenance ListTETANUS due on 1965HEPATITIS C SCREENING due on 1998MAMMOGRAM due on 01/15/2017INFLUENZA(1) due on 02/08/2017DIABETES SCREEN due on 02/21/2020LIPID SCREEN due on 2COLORECTAL CANCER SCREENING,SEE MODIFIER due on 01/09/2023ZOSTAVAX CompletedData reviewedComponent Latest Ref Rng ANDamp; Units 01/31/2016 02/20/2017WBC 3.70 - 11.00 k/uL 7.89RBC 3.90 - 5.20 m/uL 4.67Hemoglobin 11.5 - 15.5 g/dL 13.8Hematocrit 36.0 - 46.0 % 43.0MCV 80.0 - 100.0 fL 92.1MCH 26.0 - 34.0 pG 29.6MCHC 30.5 - 36.0 g/dL 32.1RDW-CV 11.5 - 15.0 % 13.7Platelet Count 150 - 400 k/uL 253MPV 9.0 - 12.7 fL 12.0Neut% % 59.7Abs Neut (ANC) 1.45 - 7.50 k/uL 4.72Lymph% % 25.9Abs Lymph 1.00 - 4.00 k/uL 2.04Mono% % 11.8Abs Harding 0.00 - 0.86 k/uL 0.93 (H)Eosin% % 2.2Abs Eosin 0.00 - 0.45 k/uL 0.17Baso% % 0.4Abs Baso 0.00 - 0.10 k/uL 0.03Diff Type Auto DiffProtein, Total 6.0 - 8.4 g/dL 6.6Albumin 3.5 - 5.0 g/dL 3.8Calcium 8.5 - 10.2 mg/dL 9.3 9.5Bilirubin, Total 0.0 - 1.5 mg/dL 0.3Alkaline Phosphatase 40 - 150 U/L 55AST 7 - 40 U/L 20Glucose 74 - 99 mg/dL 82 67 (L)BUN 7 - 21 mg/dL 17 14Creatinine 0.58 - 0.96 mg/dL 0.75 0.98 (H)Sodium 136 - 144 mmol/L 140 140Potassium 3.7 - 5.1 mmol/L 4.3 3.9Chloride 97 - 105 mmol/L 101 101CO2 22 - 30 mmol/L 24 26Anion Gap 9 - 18 mmol/L 15 13ALT 0 - 45 U/L 16eGFR- ANDgt;60 ANDgt;60eGFR-All Other Races . ANDgt;60 58Triglyceride 30 - 149 mg/dL 118 107Cholesterol 100 - 199 mg/dL 167 169HDL Cholesterol ANDgt;55 mg/dL 53 (L) 71VLDL Cholesterol 6 - 40 mg/dL 24 21LDL Cholesterol 60 - 129 mg/dL 90 77Fasting Time hrs FASTING 12TC:HDL Ratio 1.00 - 5.00 3.15 2.38LDL:HDL Ratio 0.50 - 3.55 1.70 1.08Non HDL Cholesterol 90 - 159 mg/dL 114 98Hemoglobin A1C 4.3 - 5.6 % 5.3Estimated Average Glucose mg/dL 105TSH 0.400 - 5.500 uU/mL 1.370ASSESSMENT/PLAN:1. Non-traumatic compression fracture of vertebra, sequela - ICD9: 905.1,ICD10: M48.50XS (primary diagnosis)Patient to continue to follow up with ortho. Will await MRI results and haveher continue fosamax and calcium/vitamin D.2. Mixed hyperlipidemia - ICD9: 272.2, ICD10: E78.2- good control- Continue current medication.- Encouraged following a low fat, low cholesterol diet.- Discussed the benefits of regular aerobic exercise and weight loss.3. Gastroesophageal reflux disease without esophagitis - ICD9: 530.81, ICD10:K21.9Stop Zantac, restart omeprazole. Discussed weight loss and diet.4. Essential hypertension with goal blood pressure less than 140/90 - ICD9:401.9, ICD10: I10- poor control- Encouraged dietary sodium restriction/DASH diet- Recommended regular aerobic exercise.- Follow up in 2 weeks for BP recheck.- Reviewed risks of HTN and principles of treatment- Goal of BP ANDlt;140/905. Rheumatoid arthritis involving multiple sites with positive rheumatoidfactor (HCC) - ICD9: 714.0, ICD10: M05.79Patient to continue methotrexate and prednisone. Follow up with Dr. Kiran.6. Osteoporosis with current pathological fracture with routine healing,unspecified osteoporosis type, subsequent encounter - ICD9: V54.29, 733.00,ICD10: M80.00XD- continue tx with alendronate (Fosamax)- Reviewed the need for Calcium and Vitamin D supplements and weight bearingexercise as tolerated7. Acute kidney insufficiency - ICD9: 593.9, ICD10: N28.9Will have rechecked with next labs from Dr. Kiran's office. Advised improvedPO fluids and avoidance of NSAIDs.Grzegorz Ramon, SERENITYeferring Provider: GRZEGORZ RAMON) [[id number]]Allergies As of Date: 03/01/2017 Noted Allergy ReactionMANGOES 09/08/2011 9 - ItchingPENICILLIN G 07/10/2005 7 - Swellingpenecillin products [Other] 07/24/2010 14 - Other: See Comments Comments: As a child developed reaction, advised to take no moreDate Reviewed: 03/01/2017Reviewed by: Olivier Cortez Ma - Fully AssessedReason for Visit: 6 Month Exam [189]Primary Visit Diagnosis:Non-traumatic compression fracture of vertebra, sequela [M48.50XS] Other Visit Diagnoses:Mixed hyperlipidemia [E78.2] Gastroesophageal reflux disease without esophagitis [K21.9] Essential hypertension with goal blood pressure less than 140/90 [I10] Rheumatoid arthritis involving multiple sites with positive rheumatoid factor (HCC) [M05.79] Osteoporosis with current pathological fracture with routine healing, unspecified osteoporosis type, subsequent encounter [M80.00XD] Acute kidney insufficiency [N28.9]Order(s):Omeprazole 20 mg TbECTake 20 mg by mouth once daily.Disp: 30 tabletRfl: 1 atorvastatin (LIPITOR) 10 mg tabletTake 1 tablet by mouth once daily.Disp: 90 tabletRfl: 3Prescriptions as of 03/01/2017 Sig: OMEPRAZOLE 20 MG TABLET,DELAY* Take 20 mg by mouth once darin* ATORVASTATIN 10 MG TABLET Take 1 tablet by mouth once d* ALENDRONATE 70 MG TABLET Take 1 tablet by mouth once e* METHOTREXATE SODIUM ORAL Take 20 mg by mouth once each* NAPROXEN 500 MG TABLET Take 1 tablet by mouth twice * ALBUTEROL SULFATE HFA 90 MCG/* Inhale 2 Puffs as instructed * FOLIC ACID 1 MG TABLET Take 1 tablet by mouth twice * IRBESARTAN 150 MG TABLET Take 1 tablet by mouth once d* LEVOTHYROXINE 50 MCG TABLET Take 1 tablet by mouth daily * HYDROXYCHLOROQUINE 200 MG TAB* Take 1 tablet by mouth twice * PREDNISONE 5 MG TABLET Take 1-2 tablets by mouth onc* ESTRADIOL 0.01% (0.1 MG/GRAM)* Use fingertip amount nightly * METOPROLOL SUCCINATE ER 25 MG* Take 1 tablet by mouth once d* TRIAMCINOLONE ACETONIDE 55 MC* Use 2 Sprays in each nostril * Patient taking differently: Use 2 Sprays in each nostril * CHOLECALCIFEROL (VITAMIN D3) * Take 3 tablets by mouth once *Problem List As Of Date 03/01/2017 Noted Resolved GERD (gastroesophageal reflux disease) [K21.9] INVALID FOR*08/30/2016 Hypertension [I10] INVALID FOR* Postmenopausal atrophic vaginitis [N95.2] INVALID FOR* Osteopenia [M85.80] INVALID FOR*10/15/2016 More... Hypovitaminosis D [E55.9] INVALID FOR* Hyperlipidemia [E78.5] INVALID FOR* Screening for intestinal cancer [Z12.10] INVALID FOR*03/30/2016 Breast hypertrophy in female [N62] INVALID FOR* Rheumatoid arthritis, adult (HCC) [M06.9] INVALID FOR*10/07/2015 Rheumatoid arthritis involving multiple sites w*INVALID FOR* Essential hypertension with goal blood pressure*INVALID FOR* Gastroesophageal reflux disease without esophag*INVALID FOR* Osteoporosis [M81.0] INVALID FOR* Compression fracture of spine, non-traumatic (H* More...Prescriptions ordered this encounter Disp Refills Start End OMEPRAZOLE 20 MG TABLET,DELAYED RELE* 30 t* 1 03/01/2017 Class: Med Update Route: ORAL Sig: Take 20 mg by mouth once daily. ATORVASTATIN 10 MG TABLET 90 t* 3 03/01/2017 Route: ORAL Sig: Take 1 tablet by mouth once daily.Medications Discontinued During This Encounter ranitidine (ZANTAC) 150 mg tablet 60 t* 5 10/15/2016 03/01/2017 Route: ORAL Sig: Take 1 tablet by mouth twice daily. Disc: Reason for discontinue is not on file. cyclobenzaprine (FLEXERIL) 10 mg tab* 30 t* 1 01/11/2017 03/01/2017 Cmt: This prescription was filled on 01/11/2017. Any refills authorized will be placed on file. Sig: TAKE ONE TABLET BY MOUTH THREE TIMES DAILY NEEDED Disc: Reason for discontinue is not on file. atorvastatin (LIPITOR) 10 mg tablet 90 t* 3 03/01/2016 03/01/2017 Route: ORAL Sig: Take 1 tablet by mouth once daily. Disc: Reason for discontinue is not on file.Disposition: Return in about 6 months (around 08/29/2017).Follow-up and Disposition History RecordedEncounter Number: [id number] Status:Closed by GRZEGORZ RAMON MD on 03/01/17 [facility] PROGRESSon 03-01-2017 PROGRESS HNO ID: [id number] thor: Grzegorz Hernandez) Chapis: (none)Author Type: PhysicianType: Progress NotesFiled: 03/01/2017 2:20 PMNote Text:Chief ComplaintPatient presents with:6 Month ExamHPIMarebecca Pryor is a 61 year old female who presents here today forAbove Complaints.Since last appointment, patient has been seen by Dr. Hernandez regarding herthoracic spine fractures and he recommended against back bracing andreferred patient to PT. This helped with pain, but is still not completelyresolved so has order pending for MRI which is to be done next week andhas finished taking flexeril. Patient is still taking Fosamax, but forgotthis week so will be starting back next week.Still seeing Dr. Kiran for her RA and is working bringing her dose ofher prednisone down and is at 5mg down from 10mg. Still on methotrexate asprescribed.Tried coming off of the PPI and tried the Zantac which did not work forher symptoms. 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 Has not been checking at home. Takingmedications as prescribed without side effects.Discussed labs showing YING. Advised pushing PO fluids, avoiding NSAIDs,and patient will have rechecked when she sees Dr. Kiran in about 3months.Past medical history, appointments, medications, allergies reviewed.Previous Medical HistoryPAST MEDICAL HISTORYDiagnosis Date- Atrial fibrillation (HCC) Atrial fibrillation, seeing Dr. Gregorio- Compression fracture of spine, non-traumatic (HCC) thoracic spine- GERD (gastroesophageal reflux disease) 05/31/2009- Hemorrhoids- HTN (hypertension)- Hyperlipidemia- Hypothyroidism- Osteoarthritis knees- Osteoporosis 10/2016- Postmenopausal atrophic vaginitis- Rheumatoid arthritis (HCC) Seeing Dr. Kiran- Rosacea conjunctivitis of both eyes Seeing Dr. Garcia- ScoliosisPrevious Surgical HistoryPAST SURGICAL HISTORYProcedure Laterality Date- PAST SURGICAL HISTORY OF 2010 torn tendon in right ankle- REMOVAL ADENOIDS,PRIMARY,<11 Y/O Adenoidectomy- REMOVAL OF TONSILS,<11 Y/O Tonsillectomy- TOTAL ABDOM HYSTERECTOMY 2002 tahbso- TOTAL KNEE REPLACEMENT Knee replacement, total, RightFamily HistoryFAMILY HISTORYProblem Relation Age of Onset- Heart Father pacemaker- Hypertension Father- Allergies Father- gluacoma [OTHER] Father- macular degeneration [OTHER] Father- Stroke Mother- Thyroid Mother- Obesity Mother- Dementia [OTHER] Mother- obese [OTHER] BrotherPatient AllergiesALLERGIESAllergen Reactions- Mangoes Itching- Penicillin G Swelling- Penecillin Products* Other: See Comments As a child developed reaction, advised to take no moreCurrent MedicationsCurrent Outpatient Prescriptions on File Prior to Visit:cyclobenzaprine (FLEXERIL) 10 mg tablet TAKE ONE TABLET BY MOUTH THREETIMES DAILY NEEDEDranitidine (ZANTAC) 150 mg tablet Take 1 tablet by mouth twice daily.alendronate (FOSAMAX) 70 mg tablet Take 1 tablet by mouth once each week.Take with a full glass of water, on an empty stomach; do NOT lie down [id number].METHOTREXATE SODIUM ORAL Take 20 mg by mouth once each week.naproxen (NAPROSYN) 500 mg tablet Take 1 tablet by mouth twice daily withmeals.albuterol HFA (VENTOLIN HFA) 90 mcg/actuation inhaler Inhale 2 Puffs asinstructed every 4 hours as needed for Wheezing/Shortness of Breath.folic acid 1 mg tablet Take 1 tablet by mouth twice daily.irbesartan (AVAPRO) 150 mg tablet Take 1 tablet by mouth once daily.levothyroxine (SYNTHROID) 50 mcg tablet Take 1 tablet by mouth dailybefore breakfast.hydroxychloroquine (PLAQUENIL) 200 mg tablet Take 1 tablet by mouth twicedaily.predniSONE (DELTASONE) 5 mg tablet Take 1-2 tablets by mouth once daily.estradiol (ESTRACE) 0.01 % (0.1 mg/gram) vaginal cream Use fingertipamount nightly x 2 weeks, then every other night x 2 weeks, then 1-2xweekly for maintenanceatorvastatin (LIPITOR) 10 mg tablet Take 1 tablet by mouth once daily.metoprolol succinate ER (TOPROL XL) 25 mg 24 hr tablet Take 1 tablet bymouth once daily.triamcinolone acetonide (NASACORT AQ) 55 mcg nasal inhaler Use 2 Sprays ineach nostril once daily. (Patient taking differently: Use 2 Sprays in eachnostril as needed.)Cholecalciferol, Vitamin D3, 1,000 unit Tab Take 3 tablets by mouth oncedaily.No current facility-administered medications on file prior to visit.Social HistorySocial History Marital status: Spouse name: Martir Years of education: Number of children: 1Occupational HistoryOccupation Employer Comment[employer]* RetiredSocial History Main Topics Smoking status: Former Smoker Packs/day: 1.50 Years: 10.00 Types: Cigarettes Quit date: 06/10/1979 Smokeless status: Never Used Alcohol use: Yes Comment: Socially Drug use: No Sexual activity: Yes Comment: HysterectomyReview of SymptomsREVIEW OF SYSTEMSGENERAL: No weight loss, malaise or feversRESPIRATORY: Negative for cough, hemoptysis, wheezing, COPD, dyspnea orshortness of breathCARDIOVASCULAR: Negative for chest pain, leg swelling, hypertension, CHFor palpitationsGI: No nausea, vomiting, or diarrheaSKIN: Negative for lesions, rash, and itchingEXAM:BP 148/88 Pulse 96 Resp 16 Wt 83.9 kg (185 lb) BMI 31.76 kg/e9Ztphnch Appearance: Well appearing, alert, in no acute distress,well-hydrated, well nourished..Skin: Skin color, texture, turgor normal, no suspicious rashes or lesions.Lungs: Lungs clear to auscultation. No wheezing, rhonchi, rales.Heart: RRR without murmur, gallop, or rubs. No ectopy.Abdomen: Normal abdominal exam, Abdomen soft, non-tender. Bowel soundsnormal. No masses, organomegaly.Extremities: No deformities, edema, skin discoloration, clubbing orcyanosis. Good capillary refill. .Health Maintenance ListTETANUS due on 1965HEPATITIS C SCREENING due on 1998MAMMOGRAM due on 01/15/2017INFLUENZA(1) due on 02/08/2017DIABETES SCREEN due on 02/21/2020LIPID SCREEN due on 2COLORECTAL CANCER SCREENING,SEE MODIFIER due on 01/09/2023ZOSTAVAX CompletedData reviewedComponent Latest Ref Rng AND Units 01/31/2016 02/20/2017WBC 3.70 - 11.00 k/uL 7.89RBC 3.90 - 5.20 m/uL 4.67Hemoglobin 11.5 - 15.5 g/dL 13.8Hematocrit 36.0 - 46.0 % 43.0MCV 80.0 - 100.0 fL 92.1MCH 26.0 - 34.0 pG 29.6MCHC 30.5 - 36.0 g/dL 32.1RDW-CV 11.5 - 15.0 % 13.7Platelet Count 150 - 400 k/uL 253MPV 9.0 - 12.7 fL 12.0Neut% % 59.7Abs Neut (ANC) 1.45 - 7.50 k/uL 4.72Lymph% % 25.9Abs Lymph 1.00 - 4.00 k/uL 2.04Mono% % 11.8Abs Harding 0.00 - 0.86 k/uL 0.93 (H)Eosin% % 2.2Abs Eosin 0.00 - 0.45 k/uL 0.17Baso% % 0.4Abs Baso 0.00 - 0.10 k/uL 0.03Diff Type Auto DiffProtein, Total 6.0 - 8.4 g/dL 6.6Albumin 3.5 - 5.0 g/dL 3.8Calcium 8.5 - 10.2 mg/dL 9.3 9.5Bilirubin, Total 0.0 - 1.5 mg/dL 0.3Alkaline Phosphatase 40 - 150 U/L 55AST 7 - 40 U/L 20Glucose 74 - 99 mg/dL 82 67 (L)BUN 7 - 21 mg/dL 17 14Creatinine 0.58 - 0.96 mg/dL 0.75 0.98 (H)Sodium 136 - 144 mmol/L 140 140Potassium 3.7 - 5.1 mmol/L 4.3 3.9Chloride 97 - 105 mmol/L 101 101CO2 22 - 30 mmol/L 24 26Anion Gap 9 - 18 mmol/L 15 13ALT 0 - 45 U/L 16eGFR- >60 >60eGFR-All Other Races . >60 58Triglyceride 30 - 149 mg/dL 118 107Cholesterol 100 - 199 mg/dL 167 169HDL Cholesterol >55 mg/dL 53 (L) 71VLDL Cholesterol 6 - 40 mg/dL 24 21LDL Cholesterol 60 - 129 mg/dL 90 77Fasting Time hrs FASTING 12TC:HDL Ratio 1.00 - 5.00 3.15 2.38LDL:HDL Ratio 0.50 - 3.55 1.70 1.08Non HDL Cholesterol 90 - 159 mg/dL 114 98Hemoglobin A1C 4.3 - 5.6 % 5.3Estimated Average Glucose mg/dL 105TSH 0.400 - 5.500 uU/mL 1.370ASSESSMENT/PLAN:1. Non-traumatic compression fracture of vertebra, sequela - ICD9: 905.1,ICD10: M48.50XS (primary diagnosis)Patient to continue to follow up with ortho. Will await MRI results andhave her continue fosamax and calcium/vitamin D.2. Mixed hyperlipidemia - ICD9: 272.2, ICD10: E78.2- good control- Continue current medication.- Encouraged following a low fat, low cholesterol diet.- Discussed the benefits of regular aerobic exercise and weight loss.3. Gastroesophageal reflux disease without esophagitis - ICD9: 530.81,ICD10: K21.9Stop Zantac, restart omeprazole. Discussed weight loss and diet.4. Essential hypertension with goal blood pressure less than 140/90 -ICD9: 401.9, ICD10: I10- poor control- Encouraged dietary sodium restriction/DASH diet- Recommended regular aerobic exercise.- Follow up in 2 weeks for BP recheck.- Reviewed risks of HTN and principles of treatment- Goal of BP <140/905. Rheumatoid arthritis involving multiple sites with positive rheumatoidfactor (HCC) - ICD9: 714.0, ICD10: M05.79Patient to continue methotrexate and prednisone. Follow up with .6. Osteoporosis with current pathological fracture with routine healing,unspecified osteoporosis type, subsequent encounter - ICD9: V54.29,733.00, ICD10: M80.00XD- continue tx with alendronate (Fosamax)- Reviewed the need for Calcium and Vitamin D supplements and weightbearing exercise as tolerated7. Acute kidney insufficiency - ICD9: 593.9, ICD10: N28.9Will have rechecked with next labs from Dr. Kiran's office. Advisedimproved PO fluids and avoidance of NSAIDs.Grzegorz Ramon MD [facility] Basic Metabolic Panlon 02-20 Anion gap 13 mmol/L Normal 9-18 [facility] Comment on above: Performed By: #### B MP, LIPB, TSH, HBA1C ####[place] [id number] [place] [phone] Calcium 9.5 mg/dL Normal 8.5-10.2 [facility] Comment on above: Performed By: #### B MP, LIPB, TSH, HBA1C ####[facility] [place], [place] [phone] Chloride 101 mmol/L Normal 97-105 [facility] Comment on above: Performed By: #### B MP, LIPB, TSH, HBA1C ####[place] [address] [place], [place] [phone] CO2 26 mmol/L Normal 22-30 [facility] Comment on above: Performed By: #### B MP, LIPB, TSH, HBA1C ####[facility] [address] [place], [place] [phone] Creatinine 0.98 mg/dL High 0.58-0.96 [facility] Comment on above: Performed By: #### B MP, LIPB, TSH, HBA1C ####[facility] [address] [place], [place] [phone] eGFR (non-black) mL/min/{1.73_m2} Normal [facility] Comment on above: Performed By: #### B MP, LIPB, TSH, HBA1C ####[facility] [id number] [place] [address], [place] [phone] eGFR (non-black) 58 . Normal [facility] Comment on above: Result Comment: eGFR (Estimated GFR) Units of measure: mL/min/1.73 meters squaredeGFR is derived from the reexpressed MDRD Study equation using the following parameters: serum creatinine, age, gender and race. The creatinine assay has been calibrated to be traceable to IDMS.An eGFR <60 mL/min/1.73m2 for >3 months is consistent with chronic kidney disease. Refer to KDOQI guidelines for clinical interpretation.In patients with unstable renal function, e.g. those with acute kidney injury, the eGFR may not accurately reflect actual GFR. Performed By: #### B MP, LIPB, TSH, HBA1C ####[facility] [id number] [place], [place] [phone] Glucose mass conc 67 mg/dL Low 74-99 [facility] Comment on above: Result Comment: The [place] Diabetes Association (ADA) provides guidance for cutoff values for fasting glucose and random glucose. The ADA defines fasting as no caloric intake for at least 8 hours. Fasting plasma glucose results between 100 to 125 mg/dL indicate increased risk for diabetes (prediabetes).Fasting plasma glucose results greater than or equal to 126 mg/dL meet the criteria for diagnosis of diabetes. In the absence of unequivocal hyperglycemia, results should be confirmed by repeat testing. In a patient with classic symptoms of hyperglycemia or hyperglycemic crisis, random plasma glucose results greater than or equal to 200 mg/dL meet the criteria for diagnosis of diabetes.Reference: Standards of Medical Care in Diabetes 2016, [place] Diabetes Association. Diabetes Care. 2016.39(Suppl 1). Performed By: #### B MP, LIPB, TSH, HBA1C ####[place] [address] [place] [address], [place] [phone] Potassium molar conc 3.9 mmol/L Normal 3.7-5.1 [facility] Comment on above: Performed By: #### B MP, LIPB, TSH, HBA1C ####[place] [address] [address], [place] [phone] Sodium 140 mmol/L Normal 136-144 [facility] Comment on above: Performed By: #### B MP, LIPB, TSH, HBA1C ####[place] [address] [place], [place] [phone] Urea nitrogen 14 mg/dL Normal 7-21 [facility] Comment on above: Performed By: #### B MP, LIPB, TSH, HBA1C ####[address] [place], [place] [phone] Hemoglobin A1con 02-20-2017 Glucose mass conc 105 mg/dL Normal [facility] Comment on above: Result Comment: eAG: (Estimated average glucose) is a calculated value from HgbA1c and is cordage sales representative of the average blood glucose level in the last 2-3 month period. Performed By: #### B MP, LIPB, TSH, HBA1C ####[address] [phone] Hemoglobin A1c/Hemoglobin.total mass fraction (Bld) 5.3 % Normal 4.3-5.6 [facility] Comment on above: Performed By: #### B MP, LIPB, TSH, HBA1C ####[place] [address], [place] [phone] Lipid Panel, Bas[place] 017 Cholesterol 169 mg/dL Normal 100-199 [facility] Comment on above: Performed By: #### B MP, LIPB, TSH, HBA1C ####[address] [place] [phone] Fasting Time 12 hrs Normal [facility] Comment on above: Performed By: #### B MP, LIPB, TSH, HBA1C ####[facility] [place] [phone] HDL Cholesterol 71 mg/dL Normal >55 [facility] Comment on above: Performed By: #### B MP, LIPB, TSH, HBA1C ####[place] [address] [place] [phone] LDL Cholesterol 77 mg/dL Normal 60-129 [facility] Comment on above: Performed By: #### B MP, LIPB, TSH, HBA1C ####[place] [address] [place] [place] [phone] LDL:HDL Ratio 1.08 Normal 0.50-3.55 [facility] Comment on above: Performed By: #### B MP, LIPB, TSH, HBA1C ####[place] [address] [phone] Non HDL Cholesterol 98 mg/dL Normal 90-159 [facility] Comment on above: Performed By: #### B MP, LIPB, TSH, HBA1C ####[place] [address] [place] [phone] TC:HDL Ratio 2.38 Normal 1.00-5.00 [facility] Comment on above: Performed By: #### B MP, LIPB, TSH, HBA1C ####[facility] [place] [phone] Triglyceride 107 mg/dL Normal 30-149 [facility] Comment on above: Performed By: #### B MP, LIPB, TSH, HBA1C ####[place] [address] [place] [phone] VLDL Cholesterol 21 mg/dL Normal 6-40 [facility] Comment on above: Performed By: #### B MP, LIPB, TSH, HBA1C ####[facility] [address], [place] [phone] TSHon 02-20-2017 Thyroid stimulating hormone (TSH) 1.370 uU/mL Normal 0.400-5.50 0 [facility] Comment on above: Performed By: #### B MP, LIPB, TSH, HBA1C ####[facility] [address] [place], [place] [phone] OBSOLETEon 01-11-2017 OBSOLETE Refill (FAMPWS) ----ROSAMARIA PRYOR ([id number]) [address] [facility] Provider Department01/11/17 GRZEGORZ RAMNO) FAMPWS During your visit today, we recorded the following information about you:Chelo Goode PharmD 01/11/2017 1:06 PM SignedDrMario Ramon -Please review pended medication orders. Sending to PCP to review ongoing use.Per previous refill encounter, pt has appt with [facility].DOM: 10/15/2016NOV: 03/01/2017Thank you.Pharmacist Refill Authorization ReviewName: Rosamaria PryorMRN: [id number]: 01/11/2017Time: 1:05 PMRefill authorization request(s) received via pharmacy request and reviewedunder effective consult agreement. Upon review, did confirm that an activepatient-provider relationship exists and that the prescriber is a participatingphysician under the consult agreement.The medication(s) fall under the following categories:Category 3: 1 corresponding medication(s) does not qualify for renewal due toneeding a physician consult and review.Additional actions taken: Contacted prescriber to discuss.Kandy GrullonDPharmacy Managed Authorization CenterPhone Current Outpatient Prescriptions:cyclobenzaprin e (FLEXERIL) 10 mg tablet Take 1 tablet by mouth three timesdaily as needed.ranitidine (ZANTAC) 150 mg tablet Take 1 tablet by mouth twice daily.alendronate (FOSAMAX) 70 mg tablet Take 1 tablet by mouth once each week. Takewith a full glass of water, on an empty stomach; do NOT lie down for 30minutes.METHOTREXATE SODIUM ORAL Take 17.5 mg by mouth once each week.naproxen (NAPROSYN) 500 mg tablet Take 1 tablet by mouth twice daily withmeals.albuterol HFA (VENTOLIN HFA) 90 mcg/actuation inhaler Inhale 2 Puffs asinstructed every 4 hours as needed for Wheezing/Shortness of Breath.folic acid 1 mg tablet Take 1 tablet by mouth twice daily.irbesartan (AVAPRO) 150 mg tablet Take 1 tablet by mouth once daily.levothyroxine (SYNTHROID) 50 mcg tablet Take 1 tablet by mouth daily beforebreakfast.hydroxychlor oquine (PLAQUENIL) 200 mg tablet Take 1 tablet by mouth twicedaily.predniSONE (DELTASONE) 5 mg tablet Take 1-2 tablets by mouth once daily.estradiol (ESTRACE) 0.01 % (0.1 mg/gram) vaginal cream Use fingertip amountnightly x 2 weeks, then every other night x 2 weeks, then 1-2x weekly formaintenanceatorvastatin (LIPITOR) 10 mg tablet Take 1 tablet by mouth once daily.metoprolol succinate ER (TOPROL XL) 25 mg 24 hr tablet Take 1 tablet by mouthonce daily.triamcinolone acetonide (NASACORT AQ) 55 mcg nasal inhaler Use 2 Sprays in eachnostril once daily. (Patient taking differently: Use 2 Sprays in each nostrilas needed.)Cholecalciferol, Vitamin D3, 1,000 unit Tab Take 3 tablets by mouth once daily.No current facility-administered medications for this visit.Grzegorz Ramon MD 01/11/2017 1:17 PM SignedEnough given to get to next scheduled appointment.Cj Crowell Ma 01/11/2017 2:17 PM SignedThe following approved medication requests have been transmitted electronically.Signed Prescriptions Disp Refills cyclobenzaprine (FLEXERIL) 10 mg tablet 30 tablet 1 Sig: TAKE ONE TABLET BY MOUTH THREE TIMES DAILY NEEDED ROSELIA: No Authorizing Provider: GRZEGORZ RAMON)Cj Mcclain As of Date: 01/11/2017 Noted Allergy ReactionMANGOES 09/08/2011 9 - ItchingPENICILLIN G 07/10/2005 7 - Swellingpenecillin products [Other] 07/24/2010 14 - Other: See Comments Comments: As a child developed reaction, advised to take no moreDate Reviewed: 10/15/2016Reviewed by: Olivier Cortez Ma - Fully AssessedReason for Visit: Refill Request [94]Order(s):cyclobenzaprine (FLEXERIL) 10 mg tabletTAKE ONE TABLET BY MOUTH THREE TIMES DAILY NEEDEDDisp: 30 tabletRfl: 1Prescriptions as of 01/11/2017 Sig: CYCLOBENZAPRINE 10 MG TABLET TAKE ONE TABLET BY MOUTH THRE* RANITIDINE 150 MG TABLET Take 1 tablet by mouth twice * ALENDRONATE 70 MG TABLET Take 1 tablet by mouth once e* METHOTREXATE SODIUM ORAL Take 17.5 mg by mouth once ea* NAPROXEN 500 MG TABLET Take 1 tablet by mouth twice * ALBUTEROL SULFATE HFA 90 MCG/* Inhale 2 Puffs as instructed * FOLIC ACID 1 MG TABLET Take 1 tablet by mouth twice * IRBESARTAN 150 MG TABLET Take 1 tablet by mouth once d* LEVOTHYROXINE 50 MCG TABLET Take 1 tablet by mouth daily * HYDROXYCHLOROQUINE 200 MG TAB* Take 1 tablet by mouth twice * PREDNISONE 5 MG TABLET Take 1-2 tablets by mouth onc* ESTRADIOL 0.01% (0.1 MG/GRAM)* Use fingertip amount nightly * ATORVASTATIN 10 MG TABLET Take 1 tablet by mouth once d* METOPROLOL SUCCINATE ER 25 MG* Take 1 tablet by mouth once d* TRIAMCINOLONE ACETONIDE 55 MC* Use 2 Sprays in each nostril * Patient taking differently: Use 2 Sprays in each nostril * CHOLECALCIFEROL (VITAMIN D3) * Take 3 tablets by mouth once *Problem List As Of Date 01/11/2017 Noted Resolved GERD (gastroesophageal reflux disease) [K21.9] INVALID FOR*08/30/2016 Hypertension [I10] INVALID FOR* Postmenopausal atrophic vaginitis [N95.2] INVALID FOR* Osteopenia [M85.80] INVALID FOR*10/15/2016 More... Hypovitaminosis D [E55.9] INVALID FOR* Hyperlipidemia [E78.5] INVALID FOR* Screening for intestinal cancer [Z12.10] INVALID FOR*03/30/2016 Breast hypertrophy in female [N62] INVALID FOR* Rheumatoid arthritis, adult (HCC) [M06.9] INVALID FOR*10/07/2015 Rheumatoid arthritis involving multiple sites w*INVALID FOR* Essential hypertension with goal blood pressure*INVALID FOR* Gastroesophageal reflux disease without esophag*INVALID FOR* Osteoporosis [M81.0] INVALID FOR*Prescriptions ordered this encounter Disp Refills Start End CYCLOBENZAPRINE 10 MG TABLET 30 t* 1 01/11/2017 Cmt: This prescription was filled on 01/11/2017. Any refills authorized will be placed on file. Sig: TAKE ONE TABLET BY MOUTH THREE TIMES DAILY NEEDEDMedications Discontinued During This Encounter cyclobenzaprine (FLEXERIL) 10 mg tab* 30 t* 1 10/22/2016 01/11/2017 Route: ORAL Sig: Take 1 tablet by mouth three times daily as needed. Disc: Reason for discontinue is not on file. Status:Closed by CJ CROWELL MA on 01/11/17 Normal [facility] Office Visit: Yunier 01-03-20 Dietary management education, guidance, and counseling (procedure) yes Invalid Interpretation Code [employer] Work Phone: Documentation of current medications (procedure) Done Invalid Interpretation Code [employer] Phone: Office Visiton 06-19-2016 Protein mass conc Done [employer] Work Phone: Replaced Document: Joan CHOWDHURY Observationson 02-16-2016 EKG QRS axis -8 deg [employer] Work Phone: electrocardiogram interpretation Sinus Rhythm Voltage criteria for LVH (R(I)+S(III) exceeds 2.50 mV) -Voltage criteria w/o ST/T abnormality may be normal. BORDERLINE Invalid Interpretation Code [employer] Work Phone: GE use only - for [employer] import when terms are not otherwise specified 404 ms Invalid Interpretation Code [employer] Work Phone: Interpretation Sinus Rhythm Voltage criteria for LVH (R(I)+S(III) exceeds 2.50 mV) -Voltage criteria w/o ST/T abnormality may be normal. BORDERLINE [facility] Work Phone: P [place] 31 deg [facility] Work Phone: P wave axis, electrocardiogram 31 deg Invalid Interpretation Code [facility] Work Phone: [phone] NC Interval 132 ms [facility] Work Phone: NC interval, electrocardiogram 132 ms Invalid Interpretation Code [facility] Work Phone: [phone] Pulse (Heart Rate) 92 /min Invalid Interpretation Code [facility] Work Phone: [phone] QRS axis, electrocardiogram -8 deg Invalid Interpretation Code [facility] Work Phone: QRS Duration 92 ms [facility] Work Phone: QRS duration, electrocardiogram 92 ms Invalid Interpretation Code [facility] Work Phone: QT Interval new path ms [facility] Work Phone: QT interval, electrocardiogram new path ms Invalid Interpretation Code [facility] Work Phone: QTc [place] 404 ms [facility] Work Phone: T [place] -1 deg [facility] Work Phone: T wave axis, electrocardiogram -1 deg Invalid Interpretation Code [facility] Work Phone: [phone] Clinical Lists Update: 02-08-2016 Tobacco smoking status NHIS Never smoker [facility] Work Phone: [phone] Tobacco use [facility] Never smoker Invalid Interpretation Code [facility] Work Phone: [phone] Clinical Lists Update: 01-16-2016 Anion gap 8 mmol/L Invalid Interpretation Code [facility] Work Phone: [phone] Anion gap molar conc 8 mmol/L [facility] Work Phone: [phone] Calcium mass conc 9.9 mg/dL Invalid Interpretation Code [facility] Work Phone: [phone] Chloride molar conc 104 mmol/L Invalid Interpretation Code [facility] Work Phone: [phone] CO2 27 mmol/L Invalid Interpretation Code [facility] Work Phone: [phone] CO2 ppres (BldV) 27 mmol/L [facility] Work Phone: [phone] Creatinine mass conc 0.78 mg/dL Invalid Interpretation Code [facility] Work Phone: [phone] Glucose 123 mg/dL High [facility] Work Phone: [phone] Glucose mass conc 123 mg/dL High [facility] Work Phone: [phone] Hematocrit (HCT) 44.5 % Invalid Interpretation Code [facility] Work Phone: [phone] Hematocrit Volume Fraction (Bld) 44.5 % [facility] Work Phone: [phone] Hemoglobin mass conc (Bld) 14.8 g/dL Invalid Interpretation Code [facility] Work Phone: [phone] Platelets 266 10*3/mm3 Invalid Interpretation Code [facility] Work Phone: [phone] Platelets #/vol (Bld) 266 10*3/mm3 [facility] Work Phone: [phone] Potassium molar conc 3.9 mmol/L Invalid Interpretation Code [facility] Work Phone: [phone] Sodium molar conc 139 mmol/L Invalid Interpretation Code [facility] Work Phone: [phone] Thyrotropin Qn 0.48 u[iU]/mL Invalid Interpretation Code [facility] Work Phone: [phone] Urea nitrogen mass conc 16 mg/dL Invalid Interpretation Code [facility] Work Phone: [phone] Urea nitrogen/Creatinine mass ratio 20.6 mg/mg High [facility] Work Phone: [phone] WBC #/vol (Bld) 13.0 10*3/uL High [facility] Work Phone: [phone] WBC (Leukocytes) 13.0 10*3/uL High [facility] Work Phone: [phone] Left ventricular Ejection fraction 65 % Invalid Interpretation Code [facility] Work Phone: [phone] Vital Signs Date Time Vital Sign Value Performing Clinician Faci lity 02-02-2025 10:32-0400 Body height 160.[address] Blanca Mcdermott MD Work Phone: [facility] 02-02-2025 10:32-0400 Body mass index (BMI) [Ratio] 32.4 kg/m2 Dr. Blanca Mcdermott MD Work Phone: [facility] 02-02-2025 10:32-0400 Body weight [address] Blanca Mcdermott MD Work Phone: [facility] 02-02-2025 10:32-0400 Diastolic blood pressure 79 mm[Hg] Dr. Blanac Mcdermott MD Work Phone: [facility] 02-02-2025 10:32-0400 Heart rate 66 /min Dr. Blanca Mcdermott MD Work Phone: [facility] 02-02-2025 10:32-0400 Respiratory rate 16 /min Dr. Blanca Mcdermott MD Work Phone: [facility] 02-02-2025 10:32-0400 Systolic blood pressure 137 mm[Hg] Dr. Blanca Mcdermott MD Work Phone: [facility] 10-14-2024 09:50-0400 Body height 160.[address] Blanca Mcdermott MD Work Phone: [facility] 10-14-2024 09:50-0400 Body mass index (BMI) [Ratio] 32.1 kg/m2 Dr. Blanca Mcdermott MD Work Phone: [facility] 10-14-2024 09:50-0400 Body temperature 97.9 [degF] Dr. Blanca Mcdermott MD Work Phone: [facility] 10-14-2024 09:50-0400 Body weight 82.[address] Blanca Mcdermott MD Work Phone: [facility] 10-14-2024 09:50-0400 Diastolic blood pressure 70 mm[Hg] Dr. Blanca Mcdermott MD Work Phone: [facility] 10-14-2024 09:50-0400 Heart rate 52 /min Dr. Blanca Mcdermott MD Work Phone: [facility] 10-14-2024 09:50-0400 Respiratory rate 16 /min Dr. Blanca Mcdermott MD Work Phone: [facility] 10-14-2024 09:50-0400 SaO2% (BldA) [Mass fraction] 99 % Dr. Blanca Mcdermott MD Work Phone: [facility] 10-14-2024 09:50-0400 Systolic blood pressure 116 mm[Hg] Dr. Blanca Mcdermott MD Work Phone: [facility] 07-14-2024 10:47-0500 Body height 160.[address] Blanca Mcdermott MD Work Phone: [facility] 07-14-2024 10:47-0500 Body mass index (BMI) [Ratio] 32.2 kg/m2 Dr. Blanca Mcdermott MD Work Phone: [facility] 07-14-2024 10:47-0500 Body weight 82.[address] Blanca Mcdermott MD Work Phone: [facility] 07-14-2024 10:47-0500 Diastolic blood pressure 80 mm[Hg] Dr. Blanca Mcdermott MD Work Phone: [facility] 07-14-2024 10:47-0500 Heart rate 71 /min Dr. Blanca Mcdermott MD Work Phone: [facility] 07-14-2024 10:47-0500 Respiratory rate 16 /min Dr. Blanca Mcdermott MD Work Phone: [facility] 07-14-2024 10:47-0500 Systolic blood pressure 133 mm[Hg] Dr. Blanca Mcdermott MD Work Phone: [facility] 07-03-2024 13:42-0500 Body temperature 98 [degF] Dr. Blanca Mcdermott MD Work Phone: [facility] 07-03-2024 13:42-0500 Diastolic blood pressure 78 mm[Hg] Dr. Blanca Mcdermott MD Work Phone: [facility] 07-03-2024 13:42-0500 Heart rate 74 /min Dr. Blanca Mcdermott MD Work Phone: [facility] 07-03-2024 13:42-0500 Respiratory rate 16 /min Dr. Blanca Mcdermott MD Work Phone: [facility] 07-03-2024 13:42-0500 SaO2% (BldA) [Mass fraction] 99 % Dr. Blanca Mcdermott MD Work Phone: [facility] 07-03-2024 13:42-0500 Systolic blood pressure 148 mm[Hg] Dr. Blanca Mcdermott MD Work Phone: [facility] 07-03-2024 10:12-0500 Body mass index (BMI) [Ratio] 32.8 kg/m2 Dr. Blanca Mcdermott MD Work Phone: [facility] 07-03-2024 10:12-0500 Body weight 83.[address] Blanca Mcdermott MD Work Phone: [facility] 06-29-2024 12:55-0500 Body mass index (BMI) [Ratio] 32.5 kg/m2 Dr. Blanca Mcdermott MD Work Phone: [facility] 06-29-2024 12:55-0500 Body temperature 96.1 [degF] Dr. Blanca Mcdermott MD Work Phone: [facility] 06-29-2024 12:55-0500 Body weight 83.[address] Blanca Mcdermott MD Work Phone: [facility] 06-29-2024 12:55-0500 Diastolic blood pressure 76 mm[Hg] Dr. Blanca Mcdermott MD Work Phone: [facility] 06-29-2024 12:55-0500 Heart rate 70 /min Dr. Blanca Mcdermott MD Work Phone: [facility] 06-29-2024 12:55-0500 Respiratory rate 18 /min Dr. Blanca Mcdermott MD Work Phone: [facility] 06-29-2024 12:55-0500 SaO2% (BldA) [Mass fraction] 98 % Dr. Blanca Mcdermott MD Work Phone: [facility] 06-29-2024 12:55-0500 Systolic blood pressure 124 mm[Hg] Dr. Blanca Mcdermott MD Work Phone: [facility] 09-27-2022 14:25-0400 Body height 161.[address] Blanca Mcdermott Work Phone: [facility] 09-27-2022 14:19-0400 Body mass index (BMI) [Ratio] 33.8 kg/m2 Dr. Blanca Mcdermott Work Phone: [facility] 09-27-2022 14:19-0400 Body weight 86.[address] Blanca Mcdermott Work Phone: [facility] 09-27-2022 14:19-0400 Diastolic blood pressure 88 mm[Hg] Dr. Blanca Mcdermott Work Phone: [facility] 09-27-2022 14:19-0400 Systolic blood pressure 147 mm[Hg] Dr. Blanca Mcdermott Work Phone: [facility] 09-07-2022 09:38-0400 Body mass index (BMI) [Ratio] 33.3 kg/m2 Dr. Blanca Mcdermott Work Phone: [facility] 09-07-2022 09:38-0400 Body weight 86.[address] Blanca Mcdermott Work Phone: [facility] 09-07-2022 09:38-0400 Diastolic blood pressure 73 mm[Hg] Dr. Blanca Mcdermott Work Phone: [facility] 09-07-2022 09:38-0400 Heart rate 73 /min Dr. Blanca Mcdermott Work Phone: [facility] 09-07-2022 09:38-0400 Respiratory rate 18 /min Dr. Blanca Mcdermott Work Phone: [facility] 09-07-2022 09:38-0400 Systolic blood pressure 126 mm[Hg] Dr. Blanca Mcdermott Work Phone: [facility] 08-14-2022 11:21-0500 Body mass index (BMI) [Ratio] 34.3 kg/m2 Dr. Blanca Mcdermott Work Phone: [facility] 08-14-2022 11:21-0500 Body temperature 98.1 [degF] Dr. Blanca Mcdermott Work Phone: [facility] 08-14-2022 11:21-0500 Body weight 87.[address] Blanca Mcdermott Work Phone: [facility] 08-14-2022 11:21-0500 Diastolic blood pressure 80 mm[Hg] Dr. Balnca Mcdermott Work Phone: [facility] 08-14-2022 11:21-0500 Heart rate 97 /min Dr. Blanca Mcdermott Work Phone: [facility] 08-14-2022 11:21-0500 Respiratory rate 16 /min Dr. Blanca Mcdermott Work Phone: [facility] 08-14-2022 11:21-0500 SaO2% (BldA) [Mass fraction] 93 % Dr. Blanca Mcdermott Work Phone: [facility] 08-14-2022 11:21-0500 Systolic blood pressure 142 mm[Hg] Dr. Blanca Mcdermott Work Phone: [facility] 07-12-2022 13:00-0500 Body height 162.[address] Blanca Mcdermott Work Phone: [facility] 07-12-2022 13:00-0500 Body mass index (BMI) [Ratio] 33.1 kg/m2 Dr. Blanca Mcdermott Work Phone: [facility] 07-12-2022 13:00-0500 Body temperature 96.3 [degF] Dr. Blanca Mcdermott Work Phone: [facility] 07-12-2022 13:00-0500 Body weight 87.[address] Blanca Mcdermott Work Phone: [facility] 07-12-2022 13:00-0500 Diastolic blood pressure 76 mm[Hg] Dr. Blanca Mcdermott Work Phone: [facility] 07-12-2022 13:00-0500 Heart rate 81 /min Dr. Blanca Mcdermott Work Phone: [facility] 07-12-2022 13:00-0500 Respiratory rate 16 /min Dr. Blanca Mcdermott Work Phone: [facility] 07-12-2022 13:00-0500 SaO2% (BldA) [Mass fraction] 97 % Dr. Blanca Mcdermott Work Phone: [facility] 07-12-2022 13:00-0500 Systolic blood pressure 136 mm[Hg] Dr. Blanca Mcdermott Work Phone: [facility] 05-15-2022 14:18-0500 Body height 162.56 cm [facility] Work Phone: 12-20-2021 13:01-0400 Body mass index (BMI) [Ratio] 32.2 kg/m2 Dr. Blanca Mcdermott Work Phone: [facility] Work Phone: 12-20-2021 13:00-0400 Body height 162.[address] Blanca Mcdermott Work Phone: [facility] Work Phone: 12-20-2021 13:00-0400 Body temperature 97.2 [degF] Dr. Blanca Mcdermott Work Phone: [facility] Work Phone: 12-20-2021 13:00-0400 Body weight 84.[address] Blanca Mcdermott Work Phone: [facility] Work Phone: 12-20-2021 13:00-0400 Diastolic blood pressure 88 mm[Hg] Dr. Blanca Mcdermott Work Phone: [facility] Work Phone: 12-20-2021 13:00-0400 Heart rate 73 /min Dr. Blanca Mcdermott Work Phone: [facility] Work Phone: 12-20-2021 13:00-0400 Respiratory rate 14 /min Dr. Blanca Mcdermott Work Phone: [facility] Work Phone: 12-20-2021 13:00-0400 SaO2% (BldA) [Mass fraction] 98 % Dr. Blanca Mcdermott Work Phone: [facility] Work Phone: 12-20-2021 13:00-0400 Systolic blood pressure 132 mm[Hg] Dr. Blanca Mcdermott Work Phone: [facility] Work Phone: 08-29-2021 11:04-0400 Body mass index (BMI) [Ratio] 32.1 kg/m2 Dr. Blanca Mcdermott Work Phone: [facility] Work Phone: 08-29-2021 11:04-0400 Body weight 84.[address] Blanca Mcdermott Work Phone: [facility] Work Phone: 08-29-2021 11:04-0400 Diastolic blood pressure 86 mm[Hg] Dr. Blanca Mcdermott Work Phone: [facility] Work Phone: 08-29-2021 11:04-0400 Heart rate 76 /min Dr. Blanca Mcdermott Work Phone: [facility] Work Phone: 08-29-2021 11:04-0400 Respiratory rate 16 /min Dr. Blanca Mcdermott Work Phone: [facility] Work Phone: 08-29-2021 11:04-0400 SaO2% (BldA) [Mass fraction] 95 % Dr. Blanca Mcdermott Work Phone: [facility] Work Phone: 08-29-2021 11:04-0400 Systolic blood pressure 138 mm[Hg] Dr. Blanca Mcdermott Work Phone: [facility] Work Phone: 01-02-2017 08:23-0400 BMI (Body Mass Index) 31.94 kg/m2 [facility] Work Phone: 01-02-2017 08:23-0400 BP Diastolic 72 mm[Hg] [facility] Work Phone: 01-02-2017 08:23-0400 BP Systolic 132 mm[Hg] Casi Avalos [facility] Work Phone: 01-02-2017 08:23-0400 Pulse (Heart Rate) 80 /min Casi Avalos [facility] Work Phone: 01-02-2017 08:23-0400 Weight 85.73 kg Casi Avalos [facility] Work Phone: 06-19-2016 11:12-0500 BMI (Body Mass Index) 31.94 kg/m2 Harjoslyn DeFinlei [facility] Work Phone: 06-19-2016 11:12-0500 BP Diastolic 70 mm[Hg] Harumi DeFinis [facility] Work Phone: 06-19-2016 11:12-0500 BP Systolic 122 mm[Hg] Harumi DeFinis [facility] Work Phone: 06-19-2016 11:12-0500 BSA (Body Surface Area) 1.92 m2 Harumi DeFinis [facility] Work Phone: 06-19-2016 11:12-0500 Pulse (Heart Rate) 84 /min Harumi DeFinis [facility] Work Phone: 06-19-2016 11:12-0500 Respiratory Rate 20 /min Harumi DeFinis [facility] Work Phone: 06-19-2016 11:12-0500 Weight 85.73 kg Harumi DeFinis [facility] Work Phone: 02-16-2016 15:01-0400 Heart rate 92 /min Harumi DeFinis [facility] Work Phone: 02-16-2016 14:36-0400 Height 163.83 cm Harumi DeFinis [facility] Work Phone: 02-16-2016 14:36-0400 Pulse Oximetry 97 % Harumi DeFinis [facility] Work Phone: Encounters Encounter Date Encounter Type Care Provider Facility Start: 03-15-2025 End: 03-15-2025 Patient encounter procedure BIM NURSE -[facility] Work Phone: Start: 03-15-2025 End: 03-15-[address] Blanca Mcdermott MD Work Phone: -[facility] Start: 02-02-2025 End: 02-02-[address] Per Gregorio MD -[facility] Work Phone: Start: 02-02-2025 End: 02-02-[address] Blanca Mcdermott MD Work Phone: -[facility] Start: 01-18-2025 End: 01-18-[address] Blanca Mcdermott MD Work Phone: -[facility] Start: 01-18-2025 End: 01-18-[address] Patience Kiran MD -[facility] Work Phone: Start: 01-18-2025 End: 01-18-2025 ambulatory [facility] Facility:[facility] Start: 10-16-2024 End: 10-16-[address] Blanca Mcdermott MD Work Phone: [facility] Work Phone: Start: 10-16-2024 End: 10-16-[address] Patience Kiran MD -Laboratory, [place] Start: 10-16-2024 End: 10-16-2024 ambulatory [facility] Facility:[facility] Start: 10-14-2024 End: 10-14-[address] Blanca Mcdermott MD -[facility] Work Phone: Start: 10-14-2024 End: 10-14-[address] Blanca Mcdermott MD Work Phone: [facility] Work Phone: Start: 10-14-2024 End: 10-14-2024 ambulatory [facility] Facility:[facility] Start: 09-14-2024 End: 09-14-[address] Blanca Mcdermott MD Work Phone: [facility] Work Phone: Start: 09-14-2024 End: 09-14-[address] Blanca Mcdermott MD -Physical Therapy Work Phone: Start: 07-23-2024 End: 07-23-[address] Patience Kiran MD -Laboratory, [place] Work Phone: Start: 07-23-2024 End: 07-23-2024 ambulatory Patience Kiran Facility:[facility] Start: 07-21-2024 End: 07-21-[address] Blanca Mcdermott MD -Outpatient Bone Densitometry Work Phone: Start: 07-21-2024 End: 07-21-2024 ambulatory [facility] Facility:[facility] Start: 07-17-2024 End: 07-17-[address] Blanca Mcdermott MD -Laboratory, [place] Work Phone: Start: 07-17-2024 End: 07-17-2024 ambulatory [facility] Facility:[facility] Start: 07-14-2024 End: 07-14-[address] Per Gregorio MD -[facility] Work Phone: Start: 07-14-2024 End: 07-14-2024 ambulatory [facility] Start: 07-03-2024 End: 07-03-2024 Emergency department patient visit Dr. Michael Britton DO -Emergency Department Work Phone: Start: 07-02-2024 End: 07-02-[address] Blanca Mcdermott MD -Laboratory, [place] Work Phone: Start: 07-02-2024 End: 07-02-2024 ambulatory [facility] Facility:[facility] Start: 06-29-2024 End: 06-29-[address] [facility] Work [facility] Start: 06-29-2024 End: 06-29-[address] Blanca Mcdermott MD -[facility] Work Phone: Start: 06-29-2024 End: 06-29-2024 ambulatory [facility] Start: 06-29-2024 End: 06-29-2024 ambulatory [facility] Facility:[facility] Start: 04-30-2024 End: 04-30-2024 ambulatory [facility] Facility:[facility] Start: 12-25-[address] Blanca Mcdermott MD Work Phone: [facility] Start: 10-02-2023 End: 10-02-2023 ambulatory [facility] Work Phone: Start: 10-02-2023 End: 10-02-2023 Patient encounter procedure [facility]patient [facility] Work Phone: Start: 08-15-2023 End: 08-15-2023 ambulatory [facility] Work Phone: Start: 08-15-2023 End: 08-15-2023 [facility] Start: 05-15-2023 End: 05-15-2023 ambulatory [facility] Work Phone: Start: 05-15-2023 End: 05-15-2023 Patient encounter procedure [facility] Work Phone: Start: 02-05-2023 End: 02-05-2023 [facility] Work Phone: Start: 11-09-2022 End: 11-09-[address] Blanca Mcdermott Work Phone: [facility] Work Phone: Start: 11-09-2022 End: 11-09-[address] Blanca Mcdermott Work Phone: [facility] Start: 09-27-2022 End: 09-27-[address] Blanca Mcdermott Work Phone: [facility] Start: 09-07-2022 End: 09-07-[address] Blanca Mcdermott Work Phone: [facility] Start: 08-14-2022 End: 08-14-[address] Blanca Mcdermott Work Phone: [facility] Start: 08-02-2022 End: 08-02-[address] Blanca Mcdermott Work Phone: [facility] Work Phone: Start: 08-02-2022 End: 08-02-[address] Blanca Mcdermott Work Phone: [facility] Start: 07-12-2022 End: 07-12-[address] Blanca Mcdermott Work Phone: [facility] Start: 05-15-2022 End: 05-15-2022 ambulatory [facility] Work Phone: Start: 05-15-2022 End: 05-15-2022 Patient encounter procedure [facility]patient [facility] Start: 04-12-2022 End: 04-12-2022 Patient encounter procedure [facility] Start: 01-10-2022 End: 01-10-[address] Blanca Mcdermott Work Phone: [facility]-Laboratory Start: 12-20-[address] Blanca Mcdermott Work Phone: [facility] Start: 12-20-2021 End: 12-20-2021 Encounter for general adult medical examination without abnormal findings Dr. Blanca Mcdermott Work Phone: [facility] Start: 12-20-2021 End: 12-20-[address] Blanca Mcdermott Work Phone: [facility] Start: 12-18-2021 End: 12-18-[address] Blanca Mcdermott Work Phone: [facility] Start: 08-29-2021 End: 08-29-[address] Blanca Mcdermott Work Phone: [facility] Start: 10-31-[address] Blanca Mcdermott Work Phone: [facility] Start: 04-09-2017 End: 04-11-2017 Ambulatory [facility] Start: 03-18-2017 End: 03-18-2017 Ambulatory [facility] Start: 03-01-2017 End: 03-01-2017 Ambulatory GRZEGORZ Mclean MD [facility] Start: 02-20-2017 End: 02-20-2017 Ambulatory GRZEGORZ Mclean MD [facility] Procedures Date Procedure Procedure Detail Performing Clinician Start: 10-14-2024 CT of head without contrast Dr. Blanca Mcdermott MD Work Phone: Start: 07-23-2024 Measurement of renal function Dr. Blanca Mcdermott MD Work Phone: Comment on above: GFR Calc Start: 07-21-2024 Dual energy X-ray absorptiometry Dr. Blanca Mcdermott MD Work Phone: Start: 07-17-2024 Urnls dip stick/tabl et reagent auto microscopy Dr. Blanca Mcdermott MD Work Phone: Start: 07-03-[address] Blanca Mcdermott MD Work Phone: Start: 07-03-2024 Measurement of renal function Dr. Blanca Mcdermott MD Work Phone: Comment on above: GFR Calc Start: 07-03-2024 Computed tomography of abdomen and pelvis with intravenous contrast Dr. Blanca Mcdermott MD Work Phone: Start: 07-03-2024 Urnls dip stick/tabl et reagent auto microscopy Dr. Blanca Mcdermott MD Work Phone: Start: 07-02-[address] Macey Mcdermott MD Work Phone: Start: 07-02-2024 Urnls dip stick/tabl et reagent auto microscopy Dr. Blanca Mcdermott MD Work Phone: Start: 06-29-2024 Plain X-ray of shoulder Dr. Blanca Mcdermott MD Work Phone: Start: 10-02-2023 Screening mammography Start: 05-15-2022 Dual energy X-ray absorptiometry Start: 05-15-2022 Screening mammography Start: 01-02-2017 End: 01-02-2017 JONATHON Mac CRYPTOGRAPHIC MACHINE OPERATOR Work Phone: Start: 01-02-2017 End: 01-02-2017 Follow Up Appt 6 months Yaw Mac CRYPTOGRAPHIC MACHINE OPERATOR Work Phone: Start: 06-19-2016 End: 06-19-2016 JONATHON Gregorio MD Start: 06-19-2016 End: 06-19-2016 Follow Up Appt 6 months Ton Corbin Start: 02-16-2016 End: 02-16-2016 Dietary management education, guidance, and counseling Oliver Stovall Start: 02-16-2016 End: 02-16-2016 Follow Up Appt 4 months Ton Corbin Start: 02-16-2016 End: 02-16-2016 MMM Per Gregorio MD Plan of Treatment Date Care Activity Detail Author Start: 02-02-2025 End: 02-02-2025 Evaluation of diagnostic study results [facility] Start: 07-03-2024 [facility] Start: 06-29-2024 Patient referral [facility] Work Phone: Start: 07-04-2017 End: 07-04-2017 Appointment Appointment [facility] Work Phone: Start: 01-02-2017 End: 01-02-2017 Appointment Appointment [facility] Work Phone: Start: 01-02-2017 End: 01-02-2017 [facility] Work Phone: Start: 01-02-2017 End: 01-02-2017 Follow Up Appt 6 months Follow Up Appt 6 months [facility] Work Phone: Start: 06-19-2016 End: 06-19-2016 [facility] Work Phone: Start: 06-19-2016 End: 06-19-2016 Follow Up Appt 6 months Follow Up Appt 6 months [facility] Work Phone: Start: 02-16-2016 End: 02-16-2016 Electrocardiogram, complete EKG (In office) [facility] Work Phone: Start: 02-16-2016 End: 02-16-2016 Follow Up Appt 4 months Follow Up Appt 4 months [facility] Work Phone: Start: 02-16-2016 End: 02-16-2016 MMM MMM [facility] Work Phone: DXA Bone [Mass/Area] Bone density [facility] Work Phone: MG Breast - bilatera l Screening [facility] Work Phone: Patient Education ED Cystitis Fe male Adult [facility] Work Phone: Patient referral [facility] Work Phone: Thyroid stimulating hormone measurement [facility] Work Phone: Viral nucleic acid assay [facility] Immunizations Immunization Date Immunization Notes Care Provider Fa cility 03-15-2025 Seasonal trivalent influenza vaccine, adjuvanted, preservative free Dr. Blanca Mcdermott MD Work Phone: [facility] 10-31-2020 pneumococcal conjuga te vaccine, [address] Blanca Mcdermott Work Phone: [facility] 10-02-2020 Covid (Moderna) Dr. Radha Mcdermott Work Phone: [facility] 09-01-2020 Covid (Moderna) Dr. Radha Mcdermott Work Phone: [facility] 03-18-2020 influenza, injectabl e, quadrivalent, preservative free [facility] 03-18-2020 influenza, seasonal, injectable Dr. Blanca Mcdermott Work Phone: [facility] Payers Date Payer Category Payer Self-pay [id number] 2019 Medicare [id number] 2016 Unknown [id number] Unknown [id number] 2.16.8 [id number] Unknown [id number] 2.16.8 [id number] Unknown [id number] 2.16.8 [id number] Unknown [id number] 2.16.8 [id number] Unknown [id number] 2.16.8 [id number] Unknown [id number] 2.16.8 [id number] Unknown [id number] 2.16.8 [id number] Unknown [id number] 2.16.8 [id number] Unknown [id number] 2.16.8 [id number] Unknown [id number] 2.16.8 [id number] Unknown [id number] 2.16.8 [id number] Unknown [id number] 2.16.8 [id number] Unknown [id number] 2.16.8 [id number] Unknown [id number] 2.16.8 [id number] Unknown [id number] 2.16.8 [id number] Unknown [id number] 2.16.8 [id number] Social History Date Type Detail Facility Start: 12-20-2021 End: 12-20-2022 Tobacco smoking status NHIS Unknown if ever smoked [facility] Start: 1955 Sex Assigned At Female W [facility] Start: 07-03-2024 Tobacco smoking stat us NHIS Never smoked tobacco (finding) [facility] Start: 09-14-2024 Sex Female (finding) [facility] Sex Female [facility] Clinical Notes 06-29-2024 to 02-02-2025 Note Date & Type Note Facility 02-02-2025 Progress note [facility] 02-02-2025 Evaluation note Diagnosis Onset Date Resolution Essential (primary) hypertension chronic February 02 10:20am Hyperlipidemia chronic January 10:20am Hypothyroidism chronic January 10:20am Paroxysmal atrial fibrillation chronic February 02 10:20am Flu vaccine need acute March 15, 2025 9:53am [facility] Work Phone: 1(739) 403-669805-07-2025 Evaluation note* Diagnosis Onset Date Resolution Status Admit Date Chronic anticoagulation acute M 2024 9:31am Traumatic hematoma of scalp acute October 14, 2024 9:31am Essential (primary) hypertension chr onic October 14, 2024 9:31am Osteoporosis chronic October 14 9:31am Paroxysmal atrial fibrillation chron ic October 14, 2024 9:31am [facility] Work Phone: 1(404) 566-403405-07-2025 Radiology Diagnostic study note [facility] Imaging Services [address], [place] [address] Brain/Head without Contrast MR#: [id number] Acct: [id number] Name: ROSAMARIA PRYOR Rep #: [id number] : 1955 F 69 From: Arlet Baig MD PCP: Dr. Blanca Mcdermott MD Status: R EG CLI Study:Brain/Head without Contrast Date of Exa m: 10/14/24 Exam# [id number] Ordering Dr: Manuel Mcdermott MD PROCEDURE: BRAIN/HEAD WITHOUT CONTRAST, 10/14/2024 REASON FOR EXAM: CHRONIC ANTICOAGULATION, FALL, SCALP HEMATOMA COMPARISON: None TECHNIQUE: CT head was performed without IV contrast. Multiplanar reformats were generated. RADIATION DOSE SUMMARY: CTDlvol: 44.99 mGy DLP: 745.99 mGycm One or more dose reduction techniques were used (e.g., Automated exposure control, adjustment of the mA and/or kV according to patient size, use of iterative reconstruction technique). FINDINGS: Cerebrum: Unremarkable. Cerebellum/brainstem: Unremarkable. Note slight limitation due to beam hardeningartifact. Ventricles/extra-axial spaces: Unremarkable. Paranasal sinuses/mastoid air cells: Unremarkable. Scalp/calvarium: RIGHT parieto-occipital scalp contusion with hematoma measuring2.5 x 1.0 x 0.8 cm. Other: Intracranial atherosclerosis. CT/Brain/Head without Contrast IMPRESSION: 1. Bright parieto-occipital scalp contusion with 2.5 cm scalp hematoma. No visible acute intracranial hemorrhage. 2. Additional description as above. Reading Location: [id number] CC: Dr. 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 [place] [address] / REHABILITATION SERVICES DISCHARGE SUMMARY MR#: [id number] Acct: [id number] Name: ROSAMARIA PRYOR Rep #: [id number] : 1955 69 From: Catracho Robles PT, ATC Referring Dr.: Dr. Blanca Mcdermott MD Status : REG RCR Insurance: MEDICARE PART A B [facility] Discharge Summary D/C summary: It has been my pleasure to treat ROSAMARIA PRYOR referred by Dr. Blanca Mcdermott MD, with the diagnosis of L shoulder pain for a total of 6 visit(s). Discharge Date: Please see the following information for a summary of their discharge status. Subjective Subjective: I am getting better overall Pain L shoulder pain: Pain Intensity (Out of 10): 0 Overall Improvement % Improvement: 60 Objective Objective/Function: L shoulder pain ranges from 0-2/10 L shoulder ROM: flex= 160, abd= 170, ER= 60, IR= WNL compared bilaterally L shoulder MMT: flex= 6, abd= 6, ER= 10, IR= 13 #F Pt is I with HEP Goals Goal 1:: Decrease L shoulder pain x 50% to aid with sleep Goal Progress: Goal Met Goal 2:: Pt will be I with hep in 4 visits Goal Progress: Goal Met Plan Plan: Discharge to [facility] D/C Information d/c sentence: If there are questions or concerns regarding this patient's physical therapy, please feel free to call me at [phone]. Thank you for the referral of thispatient. Sincerely, Catracho Robles PT, ATC Balance/Gait/Functional tests Balance/Special Test Scores Quick DASH Score: 34.0900 Improvement % Improvement: 60 09/14/24 1127 CC: Dr. Blanca Mcdermott MD ~ SM Signed [facility]04-07-2025 Discharge summary Author Catracho Robles [facility] Note Date/Time September 14, 2024 12:1 5pm [facility] Physical [facility] [address] [place] [address] / REHABILITATION SERVICES DISCHARGE SUMMARY MR#: [id number] Acct: [id number] Name: ROSAMARIA PRYOR Rep #: [id number] : 1955 69 From: Catracho Robles PT, ATC Referring Dr.: Dr. Blanca Mcdermott MD Status : REG RCR Insurance: MEDICARE PART A B [facility] Discharge Summary D/C summary: It has been my pleasure to treat ROSAMARIA PRYOR referred by Dr. Blanca Mcdermott MD, with the diagnosis of L shoulder pain for a total of 6 visit(s). Discharge Date: Please see the following information for a summary of their discharge status. Subjective Subjective: I am getting better overall Pain L shoulder pain: Pain Intensity (Out of 10): 0 Overall Improvement % Improvement: 60 Objective Objective/Function: L shoulder pain ranges from 0-2/10 L shoulder ROM: flex= 160, abd= 170, ER= 60, IR= WNL compared bilaterally L shoulder MMT: flex= 6, abd= 6, ER= 10, IR= 13 #F Pt is I with HEP Goals Goal 1:: Decrease L shoulder pain x 50% to aid with sleep Goal Progress: Goal Met Goal 2:: Pt will be I with hep in 4 visits Goal Progress: Goal Met Plan Plan: Discharge to HEP D/C Information d/c sentence: If there are questions or concerns regarding this patient's physical therapy, please feel free to call me at [phone]. Thank you for the referral of thispatient. Sincerely, Catracho Robles, PT, ATC Balance/Gait/Functional tests Balance/Special Test Scores Quick DASH Score: 34.0900 Improvement % Improvement: 60 <Electronically signed by Catracho Robles PT, ATC> 09/14/24 1127 CC: Dr. Blanca Mcdermott MD ~ [facility] Signed [facility] Work Phone: 1(579) 443-868501-20-2025 Evaluation note* Diagnosis Onset Date Resolution Status Admit Date Essential (primary) hypertension chronic June 29 12:46pm Hypothyroidism chronic June 292024 12:46pm Left shoulder pain chronic 2024 12:46pm Paroxysmal atrial fibrillation [facility] ic June 29, 2024 12:46pm Essential (primary) hypertension chronic July 14 10:45am Hyperlipidemia chronic July 142024 10:45am Hypothyroidism chronic July 142024 10:45am Paroxysmal atrial fibrillation [facility] July 14, 2024 10:45am [facility] Work Phone: 1(122) 224-489001-20-2025 Evaluation note* Diagnosis Onset Date Resolution Status Admit Date Essential (primary) hypertension chronic June 29 12:46pm Hypothyroidism chronic June 292024 12:46pm Left shoulder pain chronic 2024 12:46pm Paroxysmal atrial fibrillation [facility] ic June 29, 2024 12:46pm Essential (primary) hypertension chronic July 14 10:45am Hyperlipidemia chronic July 142024 10:45am Hypothyroidism chronic July 142024 10:45am Paroxysmal atrial fibrillation chron ic July 14, 2024 10:45am Chronic anticoagulation acute M 2024 9:31am Traumatic hematoma of scalp acute October 14, 2024 9:31am Essential (primary) hypertension chronic October 14, 2024 9: 31am Osteoporosis chronic October 14 9:31am Paroxysmal atrial fibrillation chron ic October 14, 2024 9:31am [facility] Work Phone: Evaluation note* Diagnosis Onset Date Resolution Status Essential (primary) hypertension chronic Paroxysmal atrial fibrillation chronic Health care maintenance acut e Essential (primary) hypertension chronic Hyperlipidemia chronic Paroxysmal atrial fibrillation chronic Rheumatoid arthritis chronic [facility] Work Phone: Evaluation note* Diagnosis Onset Date Resolution Status Health care maintenance acut e Essential (primary) hypertension chronic Hyperlipidemia chronic Paroxysmal atrial fibrillation chronic Rheumatoid arthritis chronic [facility] Work Phone: Evaluation noteNo assessment information available [facility] Work Phone: Evaluation note* Diagnosis Onset Date Resolution Status Acute maxillary sinusitis no neactive URI (upper respiratory infection) noneactive [facility] Work Phone: Evaluation note* Diagnosis Onset Date Resolution Status Essential (primary) hypertension chronic Paroxysmal atrial fibrillation chronic Encounter for routine gynecological examination noneactive [facility] Work Phone: Progress note Author Blanca Mcdermott [facility] Note Date/Time March 15, 2025 4: 34pm [facility] [address] [place] [address] OFFICE VISIT Date of Service: 03/15/25 MR#: [id number] Acct: [id number] Patient: ROSAMARIA PRYOR Rep #: [id number] : 1955 Provider: HUI Jackson Age/Sex: 69/F [place] [facility] [place] Status: Signed Intake Vital Signs 02/02/25 10:32 Height 5 ft 3 in Weight: 183 lb BMI 32.4 BP 137/79 H Blood Pressure Location Lt brachial Position Sitting Respiration 16 Pulse 66 Pulse Source Monitor Intake Visit Reasons: FLU SHOT Chief Complaint: Discussed bone density scan. Fall Allergies janell Allergy (Verified 02/02/25 10:39) Rash Penicillins Allergy (Verified 02/02/25 10:39) Rash Have you fallen in the past year?: No Immunizations Fluad 65yr up(PF)45 mcg(15 mcgx3)/0.5 mL intramuscular syringe Performing Provider: Blanca Mcdermott MD Performing Location: [facility] Administered by: Violetta Kebede on 03/15/25 10:20 Dose Route Admin Location Dispensed Lot Number Expiration Date Pack age NDC NDC Relationship Banker 45 mcg IM Left Deltoid 0.5 mL [id number] 10/05/25 19952-861-49 [id number] Work4. VIS Given Date VIS Provided VIS Publication Date 03/15/25 Single Vaccine 24 Eligibility Eligibility Date Funding Source Not Applicable Assessment and Plan Assessment and Plan (1) Flu vaccine need: Status: Acute Orders: Orders Influenza Immunization Today Z23 - Encounter for immunization Clinical Quality Measures Falls Risk Screening/Assistive Devices Have you fallen in the past year?: No 03/15/25 1634 <Electronically signed by Blanca keane MD> Date _ Blanca Mcdermott MD Cosigner Signature: Date (if applicable) CC: ~ [facility] Work Phone: Reason for referral (narrative)No reason for referral information availableW[facility] Work Phone: Summary Purpose Family History No Family History Records Found Relationship Condition Age at Onset Recorded Date/T preeti father Macular degeneration Unknown Cardiac disease Unknown Hypertension Unknown mother Cerebrovascular accident (CVA) Unknown Disorder of thyroid Unknown brother Cardiac disease Unknown Advance Directives No Advanced Directives Records Found Advance Directive Response Recorded Date/ Time Advance Directives Yes July 09, 2018 2:55pm Living Will Yes July 09 2:55pm Power of Act Tutor Yes July 09, 2018 2:55pm Advance Directive Response Recorded Date/ Time Advance Directives Yes July 09, 2018 1:55pm Living Will Yes July 09 1:55pm Power of Act Tutor Yes July 09, 2018 1:55pm Advance Directive Response Recorded Date/ Time Living Will Yes July 09 2:55pm Do you have a Healthcare Power of Act Tutor? Yes July 09, 2018 2:55pm Living Will No July 03 11:20am Do you have a Healthcare Power of Act Tutor? No July 03, 2024 11:20am Advance Directives Yes July 09, 2018 2:55pm Advance Directive Response Recorded Date/ Time Advance Directives Yes July 09, 2018 2:55pm Chief Complaint and Reason for Visit Chief Complaint 1 Y FU EORDER 1 Y FU Reason for Visit Essential (primary) hypertension Paroxysmal atrial fibrillation Health care maintenance Essential (primary) hypertension Hyperlipidemia Paroxysmal atrial fibrillation Rheumatoid arthritis Chief Complaint EORDER 1 Y FU Reason for Visit Health care maintena nce Essential (primary) hypertension Hyperlipidemia Paroxysmal atrial fibrillation Rheumatoid arthritis Chief Complaint PAIN- COPY PCP OSTEOPOROSIS, SCREENING Chief Complaint PAIN- COPY PCP OSTEOPOROSIS, SCREENING cough & congestion PAIN- COPY PCP Reason for Visit Acute maxillary sinu sitis URI (upper respiratory infection) Chief Complaint PAIN- COPY PCP POS HOME COV 1 y 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- COPY PCP Reason for Visit Essential (primary) hypertension Paroxysmal atrial fibrillation Encounter for routine gynecological examination Chief Complaint EORDER- Sharron KIRAN- PAIN- COPY PCP Chief Complaint PAIN- COPY PCP Chief Complaint PAIN- COPY PCP SCREENING Chief Complaint Admit Date 6 M FU June 29, 2024 1 2:46pm Left Shoulder Pain June 29, 2024 2 :10pm gu c/o July 03, 2024 1 0:12am 6 M FU July 14, 2024 1 0:45am OSTEO July 21, 2024 10:20am 2 ORDERING DRS July 23, 2024 12:53pm L SHOULDER RX HERE September 14, 2024 11:0 0am Reason for Visit Admit Date Essential (primary) hypertension June 29, 2024 12:46pm Hypothyroidism June 29, 2024 1 2:46pm Left shoulder pain June 29, 2024 1 2:46pm Paroxysmal atrial fibrillation June 112024 12:46pm Essential (primary) hypertension 2024 10:45am Hyperlipidemia July 14, 2024 1 0:45am Hypothyroidism July 14, 2024 1 0:45am Paroxysmal atrial fibrillation July 14, 2024 10:45am Chief Complaint Admit Date 6 M FU June 29, 2024 1 2:46pm Left Shoulder Pain June 29, 2024 2 :10pm gu c/o July 03, 2024 1 0:12am 6 M FU July 14, 2024 1 0:45am OSTEO July 21, 2024 10:20am 2 ORDERING DRS July 23, 2024 12:53pm L SHOULDER RX HERE September 14, 2024 11:0 0am 3 M FU October 14, 2024 9:31am Chronic anticoagulation, Fall, Scalp Hem atoma October 14, 2024 10:24am Reason for Visit Admit Date Essential (primary) hypertension June 29, 2024 12:46pm Hypothyroidism June 29, 2024 1 2:46pm Left shoulder pain June 29, 2024 1 2:46pm Paroxysmal atrial fibrillation June 112024 12:46pm Essential (primary) hypertension 2024 10:45am Hyperlipidemia July 14, 2024 1 0:45am Hypothyroidism July 14, 2024 1 0:45am Paroxysmal atrial fibrillation July 14, 2024 10:45am Chronic anticoagulation October 14, 2024 9: 31am Traumatic hematoma of scalp October 14 9:31am Essential (primary) hypertension October 9:31am Osteoporosis October 14, 2024 9:31am Paroxysmal atrial fibrillation October 14, 2024 9:31am Chief Complaint Admit Date 3 M FU October 14, 2024 9:31am Chronic anticoagulation, Fall, Scalp Hem atoma October 14, 2024 10:24am PAIN- COPY PCP January 18, 2025 11 :36am Reason for Visit Admit Date Chronic anticoagulation October 14, 2024 9: 31am Traumatic hematoma of scalp October 14 9:31am Essential (primary) hypertension October 9:31am Osteoporosis October 14, 2024 9:31am Paroxysmal atrial fibrillation October 14, 2024 9:31am Chief Complaint Admit Date 3 M FU October 14, 2024 9:31am Chronic anticoagulation, Fall, Scalp Hem atoma October 14, 2024 10:24am PAIN- COPY PCP January 18, 2025 11 :36am 6 M FU February 02, 2025 10 :20am Chief Complaint Admit Date PAIN- COPY PCP January 18, 2025 11 :36am 6 M FU February 02, 2025 10 :20am FLU SHOT March 15, 2025 9: 53am Reason for Visit Admit Date Essential (primary) hypertension February 02, 2025 10:20am Hyperlipidemia February 02, 2025 10 :20am Hypothyroidism February 02, 2025 10 :20am Paroxysmal atrial fibrillation February 022024 10:20am Flu vaccine need March 15, 2025 9: 53am Additional Source Comments INFORMATION SOURCE (unrecogn ized section and content) DATE CREATED AUTHOR 12/03/2017 [facility] DATE CREATED AUTHOR AUTHOR'S ORGANIZ ATION 03/27/2025 [facility] Goals (unrecognized section and content) Goals may be documented in a n alternate sectionGoals may be documented in an alternate sectionGoals may be documented in an alternate sectionGoals may be documented in an alternate sectionGoals may be documented in an alternate sectionGoals may be documented in an alternate sectionGoals may be documented in an alternate sectionGoals may be documented in an alternate sectionGoals may be documented in an alternate sectionGoals may be documented in an alternate sectionGoals may be documented in an alternate sectionGoals may be documented in an alternate sectionGoals may be documented in an alternate sectionGoals may be documented in an alternate section Care Teams (unrecognized sec tion and content) Team Status: Active Member Role Status Dates Dr. Blanca Mcdermott MD Family Provider Active Dr. Blanca Mcdermott MD Primary Care Provider Active Team Status: Inactive Member Role Status Dates Dr. Blanca Mcdermott MD Primary Care Provider, Refer ring Provider Active Andrea He CRYPTOGRAPHIC MACHINE OPERATOR, CRYPTOGRAPHIC MACHINE OPERATOR-C Attending Provider Active Team Status: Inactive Member Role Status Dates Dr. Blanca Mcdermott MD Primary Care P rovider, Attending Provider, Referring Provider Active Team Status: Inactive Member Role Status Dates Dr. Blanca Mcdermott MD Primary Care Provider Active Dr. Patience Kiran MD Attending Provider, Referring Provider Active Team Status: Inactive Member Role Status Dates Dr. Blanca Mcdermott MD Primary Care Provider, Refer ring Provider Active Dr. Nirmala Culp MD Attending Provider Active Team Status: Inactive Member Role Status Dates Dr. Blanca Mcdermott MD Primary Care Provider, Refer ring Provider Active Dr. Per Gregorio MD Attending Provider Active Team Status: Inactive Member Role Status Dates Dr. Balnca Mcdermott MD Primary Care Provider, Refer ring Provider Active Corey ARAYA, PA Attending Provider Active Team Status: Inactive Member Role Status Dates Dr. Blanca Mcdermott MD Primary Care P rovider, Attending Provider, Referring Provider Active Dr. Patience Kiran MD Other Provider Active Team Status: Inactive Member Role Status Dates Dr. Blanca Mcdermott MD Primary Care Provider Active Dr. Nirmala Culp MD Attending Provider, Referr ing Provider Active Team Status: Active Member Role Status Dates Dr. Blanca Mcdermott MD Primary Care Provider Active Team Status: Inactive Member Role Status Dates Dr. Blanca Mcdermott MD Primary Care Provider Active Start: June 29, 2024 End: June 29, 2024 Dr. Blanca Mcdermott MD Attending Provider Active Start: June 29, 2024 End: June 29, 2024 Dr. Blanca Mcdermott MD Referring Provider Active Start: June 29, 2024 End: June 29, 2024 Team Status: Inactive Member Role Status Dates Dr. Blanca Mcdermott MD Primary Care Provider Active Start: July 02, 2024 End: July 02, 2024 Dr. Blanca Mcdermott MD Attending Provider Active Start: July 02, 2024 End: July 02, 2024 Dr. Blanca Mcdermott MD Referring Provider Active Start: July 02, 2024 End: July 02, 2024 Team Status: Inactive Member Role Status Dates Dr. Blanca Mcdermott MD Primary Care Provider Active Start: July 03, 2024 End: July 03, 2024 Dr. Michael Britton DO Attending Provider Active Start: July 03, 2024 End: July 03, 2024 Dr. Michael Britton DO Emergency Provider Active Start: July 03, 2024 End: July 03, 2024 Team Status: Inactive Member Role Status Dates Dr. Blanca Mcdermott MD Primary Care Provider Active Start: July 14, 2024 End: July 14, 2024 Dr. Blanca Mcdermott MD Referring Provider Active Start: July 14, 2024 End: July 14, 2024 Dr. Per Gregorio MD Attending Provider Active S tart: July 14, 2024 End: July 14, 2024 Team Status: Inactive Member Role Status Dates Dr. Blanca Mcdermott MD Primary Care Provider Active Start: July 17, 2024 End: July 17, 2024 Dr. Blanca Mcdermott MD Attending Provider Active Start: July 17, 2024 End: July 17, 2024 Dr. Blanca Mcdermott MD Referring Provider Active Start: July 17, 2024 End: July 17, 2024 Team Status: Inactive Member Role Status Dates Dr. Blanca Mcdermott MD Primary Care Provider Active Start: July 21, 2024 End: July 21, 2024 Dr. Blanca Mcdermott MD Attending Provider Active Start: July 21, 2024 End: July 21, 2024 Dr. Blanca Mcdermott MD Referring Provider Active Start: July 21, 2024 End: July 21, 2024 Team Status: Inactive Member Role Status Dates Dr. Blanca Mcdermott MD Primary Care Provider Active Start: July 23, 2024 End: July 23, 2024 Dr. Patience Kiran MD Attending Provider Active Start: July 23, 2024 End: July 23, 2024 Dr. Patience Kiran MD Referring Provider Active Start: July 23, 2024 End: July 23, 2024 Team Status: Inactive Member Role Status Dates Dr. Blanca Mcdermott MD Primary Care Provider Active Start: September 14, 2024 End: September 14, 2024 Dr. Blanca Mcdermott MD Attending Provider Active Start: September 14, 2024 End: September 14, 2024 Dr. Blanca Mcdermott MD Referring Provider Active Start: September 14, 2024 End: September 14, 2024 Team Status: Inactive Member Role Status Dates Dr. Blanca Mcdermott MD Primary Care Provider Active Start: October 14, 2024 End: October 14, 2024 Dr. Blanca Mcdermott MD Attending Provider Active Start: October 14, 2024 End: October 14, 2024 Dr. Blanca Mcdermott MD Referring Provider Active Start: October 14, 2024 End: October 14, 2024 Team Status: Active Member Role Status Dates Dr. Blanca Mcdermott MD Primary Care Provider Active Start: October 16, 2024 Dr. Patience Kiran MD Attending Provider Active Start: October 16, 2024 Dr. Patience Kiran MD Referring Provider Active Start: October 16, 2024 Team Status: Inactive Member Role Status Dates Dr. Blanca Mcdermott MD Primary Care Provider Active Start: October 16, 2024 End: October 16, 2024 Dr. Patience Kiran MD Attending Provider Active Start: October 16, 2024 End: October 16, 2024 Dr. Patience Kiran MD Referring Provider Active Start: October 16, 2024 End: October 16, 2024 Team Status: Active Member Role/Relationship Status Dates Dr. Blanca Mcdermott MD Primary Care Provider Active Team Status: Inactive Member Role/Relationship Status Dates Dr. Blanca Mcdermott MD Primary Care Provider Active Start: October 14, 2024 End: October 14, 2024 Dr. Blanca Mcdermott MD Attending Provider Active Start: October 14, 2024 End: October 14, 2024 Dr. Blanca Mcdermott MD Referring Provider Active Start: October 14, 2024 End: October 14, 2024 Team Status: Inactive Member Role/Relationship Status Dates Dr. Blanca Mcdermott MD Primary Care Provider Active Start: October 14, 2024 End: October 14, 2024 Dr. Blanca Mcdermott MD Attending Provider Active Start: October 14, 2024 End: October 14, 2024 Dr. Blanca Mcdermott MD Referring Provider Active Start: October 14, 2024 End: October 14, 2024 Team Status: Inactive Member Role/Relationship Status Dates Dr. Blanca Mcdermott MD Primary Care Provider Active Start: October 16, 2024 End: October 16, 2024 Dr. Patience Kiran MD Attending Provider Active Start: October 16, 2024 End: October 16, 2024 Dr. Patience Kiran MD Referring Provider Active Start: October 16, 2024 End: October 16, 2024 Team Status: Inactive Member Role/Relationship Status Dates Dr. Blanca Mcdermott MD Primary Care Provider Active Start: January 18, 2025 End: January 18, 2025 Dr. Patience Kiran MD Attending Provider Active Start: January 18, 2025 End: January 18, 2025 Dr. Patience Kiran MD Referring Provider Active Start: January 18, 2025 End: January 18, 2025 Team Status: Inactive Member Role/Relationship Status Dates Dr. Blanca Mcdermott MD Primary Care Provider Active Start: February 02, 2025 End: February 02, 2025 Dr. Blanca Mcdermott MD Referring Provider Active Start: February 02, 2025 End: February 02, 2025 Dr. Per Gregorio MD Attending Provider Active S tart: February 02, 2025 End: February 02, 2025 Team Status: Active Member Role/Relationship Status Dates Dr. Blanca Mcdermott MD Primary care physician Activ e Team Status: Inactive Member Role/Relationship Status Dates Dr. Blanca Mcdermott MD Primary care physician Activ e Start: January 18, 2025 End: January 18, 2025 Dr. Patience Kiran MD Attending physician Active Start: January 18, 2025 End: January 18, 2025 Dr. Patience Kiran MD Referring Provider Active Start: January 18, 2025 End: January 18, 2025 Team Status: Inactive Member Role/Relationship Status Dates Dr. Blanca Mcdermott MD Primary care physician Activ e Start: February 02, 2025 End: February 02, 2025 Dr. Blanca Mcdermott MD Referring Provider Active Start: February 02, 2025 End: February 02, 2025 Dr. Per Gregorio MD Attending physician Active Start: February 02, 2025 End: February 02, 2025 Team Status: Inactive Member Role/Relationship Status Dates Dr. Blanca Mcdermott MD Primary care physician Activ e Start: March 15, 2025 End: March 15, 2025 Dr. Blanca Mcdermott MD Referring Provider Active Start: March 15, 2025 End: March 15, 2025 BIM NURSE Attending physician Active Start: O [id number] End: March 15, 2025 FOR RECORDS PERTAINING TO PATIENTS WHO ARE OR HAVE BEEN ENROLLED IN A CHEMICAL DEPENDENCY/SUBSTANCEABUSE PROGRAM, SOME INFORMATION MAY BE OMITTED. This clinical summary was aggregated from multiple sources. Caution should be exercised in using it in the provision of clinical care. This summary normalizes information from multiple sources, and as a consequence, information in this document may materially change the coding, format and clinical context of patient data. In addition, data may be omitted in some cases. CLINICAL DECISIONS SHOULD BE BASED ON THE PRIMARY CLINICAL RECORDS. [facility], [facility]. provides no warranty or guarantee of the accuracy or completeness of information in this document.
[2025-04-23 15:05] LABS: Hematocrit 40.9 % (37-47); Hemoglobin 13.4 g/dL (12.0-15.0); Immature Granulocytes Count 0.020 X10^3/uL (0.0-0.0); Mean Corp Hgb Conc 32.8 g/dL (32-36); Mean Corpuscular Volume 93.0 fL (81-99); Mean Platelet Vol. 12.5 fl (6.2-12.0); NRBC Flagged by Analyzer 0 % (0-5); Platelet Count 222 K/mm3 (150-450); RBC Distribution Width CV 13.2 % (11.6-14.6); RBC Distribution Width SD 45.1 fl (35.1-43.9); Red Blood Count 4.40 M/mm3 (4.2-5.4); White Blood Count 7.0 K/mm3 (4.4-11.0)
[2025-04-23 15:43] LABS: AST(SGOT) 19 U/L (<=31); Alanine Aminotransfer ALT/SGPT 14 U/L (<=34); Albumin, Serum 4.2 g/dL (3.4-4.8); Alkaline Phosphatase 61 U/L (35-104); Anion Gap 11 (5-15); BUN 11 mg/dL (4-19); BUN/Creat Ratio 13.5 RATIO (10-20); Calcium,Total 10.0 mg/dL (7.6-11.0); Carbon Dioxide 28.6 mmol/L (21.0-32.0); Chloride 99 mmol/L (98-108); Globulin 2.5 g/dL (2.2-4.2); Glucose 88 mg/dL (70-99); Potassium 4.1 mmol/L (3.3-5.1)
== END | disposition home or self-care (01) ==
LOC: MTLAB 12:43
PROVIDERS: PCP Internal Medicine; Referring Provider Internal Medicine Rheumatology; Visit Provider Internal Medicine Rheumatology
DX: M05.70 Rheumatoid arthritis with rheumatoid factor of unspecified site without organ or systems involvement (principal); Z79.899 Other long term (current) drug therapy
CPT/HCPCS: 36415; 80053; 85025